=== PATIENT | male | born 1960 | race Caucasian/White ===

== ENCOUNTER 2017-09-03 10:16 | Inpatient (IN) | payer OTHER ==
[2017-09-03 10:34] LABS: POC GLUCOSE 259 mg/dL (70-99)
[2017-09-03 10:51] LABS: BASO % 0 % (0-3); EOS # 0.1 x10^3/uL (0.0-0.7); EOS % 1 % (0-3); HEMOGLOBIN 14.9 g/dL (13.0-17.5); LYMPH # 0.7 x10^3/uL (1.0-4.8); LYMPH % 6 % (24-48); MEAN CORPUSCULAR HEMOGLOBIN 37 pg (25-35); MEAN CORPUSCULAR HGB CONC 35 g/dL (31-37); MEAN CORPUSCULAR VOLUME 106 fL (79-100); MONO # 0.3 x10^3/uL (0.0-1.1); MONO % 3 % (0-9); NEUT # 12.2 x10^3uL (1.8-7.7); NEUT % 91 % (31-73); PLATELET COUNT 246 x10^3/uL (140-400); RED BLOOD COUNT 4.07 x10^6/uL (4.30-5.70); RED CELL DISTRIBUTION WIDTH 13.4 % (11.5-14.5); WHITE BLOOD COUNT 13.4 x10^3/uL (4.0-11.0)
[2017-09-03 10:54] LABS: ADD MAN DIFF? yes
[2017-09-03] MEDS: ONDANSETRON ODT 4 MG TAB.RAPDIS. PO (11:00)
[2017-09-03] MEDS ORDERED: ONDANSETRON PF 4 MG/2 ML VIAL. (11:02)
[2017-09-03] MEDS: IV NORMAL SALINE 500ML BAG 500 ML IV (11:09)
[2017-09-03] MEDS: NITROGLYCERIN SUBLINGUAL 0.4 MG BOTTLE OF 25. SL ×2 (11:10→11:17)
[2017-09-03 11:12] LABS: ANION GAP 17 (6-14); BLOOD UREA NITROGEN 16 mg/dL (8-26); CARBON DIOXIDE 20 mmol/L (21-32); CHLORIDE 104 mmol/L (98-107); CREATININE 1.1 mg/dL (0.7-1.3); GFR 68.8; GLUCOSE 261 mg/dL (70-99); POTASSIUM 3.8 mmol/L (3.5-5.1); SODIUM 141 mmol/L (136-145)
[2017-09-03 11:13] LABS: INR 1.1 (0.8-1.1); PARTIAL THROMBOPLASTIN TIME 23 SEC (24-38); PROTHROMBIN TIME PATIENT 13.8 SEC (11.7-14.0)
[2017-09-03] MEDS: ONDANSETRON PF 4 MG/2 ML VIAL. IV ×2 (11:14→17:56)
[2017-09-03 11:19] LABS: ALBUMIN 3.4 g/dL (3.4-5.0); ALK PHOS 160 U/L (46-116); ALT (SGPT) 115 U/L (16-63); AST (SGOT) 52 U/L (15-37); DIRECT BILIRUBIN 0.3 mg/dL (0.0-0.2); TOTAL BILIRUBIN 0.8 mg/dL (0.2-1.0); TOTAL PROTEIN 6.6 g/dL (6.4-8.2)
[2017-09-03 11:21] LABS: TROPONINI 0.019 ng/mL (0.000-0.055)
[2017-09-03 11:25] LABS: NT-PRO BNP 389 pg/mL (0-124)
[2017-09-03 11:36] LABS: LIPASE 3539 U/L (73-393)
[2017-09-03] MEDS ORDERED: ONDANSETRON PF 4 MG/2 ML VIAL. IV (12:15)
[2017-09-03] MEDS: IV NORMAL SALINE 1000ML BAG 1,000 ML IV ×4 (12:20→20:36)
[2017-09-03] MEDS: fentaNYL PF VIAL 100 MCG/2 ML VIAL IV ×6 (12:23→20:00)
[2017-09-03 12:24] LABS: LACTATE DEHYDROGENASE 282 U/L (85-227)
[2017-09-03] MEDS: LABETALOL 20 MG/4 ML DISP.SYRIN. IVP ×3 (12:48→20:01)
[2017-09-03] MEDS ORDERED: CONTRAST GIVEN MC (13:00)
[2017-09-03] MEDS: IOHEXOL 300 MG/ML 100ML VIAL. IV (13:21)
[2017-09-03] MEDS: MORPHINE SULFATE 2 MG/ML DISP.SYRIN. IV (13:34)
[2017-09-03 14:08] LABS: % BANDS 18 % (0-9); % LYMPHS 6 % (24-48); % MONOS 1 % (0-10); % SEGS 75 % (35-66); PLT ESTIMATE ADEQUATE (ADEQUATE)
[2017-09-03] MEDS ORDERED: DEXTROSE 50% 25 GM / 50ML DISP.SYRIN. IV (14:15)
[2017-09-03] MEDS: MORPHINE SULFATE 4 MG/ML DISP.SYRIN. IV ×3 (15:12→22:43)
[2017-09-03] MEDS: MULTIVIT INFUSN,ADULT 4,VIT K 10 ML, THIAMINE 100 MG, FOLIC ACID 1 MG in IV DEXTROSE 5 ... IV (15:44)
[2017-09-03] MEDS: SPIRONOLACTONE 25 MG TABLET PO (16:00)
[2017-09-03] MEDS: METOPROLOL SUCC 24HR ER 25 MG TAB.ER.24H. PO (16:00)
[2017-09-03] MEDS: LISINOPRIL 2.5 MG TABLET PO (16:00)
[2017-09-03] MEDS: AMIODARONE HCL 200 MG TABLET. PO (16:00)
[2017-09-03] MEDS: INSULIN ASPART 300 UNITS/3 ML INSULN.PEN SQ (17:18)
[2017-09-03 17:27] LABS: POC GLUCOSE 305 mg/dL (70-99)
[2017-09-03 20:10] LABS: HEMOGLOBIN A1C 6.7 % (4.8-5.6)
[2017-09-03] MEDS: FAMOTIDINE 20 MG/2 ML VIAL IVP (20:30)
[2017-09-03] MEDS: INSULIN DETEMIR 300 UNITS/3 ML INSULN.PEN. SQ (20:31)
[2017-09-03 20:42] LABS: POC GLUCOSE 261 mg/dL (70-99)
[2017-09-04 00:10] LABS: MRSA BY PCR Negative (Negative)
[2017-09-04] MEDS: ONDANSETRON PF 4 MG/2 ML VIAL. IV ×3 (00:30→21:42)
[2017-09-04] MEDS: LABETALOL 20 MG/4 ML DISP.SYRIN. IVP ×3 (00:30→06:06)
[2017-09-04] MEDS: MORPHINE SULFATE 4 MG/ML DISP.SYRIN. IV ×11 (01:16→23:21)
[2017-09-04 03:47] LABS: ADD MAN DIFF? NO
[2017-09-04 03:51] LABS: BASO # 0.1 x10^3/uL (0.0-0.2); BASO % 1 % (0-3); EOS # 0.1 x10^3/uL (0.0-0.7); EOS % 0 % (0-3); HEMOGLOBIN 14.1 g/dL (13.0-17.5); LYMPH # 0.4 x10^3/uL (1.0-4.8); LYMPH % 3 % (24-48); MEAN CORPUSCULAR HEMOGLOBIN 37 pg (25-35); MEAN CORPUSCULAR HGB CONC 35 g/dL (31-37); MEAN CORPUSCULAR VOLUME 106 fL (79-100); MONO # 0.3 x10^3/uL (0.0-1.1); MONO % 3 % (0-9); NEUT # 11.9 x10^3uL (1.8-7.7); NEUT % 93 % (31-73); PLATELET COUNT 193 x10^3/uL (140-400); RED BLOOD COUNT 3.78 x10^6/uL (4.30-5.70); RED CELL DISTRIBUTION WIDTH 13.7 % (11.5-14.5); WHITE BLOOD COUNT 12.7 x10^3/uL (4.0-11.0)
[2017-09-04 04:11] LABS: ANION GAP 9 (6-14); BLOOD UREA NITROGEN 13 mg/dL (8-26); CALCIUM 7.6 mg/dL (8.5-10.1); CARBON DIOXIDE 25 mmol/L (21-32); CHLORIDE 106 mmol/L (98-107); GFR 76.7; GLUCOSE 213 mg/dL (70-99); POTASSIUM 3.9 mmol/L (3.5-5.1); SODIUM 140 mmol/L (136-145)
[2017-09-04 04:36] LABS: LIPASE 3009 U/L (73-393)
[2017-09-04] MEDS: IV NORMAL SALINE 1000ML BAG 1,000 ML IV (04:36)
[2017-09-04] MEDS: INSULIN ASPART 300 UNITS/3 ML INSULN.PEN SQ ×3 (08:00→17:54)
[2017-09-04 08:23] LABS: POC GLUCOSE 162 mg/dL (70-99)
[2017-09-04] MEDS: fentaNYL PF VIAL 100 MCG/2 ML VIAL IV (09:03)
[2017-09-04] MEDS: FAMOTIDINE 20 MG/2 ML VIAL IVP ×2 (09:04→21:18)
[2017-09-04] MEDS: LISINOPRIL 2.5 MG TABLET PO (09:04)
[2017-09-04] MEDS: AMIODARONE HCL 200 MG TABLET. PO (09:04)
[2017-09-04] MEDS: SPIRONOLACTONE 25 MG TABLET PO (09:05)
[2017-09-04] MEDS: METOPROLOL SUCC 24HR ER 25 MG TAB.ER.24H. PO (09:05)
[2017-09-04] MEDS: MULTIVIT INFUSN,ADULT 4,VIT K 10 ML, THIAMINE 100 MG, FOLIC ACID 1 MG in IV DEXTROSE 5 ... IV (09:05)
[2017-09-04 13:00] LABS: POC GLUCOSE 197 mg/dL (70-99)
[2017-09-04] MEDS: LISINOPRIL 5 MG TABLET. PO (17:15)
[2017-09-04 17:23] LABS: POC GLUCOSE 208 mg/dL (70-99)
[2017-09-04] MEDS ORDERED: MULTIVIT INFUSN,ADULT 4,VIT K 10 ML, THIAMINE 100 MG, FOLIC ACID 1 MG in IV DEXTROSE 5 ... IV (20:15)
[2017-09-04 21:59] LABS: POC GLUCOSE 170 mg/dL (70-99)
[2017-09-04] MEDS: INSULIN DETEMIR 300 UNITS/3 ML INSULN.PEN. SQ (22:22)
[2017-09-05] MEDS: MORPHINE SULFATE 4 MG/ML DISP.SYRIN. IV ×7 (01:19→17:26)
[2017-09-05] MEDS: fentaNYL PF VIAL 100 MCG/2 ML VIAL IV ×2 (02:53→19:56)
[2017-09-05] MEDS: LISINOPRIL 5 MG TABLET. PO (05:43)
[2017-09-05 06:52] LABS: ADD MAN DIFF? NO
[2017-09-05 06:58] LABS: BASO # 0.1 x10^3/uL (0.0-0.2); BASO % 1 % (0-3); EOS # 0.1 x10^3/uL (0.0-0.7); EOS % 1 % (0-3); HEMOGLOBIN 13.8 g/dL (13.0-17.5); LYMPH # 0.5 x10^3/uL (1.0-4.8); LYMPH % 4 % (24-48); MEAN CORPUSCULAR HEMOGLOBIN 37 pg (25-35); MEAN CORPUSCULAR HGB CONC 34 g/dL (31-37); MEAN CORPUSCULAR VOLUME 107 fL (79-100); MONO # 0.3 x10^3/uL (0.0-1.1); MONO % 2 % (0-9); NEUT # 10.8 x10^3uL (1.8-7.7); NEUT % 93 % (31-73); PLATELET COUNT 149 x10^3/uL (140-400); RED BLOOD COUNT 3.75 x10^6/uL (4.30-5.70); RED CELL DISTRIBUTION WIDTH 13.6 % (11.5-14.5); WHITE BLOOD COUNT 11.7 x10^3/uL (4.0-11.0)
[2017-09-05 07:18] LABS: ALBUMIN 2.6 g/dL (3.4-5.0); ALBUMIN/GLOBULIN RATIO 0.8 (1.0-1.7); ALK PHOS 202 U/L (46-116); ALT (SGPT) 150 U/L (16-63); ANION GAP 4 (6-14); AST (SGOT) 113 U/L (15-37); BLOOD UREA NITROGEN 9 mg/dL (8-26); BUN/CREATININE RATIO 10 (6-20); CALCIUM 7.2 mg/dL (8.5-10.1); CARBON DIOXIDE 29 mmol/L (21-32); CHLORIDE 109 mmol/L (98-107); CHOLESTEROL 111 mg/dL (0-200); CREATININE 0.9 mg/dL (0.7-1.3); GFR 86.7; GLUCOSE 109 mg/dL (70-99); HDLC 43 mg/dL (40-60); LDLC 57 mg/dL (0-100); LIPASE 357 U/L (73-393); NON-HDL CHOLESTEROL 68 mg/dL (0-129); SODIUM 142 mmol/L (136-145); TOTAL BILIRUBIN 0.9 mg/dL (0.2-1.0); TRIGLYCERIDES 56 mg/dL (0-150); VLDLC 11 mg/dL (0-40)
[2017-09-05 07:19] LABS: CHOLESTEROL/HDL RATIO 2.6
[2017-09-05] MEDS: INSULIN ASPART 300 UNITS/3 ML INSULN.PEN SQ ×3 (08:00→17:00)
[2017-09-05] MEDS: LORazepam 0.5 MG TABLET PO ×2 (08:26→17:25)
[2017-09-05] MEDS: SPIRONOLACTONE 25 MG TABLET PO (08:27)
[2017-09-05] MEDS: METOPROLOL SUCC 24HR ER 25 MG TAB.ER.24H. PO (08:27)
[2017-09-05] MEDS: AMIODARONE HCL 200 MG TABLET. PO (08:29)
[2017-09-05 08:31] LABS: POC GLUCOSE 91 mg/dL (70-99)
[2017-09-05] MEDS: FAMOTIDINE 20 MG/2 ML VIAL IVP ×2 (08:38→20:39)
[2017-09-05] MEDS: MULTIVIT INFUSN,ADULT 4,VIT K 10 ML, THIAMINE 100 MG, FOLIC ACID 1 MG in IV DEXTROSE 5 ... IV (11:35)
[2017-09-05 11:38] LABS: POC GLUCOSE 84 mg/dL (70-99)
[2017-09-05] MEDS: ONDANSETRON PF 4 MG/2 ML VIAL. IV (15:01)
[2017-09-05 17:19] LABS: POC GLUCOSE 116 mg/dL (70-99)
[2017-09-05] MEDS: ASPIRIN ENTERIC COATED 81 MG TABLET.DR. PO (17:25)
[2017-09-05] MEDS: LISINOPRIL 20 MG TABLET PO (17:25)
[2017-09-05 17:36] LABS: BILIRUBIN,URINE MODERATE (NEG); CLARITY,URINE CLEAR; COLOR,URINE ORANGE; GLUCOSE,URINE NEGATIVE (NEG); NITRITE,URINE NEGATIVE (NEG); PROTEIN,URINE 100 mg/dL (NEG-TRACE)
[2017-09-05 17:46] LABS: BACTERIA,URINE 0 /HPF (0-FEW); RBC,URINE 0 /HPF (0-2); SQUAMOUS EPITHELIAL CELL,UR OCC /LPF
[2017-09-05 20:47] LABS: POC GLUCOSE 116 mg/dL (70-99)
[2017-09-05] MEDS: INSULIN DETEMIR 300 UNITS/3 ML INSULN.PEN. SQ (21:00)
[2017-09-05] MEDS: HYDROmorphone 2 MG/ML VIAL IV (22:11)
[2017-09-06] MEDS: HYDROmorphone 2 MG/ML VIAL IV ×6 (02:03→20:11)
[2017-09-06] MEDS: hydrALAZINE 20 MG/ML VIAL. IVP ×2 (03:47→11:15)
[2017-09-06 05:14] LABS: ADD MAN DIFF? NO
[2017-09-06] MEDS: LISINOPRIL 20 MG TABLET PO ×2 (05:22→16:39)
[2017-09-06 05:32] LABS: BASO # 0.1 x10^3/uL (0.0-0.2); BASO % 1 % (0-3); EOS % 0 % (0-3); HEMATOCRIT 38.1 % (39.0-53.0); HEMOGLOBIN 13.3 g/dL (13.0-17.5); LYMPH # 0.9 x10^3/uL (1.0-4.8); LYMPH % 8 % (24-48); MEAN CORPUSCULAR HEMOGLOBIN 37 pg (25-35); MEAN CORPUSCULAR HGB CONC 35 g/dL (31-37); MEAN CORPUSCULAR VOLUME 106 fL (79-100); MONO # 0.4 x10^3/uL (0.0-1.1); MONO % 4 % (0-9); NEUT # 9.5 x10^3uL (1.8-7.7); NEUT % 87 % (31-73); PLATELET COUNT 140 x10^3/uL (140-400); RED BLOOD COUNT 3.59 x10^6/uL (4.30-5.70); RED CELL DISTRIBUTION WIDTH 13.3 % (11.5-14.5); WHITE BLOOD COUNT 10.9 x10^3/uL (4.0-11.0)
[2017-09-06 05:51] LABS: ALBUMIN 2.5 g/dL (3.4-5.0); ALBUMIN/GLOBULIN RATIO 0.8 (1.0-1.7); ALK PHOS 176 U/L (46-116); ALT (SGPT) 103 U/L (16-63); ANION GAP 9 (6-14); AST (SGOT) 44 U/L (15-37); BLOOD UREA NITROGEN 10 mg/dL (8-26); BUN/CREATININE RATIO 13 (6-20); CALCIUM 7.6 mg/dL (8.5-10.1); CARBON DIOXIDE 25 mmol/L (21-32); CHLORIDE 105 mmol/L (98-107); CREATININE 0.8 mg/dL (0.7-1.3); GFR 99.3; GLUCOSE 125 mg/dL (70-99); LIPASE 229 U/L (73-393); POTASSIUM 3.8 mmol/L (3.5-5.1); SODIUM 139 mmol/L (136-145); TOTAL BILIRUBIN 0.9 mg/dL (0.2-1.0); TOTAL PROTEIN 5.8 g/dL (6.4-8.2)
[2017-09-06] MEDS: LABETALOL 20 MG/4 ML DISP.SYRIN. IVP (06:38)
[2017-09-06] MEDS: ONDANSETRON PF 4 MG/2 ML VIAL. IV ×3 (06:39→20:10)
[2017-09-06] MEDS: ASPIRIN ENTERIC COATED 81 MG TABLET.DR. PO (07:58)
[2017-09-06] MEDS: SPIRONOLACTONE 25 MG TABLET PO (07:59)
[2017-09-06] MEDS: METOPROLOL SUCC 24HR ER 25 MG TAB.ER.24H. PO (07:59)
[2017-09-06] MEDS: AMIODARONE HCL 200 MG TABLET. PO (08:00)
[2017-09-06] MEDS: FAMOTIDINE 20 MG/2 ML VIAL IVP ×2 (08:01→20:11)
[2017-09-06] MEDS: INSULIN ASPART 300 UNITS/3 ML INSULN.PEN SQ ×3 (08:01→18:12)
[2017-09-06] MEDS: MORPHINE SULFATE 4 MG/ML DISP.SYRIN. IV ×3 (08:08→22:20)
[2017-09-06] MEDS: MULTIVIT INFUSN,ADULT 4,VIT K 10 ML, THIAMINE 100 MG, FOLIC ACID 1 MG in IV DEXTROSE 5 ... IV (08:10)
[2017-09-06 09:16] LABS: POC GLUCOSE 133 mg/dL (70-99)
[2017-09-06] MEDS: HYDROcodone/APAP 5/325MG 1 TAB TABLET PO (11:12)
[2017-09-06 12:45] LABS: POC GLUCOSE 198 mg/dL (70-99)
[2017-09-06] MEDS: FUROSEMIDE 40 MG/4 ML VIAL. IVP (14:31)
[2017-09-06 14:33] LABS: THYROID STIM HORMONE (TSH) 1.095 uIU/mL (0.358-3.74)
[2017-09-06] MEDS: METOPROLOL SUCC 24HR ER 100 MG TAB.ER.24H. PO (16:40)
[2017-09-06 16:55] LABS: POC GLUCOSE 162 mg/dL (70-99)
[2017-09-06] MEDS: diphenhydrAMINE HCL 25 MG CAPSULE PO (20:11)
[2017-09-06 21:01] LABS: POC GLUCOSE 234 mg/dL (70-99)
[2017-09-06 23:15] LABS: BARBITURATES NEG (NEG); BENZODIAZEPINES NEG (NEG); CANNABINOIDS NEG (NEG); COCAINE NEG (NEG); METHADONE NEG (NEG); OPIATES POS (NEG); PHENCYCLIDINE NEG (NEG)
[2017-09-06 23:16] LABS: AMPHETAMINE/METHAMPHETAMINE NEG (NEG); ETHANOL, URINE NEG (NEG)
[2017-09-07] MEDS: HYDROmorphone 2 MG/ML VIAL IV ×6 (00:31→23:21)
[2017-09-07] MEDS: LABETALOL 20 MG/4 ML DISP.SYRIN. IVP ×3 (00:33→23:15)
[2017-09-07] MEDS: ONDANSETRON PF 4 MG/2 ML VIAL. IV ×2 (02:15→12:36)
[2017-09-07] MEDS: MORPHINE SULFATE 4 MG/ML DISP.SYRIN. IV (02:24)
[2017-09-07 07:35] LABS: POC GLUCOSE 157 mg/dL (70-99)
[2017-09-07] MEDS: METOPROLOL SUCC 24HR ER 25 MG TAB.ER.24H. PO (08:21)
[2017-09-07] MEDS: ASPIRIN ENTERIC COATED 81 MG TABLET.DR. PO (08:22)
[2017-09-07] MEDS: AMIODARONE HCL 200 MG TABLET. PO (08:22)
[2017-09-07] MEDS: SPIRONOLACTONE 25 MG TABLET PO (08:22)
[2017-09-07] MEDS: LISINOPRIL 40 MG TABLET. PO (08:22)
[2017-09-07] MEDS: FAMOTIDINE 20 MG/2 ML VIAL IVP (08:23)
[2017-09-07] MEDS: MULTIVIT INFUSN,ADULT 4,VIT K 10 ML, THIAMINE 100 MG, FOLIC ACID 1 MG in IV DEXTROSE 5 ... IV (08:28)
[2017-09-07] MEDS: INSULIN ASPART 300 UNITS/3 ML INSULN.PEN SQ ×3 (08:30→17:00)
[2017-09-07 08:37] LABS: ADD MAN DIFF? NO
[2017-09-07 08:41] LABS: BASO % 0 % (0-3); EOS # 0.1 x10^3/uL (0.0-0.7); EOS % 1 % (0-3); HEMATOCRIT 37.4 % (39.0-53.0); LYMPH # 0.7 x10^3/uL (1.0-4.8); LYMPH % 8 % (24-48); MEAN CORPUSCULAR HEMOGLOBIN 37 pg (25-35); MEAN CORPUSCULAR HGB CONC 35 g/dL (31-37); MEAN CORPUSCULAR VOLUME 105 fL (79-100); MONO # 0.5 x10^3/uL (0.0-1.1); MONO % 7 % (0-9); NEUT # 6.6 x10^3uL (1.8-7.7); NEUT % 84 % (31-73); PLATELET COUNT 180 x10^3/uL (140-400); RED BLOOD COUNT 3.54 x10^6/uL (4.30-5.70); RED CELL DISTRIBUTION WIDTH 13.3 % (11.5-14.5); WHITE BLOOD COUNT 7.8 x10^3/uL (4.0-11.0)
[2017-09-07 09:02] LABS: LIPASE 623 U/L (73-393)
[2017-09-07 09:08] LABS: ALBUMIN 2.6 g/dL (3.4-5.0); ALBUMIN/GLOBULIN RATIO 0.9 (1.0-1.7); ALK PHOS 165 U/L (46-116); ALT (SGPT) 66 U/L (16-63); ANION GAP 11 (6-14); AST (SGOT) 21 U/L (15-37); BLOOD UREA NITROGEN 8 mg/dL (8-26); BUN/CREATININE RATIO 10 (6-20); CARBON DIOXIDE 24 mmol/L (21-32); CHLORIDE 103 mmol/L (98-107); CREATININE 0.8 mg/dL (0.7-1.3); GFR 99.3; GLUCOSE 171 mg/dL (70-99); POTASSIUM 3.3 mmol/L (3.5-5.1); SODIUM 138 mmol/L (136-145); TOTAL BILIRUBIN 0.9 mg/dL (0.2-1.0); TOTAL PROTEIN 5.5 g/dL (6.4-8.2)
[2017-09-07 11:47] LABS: POC GLUCOSE 219 mg/dL (70-99)
[2017-09-07] MEDS: HYDROcodone/APAP 5/325MG 1 TAB TABLET PO ×2 (12:36→20:59)
[2017-09-07] MEDS: PROCHLORPERAZINE 10 MG/2 ML VIAL. IV (17:39)
[2017-09-07] MEDS: IBUPROFEN 400 MG TABLET. PO (17:44)
[2017-09-07 20:46] LABS: POC GLUCOSE 201 mg/dL (70-99)
[2017-09-07] MEDS: FAMOTIDINE 20 MG TABLET. PO (20:59)
[2017-09-07 21:21] LABS: POC GLUCOSE 119 mg/dL (70-99)
[2017-09-08] MEDS: ONDANSETRON PF 4 MG/2 ML VIAL. IV (03:18)
[2017-09-08] MEDS: HYDROcodone/APAP 5/325MG 1 TAB TABLET PO ×3 (03:41→20:55)
[2017-09-08 05:20] LABS: ADD MAN DIFF? NO
[2017-09-08 05:37] LABS: BASO % 0 % (0-3); EOS # 0.1 x10^3/uL (0.0-0.7); EOS % 1 % (0-3); HEMATOCRIT 36.1 % (39.0-53.0); HEMOGLOBIN 12.6 g/dL (13.0-17.5); LYMPH % 14 % (24-48); MEAN CORPUSCULAR HEMOGLOBIN 37 pg (25-35); MEAN CORPUSCULAR HGB CONC 35 g/dL (31-37); MEAN CORPUSCULAR VOLUME 106 fL (79-100); MONO # 0.7 x10^3/uL (0.0-1.1); MONO % 10 % (0-9); NEUT # 5.4 x10^3uL (1.8-7.7); NEUT % 75 % (31-73); PLATELET COUNT 168 x10^3/uL (140-400); RED CELL DISTRIBUTION WIDTH 13.3 % (11.5-14.5); WHITE BLOOD COUNT 7.3 x10^3/uL (4.0-11.0)
[2017-09-08] MEDS: HYDROmorphone 2 MG/ML VIAL IV ×4 (06:30→17:51)
[2017-09-08 06:51] LABS: LIPASE 1068 U/L (73-393)
[2017-09-08 07:30] LABS: ALBUMIN 2.5 g/dL (3.4-5.0); ALBUMIN/GLOBULIN RATIO 0.7 (1.0-1.7); ALK PHOS 138 U/L (46-116); ALT (SGPT) 57 U/L (16-63); ANION GAP 7 (6-14); AST (SGOT) 20 U/L (15-37); BLOOD UREA NITROGEN 10 mg/dL (8-26); BUN/CREATININE RATIO 10 (6-20); CALCIUM 8.5 mg/dL (8.5-10.1); CARBON DIOXIDE 27 mmol/L (21-32); CHLORIDE 105 mmol/L (98-107); GFR 76.7; GLUCOSE 228 mg/dL (70-99); POTASSIUM 4.3 mmol/L (3.5-5.1); SODIUM 139 mmol/L (136-145); TOTAL BILIRUBIN 0.6 mg/dL (0.2-1.0); TOTAL PROTEIN 5.9 g/dL (6.4-8.2)
[2017-09-08 07:53] LABS: POC GLUCOSE 195 mg/dL (70-99)
[2017-09-08] MEDS: INSULIN ASPART 300 UNITS/3 ML INSULN.PEN SQ ×3 (08:00→18:01)
[2017-09-08] MEDS: LISINOPRIL 40 MG TABLET. PO (08:35)
[2017-09-08] MEDS: FAMOTIDINE 20 MG TABLET. PO ×2 (08:36→20:51)
[2017-09-08] MEDS: ASPIRIN ENTERIC COATED 81 MG TABLET.DR. PO (08:36)
[2017-09-08] MEDS: METOPROLOL SUCC 24HR ER 25 MG TAB.ER.24H. PO (08:36)
[2017-09-08] MEDS: AMIODARONE HCL 200 MG TABLET. PO (08:37)
[2017-09-08] MEDS: SPIRONOLACTONE 25 MG TABLET PO (08:41)
[2017-09-08] MEDS: PROCHLORPERAZINE 10 MG/2 ML VIAL. IV ×2 (08:41→17:54)
[2017-09-08] MEDS: MULTIVIT INFUSN,ADULT 4,VIT K 10 ML, THIAMINE 100 MG, FOLIC ACID 1 MG in IV DEXTROSE 5 ... IV (08:46)
[2017-09-08] MEDS: LABETALOL 20 MG/4 ML DISP.SYRIN. IVP (10:59)
[2017-09-08] MEDS: FUROSEMIDE 40 MG/4 ML VIAL. IVP ×2 (12:22→14:00)
[2017-09-08] MEDS ORDERED: amLODIPine BESYLATE 10 MG TABLET PO (14:30)
[2017-09-08 17:00] LABS: POC GLUCOSE 217 mg/dL (70-99)
[2017-09-08 17:00] LABS: POC GLUCOSE 236 mg/dL (70-99)
[2017-09-08] MEDS: hydrALAZINE 20 MG/ML VIAL. IVP ×2 (17:52→23:19)
[2017-09-08 20:41] LABS: POC GLUCOSE 252 mg/dL (70-99)
[2017-09-08] MEDS: diphenhydrAMINE HCL 25 MG CAPSULE PO (20:54)
[2017-09-09] MEDS: HYDROcodone/APAP 5/325MG 1 TAB TABLET PO ×2 (01:59→21:28)
[2017-09-09] MEDS: HYDROmorphone 2 MG/ML VIAL IV ×6 (02:13→22:09)
[2017-09-09] MEDS: PROCHLORPERAZINE 10 MG/2 ML VIAL. IV ×4 (02:23→22:09)
[2017-09-09] MEDS: ONDANSETRON PF 4 MG/2 ML VIAL. IV (08:24)
[2017-09-09] MEDS: hydrALAZINE 20 MG/ML VIAL. IVP (08:25)
[2017-09-09] MEDS: INSULIN ASPART 300 UNITS/3 ML INSULN.PEN SQ ×3 (08:36→17:54)
[2017-09-09] MEDS: FUROSEMIDE 40 MG/4 ML VIAL. IVP (08:40)
[2017-09-09] MEDS: METOPROLOL SUCC 24HR ER 25 MG TAB.ER.24H. PO (08:55)
[2017-09-09] MEDS: AMIODARONE HCL 200 MG TABLET. PO (08:55)
[2017-09-09] MEDS: FAMOTIDINE 20 MG TABLET. PO ×2 (08:55→21:27)
[2017-09-09] MEDS: ASPIRIN ENTERIC COATED 81 MG TABLET.DR. PO (08:56)
[2017-09-09] MEDS: LISINOPRIL 40 MG TABLET. PO (08:56)
[2017-09-09] MEDS: SPIRONOLACTONE 25 MG TABLET PO (08:56)
[2017-09-09 09:17] LABS: POC GLUCOSE 210 mg/dL (70-99)
[2017-09-09 09:56] LABS: LIPASE 1137 U/L (73-393)
[2017-09-09 13:11] LABS: POC GLUCOSE 320 mg/dL (70-99)
[2017-09-09 17:33] LABS: POC GLUCOSE 244 mg/dL (70-99)
[2017-09-09 20:46] LABS: POC GLUCOSE 242 mg/dL (70-99)
[2017-09-09] MEDS: diphenhydrAMINE HCL 25 MG CAPSULE PO (21:27)
[2017-09-10] MEDS: HYDROmorphone 2 MG/ML VIAL IV ×7 (02:05→23:02)
[2017-09-10] MEDS: chlordiazePOXIDE HCL 25 MG CAPSULE PO (04:41)
[2017-09-10] MEDS: PROCHLORPERAZINE 10 MG/2 ML VIAL. IV ×3 (08:16→20:37)
[2017-09-10] MEDS: FUROSEMIDE 40 MG/4 ML VIAL. IVP (08:24)
[2017-09-10] MEDS: INSULIN ASPART 300 UNITS/3 ML INSULN.PEN SQ ×3 (08:25→17:49)
[2017-09-10] MEDS: AMIODARONE HCL 200 MG TABLET. PO (08:32)
[2017-09-10] MEDS: ASPIRIN ENTERIC COATED 81 MG TABLET.DR. PO (08:32)
[2017-09-10] MEDS: CARVEDILOL 12.5 MG TABLET. PO ×2 (08:33→17:48)
[2017-09-10] MEDS: FAMOTIDINE 20 MG TABLET. PO ×2 (08:33→20:37)
[2017-09-10] MEDS: LISINOPRIL 40 MG TABLET. PO (08:33)
[2017-09-10 08:52] LABS: POC GLUCOSE 247 mg/dL (70-99)
[2017-09-10] MEDS: SPIRONOLACTONE 25 MG TABLET PO (09:28)
[2017-09-10 12:36] LABS: POC GLUCOSE 255 mg/dL (70-99)
[2017-09-10 17:31] LABS: POC GLUCOSE 243 mg/dL (70-99)
[2017-09-10 20:44] LABS: POC GLUCOSE 221 mg/dL (70-99)
[2017-09-11] MEDS: HYDROmorphone 2 MG/ML VIAL IV ×5 (02:30→19:23)
[2017-09-11] MEDS: PROCHLORPERAZINE 10 MG/2 ML VIAL. IV ×3 (03:13→15:46)
[2017-09-11 03:51] LABS: ADD MAN DIFF? NO
[2017-09-11 03:54] LABS: BASO % 0 % (0-3); EOS # 0.2 x10^3/uL (0.0-0.7); EOS % 3 % (0-3); HEMATOCRIT 36.3 % (39.0-53.0); HEMOGLOBIN 12.9 g/dL (13.0-17.5); LYMPH # 0.9 x10^3/uL (1.0-4.8); LYMPH % 12 % (24-48); MEAN CORPUSCULAR HEMOGLOBIN 37 pg (25-35); MEAN CORPUSCULAR HGB CONC 36 g/dL (31-37); MEAN CORPUSCULAR VOLUME 105 fL (79-100); MONO # 0.7 x10^3/uL (0.0-1.1); MONO % 10 % (0-9); NEUT # 5.4 x10^3uL (1.8-7.7); NEUT % 74 % (31-73); PLATELET COUNT 272 x10^3/uL (140-400); RED BLOOD COUNT 3.47 x10^6/uL (4.30-5.70); WHITE BLOOD COUNT 7.3 x10^3/uL (4.0-11.0)
[2017-09-11 04:11] LABS: ANION GAP 7 (6-14); BLOOD UREA NITROGEN 8 mg/dL (8-26); CARBON DIOXIDE 31 mmol/L (21-32); CHLORIDE 97 mmol/L (98-107); CREATININE 0.9 mg/dL (0.7-1.3); GFR 86.7; GLUCOSE 233 mg/dL (70-99); LIPASE 826 U/L (73-393); POTASSIUM 3.4 mmol/L (3.5-5.1); SODIUM 135 mmol/L (136-145)
[2017-09-11] MEDS: ONDANSETRON PF 4 MG/2 ML VIAL. IV ×2 (08:43→19:23)
[2017-09-11 09:00] LABS: POC GLUCOSE 224 mg/dL (70-99)
[2017-09-11] MEDS: FAMOTIDINE 20 MG TABLET. PO ×2 (09:14→20:58)
[2017-09-11] MEDS: SPIRONOLACTONE 25 MG TABLET PO (09:14)
[2017-09-11] MEDS: LISINOPRIL 40 MG TABLET. PO (09:14)
[2017-09-11] MEDS: AMIODARONE HCL 200 MG TABLET. PO (09:14)
[2017-09-11] MEDS: HYDROcodone/APAP 5/325MG 1 TAB TABLET PO ×2 (09:15→15:46)
[2017-09-11] MEDS: ASPIRIN ENTERIC COATED 81 MG TABLET.DR. PO (09:15)
[2017-09-11] MEDS: CARVEDILOL 12.5 MG TABLET. PO ×2 (09:16→17:56)
[2017-09-11] MEDS: FUROSEMIDE 40 MG/4 ML VIAL. IVP (09:17)
[2017-09-11] MEDS: INSULIN ASPART 300 UNITS/3 ML INSULN.PEN SQ ×3 (09:31→17:59)
[2017-09-11 12:19] LABS: POC GLUCOSE 275 mg/dL (70-99)
[2017-09-11 18:00] LABS: POC GLUCOSE 281 mg/dL (70-99)
[2017-09-11 20:55] LABS: POC GLUCOSE 230 mg/dL (70-99)
[2017-09-12] MEDS: HYDROcodone/APAP 5/325MG 1 TAB TABLET PO ×3 (02:49→17:24)
[2017-09-12] MEDS: ONDANSETRON ODT 4 MG TAB.RAPDIS. PO ×2 (02:59→08:54)
[2017-09-12] MEDS: PROCHLORPERAZINE 10 MG/2 ML VIAL. IV (05:55)
[2017-09-12] MEDS: HYDROmorphone 2 MG/ML VIAL IV ×3 (05:55→20:48)
[2017-09-12 06:38] LABS: ADD MAN DIFF? NO
[2017-09-12 06:52] LABS: BASO % 0 % (0-3); EOS # 0.1 x10^3/uL (0.0-0.7); EOS % 1 % (0-3); HEMATOCRIT 39.1 % (39.0-53.0); HEMOGLOBIN 13.9 g/dL (13.0-17.5); LYMPH # 0.9 x10^3/uL (1.0-4.8); LYMPH % 9 % (24-48); MEAN CORPUSCULAR HEMOGLOBIN 37 pg (25-35); MEAN CORPUSCULAR HGB CONC 36 g/dL (31-37); MEAN CORPUSCULAR VOLUME 104 fL (79-100); MONO # 0.7 x10^3/uL (0.0-1.1); MONO % 7 % (0-9); NEUT # 9.1 x10^3uL (1.8-7.7); NEUT % 83 % (31-73); PLATELET COUNT 319 x10^3/uL (140-400); RED BLOOD COUNT 3.77 x10^6/uL (4.30-5.70); RED CELL DISTRIBUTION WIDTH 13.2 % (11.5-14.5); WHITE BLOOD COUNT 10.9 x10^3/uL (4.0-11.0)
[2017-09-12 07:01] LABS: ANION GAP 10 (6-14); BLOOD UREA NITROGEN 10 mg/dL (8-26); CALCIUM 8.8 mg/dL (8.5-10.1); CARBON DIOXIDE 29 mmol/L (21-32); CHLORIDE 97 mmol/L (98-107); CREATININE 0.9 mg/dL (0.7-1.3); GFR 86.7; GLUCOSE 262 mg/dL (70-99); POTASSIUM 3.3 mmol/L (3.5-5.1); SODIUM 136 mmol/L (136-145)
[2017-09-12 08:13] LABS: POC GLUCOSE 241 mg/dL (70-99)
[2017-09-12] MEDS: LISINOPRIL 40 MG TABLET. PO (08:52)
[2017-09-12] MEDS: ASPIRIN ENTERIC COATED 81 MG TABLET.DR. PO (08:53)
[2017-09-12] MEDS: FAMOTIDINE 20 MG TABLET. PO ×2 (08:53→20:34)
[2017-09-12] MEDS: SPIRONOLACTONE 25 MG TABLET PO (08:54)
[2017-09-12] MEDS: AMIODARONE HCL 200 MG TABLET. PO (08:54)
[2017-09-12] MEDS: CARVEDILOL 12.5 MG TABLET. PO ×3 (08:54→20:35)
[2017-09-12] MEDS: FUROSEMIDE 40 MG/4 ML VIAL. IVP (09:00)
[2017-09-12] MEDS: INSULIN ASPART 300 UNITS/3 ML INSULN.PEN SQ ×3 (09:11→17:46)
[2017-09-12] MEDS ORDERED: POTASSIUM CHLORIDE 20 MEQ TABLET.ER. PO (12:00)
[2017-09-12 13:06] LABS: POC GLUCOSE 269 mg/dL (70-99)
[2017-09-12 16:54] LABS: POC GLUCOSE 239 mg/dL (70-99)
[2017-09-12] MEDS: ISOSORBIDE MONONITRATE ER 30 MG TAB.ER.24H PO ×2 (17:23→17:33)
[2017-09-12] MEDS: POTASSIUM CHLORIDE 20 MEQ TABLET.ER. PO (17:33)
[2017-09-12 20:31] LABS: POC GLUCOSE 361 mg/dL (70-99)
[2017-09-12] MEDS: ONDANSETRON PF 4 MG/2 ML VIAL. IV (20:48)
[2017-09-13] MEDS: ONDANSETRON ODT 4 MG TAB.RAPDIS. PO ×2 (02:09→08:44)
[2017-09-13] MEDS: HYDROcodone/APAP 5/325MG 1 TAB TABLET PO ×4 (02:10→11:03)
[2017-09-13] MEDS: HYDROmorphone 2 MG/ML VIAL IV ×2 (03:49→08:02)
[2017-09-13 06:43] LABS: ADD MAN DIFF? NO
[2017-09-13 07:08] LABS: ANION GAP 8 (6-14); BLOOD UREA NITROGEN 13 mg/dL (8-26); CALCIUM 8.8 mg/dL (8.5-10.1); CARBON DIOXIDE 30 mmol/L (21-32); CHLORIDE 98 mmol/L (98-107); CREATININE 1.1 mg/dL (0.7-1.3); GFR 68.8; GLUCOSE 304 mg/dL (70-99); POTASSIUM 3.7 mmol/L (3.5-5.1); SODIUM 136 mmol/L (136-145)
[2017-09-13 07:11] LABS: BASO # 0.1 x10^3/uL (0.0-0.2); BASO % 1 % (0-3); EOS # 0.1 x10^3/uL (0.0-0.7); EOS % 2 % (0-3); HEMATOCRIT 35.7 % (39.0-53.0); HEMOGLOBIN 12.7 g/dL (13.0-17.5); LYMPH # 1.1 x10^3/uL (1.0-4.8); LYMPH % 14 % (24-48); MEAN CORPUSCULAR HEMOGLOBIN 37 pg (25-35); MEAN CORPUSCULAR HGB CONC 36 g/dL (31-37); MEAN CORPUSCULAR VOLUME 104 fL (79-100); MONO # 0.7 x10^3/uL (0.0-1.1); MONO % 8 % (0-9); NEUT # 5.8 x10^3uL (1.8-7.7); NEUT % 75 % (31-73); PLATELET COUNT 354 x10^3/uL (140-400); RED BLOOD COUNT 3.44 x10^6/uL (4.30-5.70); WHITE BLOOD COUNT 7.8 x10^3/uL (4.0-11.0)
[2017-09-13 07:47] LABS: POC GLUCOSE 279 mg/dL (70-99)
[2017-09-13] MEDS: ASPIRIN ENTERIC COATED 81 MG TABLET.DR. PO (07:57)
[2017-09-13] MEDS: CARVEDILOL 12.5 MG TABLET. PO (07:58)
[2017-09-13] MEDS: FAMOTIDINE 20 MG TABLET. PO (07:59)
[2017-09-13] MEDS: LISINOPRIL 40 MG TABLET. PO (07:59)
[2017-09-13] MEDS: SPIRONOLACTONE 25 MG TABLET PO (08:01)
[2017-09-13] MEDS: AMIODARONE HCL 200 MG TABLET. PO (08:01)
[2017-09-13] MEDS: ISOSORBIDE MONONITRATE ER 30 MG TAB.ER.24H PO (08:01)
[2017-09-13] MEDS: FUROSEMIDE 40 MG/4 ML VIAL. IVP (08:02)
[2017-09-13] MEDS: ONDANSETRON PF 4 MG/2 ML VIAL. IV (08:02)
[2017-09-13] MEDS: INSULIN ASPART 300 UNITS/3 ML INSULN.PEN SQ (08:12)
[2017-09-13 08:24] LABS: LIPASE 824 U/L (73-393)
== END 2017-09-13 11:45 | disposition home or self-care (01) | DRG 438 ==
LOC: 2 SOUTH 09-05 05:49 → ER 10:16 → 1 WEST ICU 14:00
PROVIDERS: Internal Medicine
DX: K85.20 Alcohol induced acute pancreatitis without necrosis or infection (principal); N17.0 Acute kidney failure with tubular necrosis; E87.2 Acidosis; E27.8 Other specified disorders of adrenal gland; I11.0 Hypertensive heart disease with heart failure; I42.9 Cardiomyopathy, unspecified; I50.22 Chronic systolic (congestive) heart failure; R65.10 Systemic inflammatory response syndrome (SIRS) of non-infectious origin without acute organ dysfunction; I16.1 Hypertensive emergency; E11.9 Type 2 diabetes mellitus without complications; E66.9 Obesity, unspecified; F10.10 Alcohol abuse, uncomplicated; F17.210 Nicotine dependence, cigarettes, uncomplicated; I25.10 Atherosclerotic heart disease of native coronary artery without angina pectoris; K52.9 Noninfective gastroenteritis and colitis, unspecified; K76.0 Fatty (change of) liver, not elsewhere classified; K80.20 Calculus of gallbladder without cholecystitis without obstruction; K86.89 Other specified diseases of pancreas; N42.89 Other specified disorders of prostate; Z68.33 Body mass index [BMI] 33.0-33.9, adult; Z79.4 Long term (current) use of insulin; Z80.0 Family history of malignant neoplasm of digestive organs; Z82.49 Family history of ischemic heart disease and other diseases of the circulatory system; Z87.442 Personal history of urinary calculi; Z90.49 Acquired absence of other specified parts of digestive tract; Z96.653 Presence of artificial knee joint, bilateral; M10.9 Gout, unspecified
CPT/HCPCS: 36415; 71045; 74150; 74177; 76705; 80048; 80053; 80061; 80076; 80307; 81001; 82962; 83036; 83615; 83690; 83880; 84443; 84484; 85007; 85025; 85610; 85730; 87086; 87641; 93005; 93306; 96374; 99285; 99285-25; J0360; J0780; J1170; J1815; J1940; J2060; J2270; J2405; J3010; J3490; J7030; J7040; Q0162; Q0163; Q9967; S0028

== ENCOUNTER 2017-11-02 13:14 | Emergency (ER) | payer OTHER | END 2017-11-02 15:02 | disposition home or self-care (01) | LOC: ER 13:14 | DX: S50.11XA Contusion of right forearm, initial encounter (principal); S30.810A Abrasion of lower back and pelvis, initial encounter; S50.312A Abrasion of left elbow, initial encounter; E11.9 Type 2 diabetes mellitus without complications; I10 Essential (primary) hypertension; Z90.49 Acquired absence of other specified parts of digestive tract; Z96.651 Presence of right artificial knee joint; Z88.6 Allergy status to analgesic agent; W01.0XXA Fall on same level from slipping, tripping and stumbling without subsequent striking against object, initial encounter; Y93.89 Activity, other specified; Y99.8 Other external cause status; Y92.89 Other specified places as the place of occurrence of the external cause | CPT/HCPCS: 73564; 99284 ==

== ENCOUNTER 2018-02-20 22:14 | Inpatient (IN) | payer OTHER ==
[~2018-02-20] VITALS: Ht 172.7 cm; Wt 99.1 kg
[~2018-02-20 22:14] MED LIST: AMIO100T4 PO; ASPI325T8 PO; CARV25TA2 PO; CARV3.12 PO; CHLO25TA PO; CLOP75TA PO; CYCL5TAB PO; FAMO-63 PO; HYDR2TAB31 PO; INSU100I13 SQ; ISOS20TA2 PO; ISOS30TA4 PO; LISI-130 PO; LISI2.5T PO; METO-239 PO; METO200T46 PO; ONDA4TAB10 SL; PANT20TA2 PO; SPIR25TA5 PO
--- NOTE | 2018-02-20 22:35 | PHYS DOC ---
Past Medical History Past Medical History: Arrhythmia, Diabetes-Type II, Hypertension, Pancreatitis , Other Additional Past Medical Histor: swelling in legs Past Surgical History: Appendectomy, Cholecystectomy, Tonsillectomy, Other Additional Past Surgical Histo: knees; L shoulder; hands; L ankle; cardiac cath Alcohol Use: Sober Drug Use: None Adult General Chief Complaint Chief Complaint: ABDOMINAL PAIN HPI HPI Patient is a 57 year old male with complaint of abdominal pain vomiting and diarrhea. Initially started with vomiting at 4 AM abdominal pain is left upper quadrant now radiates to the left lower quadrant and radiates to the suprapubic area. Associated with greater than 10 episodes of diarrhea. Diarrhea is nonbloody screening color. No shortness of breath does complain of some chest pressure. Of note he did have a STEMI back in December and he also was hospitalized for a what he tells me is a partial small bowel obstruction at [facility] 3 weeks ago for 3 days. Review of Systems Review of Systems Constitutional: Denies fever or chills [] Eyes: Denies change in visual acuity, redness, or eye pain [] HENT: Denies nasal congestion or sore throat [] : Denies dysuria or hematuria [] Musculoskeletal: Denies back pain or joint pain [] Integument: Denies rash or skin lesions [] Neurologic: Denies headache, focal weakness or sensory changes [] Endocrine: Denies polyuria or polydipsia [] All other systems were reviewed and found to be within normal limits, except as documented in this note. Current Medications Current Medications Current Medications Medications (Trade) Dose Ordered Sig/Marcia Start Time Stop Time Status Last Admin Dose Admin Amlodipine Besylate (Norvasc) 10 mg 1X ONCE 02/21/18 01:30 02/21/18 01:31 DC 02/21/18 01:37 10 MG Aspirin (Children'S Aspirin) 324 mg 1X ONCE 02/21/18 01:00 02/21/18 01:01 DC 02/21/18 01:00 324 MG Fentanyl Citrate (Fentanyl 2ml Vial) 50 mcg 1X ONCE 02/20/18 22:45 02/20/18 22:46 DC 02/21/18 00:04 50 MCG Isosorbide Dinitrate (Isordil) 20 mg 1X ONCE 02/21/18 01:30 02/21/18 01:31 DC 02/21/18 01:36 20 MG Ketamine HCl 20 mg 1X ONCE 02/21/18 01:30 02/21/18 01:31 DC 02/21/18 01:37 20 MG Metoclopramide HCl (Reglan Vial) 10 mg 1X ONCE 02/20/18 22:45 02/20/18 22:46 DC 02/20/18 22:45 10 MG Morphine Sulfate (Morphine Sulfate) 4 mg PRN Q2HR PRN 02/21/18 01:15 02/22/18 01:14 Ondansetron HCl (Zofran) 4 mg 1X ONCE 02/20/18 22:45 02/20/18 22:45 DC Sodium Chloride 1,000 ml @ 150 mls/hr Q6H40M 02/21/18 01:15 02/22/18 01:14 Allergies Allergies Allergies Coded Allergies Type Severity Reaction Last Updated Verified glyburide Allergy Intermediate 12/24/17 Yes ketorolac Adverse Reaction Intermediate vomiting 09/03/17 Yes tramadol Adverse Reaction Intermediate vomiting 09/03/17 Yes Physical Exam Physical Exam Constitutional: Well developed, well nourished, moderate distress HENT: Normocephalic, atraumatic, bilateral external ears normal, oropharynx moist, no oral exudates, nose normal. [] Eyes: PERRLA, EOMI, conjunctiva normal, no discharge. [] Neck: Normal range of motion, no tenderness, supple, no stridor. [] Cardiovascular:Heart rate regular rhythm, no murmur [] Lungs & Thorax: Bilateral breath sounds clear to auscultation [] Abdomen: Bowel sounds normal, soft, left upper quadrant and left lower quadrant tenderness no peritoneal signs Skin: Warm, dry, no erythema, no rash. [] Back: No tenderness, no CVA tenderness. [] Extremities: No tenderness, no cyanosis, no clubbing, ROM intact, no edema. [] Neurologic: Alert and oriented X 3, normal motor function, normal sensory function, no focal deficits noted. [] Psychologic: Affect normal, judgement normal, mood normal. [] Current Patient Data Vital Signs Vital Signs Date Time Temp Pulse Resp B/P (MAP) Pulse Ox O2 Delivery O2 Flow Rate FiO2 02/21/18 01:37 67 182/93 02/21/18 01:30 18 97 02/20/18 22:35 98.8 Room Air 98.8 Lab Values Laboratory Tests Test 02/20/18 23:45 02/20/18 23:55 Urine Collection Type Unknown Urine Color Yellow Urine Clarity Clear Urine pH 7.0 Urine Specific [place] 1.025 Urine Protein 30 mg/dL (NEG-TRACE) Urine Glucose (UA) 500 mg/dL (NEG) Urine Ketones (Stick) 15 mg/dL (NEG) Urine Blood Trace (NEG) Urine Nitrite Negative (NEG) Urine Bilirubin Negative (NEG) Urine Urobilinogen Dipstick 0.2 mg/dL (0.2 mg/dL) Urine Leukocyte Esterase Negative (NEG) Urine RBC Occ /HPF (0-2) Urine WBC 1-4 /HPF (0-4) Urine Squamous Epithelial Cells Few /LPF Urine Bacteria 0 /HPF (0-FEW) Urine Hyaline Casts Moderate /HPF Urine Mucus Mod /LPF White Blood Count 7.6 x10^3/uL (4.0-11.0) Red Blood Count 3.92 x10^6/uL (4.30-5.70) L Hemoglobin 12.9 g/dL (13.0-17.5) L Hematocrit 36.4 % (39.0-53.0) L Mean Corpuscular Volume 93 fL (79-100) Mean Corpuscular Hemoglobin 33 pg (25-35) Mean Corpuscular Hemoglobin Concent 35 g/dL (31-37) Red Cell Distribution Width 15.2 % (11.5-14.5) H Platelet Count 315 x10^3/uL (140-400) Neutrophils (%) (Auto) 67 % (31-73) Lymphocytes (%) (Auto) 22 % (24-48) L Monocytes (%) (Auto) 9 % (0-9) Eosinophils (%) (Auto) 0 % (0-3) Basophils (%) (Auto) 1 % (0-3) Neutrophils # (Auto) 5.1 x10^3uL (1.8-7.7) Lymphocytes # (Auto) 1.7 x10^3/uL (1.0-4.8) Monocytes # (Auto) 0.7 x10^3/uL (0.0-1.1) Eosinophils # (Auto) 0.0 x10^3/uL (0.0-0.7) Basophils # (Auto) 0.1 x10^3/uL (0.0-0.2) Prothrombin Time 13.7 SEC (11.7-14.0) Prothrombin Time INR 1.1 (0.8-1.1) Sodium Level 134 mmol/L (136-145) L Potassium Level 3.4 mmol/L (3.5-5.1) L Chloride Level 95 mmol/L (98-107) L Carbon Dioxide Level 27 mmol/L (21-32) Anion Gap 12 (6-14) Blood Urea Nitrogen 42 mg/dL (8-26) H Creatinine 1.5 mg/dL (0.7-1.3) H Estimated GFR (Cockcroft-Gault) 48.1 BUN/Creatinine Ratio 28 (6-20) H Glucose Level 321 mg/dL (70-99) H Lactic Acid Level 1.9 mmol/L (0.4-2.0) Calcium Level 9.5 mg/dL (8.5-10.1) Magnesium Level 2.0 mg/dL (1.8-2.4) Total Bilirubin 2.7 mg/dL (0.2-1.0) H Aspartate Amino Transferase (AST) 33 U/L (15-37) Alanine Aminotransferase (ALT) 31 U/L (16-63) Alkaline Phosphatase 120 U/L (46-116) H Troponin I Quantitative 0.091 ng/mL (0.000-0.055) NA-Kts-V-Type Natriuretic Peptide 3692 pg/mL (0-124) H Total Protein 7.6 g/dL (6.4-8.2) Albumin 4.2 g/dL (3.4-5.0) Albumin/Globulin Ratio 1.2 (1.0-1.7) Lipase 2200 U/L (73-393) H Laboratory Tests 02/20/18 23:55 Laboratory Tests 02/20/18 23:55 EKG EKG []Normal sinus rhythm 66 no STEMI QTC 520 Radiology/Procedures Radiology/Procedures [] Impressions: ct shows peripancreatic inflammation Course & Med Decision Making Course & Med Decision Making Pertinent Labs and Imaging studies reviewed. (See chart for details) [] 57-year-old male with the below medical comes was presenting with abdominal pain and vomiting found to have pancreatitis he denies recent alcohol intake although this has been an issue for him in the past. Noted the troponin leak and elevated BNP this is likely related to hypertensive strain due to being unable to keep down his medications at home. Patient was given oral amlodipine and oral isosorbide in the emergency room and will be admitted to the service of Dr. Drake for further evaluation aspirin was also given patient's pain was difficult to control in the ER we gave fentanyl and then morphine followed by a dose of ketamine IV as well. PMH: CAD s/p stent, HTN, NSVT (on amiodarone), HLD, DM, pancreatitis, hepatic steatosis, cholecystectomy, appendectomy, tonsillectomy, bilateral knee surgeries, left shoulder surgery, left ankle surgery, cardiac cath Dragon Disclaimer Dragon Disclaimer This electronic medical record was generated, in whole or in part, using a voice recognition dictation system. Departure Departure Impression: Primary Impression: Pancreatitis Disposition: ADMITTED INPATIENT Condition: STABLE Referrals: NO PCP (PCP) KAROLINE POLLOCK MD Feb 20, 2018 22:35
[2018-02-20] MEDS ORDERED: ONDANSETRON PF 4 MG/2 ML VIAL. IV ONE (22:45)
[2018-02-20] MEDS ORDERED: fentaNYL PF VIAL 100 MCG/2 ML VIAL IV ONE (22:45)
[2018-02-20] MEDS ORDERED: METOCLOPRAMIDE HCL 10 MG/2 ML VIAL. IV ONE (22:45)
[2018-02-20] MEDS ORDERED: IV NORMAL SALINE 1000ML BAG 1,000 ML IV ONE (22:45)
--- NOTE | 2018-02-20 22:54 | RAD ---
AP portable chest radiograph 02/20/2018 Clinical History: Generalized pain. History of myocardial infarction. Chest pain and shortness of breath. An AP erect portable digital radiograph of the chest was obtained. Comparison study is dated 12/24/2017. The cardiac silhouette is normal in size. The thoracic aorta is minimally tortuous. No acute pulmonary infiltrate is seen. No pleural effusion or pneumothorax is noted. Degenerative changes are seen involving the thoracic spine and both shoulders. Impression: No acute abnormality is seen. Electronically signed by: Maninder Hanson MD (02/20/2018 10:50 PM) [facility]
[2018-02-21 00:01] LABS: BILIRUBIN,URINE NEGATIVE (NEG); CLARITY,URINE CLEAR; COLOR,URINE YELLOW; NITRITE,URINE NEGATIVE (NEG); PROTEIN,URINE 30 mg/dL (NEG-TRACE); UROBILINOGEN,URINE 0.2 mg/dL (0.2 mg/dL)
[2018-02-21 00:04] LABS: BASO # 0.1 x10^3/uL (0.0-0.2); BASO % 1 % (0-3); EOS % 0 % (0-3); HEMATOCRIT 36.4 % (39.0-53.0); HEMOGLOBIN 12.9 g/dL (13.0-17.5); LYMPH # 1.7 x10^3/uL (1.0-4.8); LYMPH % 22 % (24-48); MEAN CORPUSCULAR HEMOGLOBIN 33 pg (25-35); MEAN CORPUSCULAR HGB CONC 35 g/dL (31-37); MEAN CORPUSCULAR VOLUME 93 fL (79-100); MONO # 0.7 x10^3/uL (0.0-1.1); MONO % 9 % (0-9); NEUT # 5.1 x10^3uL (1.8-7.7); NEUT % 67 % (31-73); PLATELET COUNT 315 x10^3/uL (140-400); RED BLOOD COUNT 3.92 x10^6/uL (4.30-5.70); RED CELL DISTRIBUTION WIDTH 15.2 % (11.5-14.5); WHITE BLOOD COUNT 7.6 x10^3/uL (4.0-11.0)
[2018-02-21 00:14] LABS: BACTERIA,URINE 0 /HPF (0-FEW); HYALINE CASTS, URINE MODERATE /HPF; RBC,URINE OCC /HPF (0-2); SQUAMOUS EPITHELIAL CELL,UR FEW /LPF
[2018-02-21 00:15] LABS: CALCIUM 9.5 mg/dL (8.5-10.1); CREATININE 1.5 mg/dL (0.7-1.3); GFR 48.1; POTASSIUM 3.4 mmol/L (3.5-5.1)
[2018-02-21 00:16] LABS: PROTHROMBIN TIME PATIENT 13.7 SEC (11.7-14.0)
[2018-02-21 00:27] LABS: ALBUMIN 4.2 g/dL (3.4-5.0); ALBUMIN/GLOBULIN RATIO 1.2 (1.0-1.7); TOTAL BILIRUBIN 2.7 mg/dL (0.2-1.0); TOTAL PROTEIN 7.6 g/dL (6.4-8.2)
[2018-02-21] MEDS ORDERED: MORPHINE SULFATE 4 MG/ML DISP.SYRIN. IV ONE (00:30)
[2018-02-21] MEDS ORDERED: ASPIRIN CHEWABLE 81 MG TABLET. PO ONE (01:00)
[2018-02-21] MEDS ORDERED: ISOSORBIDE DINITRATE 10 MG TABLET. PO ONE (01:30)
[2018-02-21] MEDS ORDERED: amLODIPine BESYLATE 5 MG TABLET PO ONE (01:30)
[2018-02-21] MEDS ORDERED: KETAMINE HCL 500 MG/10 ML VIAL. IV ONE (01:30)
--- NOTE | 2018-02-21 02:18 | RAD ---
EXAM: CT ABDOMEN/PELVIS WITHOUT CONTRAST. HISTORY: Abdominal pain, pancreatitis, pseudocyst. TECHNIQUE: Computed tomography of the abdomen and pelvis was performed without intravenous contrast. COMPARISON: September 08, 2017. FINDINGS: Lung windows through the visualized portions of the bases reveal no abnormality. Bone windows reveal no suspicious lesions. The gallbladder is surgically absent. There is mild stranding about the pancreatic head and uncinate process consistent with acute pancreatitis. There is no associated fluid collection. The pancreatic duct is not dilated. There is no clear biliary dilatation. Bilateral adrenal masses measure 2.8 x 2.3 cm on the right and 4.4 x 3.1 cm on the left. These are stable, low-density and consistent with benign adenomas. There are no pathologically enlarged lymph nodes. The prostate is mildly enlarged. The appendix is not inflamed. There is no obstruction. IMPRESSION: 1. Mild inflammation about the pancreatic head and uncinate process. No fluid collection or other clear complication by noncontrast CT. 2. Bilateral adrenal masses are consistent with benign adenomas and measure up to 4.4 cm on the left. At this size, ongoing follow-up is recommended. *One or more of the following individualized dose reduction techniques were utilized for this examination: 1. Automated exposure control. 2. Adjustment of the mA and/or kV according to patient size. 3. Use of iterative reconstruction technique. Electronically signed by: Juana Do MD (02/21/2018 2:15 AM) [id number]
[2018-02-21] MEDS: IV NORMAL SALINE 1000ML BAG 1,000 ML IV SCH ×4 (02:25→14:30)
[2018-02-21] MEDS: MORPHINE SULFATE 4 MG/ML DISP.SYRIN. IV PRN ×9 (02:25→22:51)
[2018-02-21 02:30] VITALS: BP 148/85
[2018-02-21] MEDS ORDERED: INSU100I17 SQ (02:30)
[2018-02-21] MEDS ORDERED: ATOR40TA59 PO (02:30)
[2018-02-21] MEDS ORDERED: LACT1CAP21 PO (02:30)
[2018-02-21] MEDS ORDERED: INSU100I13 SQ ×2 (02:30)
[2018-02-21] MEDS ORDERED: hydrALAZINE 20 MG/ML VIAL. IVP PRN ×2 (02:30→10:15)
[2018-02-21] MEDS ORDERED: FLUO20CA16 PO (02:30)
[2018-02-21] MEDS ORDERED: METOCLOPRAMIDE HCL 10 MG/2 ML VIAL. IV ONE (04:00)
--- NOTE | 2018-02-21 06:25 | EKG ---
[facility] [address] [place] [address] Test Date: 2018-02-20 Test Time: 22:34:35 Pat Name: MONSERRAT RETANA Department: Room: Gender: M Fur Cutter: : 1960 Requested By: KAROLINE POLLOCK Order Number: [id number] Reading MD: Measurements Intervals [place] Rate: 66 P: 28 AK: 158 QRS: 73 QRSD: 100 T: 86 QT: 494 QTc: 520 Interpretive Statements SINUS RHYTHM QRS(T) CONTOUR ABNORMALITY CONSIDER INFERIOR MYOCARDIAL DAMAGE PROLONGED QT POSSIBLY ABNORMAL ECG RI6.01 No previous ECG available for comparison
[2018-02-21 07:00] VITALS: BP 166/76
[2018-02-21] MEDS ORDERED: ACETAMINOPHEN 325 MG TABLET. PO PRN (10:15)
[2018-02-21] MEDS ORDERED: DEXTROSE 50% 25 GM / 50ML DISP.SYRIN. IV PRN (10:15)
[2018-02-21] MEDS ORDERED: DOCUSATE SODIUM 100 MG CAPSULE. PO PRN (10:15)
[2018-02-21 11:10] VITALS: BP 158/78
[2018-02-21] MEDS: ASPIRIN 325 MG TABLET PO SCH (11:14)
[2018-02-21] MEDS: fentaNYL PF VIAL 100 MCG/2 ML VIAL IV PRN ×4 (11:15→23:53)
[2018-02-21] MEDS: ONDANSETRON PF 4 MG/2 ML VIAL. IV PRN ×3 (11:15→22:48)
[2018-02-21] MEDS: CARVEDILOL 3.125 MG TABLET. PO SCH ×2 (11:17→16:34)
[2018-02-21] MEDS: LISINOPRIL 20 MG TABLET PO SCH (11:17)
[2018-02-21] MEDS: CLOPIDOGREL BISULFATE 75 MG TABLET PO SCH (11:18)
[2018-02-21] MEDS: AMIODARONE HCL 200 MG TABLET. PO SCH (11:18)
[2018-02-21] MEDS: FLUoxetine HCL 20 MG CAPSULE PO SCH (11:18)
[2018-02-21] MEDS: SPIRONOLACTONE 25 MG TABLET PO SCH (11:18)
[2018-02-21] MEDS: PANTOPRAZOLE 40 MG TABLET.DR. PO SCH (11:18)
[2018-02-21] MEDS: ISOSORBIDE MONONITRATE ER 30 MG TAB.ER.24H PO SCH (11:19)
[2018-02-21] MEDS: INSULIN LISPRO 300 UNITS/3 ML INSULN.PEN. SQ SCH ×4 (12:00→16:37)
--- NOTE | 2018-02-21 12:03 | PDOC2 ---
GI CONSULT Reason For Consult: Pancreatitis HPI: HPI: 57 y/o male who we have seen before. H/o recurrent pancreatitis s/p cholecystectomy thought to be related to alcohol. On this occasion, noted loss of appetite on Saturday. Had a cough and took some cough syrup. [employer] a little better on Saturday and ate a bowl of cereal. Then awoke at 3:00 a.m. morning w/ upper abdominal pain (radiates throughout abdomen and sometimes to back). Associated w/ n/v (couldn't keep pills down yesterday) and diarrhea ( more than 20 episodes of watery brown stool - maybe noted a little red blood once). Labs: normal WBC, Hgb 12.9, BUN 42, Cr 1.5, Na 134, K 3.4, glucose 321, bili 2.7 , Alk Phos 120, lipase 2200. Troponin mildly elevated. CT A/P shows mild inflammation about the pancreatic head and uncinate process. Was [place] [facility] [place] ago with "partial bowel obstruction." Had a CT scan and an EGD which was reportedly normal. Current symptoms are different. Denies reflux, heartburn, dysphagia, constipation, hematemesis, melena, or weight loss. No previous colonoscopy. Hepatic steatosis noted on past imaging. H/o CAD w/ NSTEMI and stent placement in 12/2017 on Plavix and ASA. Has been taking pantoprazole 40mg QD. Has not had alcohol since 11/2017. PMH: PMH: SC, CAD s/p stent, HTN, NSVT, HLD, DM, pancreatitis, hepatic steatosis, ? partial SBO, probable adrenal adenomas, cholecystectomy, appendectomy, tonsillectomy, bilateral knee surgeries, left shoulder surgery, left ankle surgery, cardiac cath FH: Family History: Cancer (mother - colon, father - stomach), Other (mother - "pancreatitis every 6 weeks, no one knows why") Social History: Smoke: <1 pack per day ALCOHOL: other (h/o heavy alcohol use - none since 11/2017) Drugs: None ROS: GEN: Denies fevers, chills, sweats HEENT: Denies blurred vision, sore throat CV: Denies chest pain RESP: +cough GI: Per HPI : Denies hematuria, dysuria ENDO: Denies weight changes NEURO: Denies confusion, dizziness MSK: Denies weakness, joint pain/swelling SKIN: Denies jaundice, pruritus Vitals: Vitals: Vital Signs Date Time Temp Pulse Resp B/P (MAP) Pulse Ox O2 Delivery O2 Flow Rate FiO2 02/21/18 11:19 63 158/78 02/21/18 11:15 Room Air 02/21/18 11:10 98.7 20 97 98.7 Labs: Labs: Laboratory Tests Test 02/20/18 23:45 02/20/18 23:55 02/21/18 05:15 02/21/18 08:00 Urine Collection Type Unknown Urine Color Yellow Urine Clarity Clear Urine pH 7.0 Urine Specific [place] 1.025 Urine Protein 30 mg/dL (NEG-TRACE) Urine Glucose (UA) 500 mg/dL (NEG) Urine Ketones (Stick) 15 mg/dL (NEG) Urine Blood Trace (NEG) Urine Nitrite Negative (NEG) Urine Bilirubin Negative (NEG) Urine Urobilinogen Dipstick 0.2 mg/dL (0.2 mg/dL) Urine Leukocyte Esterase Negative (NEG) Urine RBC Occ /HPF (0-2) Urine WBC 1-4 /HPF (0-4) Urine Squamous Epithelial Cells Few /LPF Urine Bacteria 0 /HPF (0-FEW) Urine Hyaline Casts Moderate /HPF Urine Mucus Mod /LPF White Blood Count 7.6 x10^3/uL (4.0-11.0) Red Blood Count 3.92 x10^6/uL (4.30-5.70) Hemoglobin 12.9 g/dL (13.0-17.5) Hematocrit 36.4 % (39.0-53.0) Mean Corpuscular Volume 93 fL (79-100) Mean Corpuscular Hemoglobin 33 pg (25-35) Mean Corpuscular Hemoglobin Concent 35 g/dL (31-37) Red Cell Distribution Width 15.2 % (11.5-14.5) Platelet Count 315 x10^3/uL (140-400) Neutrophils (%) (Auto) 67 % (31-73) Lymphocytes (%) (Auto) 22 % (24-48) Monocytes (%) (Auto) 9 % (0-9) Eosinophils (%) (Auto) 0 % (0-3) Basophils (%) (Auto) 1 % (0-3) Neutrophils # (Auto) 5.1 x10^3uL (1.8-7.7) Lymphocytes # (Auto) 1.7 x10^3/uL (1.0-4.8) Monocytes # (Auto) 0.7 x10^3/uL (0.0-1.1) Eosinophils # (Auto) 0.0 x10^3/uL (0.0-0.7) Basophils # (Auto) 0.1 x10^3/uL (0.0-0.2) Prothrombin Time 13.7 SEC (11.7-14.0) Prothromb Time International Ratio 1.1 (0.8-1.1) Sodium Level 134 mmol/L (136-145) Potassium Level 3.4 mmol/L (3.5-5.1) Chloride Level 95 mmol/L (98-107) Carbon Dioxide Level 27 mmol/L (21-32) Anion Gap 12 (6-14) Blood Urea Nitrogen 42 mg/dL (8-26) Creatinine 1.5 mg/dL (0.7-1.3) Estimated GFR (Cockcroft-Gault) 48.1 BUN/Creatinine Ratio 28 (6-20) Glucose Level 321 mg/dL (70-99) Lactic Acid Level 1.9 mmol/L (0.4-2.0) Calcium Level 9.5 mg/dL (8.5-10.1) Magnesium Level 2.0 mg/dL (1.8-2.4) Total Bilirubin 2.7 mg/dL (0.2-1.0) Aspartate Amino Transf (AST/SGOT) 33 U/L (15-37) Alanine Aminotransferase (ALT/SGPT) 31 U/L (16-63) Alkaline Phosphatase 120 U/L (46-116) Troponin I Quantitative 0.091 ng/mL (0.000-0.055) 0.087 ng/mL (0.000-0.055) 0.060 ng/mL (0.000-0.055) EQ-Zzf-A-Type Natriuretic Peptide 3692 pg/mL (0-124) Total Protein 7.6 g/dL (6.4-8.2) Albumin 4.2 g/dL (3.4-5.0) Albumin/Globulin Ratio 1.2 (1.0-1.7) Lipase 2200 U/L (73-393) Allergies: Coded Allergies: glyburide (Verified Allergy, Intermediate, 12/24/17) ketorolac (Verified Adverse Reaction, Intermediate, vomiting, 09/03/17) tramadol (Verified Adverse Reaction, Intermediate, vomiting, 09/03/17) Medications: Current Medications Medications (Trade) Dose Ordered Sig/Marcia Route PRN Reason Start Time Stop Time Status Last Admin Dose Admin Fentanyl Citrate (Fentanyl 2ml Vial) 50 mcg 1X ONCE IV 02/20/18 22:45 02/20/18 22:46 DC 02/21/18 00:04 Sodium Chloride 1,000 ml @ 1,000 mls/hr 1X ONCE IV 02/20/18 22:45 02/20/18 23:44 DC 02/21/18 00:05 Metoclopramide HCl (Reglan Vial) 10 mg 1X ONCE IV 02/20/18 22:45 02/20/18 22:46 DC 02/20/18 22:45 Morphine Sulfate (Morphine Sulfate) 4 mg 1X ONCE IV 02/21/18 00:30 02/21/18 00:31 DC 02/21/18 00:30 Aspirin (Children'S Aspirin) 324 mg 1X ONCE PO 02/21/18 01:00 02/21/18 01:01 DC 02/21/18 01:00 Morphine Sulfate (Morphine Sulfate) 4 mg PRN Q2HR PRN IV PAIN 02/21/18 01:15 02/22/18 01:14 02/21/18 10:22 Sodium Chloride 1,000 ml @ 150 mls/hr Q6H40M IV 02/21/18 01:15 02/21/18 10:18 DC 02/21/18 08:20 Ketamine HCl 20 mg 1X ONCE IV 02/21/18 01:30 02/21/18 01:31 DC 02/21/18 01:37 Isosorbide Dinitrate (Isordil) 20 mg 1X ONCE PO 02/21/18 01:30 02/21/18 01:31 DC 02/21/18 01:36 Amlodipine Besylate (Norvasc) 10 mg 1X ONCE PO 02/21/18 01:30 02/21/18 01:31 DC 02/21/18 01:37 Metoclopramide HCl (Reglan Vial) 5 mg 1X ONCE IV 02/21/18 04:00 02/21/18 04:01 DC 02/21/18 03:54 Aspirin (Yolanda Aspirin) 325 mg DAILY08 PO 02/21/18 11:00 02/21/18 11:14 Carvedilol (Coreg) 3.125 mg BIDWMEALS PO 02/21/18 11:00 02/21/18 11:17 Clopidogrel Bisulfate (Plavix) 75 mg DAILY07 PO 02/21/18 11:00 02/21/18 11:18 Fluoxetine HCl (PROzac) 20 mg DAILY PO 02/21/18 11:00 02/21/18 11:18 Lisinopril (Prinivil) 40 mg DAILY PO 02/21/18 11:00 02/21/18 11:17 Amiodarone HCl (Cordarone) 200 mg DAILY PO 02/21/18 11:00 02/21/18 11:18 Isosorbide Mononitrate (Imdur) 60 mg DAILY PO 02/21/18 11:00 02/21/18 11:19 Pantoprazole Sodium (Protonix) 40 mg DAILYAC PO 02/21/18 11:00 02/21/18 11:18 Spironolactone (Aldactone) 25 mg DAILY PO 02/21/18 11:00 02/21/18 11:18 Ondansetron HCl (Zofran) 4 mg PRN Q6HRS PRN IV NAUSEA/VOMITING 1ST CHOICE 02/21/18 10:15 02/21/18 11:15 Fentanyl Citrate (Fentanyl 2ml Vial) 50 mcg PRN Q2HR PRN IV PAIN 02/21/18 10:30 02/21/18 11:15 Imaging: Imaging: CXR 02/20/18 Impression: No acute abnormality is seen. CT A/P FINDINGS: Lung windows through the visualized portions of the bases reveal no abnormality. Bone windows reveal no suspicious lesions. The gallbladder is surgically absent. There is mild stranding about the pancreatic head and uncinate process consistent with acute pancreatitis. There is no associated fluid collection. The pancreatic duct is not dilated. There is no clear biliary dilatation. Bilateral adrenal masses measure 2.8 x 2.3 cm on the right and 4.4 x 3.1 cm on the left. These are stable, low-density and consistent with benign adenomas. There are no pathologically enlarged lymph nodes. The prostate is mildly enlarged. The appendix is not inflamed. There is no obstruction. IMPRESSION: 1. Mild inflammation about the pancreatic head and uncinate process. No fluid collection or other clear complication by noncontrast CT. 2. Bilateral adrenal masses are consistent with benign adenomas and measure up to 4.4 cm on the left. At this size, ongoing follow-up is recommended. PE: GEN: uncomfortable HEENT: Atraumatic, PERRL LUNGS: CTAB HEART: RRR ABD: quiet, epigastric discomfort is worst but is tender diffusely EXTREMITY: No edema SKIN: No rashes, no jaundice NEURO/PSYCH: A & O 3 A/P: A/P: Abd pain, n/v, diarrhea - began w/ loss of appetite and cough ~3 days ago Recurrent pancreatitis thought alcohol-related, says no longer drinking S/p cholecystectomy Hepatic steatosis - has elevated bili (2.7) today H/o CAD w/ stent on Plavix and ASA, mildly elevated troponin CRC screen, FH colon cancer - none FH pancreatitis HTN, [place], IDDM (A1c 11.4 in December) -- Recent admission for "partial bowel obstruction" - will request records (CT and EGD) [place] [facility] Has been on PPI QD, would continue. NPO for now. Await C Diff. Will review additional recs w/ Dr. Cortez. OMAIRA GEORGE Feb 21, 2018 12:03
--- NOTE | 2018-02-21 12:49 | PDOC1 ---
History and Physical Date of Admission Date of Admission 02/21/18 Identification/Chief Complaint Chief Complaint abd pain Source Source: Chart review, Patient History of Present Illness History of Present Illness HPI HPI Patient is a 57 year old male with complaint of abdominal pain vomiting and diarrhea yesterday. pt had alcoholic pancreatitis 08/2017, sbo last month, STEMI with stents 2 months ago. He said he woke up with abd pain yesterday 3 am, diffuse, sharp , severe, 9/10, no radiation, with N/V non bloody, watery diarrhea 10 times yellow. Denies fever, chills, cough, sob. HAS some intermittent chest pain. Lipase 2200 in ER. no recent abx. had cdiff before. Past Medical History Cardiovascular: HTN, Other Pulmonary: No pertinent hx GI: No pertinent hx Heme/Onc: No pertinent hx Hepatobiliary: No pertinent hx Psych: No pertinent hx Rheumatologic: Gout Infectious disease: No pertinent hx Renal/: No pertinent hx Endocrine: Diabetes Past Surgical History Past Surgical History: Appendectomy, Cholecystectomy, Total knee replacement, Other Family History Family History: Hypertension Social History Smoke: <1 pack per day ALCOHOL: other (h/o heavy alcohol use - none since 11/2017) Drugs: None Current Medications Current Medications Current Medications Medications (Trade) Dose Ordered Sig/Marcia Start Time Stop Time Status Last Admin Dose Admin Acetaminophen (Tylenol) 650 mg PRN Q6HRS PRN 02/21/18 10:15 Amiodarone HCl (Cordarone) 200 mg DAILY 02/21/18 11:00 02/21/18 11:18 200 MG Amlodipine Besylate (Norvasc) 10 mg 1X ONCE 02/21/18 01:30 02/21/18 01:31 DC 02/21/18 01:37 10 MG Aspirin (Yolanda Aspirin) 325 mg DAILY08 02/21/18 11:00 02/21/18 11:14 325 MG Aspirin (Children'S Aspirin) 324 mg 1X ONCE 02/21/18 01:00 02/21/18 01:01 DC 02/21/18 01:00 324 MG Atorvastatin Calcium (Lipitor) 40 mg QHS 02/21/18 21:00 Carvedilol (Coreg) 3.125 mg BIDWMEALS 02/21/18 11:00 02/21/18 11:17 3.125 MG Clopidogrel Bisulfate (Plavix) 75 mg DAILY07 02/21/18 11:00 02/21/18 11:18 75 MG Dextrose (Dextrose 50%-Water Syringe) 12.5 gm PRN Q15MIN PRN 02/21/18 10:15 Docusate Sodium (Colace) 100 mg PRN DAILY PRN 02/21/18 10:15 Fentanyl Citrate (Fentanyl 2ml Vial) 50 mcg PRN Q2HR PRN 02/21/18 10:30 02/21/18 11:15 50 MCG Fluoxetine HCl (PROzac) 20 mg DAILY 02/21/18 11:00 02/21/18 11:18 20 MG Hydralazine HCl (Apresoline Inj) 10 mg PRN Q4HRS PRN 02/21/18 10:15 Insulin Glargine (Lantus) 15 units QHS 02/21/18 21:00 Insulin Human Lispro (HumaLOG) 5 units TIDWMEALS 02/21/18 12:00 Isosorbide Dinitrate (Isordil) 20 mg 1X ONCE 02/21/18 01:30 02/21/18 01:31 DC 02/21/18 01:36 20 MG Isosorbide Mononitrate (Imdur) 60 mg DAILY 02/21/18 11:00 02/21/18 11:19 60 MG Ketamine HCl 20 mg 1X ONCE 02/21/18 01:30 02/21/18 01:31 DC 02/21/18 01:37 20 MG Lisinopril (Prinivil) 40 mg DAILY 02/21/18 11:00 02/21/18 11:17 40 MG Metoclopramide HCl (Reglan Vial) 5 mg 1X ONCE 02/21/18 04:00 02/21/18 04:01 DC 02/21/18 03:54 5 MG Morphine Sulfate (Morphine Sulfate) 2 mg PRN Q2HR PRN 02/21/18 10:15 Ondansetron HCl (Zofran) 4 mg PRN Q6HRS PRN 02/21/18 10:15 02/21/18 11:15 4 MG Pantoprazole Sodium (Protonix) 40 mg DAILYAC 02/21/18 11:00 02/21/18 11:18 40 MG Sodium Chloride 1,000 ml @ 150 mls/hr Q6H40M 02/21/18 10:15 Spironolactone (Aldactone) 25 mg DAILY 02/21/18 11:00 02/21/18 11:18 25 MG Allergies Allergies Allergies Coded Allergies Type Severity Reaction Last Updated Verified glyburide Allergy Intermediate 12/24/17 Yes ketorolac Adverse Reaction Intermediate vomiting 09/03/17 Yes tramadol Adverse Reaction Intermediate vomiting 09/03/17 Yes ROS Review of System CONSTITUTIONAL: No fever or chills EYES: No recent changes SKIN: No rash or itching CARDIOVASCULAR: No chest pain, syncope, palpitations, or edema RESPIRATORY: No SOB or cough GASTROINTESTINAL: No nausea, vomiting or abdominal pain NEUROLOGICAL: No headaches or weakness ENDOCRINE: No cold or heat intolerance GENITOURINARY: No urgency or frequency of urination MUSCULOSKELETAL: No back pain or joint pain LYMPHATICS: No enlarged lymph nodes PSYCHIATRIC: No anxiety or depression Physical Exam Physical Exam GEN.: Alert and oriented. in pain. 12/22. HEENT: Head is normocephalic, atraumatic NECK: Supple. LUNGS: Clear to auscultation. HEART: RRR, S1, S2 present. Peripheral pulses intact ABDOMEN: Soft, Positive bowel sounds. diffuse abd tenderness, no guarding or rebound. EXTREMITIES: Without any cyanosis. NEUROLOGIC: Normal speech, normal tone PSYCHIATRIC: Normal affect, normal mood. SKIN: No ulcerations Vitals Vitals Vital Signs Date Time Temp Pulse Resp B/P (MAP) Pulse Ox O2 Delivery O2 Flow Rate FiO2 02/21/18 12:25 Room Air 02/21/18 11:19 63 158/78 02/21/18 11:10 98.7 20 97 98.7 Labs Labs Laboratory Tests Test 02/20/18 23:45 02/20/18 23:55 02/21/18 05:15 02/21/18 08:00 Urine Collection Type Unknown Urine Color Yellow Urine Clarity Clear Urine pH 7.0 Urine Specific [place] 1.025 Urine Protein 30 mg/dL (NEG-TRACE) Urine Glucose (UA) 500 mg/dL (NEG) Urine Ketones (Stick) 15 mg/dL (NEG) Urine Blood Trace (NEG) Urine Nitrite Negative (NEG) Urine Bilirubin Negative (NEG) Urine Urobilinogen Dipstick 0.2 mg/dL (0.2 mg/dL) Urine Leukocyte Esterase Negative (NEG) Urine RBC Occ /HPF (0-2) Urine WBC 1-4 /HPF (0-4) Urine Squamous Epithelial Cells Few /LPF Urine Bacteria 0 /HPF (0-FEW) Urine Hyaline Casts Moderate /HPF Urine Mucus Mod /LPF White Blood Count 7.6 x10^3/uL (4.0-11.0) Red Blood Count 3.92 x10^6/uL (4.30-5.70) Hemoglobin 12.9 g/dL (13.0-17.5) Hematocrit 36.4 % (39.0-53.0) Mean Corpuscular Volume 93 fL (79-100) Mean Corpuscular Hemoglobin 33 pg (25-35) Mean Corpuscular Hemoglobin Concent 35 g/dL (31-37) Red Cell Distribution Width 15.2 % (11.5-14.5) Platelet Count 315 x10^3/uL (140-400) Neutrophils (%) (Auto) 67 % (31-73) Lymphocytes (%) (Auto) 22 % (24-48) Monocytes (%) (Auto) 9 % (0-9) Eosinophils (%) (Auto) 0 % (0-3) Basophils (%) (Auto) 1 % (0-3) Neutrophils # (Auto) 5.1 x10^3uL (1.8-7.7) Lymphocytes # (Auto) 1.7 x10^3/uL (1.0-4.8) Monocytes # (Auto) 0.7 x10^3/uL (0.0-1.1) Eosinophils # (Auto) 0.0 x10^3/uL (0.0-0.7) Basophils # (Auto) 0.1 x10^3/uL (0.0-0.2) Prothrombin Time 13.7 SEC (11.7-14.0) Prothromb Time International Ratio 1.1 (0.8-1.1) Sodium Level 134 mmol/L (136-145) Potassium Level 3.4 mmol/L (3.5-5.1) Chloride Level 95 mmol/L (98-107) Carbon Dioxide Level 27 mmol/L (21-32) Anion Gap 12 (6-14) Blood Urea Nitrogen 42 mg/dL (8-26) Creatinine 1.5 mg/dL (0.7-1.3) Estimated GFR (Cockcroft-Gault) 48.1 BUN/Creatinine Ratio 28 (6-20) Glucose Level 321 mg/dL (70-99) Lactic Acid Level 1.9 mmol/L (0.4-2.0) Calcium Level 9.5 mg/dL (8.5-10.1) Magnesium Level 2.0 mg/dL (1.8-2.4) Total Bilirubin 2.7 mg/dL (0.2-1.0) Aspartate Amino Transf (AST/SGOT) 33 U/L (15-37) Alanine Aminotransferase (ALT/SGPT) 31 U/L (16-63) Alkaline Phosphatase 120 U/L (46-116) Troponin I Quantitative 0.091 ng/mL (0.000-0.055) 0.087 ng/mL (0.000-0.055) 0.060 ng/mL (0.000-0.055) LN-Wws-R-Type Natriuretic Peptide 3692 pg/mL (0-124) Total Protein 7.6 g/dL (6.4-8.2) Albumin 4.2 g/dL (3.4-5.0) Albumin/Globulin Ratio 1.2 (1.0-1.7) Lipase 2200 U/L (73-393) Test 02/21/18 11:46 Glucose (Fingerstick) 289 mg/dL (70-99) Laboratory Tests Test 02/20/18 23:45 02/20/18 23:55 02/21/18 05:15 02/21/18 08:00 Urine Collection Type Unknown Urine Color Yellow Urine Clarity Clear Urine pH 7.0 Urine Specific [place] 1.025 Urine Protein 30 mg/dL (NEG-TRACE) Urine Glucose (UA) 500 mg/dL (NEG) Urine Ketones (Stick) 15 mg/dL (NEG) Urine Blood Trace (NEG) Urine Nitrite Negative (NEG) Urine Bilirubin Negative (NEG) Urine Urobilinogen Dipstick 0.2 mg/dL (0.2 mg/dL) Urine Leukocyte Esterase Negative (NEG) Urine RBC Occ /HPF (0-2) Urine WBC 1-4 /HPF (0-4) Urine Squamous Epithelial Cells Few /LPF Urine Bacteria 0 /HPF (0-FEW) Urine Hyaline Casts Moderate /HPF Urine Mucus Mod /LPF White Blood Count 7.6 x10^3/uL (4.0-11.0) Red Blood Count 3.92 x10^6/uL (4.30-5.70) Hemoglobin 12.9 g/dL (13.0-17.5) Hematocrit 36.4 % (39.0-53.0) Mean Corpuscular Volume 93 fL (79-100) Mean Corpuscular Hemoglobin 33 pg (25-35) Mean Corpuscular Hemoglobin Concent 35 g/dL (31-37) Red Cell Distribution Width 15.2 % (11.5-14.5) Platelet Count 315 x10^3/uL (140-400) Neutrophils (%) (Auto) 67 % (31-73) Lymphocytes (%) (Auto) 22 % (24-48) Monocytes (%) (Auto) 9 % (0-9) Eosinophils (%) (Auto) 0 % (0-3) Basophils (%) (Auto) 1 % (0-3) Neutrophils # (Auto) 5.1 x10^3uL (1.8-7.7) Lymphocytes # (Auto) 1.7 x10^3/uL (1.0-4.8) Monocytes # (Auto) 0.7 x10^3/uL (0.0-1.1) Eosinophils # (Auto) 0.0 x10^3/uL (0.0-0.7) Basophils # (Auto) 0.1 x10^3/uL (0.0-0.2) Prothrombin Time 13.7 SEC (11.7-14.0) Prothromb Time International Ratio 1.1 (0.8-1.1) Sodium Level 134 mmol/L (136-145) Potassium Level 3.4 mmol/L (3.5-5.1) Chloride Level 95 mmol/L (98-107) Carbon Dioxide Level 27 mmol/L (21-32) Anion Gap 12 (6-14) Blood Urea Nitrogen 42 mg/dL (8-26) Creatinine 1.5 mg/dL (0.7-1.3) Estimated GFR (Cockcroft-Gault) 48.1 BUN/Creatinine Ratio 28 (6-20) Glucose Level 321 mg/dL (70-99) Lactic Acid Level 1.9 mmol/L (0.4-2.0) Calcium Level 9.5 mg/dL (8.5-10.1) Magnesium Level 2.0 mg/dL (1.8-2.4) Total Bilirubin 2.7 mg/dL (0.2-1.0) Aspartate Amino Transf (AST/SGOT) 33 U/L (15-37) Alanine Aminotransferase (ALT/SGPT) 31 U/L (16-63) Alkaline Phosphatase 120 U/L (46-116) Troponin I Quantitative 0.091 ng/mL (0.000-0.055) 0.087 ng/mL (0.000-0.055) 0.060 ng/mL (0.000-0.055) LF-Kqx-O-Type Natriuretic Peptide 3692 pg/mL (0-124) Total Protein 7.6 g/dL (6.4-8.2) Albumin 4.2 g/dL (3.4-5.0) Albumin/Globulin Ratio 1.2 (1.0-1.7) Lipase 2200 U/L (73-393) Test 02/21/18 11:46 Glucose (Fingerstick) 289 mg/dL (70-99) VTE Prophylaxis Ordered VTE Prophylaxis Devices: Yes VTE Pharmacological Prophylaxi: Yes Assessment/Plan Assessment/Plan abd pain, acute pancreatitis h/o alcoholic pancreatitis recent SBO h/o CAD s/p PCI. 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
--- NOTE | 2018-02-21 14:49 | PDOC2 ---
LYNETTE BHANDARI WAREHOUSE REPRESENTATIVE 02/21/18 1449: CARDIAC CONSULT DATE OF CONSULT Date of Consult DATE: 02/21/18 TIME: 14:11 REASON FOR CONSULT Reason for Consult: Chest pain REFERRING PHYSICIAN Referring Physician: Héctor SOURCE Source: Chart review, Patient HISTORY OF PRESENT ILLNESS HISTORY OF PRESENT ILLNESS This is a pleasant 57 yo male admitted for complains of abdominal pain, nausea, vomiting and diarrhea. Reports that he woke up yesterday 3AM nauseated and vomiting. He was having abdominal pain. Eventually he started having watery diarrhea. Denies any SOA or [place]. Denies any CP till yesterday afternoon when he already had 15 episodes of vomiting yellow to bile looking vomit and 20 episodes of diarrhea but no bloody looking stool. CP is pressure like but related to his abd cramps. He took all of his medications yesterday but he basically vomited it out. He was just released from [facility] about 2 weeks ago and was told that he had partial bowel obstruction. Reported that during that time he did not end up with NGT and his medications PO were given including his ASA and plavix. He has been doing better since he was released over there till yesterday. Reports of no recent antibiotic therapy. 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 He had a cholecystectomy in the past and the last time he used ETOH was november. PAST MEDICAL HISTORY Cardiovascular: CAD, CHF (cardiomyopathy), HTN, GA (STEMI), Hyperlipidemia GI: GERD Heme/Onc: No pertinent hx Hepatobiliary: Cholelithiasis, Other (pancreatitis; CORDOVA) Psych: Anxiety Musculoskeletal: Osteoarthritis Rheumatologic: No pertinent hx Infectious disease: No pertinent hx ENT: No pertinent hx Renal/: No pertinent hx Endocrine: Diabetes (2) PAST SURGICAL HISTORY Past Surgical History: Appendectomy, Cholecystectomy, Total knee replacement (L ), Other (PCI/RIMA to PLB) FAMILY HISTORY Family History: Diabetes (mother, brother), Hypertension, Stroke (father) SOCIAL HISTORY Smoke: <1 pack per day ALCOHOL: none Drugs: None Lives: Alone CURRENT MEDICATIONS CURRENT MEDICATIONS Current Medications Medications (Trade) Dose Ordered Sig/Marcia Route PRN Reason Start Time Stop Time Status Last Admin Dose Admin Fentanyl Citrate (Fentanyl 2ml Vial) 50 mcg 1X ONCE IV 8/9/18 22:45 02/20/18 22:46 DC 02/21/18 00:04 Sodium Chloride 1,000 ml @ 1,000 mls/hr 1X ONCE IV 02/20/18 22:45 02/20/18 23:44 DC 02/21/18 00:05 Metoclopramide HCl (Reglan Vial) 10 mg 1X ONCE IV 02/20/18 22:45 02/20/18 22:46 DC 02/20/18 22:45 Morphine Sulfate (Morphine Sulfate) 4 mg 1X ONCE IV 02/21/18 00:30 02/21/18 00:31 DC 02/21/18 00:30 Aspirin (Children'S Aspirin) 324 mg 1X ONCE PO 02/21/18 01:00 02/21/18 01:01 DC 02/21/18 01:00 Morphine Sulfate (Morphine Sulfate) 4 mg PRN Q2HR PRN IV PAIN 02/21/18 01:15 02/22/18 01:14 02/21/18 12:25 Sodium Chloride 1,000 ml @ 150 mls/hr Q6H40M IV 02/21/18 01:15 02/21/18 10:18 DC 02/21/18 08:20 Ketamine HCl 20 mg 1X ONCE IV 02/21/18 01:30 02/21/18 01:31 DC 02/21/18 01:37 Isosorbide Dinitrate (Isordil) 20 mg 1X ONCE PO 02/21/18 01:30 02/21/18 01:31 DC 02/21/18 01:36 Amlodipine Besylate (Norvasc) 10 mg 1X ONCE PO 02/21/18 01:30 02/21/18 01:31 DC 02/21/18 01:37 Metoclopramide HCl (Reglan Vial) 5 mg 1X ONCE IV 02/21/18 04:00 02/21/18 04:01 DC 02/21/18 03:54 Aspirin (Yolanda Aspirin) 325 mg DAILY08 PO 02/21/18 11:00 02/21/18 11:14 Carvedilol (Coreg) 3.125 mg BIDWMEALS PO 02/21/18 11:00 02/21/18 11:17 Clopidogrel Bisulfate (Plavix) 75 mg DAILY07 PO 02/21/18 11:00 02/21/18 11:18 Fluoxetine HCl (PROzac) 20 mg DAILY PO 02/21/18 11:00 02/21/18 11:18 Lisinopril (Prinivil) 40 mg DAILY PO 02/21/18 11:00 02/21/18 11:17 Amiodarone HCl (Cordarone) 200 mg DAILY PO 02/21/18 11:00 02/21/18 11:18 Isosorbide Mononitrate (Imdur) 60 mg DAILY PO 02/21/18 11:00 02/21/18 11:19 Pantoprazole Sodium (Protonix) 40 mg DAILYAC PO 02/21/18 11:00 02/21/18 11:18 Spironolactone (Aldactone) 25 mg DAILY PO 02/21/18 11:00 02/21/18 11:18 Ondansetron HCl (Zofran) 4 mg PRN Q6HRS PRN IV NAUSEA/VOMITING 1ST CHOICE 02/21/18 10:15 02/21/18 11:15 Insulin Human Lispro (HumaLOG) 0-7 UNITS TIDWMEALS SQ 02/21/18 12:00 02/21/18 12:30 Fentanyl Citrate (Fentanyl 2ml Vial) 50 mcg PRN Q2HR PRN IV PAIN 02/21/18 10:30 02/21/18 11:15 ALLERGIES ALLERGIES: Coded Allergies: glyburide (Verified Allergy, Intermediate, 12/24/17) ketorolac (Verified Adverse Reaction, Intermediate, vomiting, 09/03/17) tramadol (Verified Adverse Reaction, Intermediate, vomiting, 09/03/17) ROS Review of System 14 point ROS evaluated with pertinent positives noted per HPI PHYSICAL EXAM General: Alert, Oriented X3, Cooperative, No acute distress HEENT: Atraumatic, Mucous membr. moist/pink Lungs: Clear to auscultation, Normal air movement Heart: Regular rate, Normal S1, Normal S2, No murmurs Abdomen: Other (diffuse abd tenderness) Extremities: Other (trace LE edema) Skin: No breakdown, Other (generalized UE ecchymoses) Neuro: Normal speech, Sensation intact Psych/Mental Status: Mental status NL, Mood NL MUSCULOSKELETAL: Osteoarthritic changes both hands VITALS VITALS Vital Signs Date Time Temp Pulse Resp B/P (MAP) Pulse Ox O2 Delivery O2 Flow Rate FiO2 02/21/18 12:25 Room Air 02/21/18 11:19 63 158/78 02/21/18 11:10 98.7 20 97 98.7 LABS Lab: Laboratory Tests Test 02/20/18 23:45 02/20/18 23:55 02/21/18 05:15 02/21/18 08:00 Urine Collection Type Unknown Urine Color Yellow Urine Clarity Clear Urine pH 7.0 Urine Specific [place] 1.025 Urine Protein 30 mg/dL (NEG-TRACE) Urine Glucose (UA) 500 mg/dL (NEG) Urine Ketones (Stick) 15 mg/dL (NEG) Urine Blood Trace (NEG) Urine Nitrite Negative (NEG) Urine Bilirubin Negative (NEG) Urine Urobilinogen Dipstick 0.2 mg/dL (0.2 mg/dL) Urine Leukocyte Esterase Negative (NEG) Urine RBC Occ /HPF (0-2) Urine WBC 1-4 /HPF (0-4) Urine Squamous Epithelial Cells Few /LPF Urine Bacteria 0 /HPF (0-FEW) Urine Hyaline Casts Moderate /HPF Urine Mucus Mod /LPF White Blood Count 7.6 x10^3/uL (4.0-11.0) Red Blood Count 3.92 x10^6/uL (4.30-5.70) Hemoglobin 12.9 g/dL (13.0-17.5) Hematocrit 36.4 % (39.0-53.0) Mean Corpuscular Volume 93 fL (79-100) Mean Corpuscular Hemoglobin 33 pg (25-35) Mean Corpuscular Hemoglobin Concent 35 g/dL (31-37) Red Cell Distribution Width 15.2 % (11.5-14.5) Platelet Count 315 x10^3/uL (140-400) Neutrophils (%) (Auto) 67 % (31-73) Lymphocytes (%) (Auto) 22 % (24-48) Monocytes (%) (Auto) 9 % (0-9) Eosinophils (%) (Auto) 0 % (0-3) Basophils (%) (Auto) 1 % (0-3) Neutrophils # (Auto) 5.1 x10^3uL (1.8-7.7) Lymphocytes # (Auto) 1.7 x10^3/uL (1.0-4.8) Monocytes # (Auto) 0.7 x10^3/uL (0.0-1.1) Eosinophils # (Auto) 0.0 x10^3/uL (0.0-0.7) Basophils # (Auto) 0.1 x10^3/uL (0.0-0.2) Prothrombin Time 13.7 SEC (11.7-14.0) Prothromb Time International Ratio 1.1 (0.8-1.1) Sodium Level 134 mmol/L (136-145) Potassium Level 3.4 mmol/L (3.5-5.1) Chloride Level 95 mmol/L (98-107) Carbon Dioxide Level 27 mmol/L (21-32) Anion Gap 12 (6-14) Blood Urea Nitrogen 42 mg/dL (8-26) Creatinine 1.5 mg/dL (0.7-1.3) Estimated GFR (Cockcroft-Gault) 48.1 BUN/Creatinine Ratio 28 (6-20) Glucose Level 321 mg/dL (70-99) Lactic Acid Level 1.9 mmol/L (0.4-2.0) Calcium Level 9.5 mg/dL (8.5-10.1) Magnesium Level 2.0 mg/dL (1.8-2.4) Total Bilirubin 2.7 mg/dL (0.2-1.0) Aspartate Amino Transf (AST/SGOT) 33 U/L (15-37) Alanine Aminotransferase (ALT/SGPT) 31 U/L (16-63) Alkaline Phosphatase 120 U/L (46-116) Troponin I Quantitative 0.091 ng/mL (0.000-0.055) 0.087 ng/mL (0.000-0.055) 0.060 ng/mL (0.000-0.055) PL-Mxi-W-Type Natriuretic Peptide 3692 pg/mL (0-124) Total Protein 7.6 g/dL (6.4-8.2) Albumin 4.2 g/dL (3.4-5.0) Albumin/Globulin Ratio 1.2 (1.0-1.7) Lipase 2200 U/L (73-393) Test 02/21/18 11:46 Glucose (Fingerstick) 289 mg/dL (70-99) ECHOCARDIOGRAM ECHOCARDIOGRAM <Conclusion> The Left Ventricle is moderately dilated. The systolic function is moderately impaired. The Ejection Fraction is 40%. Septal motion consistent with conduction abnormality. Global hypokinesis otherwise. DATE: 09/04/17 1745 HEART CATH HEART CATH Conclusion 1. Severe single-vessel coronary disease 2. Successful PCI/drug eluting stents placement to the posterolateral branch of right coronary artery 3. Posterobasal wall hypokinesis with ejection fraction estimated at 45% Recommendations 1. Aspirin 325 mg daily 2. Plavix 75 mg daily for preferably one year 3. Cardiovascular risk factor modification DATE: 12/24/17 1345 ASSESSMENT/PLAN ASSESSMENT/PLAN 1. Acute pancreatitis with n/v (15 bouts yesterday): unknown etiology. GI following 2. Acute diarrhea: 20 watery stools yesterday. Prior partial SBO per pt 2 weeks ago. No recent antibiotics. 3. SALVATORE: due to volume depletion 4. Atypical CP: due to GI, noncardiac 5. Elevated troponin: EKG SR with no acute changes. peaked at 0.09 demand mediated in the setting of pancreatitis and SALVATORE 6. CAD; recent Inferoposterior STEMI 12/2017 with S/P PCI/RIMA to PLB, stable. Sees [place] [facility] 7. Mild ICM: recent EF at 45%, compensated 8. DM2: on home insulin therapy, BG uncontrolled. Per PCP 9. HTN 10. HLP 11. Hx of NSVT: on amiodarone. QTc 520 12. Tobaccoism Recommendations 1. Continue with ASA and plavix at least with sips of H20 2. Continue with secondary prevention measures as tolerated. 3. Volume replacement via IVF. 4. Check CKs and recheck EKG. BMP, Mg today 5. May hold any diuretics if vomiting and diarrhea persist 6. Smoking cessation VANDA ROSEN MD 02/22/18 0741: CARDIAC CONSULT ASSESSMENT/PLAN ASSESSMENT/PLAN Patient seen and examined 02/21/18. Agree with HAIR DESIGNER's assessment and plan. CP atypical and most probably GI etiology CAD status stable overall Chronic systolic HF compensated Continue management of diarrhea and pancreatitis per GI team Thank you for your consultation LYNETTE BHANDARI APRN Feb 21, 2018 14:49 VANDA ROSEN MD Feb 22, 2018 07:41
[2018-02-21 15:00] VITALS: BP 147/76
--- NOTE | 2018-02-21 15:06 | EKG ---
[facility] [address] [place] [address] Test Date: 2018-02-21 Test Time: 14:41:31 Pat Name: MONSERRAT RETANA Department: Room: 200 1 Gender: M Digital Media Representative: BERNARDA : 1960 Requested By: LYNETTE BHANDARI Order Number: [id number] Reading MD: Measurements Intervals [place] Rate: 56 P: 0 DE: 144 QRS: 80 QRSD: 100 T: 106 QT: 536 QTc: 520 Interpretive Statements SINUS RHYTHM T ABNORMALITY IN HIGH LATERAL LEADS PROLONGED QT ABNORMAL ECG RI6.01 Compared to ECG 12/24/2017 10:00:23 T-wave abnormality now present Atrial abnormality no longer present Right-axis deviation no longer present Right ventricular hypertrophy no longer present Early repolarization no longer present
[2018-02-21 15:17] LABS: CALCIUM 8.2 mg/dL (8.5-10.1); CREATININE 1.2 mg/dL (0.7-1.3); GFR 62.2; POTASSIUM 3.1 mmol/L (3.5-5.1)
[2018-02-21] MEDS: ENOXAPARIN 40 MG/0.4 ML SYRINGE. SQ SCH (16:35)
[2018-02-21] MEDS ORDERED: POTASSIUM CHLORIDE 20 MEQ TABLET.ER. PO ONE (16:45)
[2018-02-21] MEDS: MORPHINE SULFATE 2 MG/ML DISP.SYRIN. IV PRN ×2 (18:18→20:48)
[2018-02-21] MEDS ORDERED: METOCLOPRAMIDE HCL 10 MG/2 ML VIAL. IV PRN (18:30)
[2018-02-21 18:49] VITALS: BP 138/62
[2018-02-21] MEDS: ATORVASTATIN CALCIUM 40 MG TABLET. PO SCH (20:52)
[2018-02-21] MEDS: INSULIN GLARGINE 300 UNITS/3 ML INSULN.PEN. SQ SCH (20:57)
[2018-02-21 23:22] VITALS: BP 171/87
[2018-02-22] MEDS: MORPHINE SULFATE 2 MG/ML DISP.SYRIN. IV PRN ×4 (01:23→09:04)
[2018-02-22] MEDS: fentaNYL PF VIAL 100 MCG/2 ML VIAL IV PRN ×9 (02:43→22:47)
[2018-02-22 02:45] VITALS: BP 175/83
[2018-02-22] MEDS: CLOPIDOGREL BISULFATE 75 MG TABLET PO SCH (05:39)
[2018-02-22 06:10] LABS: CALCIUM 8.6 mg/dL (8.5-10.1); CREATININE 0.8 mg/dL (0.7-1.3); GFR 99.3; POTASSIUM 3.3 mmol/L (3.5-5.1)
[2018-02-22] MEDS: ONDANSETRON PF 4 MG/2 ML VIAL. IV PRN ×3 (06:47→21:11)
[2018-02-22 07:00] VITALS: BP 161/80
[2018-02-22] MEDS: INSULIN LISPRO 300 UNITS/3 ML INSULN.PEN. SQ SCH ×4 (08:00→17:00)
[2018-02-22] MEDS: ASPIRIN 325 MG TABLET PO SCH (08:04)
[2018-02-22] MEDS: FLUoxetine HCL 20 MG CAPSULE PO SCH (08:04)
[2018-02-22] MEDS: LISINOPRIL 20 MG TABLET PO SCH (08:04)
[2018-02-22] MEDS: ISOSORBIDE MONONITRATE ER 30 MG TAB.ER.24H PO SCH (08:05)
[2018-02-22] MEDS: CARVEDILOL 3.125 MG TABLET. PO SCH ×2 (08:06→16:09)
[2018-02-22] MEDS: AMIODARONE HCL 200 MG TABLET. PO SCH (08:07)
[2018-02-22] MEDS: PANTOPRAZOLE 40 MG TABLET.DR. PO SCH (08:07)
[2018-02-22] MEDS: SPIRONOLACTONE 25 MG TABLET PO SCH (08:07)
[2018-02-22] MEDS: PANTOPRAZOLE IV PUSH 40 MG VIAL. IVP SCH (10:16)
[2018-02-22 11:00] VITALS: BP 123/77
[2018-02-22] MEDS: MORPHINE SULFATE 4 MG/ML DISP.SYRIN. IV PRN ×5 (11:14→21:13)
[2018-02-22 12:15] LABS: BASO % 0 % (0-3); EOS # 0.1 x10^3/uL (0.0-0.7); EOS % 1 % (0-3); HEMATOCRIT 32.6 % (39.0-53.0); HEMOGLOBIN 11.5 g/dL (13.0-17.5); LYMPH % 9 % (24-48); MEAN CORPUSCULAR HEMOGLOBIN 33 pg (25-35); MEAN CORPUSCULAR HGB CONC 35 g/dL (31-37); MEAN CORPUSCULAR VOLUME 94 fL (79-100); MONO # 0.4 x10^3/uL (0.0-1.1); MONO % 3 % (0-9); NEUT # 10.4 x10^3uL (1.8-7.7); NEUT % 88 % (31-73); PLATELET COUNT 192 x10^3/uL (140-400); RED BLOOD COUNT 3.47 x10^6/uL (4.30-5.70); RED CELL DISTRIBUTION WIDTH 14.9 % (11.5-14.5); WHITE BLOOD COUNT 11.8 x10^3/uL (4.0-11.0)
--- NOTE | 2018-02-22 13:54 | PDOC ---
PROGRESS NOTES Chief Complaint Chief Complaint abd pain, acute pancreatitis h/o alcoholic pancreatitis recent SBO h/o CAD s/p PCI. 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 told pt about his adrenal mass, he knew and was fu with PCP pain control, increase iv pain meds. History of Present Illness History of Present Illness ROS: no fever, chills, sob or chest pain cont having severe abd pain higher lipase Vitals Vitals Vital Signs Date Time Temp Pulse Resp B/P (MAP) Pulse Ox O2 Delivery O2 Flow Rate FiO2 02/22/18 13:37 99 Room Air 02/22/18 12:58 18 02/22/18 11:00 99.0 56 123/77 (92) 99.0 Physical Exam General: Alert, Oriented X3, Cooperative, No acute distress Heart: Regular rate, Normal S1, Normal S2, No murmurs Lungs: Clear Abdomen: Soft, Other (diffuse abd tenderness, severe. decreased bs) Extremities: No clubbing, No cyanosis, Other (trace LE edema) Skin: No rashes, No breakdown, Other (generalized UE ecchymoses) Labs LABS Laboratory Tests Test 02/21/18 15:02 02/21/18 20:50 02/22/18 05:00 02/22/18 07:42 Glucose (Fingerstick) 223 mg/dL (70-99) 233 mg/dL (70-99) 104 mg/dL (70-99) Sodium Level 138 mmol/L (136-145) Potassium Level 3.3 mmol/L (3.5-5.1) Chloride Level 104 mmol/L (98-107) Carbon Dioxide Level 23 mmol/L (21-32) Anion Gap 11 (6-14) Blood Urea Nitrogen 19 mg/dL (8-26) Creatinine 0.8 mg/dL (0.7-1.3) Estimated GFR (Cockcroft-Gault) 99.3 Glucose Level 111 mg/dL (70-99) Calcium Level 8.6 mg/dL (8.5-10.1) Lipase 3999 U/L (73-393) Test 02/22/18 10:53 02/22/18 11:40 Glucose (Fingerstick) 116 mg/dL (70-99) White Blood Count 11.8 x10^3/uL (4.0-11.0) Red Blood Count 3.47 x10^6/uL (4.30-5.70) Hemoglobin 11.5 g/dL (13.0-17.5) Hematocrit 32.6 % (39.0-53.0) Mean Corpuscular Volume 94 fL (79-100) Mean Corpuscular Hemoglobin 33 pg (25-35) Mean Corpuscular Hemoglobin Concent 35 g/dL (31-37) Red Cell Distribution Width 14.9 % (11.5-14.5) Platelet Count 192 x10^3/uL (140-400) Neutrophils (%) (Auto) 88 % (31-73) Lymphocytes (%) (Auto) 9 % (24-48) Monocytes (%) (Auto) 3 % (0-9) Eosinophils (%) (Auto) 1 % (0-3) Basophils (%) (Auto) 0 % (0-3) Neutrophils # (Auto) 10.4 x10^3uL (1.8-7.7) Lymphocytes # (Auto) 1.0 x10^3/uL (1.0-4.8) Monocytes # (Auto) 0.4 x10^3/uL (0.0-1.1) Eosinophils # (Auto) 0.1 x10^3/uL (0.0-0.7) Basophils # (Auto) 0.0 x10^3/uL (0.0-0.2) Comment Review of Relevant I have reviewed the following items javad (where applicable) has been applied. Labs Laboratory Tests Test 02/20/18 23:45 02/20/18 23:55 02/21/18 05:15 02/21/18 08:00 Urine Collection Type Unknown Urine Color Yellow Urine Clarity Clear Urine pH 7.0 Urine Specific [place] 1.025 Urine Protein 30 mg/dL (NEG-TRACE) Urine Glucose (UA) 500 mg/dL (NEG) Urine Ketones (Stick) 15 mg/dL (NEG) Urine Blood Trace (NEG) Urine Nitrite Negative (NEG) Urine Bilirubin Negative (NEG) Urine Urobilinogen Dipstick 0.2 mg/dL (0.2 mg/dL) Urine Leukocyte Esterase Negative (NEG) Urine RBC Occ /HPF (0-2) Urine WBC 1-4 /HPF (0-4) Urine Squamous Epithelial Cells Few /LPF Urine Bacteria 0 /HPF (0-FEW) Urine Hyaline Casts Moderate /HPF Urine Mucus Mod /LPF White Blood Count 7.6 x10^3/uL (4.0-11.0) Red Blood Count 3.92 x10^6/uL (4.30-5.70) Hemoglobin 12.9 g/dL (13.0-17.5) Hematocrit 36.4 % (39.0-53.0) Mean Corpuscular Volume 93 fL (79-100) Mean Corpuscular Hemoglobin 33 pg (25-35) Mean Corpuscular Hemoglobin Concent 35 g/dL (31-37) Red Cell Distribution Width 15.2 % (11.5-14.5) Platelet Count 315 x10^3/uL (140-400) Neutrophils (%) (Auto) 67 % (31-73) Lymphocytes (%) (Auto) 22 % (24-48) Monocytes (%) (Auto) 9 % (0-9) Eosinophils (%) (Auto) 0 % (0-3) Basophils (%) (Auto) 1 % (0-3) Neutrophils # (Auto) 5.1 x10^3uL (1.8-7.7) Lymphocytes # (Auto) 1.7 x10^3/uL (1.0-4.8) Monocytes # (Auto) 0.7 x10^3/uL (0.0-1.1) Eosinophils # (Auto) 0.0 x10^3/uL (0.0-0.7) Basophils # (Auto) 0.1 x10^3/uL (0.0-0.2) Prothrombin Time 13.7 SEC (11.7-14.0) Prothromb Time International Ratio 1.1 (0.8-1.1) Sodium Level 134 mmol/L (136-145) 134 mmol/L (136-145) Potassium Level 3.4 mmol/L (3.5-5.1) 3.1 mmol/L (3.5-5.1) Chloride Level 95 mmol/L (98-107) 98 mmol/L (98-107) Carbon Dioxide Level 27 mmol/L (21-32) 18 mmol/L (21-32) Anion Gap 12 (6-14) 18 (6-14) Blood Urea Nitrogen 42 mg/dL (8-26) 34 mg/dL (8-26) Creatinine 1.5 mg/dL (0.7-1.3) 1.2 mg/dL (0.7-1.3) Estimated GFR (Cockcroft-Gault) 48.1 62.2 BUN/Creatinine Ratio 28 (6-20) Glucose Level 321 mg/dL (70-99) 277 mg/dL (70-99) Lactic Acid Level 1.9 mmol/L (0.4-2.0) Calcium Level 9.5 mg/dL (8.5-10.1) 8.2 mg/dL (8.5-10.1) Magnesium Level 2.0 mg/dL (1.8-2.4) 2.1 mg/dL (1.8-2.4) Total Bilirubin 2.7 mg/dL (0.2-1.0) Aspartate Amino Transf (AST/SGOT) 33 U/L (15-37) Alanine Aminotransferase (ALT/SGPT) 31 U/L (16-63) Alkaline Phosphatase 120 U/L (46-116) Troponin I Quantitative 0.091 ng/mL (0.000-0.055) 0.087 ng/mL (0.000-0.055) 0.060 ng/mL (0.000-0.055) NM-Ztg-A-Type Natriuretic Peptide 3692 pg/mL (0-124) Total Protein 7.6 g/dL (6.4-8.2) Albumin 4.2 g/dL (3.4-5.0) Albumin/Globulin Ratio 1.2 (1.0-1.7) Lipase 2200 U/L (73-393) Creatine Kinase 179 U/L (39-308) Creatine Kinase MB (Mass) 3.4 ng/mL (0.0-3.6) Creatine Kinase MB Relative Index 1.9 % (0-4) Test 02/21/18 11:46 02/21/18 15:02 02/21/18 20:50 02/22/18 05:00 Glucose (Fingerstick) 289 mg/dL (70-99) 223 mg/dL (70-99) 233 mg/dL (70-99) Sodium Level 138 mmol/L (136-145) Potassium Level 3.3 mmol/L (3.5-5.1) Chloride Level 104 mmol/L (98-107) Carbon Dioxide Level 23 mmol/L (21-32) Anion Gap 11 (6-14) Blood Urea Nitrogen 19 mg/dL (8-26) Creatinine 0.8 mg/dL (0.7-1.3) Estimated GFR (Cockcroft-Gault) 99.3 Glucose Level 111 mg/dL (70-99) Calcium Level 8.6 mg/dL (8.5-10.1) Lipase 3999 U/L (73-393) Test 02/22/18 07:42 02/22/18 10:53 02/22/18 11:40 Glucose (Fingerstick) 104 mg/dL (70-99) 116 mg/dL (70-99) White Blood Count 11.8 x10^3/uL (4.0-11.0) Red Blood Count 3.47 x10^6/uL (4.30-5.70) Hemoglobin 11.5 g/dL (13.0-17.5) Hematocrit 32.6 % (39.0-53.0) Mean Corpuscular Volume 94 fL (79-100) Mean Corpuscular Hemoglobin 33 pg (25-35) Mean Corpuscular Hemoglobin Concent 35 g/dL (31-37) Red Cell Distribution Width 14.9 % (11.5-14.5) Platelet Count 192 x10^3/uL (140-400) Neutrophils (%) (Auto) 88 % (31-73) Lymphocytes (%) (Auto) 9 % (24-48) Monocytes (%) (Auto) 3 % (0-9) Eosinophils (%) (Auto) 1 % (0-3) Basophils (%) (Auto) 0 % (0-3) Neutrophils # (Auto) 10.4 x10^3uL (1.8-7.7) Lymphocytes # (Auto) 1.0 x10^3/uL (1.0-4.8) Monocytes # (Auto) 0.4 x10^3/uL (0.0-1.1) Eosinophils # (Auto) 0.1 x10^3/uL (0.0-0.7) Basophils # (Auto) 0.0 x10^3/uL (0.0-0.2) Laboratory Tests Test 02/21/18 15:02 02/21/18 20:50 02/22/18 05:00 02/22/18 07:42 Glucose (Fingerstick) 223 mg/dL (70-99) 233 mg/dL (70-99) 104 mg/dL (70-99) Sodium Level 138 mmol/L (136-145) Potassium Level 3.3 mmol/L (3.5-5.1) Chloride Level 104 mmol/L (98-107) Carbon Dioxide Level 23 mmol/L (21-32) Anion Gap 11 (6-14) Blood Urea Nitrogen 19 mg/dL (8-26) Creatinine 0.8 mg/dL (0.7-1.3) Estimated GFR (Cockcroft-Gault) 99.3 Glucose Level 111 mg/dL (70-99) Calcium Level 8.6 mg/dL (8.5-10.1) Lipase 3999 U/L (73-393) Test 02/22/18 10:53 02/22/18 11:40 Glucose (Fingerstick) 116 mg/dL (70-99) White Blood Count 11.8 x10^3/uL (4.0-11.0) Red Blood Count 3.47 x10^6/uL (4.30-5.70) Hemoglobin 11.5 g/dL (13.0-17.5) Hematocrit 32.6 % (39.0-53.0) Mean Corpuscular Volume 94 fL (79-100) Mean Corpuscular Hemoglobin 33 pg (25-35) Mean Corpuscular Hemoglobin Concent 35 g/dL (31-37) Red Cell Distribution Width 14.9 % (11.5-14.5) Platelet Count 192 x10^3/uL (140-400) Neutrophils (%) (Auto) 88 % (31-73) Lymphocytes (%) (Auto) 9 % (24-48) Monocytes (%) (Auto) 3 % (0-9) Eosinophils (%) (Auto) 1 % (0-3) Basophils (%) (Auto) 0 % (0-3) Neutrophils # (Auto) 10.4 x10^3uL (1.8-7.7) Lymphocytes # (Auto) 1.0 x10^3/uL (1.0-4.8) Monocytes # (Auto) 0.4 x10^3/uL (0.0-1.1) Eosinophils # (Auto) 0.1 x10^3/uL (0.0-0.7) Basophils # (Auto) 0.0 x10^3/uL (0.0-0.2) Medications Current Medications Fentanyl Citrate (Fentanyl 2ml Vial) 50 mcg 1X ONCE IV Last administered on 05/01at 00:04; Start 02/20/18 at 22:45; Stop 02/20/18 at 22:46; Status DC Ondansetron HCl (Zofran) 4 mg 1X ONCE IV ; Start 02/20/18 at 22:45; Stop at 22:45; Status DC Sodium Chloride 1,000 ml @ 1,000 mls/hr 1X ONCE IV Last administered on at 00:05; Start 02/20/18 at 22:45; Stop 02/20/18 at 23:44; Status DC Metoclopramide HCl (Reglan Vial) 10 mg 1X ONCE IV Last administered on at 22:45; Start 02/20/18 at 22:45; Stop 02/20/18 at 22:46; Status DC Morphine Sulfate (Morphine Sulfate) 4 mg 1X ONCE IV Last administered on at 00:30; Start 02/21/18 at 00:30; Stop 02/21/18 at 00:31; Status DC Aspirin (Children'S Aspirin) 324 mg 1X ONCE PO Last administered on 02/21/18at 01:00; Start 02/21/18 at 01:00; Stop 02/21/18 at 01:01; Status DC Morphine Sulfate (Morphine Sulfate) 4 mg PRN Q2HR PRN IV PAIN Last administered on 02/21/18at 22:51; Start 02/21/18 at 01:15; Stop 8/11/18 at 01:14 ; Status DC Sodium Chloride 1,000 ml @ 150 mls/hr Q6H40M IV Last administered on at 08:20; Start 02/21/18 at 01:15; Stop 02/21/18 at 10:18; Status DC Ketamine HCl 20 mg 1X ONCE IV Last administered on 02/21/18at 01:37; Start 05/01 at 01:30; Stop 02/21/18 at 01:31; Status DC Isosorbide Dinitrate (Isordil) 20 mg 1X ONCE PO Last administered on at 01:36; Start 02/21/18 at 01:30; Stop 02/21/18 at 01:31; Status DC Amlodipine Besylate (Norvasc) 10 mg 1X ONCE PO Last administered on 02/21/18at 01:37; Start 02/21/18 at 01:30; Stop 02/21/18 at 01:31; Status DC Hydralazine HCl (Apresoline Inj) 10 mg PRN Q4HRS PRN IVP ELEVATED BP, SEE COMMENTS; Start 02/21/18 at 02:30; Stop 02/21/18 at 10:24; Status DC Metoclopramide HCl (Reglan Vial) 5 mg 1X ONCE IV Last administered on at 03:54; Start 02/21/18 at 04:00; Stop 02/21/18 at 04:01; Status DC Aspirin (Yolanda Aspirin) 325 mg DAILY08 PO Last administered on 02/22/18at 08:04 ; Start 02/21/18 at 11:00 Atorvastatin Calcium (Lipitor) 40 mg QHS PO Last administered on 02/21/18at 20: 52; Start 02/21/18 at 21:00 Carvedilol (Coreg) 3.125 mg BIDWMEALS PO Last administered on 02/22/18at 08:06; Start 02/21/18 at 11:00 Clopidogrel Bisulfate (Plavix) 75 mg DAILY07 PO Last administered on 02/22/18at 05:39; Start 02/21/18 at 11:00 Fluoxetine HCl (PROzac) 20 mg DAILY PO Last administered on 02/22/18at 08:04; Start 02/21/18 at 11:00 Lisinopril (Prinivil) 40 mg DAILY PO Last administered on 02/22/18 08:04; Start 02/21/18 at 11:00 Amiodarone HCl (Cordarone) 200 mg DAILY PO Last administered on 02/22/18at 08:07 ; Start 02/21/18 at 11:00 Isosorbide Mononitrate (Imdur) 60 mg DAILY PO Last administered on 02/22/18at 08 :05; Start 02/21/18 at 11:00 Pantoprazole Sodium (Protonix) 40 mg DAILYAC PO Last administered on 02/22/18at 08:07; Start 02/21/18 at 11:00; Stop 02/22/18 at 09:33; Status DC Spironolactone (Aldactone) 25 mg DAILY PO Last administered on 02/22/18at 08:07 ; Start 02/21/18 at 11:00 Acetaminophen (Tylenol) 650 mg PRN Q6HRS PRN PO FEVER; Start 02/21/18 at 10:15 Ondansetron HCl (Zofran) 4 mg PRN Q6HRS PRN IV NAUSEA/VOMITING 1ST CHOICE Last administered on 02/22/18at 12:28; Start 02/21/18 at 10:15 Morphine Sulfate (Morphine Sulfate) 2 mg PRN Q2HR PRN IV MODERATE TO SEVERE PAIN Last administered on 02/22/18at 09:04; Start 02/21/18 at 10:15; Stop at 09:35; Status DC Hydralazine HCl (Apresoline Inj) 10 mg PRN Q4HRS PRN IVP ELEVATED BP, SEE COMMENTS; Start 02/21/18 at 10:15 Docusate Sodium (Colace) 100 mg PRN DAILY PRN PO HARD STOOLS; Start 02/21/18 at 10:15 Sodium Chloride 1,000 ml @ 150 mls/hr Q6H40M IV Last administered on at 14:30; Start 02/21/18 at 10:15; Stop 02/21/18 at 18:30; Status DC Insulin Human Lispro (HumaLOG) 0-7 UNITS TIDWMEALS SQ Last administered on 02/21at 12:30; Start 02/21/18 at 12:00 Dextrose (Dextrose 50%-Water Syringe) 12.5 gm PRN Q15MIN PRN IV SEE COMMENTS; Start 02/21/18 at 10:15 Insulin Glargine (Lantus) 15 units QHS SQ Last administered on 02/21/18at 20:57 ; Start 02/21/18 at 21:00 Insulin Human Lispro (HumaLOG) 5 units TIDWMEALS SQ ; Start 02/21/18 at 12:00; Stop 02/22/18 at 09:33; Status DC Fentanyl Citrate (Fentanyl 2ml Vial) 50 mcg PRN Q2HR PRN IV PAIN Last administered on 02/22/18at 08:01; Start 02/21/18 at 10:30; Stop 02/22/18 at 09:33 ; Status DC Enoxaparin Sodium (Lovenox 40mg Syringe) 40 mg DAILY16 SQ Last administered on 02/21/18at 16:35; Start 02/21/18 at 16:00 Potassium Chloride (Klor-Con) 40 meq 1X ONCE PO ; Start 02/21/18 at 16:45; Stop 02/21/18 at 16:46; Status DC Metoclopramide HCl (Reglan Vial) 10 mg PRN Q6HRS PRN IV NAUSEA/VOMITING Last administered on 02/21/18at 19:10; Start 02/21/18 at 18:30 Potassium Chloride/Sodium Chloride 1,000 ml @ 150 mls/hr Q6H40M IV Last administered on 02/22/18at 13:37; Start 02/21/18 at 18:30 Fentanyl Citrate (Fentanyl 2ml Vial) 100 mcg PRN Q2HR PRN IV PAIN Last administered on 02/22/18at 12:28; Start 02/22/18 at 09:45 Pantoprazole Sodium (PROTONIX VIAL for IV PUSH) 40 mg DAILYAC IVP Last administered on 02/22/18at 10:16; Start 02/22/18 at 10:00 Morphine Sulfate (Morphine Sulfate) 4 mg PRN Q2HR PRN IV PAIN Last administered on 02/22/18at 13:37; Start 02/22/18 at 09:30 Active Scripts Active Reported Novolog Flexpen (Insulin Aspart) 100 Unit/1 Ml Insuln.pen 20 Unit SQ TIDAC Lantus Solostar (Insulin Glargine,Hum.rec.anlog) 100 Unit/1 Ml Insuln.pen 35 Unit SQ HS Lantus Solostar (Insulin Glargine,Hum.rec.anlog) 100 Unit/1 Ml Insuln.pen 25 Unit SQ DAILY07 Culturelle (Lactobacillus Rhamnosus Gg) 1 Each Capsule 1 Each PO BID Prozac (Fluoxetine Hcl) 20 Mg Capsule 20 Mg PO DAILY Atorvastatin Calcium 40 Mg Tablet 1 Tab PO DAILY Isosorbide Mononitrate 20 Mg Tablet 60 Mg PO DAILY Clopidogrel (Clopidogrel Bisulfate) 75 Mg Tablet 75 Mg PO DAILY Coreg (Carvedilol) 3.125 Mg Tablet 3.125 Mg PO BIDWMEALS Aspirin 325 Mg Tablet 325 Mg PO DAILY Protonix (Pantoprazole Sodium) 20 Mg Tablet.dr 1 Tab PO DAILY Chlorthalidone 25 Mg Tablet 1 Tab PO DAILY Lisinopril 40 Mg Tablet 1 Tab PO DAILY Amiodarone Hcl 100 Mg Tablet 200 Mg PO DAILY Spironolactone 25 Mg Tablet 1 Tab PO DAILY Vitals/I & O Vital Sign - Last 24 Hours 02/21/18 02/21/18 02/21/18 02/21/18 14:29 15:00 15:21 16:33 Temp 99.0 99.0 Pulse 72 Resp 20 B/P (MAP) 147/76 (99) Pulse Ox 97 O2 Delivery Room Air Room Air Room Air Room Air 02/21/18 02/21/18 02/21/18 02/21/18 16:34 18:18 18:49 19:36 Temp 97.8 97.8 Pulse 61 57 Resp 18 20 B/P (MAP) 138/68 138/62 (87) Pulse Ox 98 O2 Delivery Room Air Room Air Room Air 02/21/18 02/21/18 02/21/18 02/21/18 19:40 20:48 22:51 23:21 Resp 20 20 18 Pulse Ox 98 98 O2 Delivery Room Air Room Air Room Air Room Air 02/21/18 02/21/18 02/22/18 02/22/18 23:22 23:53 01:23 02:43 Temp 97.8 97.8 Pulse 59 Resp 20 20 20 20 B/P (MAP) 171/87 (115) Pulse Ox 98 O2 Delivery Room Air Room Air Room Air Room Air 02/22/18 02/22/18 02/22/18 02/22/18 02:45 04:11 05:39 06:47 Temp 98.0 98.0 Pulse 59 Resp 20 20 20 20 B/P (MAP) 175/83 (113) Pulse Ox 99 O2 Delivery Room Air Room Air Room Air Room Air 02/22/18 02/22/18 02/22/18 02/22/18 07:00 07:15 07:52 08:01 Temp 98.5 98.5 Pulse 56 Resp 18 18 20 B/P (MAP) 161/80 (107) Pulse Ox 99 99 99 O2 Delivery Room Air Room Air Room Air Room Air 02/22/18 02/22/18 02/22/18 02/22/18 08:04 08:05 08:06 08:07 Pulse 60 60 60 60 B/P (MAP) 161/80 161/80 161/80 161/80 02/22/18 02/22/18 02/22/18 02/22/18 08:30 09:04 10:14 11:00 Temp 99.0 99.0 Pulse 56 Resp 20 20 20 B/P (MAP) 123/77 (92) Pulse Ox 99 99 99 97 O2 Delivery Room Air Room Air Room Air Room Air 02/22/18 02/22/18 02/22/18 02/22/18 11:14 11:44 12:28 12:58 Resp 18 18 20 18 Pulse Ox 99 99 99 99 O2 Delivery Room Air Room Air Room Air Room Air 02/22/18 13:37 Pulse Ox 99 O2 Delivery Room Air Intake and Output 02/21/18 02/21/18 02/22/18 15:00 23:00 07:00 Intake Total 930 ml 2016 ml Output Total 350 ml Balance 930 ml 1666 ml GIFTY BROWN MD Feb 22, 2018 13:54
[2018-02-22 14:32] LABS: % BANDS 2 % (0-9); % LYMPHS 10 % (24-48); % MONOS 5 % (0-10); % SEGS 83 % (35-66)
[2018-02-22 14:34] LABS: PLT ESTIMATE ADEQUATE (ADEQUATE)
[2018-02-22] MEDS: ENOXAPARIN 40 MG/0.4 ML SYRINGE. SQ SCH (14:54)
[2018-02-22 15:00] VITALS: BP 140/72
[2018-02-22 18:36] VITALS: BP 127/72
[2018-02-22] MEDS: ATORVASTATIN CALCIUM 40 MG TABLET. PO SCH (19:49)
[2018-02-22] MEDS: INSULIN GLARGINE 300 UNITS/3 ML INSULN.PEN. SQ SCH (19:53)
[2018-02-22 23:29] VITALS: BP 147/79
[2018-02-23] MEDS: MORPHINE SULFATE 4 MG/ML DISP.SYRIN. IV PRN ×9 (00:11→22:05)
[2018-02-23] MEDS: fentaNYL PF VIAL 100 MCG/2 ML VIAL IV PRN ×5 (01:15→17:54)
[2018-02-23 03:35] VITALS: BP 166/84
[2018-02-23 04:51] LABS: BASO % 0 % (0-3); EOS # 0.1 x10^3/uL (0.0-0.7); EOS % 1 % (0-3); HEMATOCRIT 30.5 % (39.0-53.0); HEMOGLOBIN 10.7 g/dL (13.0-17.5); LYMPH # 0.7 x10^3/uL (1.0-4.8); LYMPH % 4 % (24-48); MEAN CORPUSCULAR HEMOGLOBIN 33 pg (25-35); MEAN CORPUSCULAR HGB CONC 35 g/dL (31-37); MEAN CORPUSCULAR VOLUME 94 fL (79-100); MONO # 0.4 x10^3/uL (0.0-1.1); MONO % 2 % (0-9); NEUT # 14.6 x10^3uL (1.8-7.7); NEUT % 93 % (31-73); PLATELET COUNT 165 x10^3/uL (140-400); RED BLOOD COUNT 3.24 x10^6/uL (4.30-5.70); RED CELL DISTRIBUTION WIDTH 14.4 % (11.5-14.5); WHITE BLOOD COUNT 15.7 x10^3/uL (4.0-11.0)
[2018-02-23 05:05] LABS: CALCIUM 8.1 mg/dL (8.5-10.1); CREATININE 0.9 mg/dL (0.7-1.3); GFR 86.7; POTASSIUM 3.4 mmol/L (3.5-5.1)
[2018-02-23] MEDS: ONDANSETRON PF 4 MG/2 ML VIAL. IV PRN ×3 (05:26→19:46)
[2018-02-23 07:30] VITALS: BP 157/81
[2018-02-23] MEDS: PANTOPRAZOLE IV PUSH 40 MG VIAL. IVP SCH (07:48)
[2018-02-23] MEDS: ASPIRIN 325 MG TABLET PO SCH (07:49)
[2018-02-23] MEDS: AMIODARONE HCL 200 MG TABLET. PO SCH (07:49)
[2018-02-23] MEDS: ISOSORBIDE MONONITRATE ER 30 MG TAB.ER.24H PO SCH (07:49)
[2018-02-23] MEDS: FLUoxetine HCL 20 MG CAPSULE PO SCH (07:50)
[2018-02-23] MEDS: CLOPIDOGREL BISULFATE 75 MG TABLET PO SCH (07:50)
[2018-02-23] MEDS: CARVEDILOL 3.125 MG TABLET. PO SCH ×2 (07:50→16:11)
[2018-02-23] MEDS: SPIRONOLACTONE 25 MG TABLET PO SCH (07:50)
[2018-02-23] MEDS: LISINOPRIL 20 MG TABLET PO SCH (07:51)
[2018-02-23] MEDS: INSULIN LISPRO 300 UNITS/3 ML INSULN.PEN. SQ SCH ×3 (08:00→17:00)
[2018-02-23] MEDS ORDERED: POTASSIUM CHLORIDE 20 MEQ/15 ML ORAL LIQUID. PO ONE (10:30)
[2018-02-23 10:48] VITALS: BP 141/71
[2018-02-23] MEDS ORDERED: MAGNESIUM SULFATE 2GM 50 ML IV ONE (13:30)
--- NOTE | 2018-02-23 13:31 | PDOC ---
PROGRESS NOTES Chief Complaint Chief Complaint abd pain, acute pancreatitis h/o alcoholic pancreatitis recent SBO h/o CAD s/p PCI. 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 told pt about his adrenal mass, he knew and was fu with PCP pain control, increase iv pain meds. check abd CT given still severe pain and higher wbc History of Present Illness History of Present Illness ROS: no fever, chills, sob or chest pain cont having severe abd pain higher lipase better to 400, but still abd pain and higher wbc nausea 1 time small BM Vitals Vitals Vital Signs Date Time Temp Pulse Resp B/P (MAP) Pulse Ox O2 Delivery O2 Flow Rate FiO2 02/23/18 13:03 98 Room Air 02/23/18 11:32 18 02/23/18 10:48 99.1 74 141/71 (94) 99.1 Physical Exam General: Alert, Oriented X3, Cooperative, No acute distress Heart: Regular rate, Normal S1, Normal S2, No murmurs Lungs: Clear Abdomen: Soft, Other (diffuse abd tenderness, severe. decreased bs) Extremities: No clubbing, No cyanosis, Other (trace LE edema) Skin: No rashes, No breakdown, Other (generalized UE ecchymoses) Labs LABS Laboratory Tests Test 02/22/18 17:27 02/22/18 19:51 02/23/18 04:00 02/23/18 07:56 Glucose (Fingerstick) 94 mg/dL (70-99) 103 mg/dL (70-99) 112 mg/dL (70-99) White Blood Count 15.7 x10^3/uL (4.0-11.0) Red Blood Count 3.24 x10^6/uL (4.30-5.70) Hemoglobin 10.7 g/dL (13.0-17.5) Hematocrit 30.5 % (39.0-53.0) Mean Corpuscular Volume 94 fL (79-100) Mean Corpuscular Hemoglobin 33 pg (25-35) Mean Corpuscular Hemoglobin Concent 35 g/dL (31-37) Red Cell Distribution Width 14.4 % (11.5-14.5) Platelet Count 165 x10^3/uL (140-400) Neutrophils (%) (Auto) 93 % (31-73) Lymphocytes (%) (Auto) 4 % (24-48) Monocytes (%) (Auto) 2 % (0-9) Eosinophils (%) (Auto) 1 % (0-3) Basophils (%) (Auto) 0 % (0-3) Neutrophils # (Auto) 14.6 x10^3uL (1.8-7.7) Lymphocytes # (Auto) 0.7 x10^3/uL (1.0-4.8) Monocytes # (Auto) 0.4 x10^3/uL (0.0-1.1) Eosinophils # (Auto) 0.1 x10^3/uL (0.0-0.7) Basophils # (Auto) 0.0 x10^3/uL (0.0-0.2) Sodium Level 138 mmol/L (136-145) Potassium Level 3.4 mmol/L (3.5-5.1) Chloride Level 103 mmol/L (98-107) Carbon Dioxide Level 23 mmol/L (21-32) Anion Gap 12 (6-14) Blood Urea Nitrogen 14 mg/dL (8-26) Creatinine 0.9 mg/dL (0.7-1.3) Estimated GFR (Cockcroft-Gault) 86.7 Glucose Level 102 mg/dL (70-99) Calcium Level 8.1 mg/dL (8.5-10.1) Magnesium Level 1.6 mg/dL (1.8-2.4) Lipase 471 U/L (73-393) Test 02/23/18 11:55 Glucose (Fingerstick) 117 mg/dL (70-99) Comment Review of Relevant I have reviewed the following items javad (where applicable) has been applied. Labs Laboratory Tests Test 02/21/18 15:02 02/21/18 20:50 02/22/18 05:00 02/22/18 07:42 Glucose (Fingerstick) 223 mg/dL (70-99) 233 mg/dL (70-99) 104 mg/dL (70-99) Sodium Level 138 mmol/L (136-145) Potassium Level 3.3 mmol/L (3.5-5.1) Chloride Level 104 mmol/L (98-107) Carbon Dioxide Level 23 mmol/L (21-32) Anion Gap 11 (6-14) Blood Urea Nitrogen 19 mg/dL (8-26) Creatinine 0.8 mg/dL (0.7-1.3) Estimated GFR (Cockcroft-Gault) 99.3 Glucose Level 111 mg/dL (70-99) Calcium Level 8.6 mg/dL (8.5-10.1) Lipase 3999 U/L (73-393) Test 02/22/18 10:53 02/22/18 11:40 02/22/18 17:27 02/22/18 19:51 Glucose (Fingerstick) 116 mg/dL (70-99) 94 mg/dL (70-99) 103 mg/dL (70-99) White Blood Count 11.8 x10^3/uL (4.0-11.0) Red Blood Count 3.47 x10^6/uL (4.30-5.70) Hemoglobin 11.5 g/dL (13.0-17.5) Hematocrit 32.6 % (39.0-53.0) Mean Corpuscular Volume 94 fL (79-100) Mean Corpuscular Hemoglobin 33 pg (25-35) Mean Corpuscular Hemoglobin Concent 35 g/dL (31-37) Red Cell Distribution Width 14.9 % (11.5-14.5) Platelet Count 192 x10^3/uL (140-400) Neutrophils (%) (Auto) 88 % (31-73) Lymphocytes (%) (Auto) 9 % (24-48) Monocytes (%) (Auto) 3 % (0-9) Eosinophils (%) (Auto) 1 % (0-3) Basophils (%) (Auto) 0 % (0-3) Neutrophils # (Auto) 10.4 x10^3uL (1.8-7.7) Lymphocytes # (Auto) 1.0 x10^3/uL (1.0-4.8) Monocytes # (Auto) 0.4 x10^3/uL (0.0-1.1) Eosinophils # (Auto) 0.1 x10^3/uL (0.0-0.7) Basophils # (Auto) 0.0 x10^3/uL (0.0-0.2) Segmented Neutrophils % 83 % (35-66) Band Neutrophils % 2 % (0-9) Lymphocytes % 10 % (24-48) Monocytes % 5 % (0-10) Platelet Estimate Adequate (ADEQUATE) Test 02/23/18 04:00 02/23/18 07:56 02/23/18 11:55 White Blood Count 15.7 x10^3/uL (4.0-11.0) Red Blood Count 3.24 x10^6/uL (4.30-5.70) Hemoglobin 10.7 g/dL (13.0-17.5) Hematocrit 30.5 % (39.0-53.0) Mean Corpuscular Volume 94 fL (79-100) Mean Corpuscular Hemoglobin 33 pg (25-35) Mean Corpuscular Hemoglobin Concent 35 g/dL (31-37) Red Cell Distribution Width 14.4 % (11.5-14.5) Platelet Count 165 x10^3/uL (140-400) Neutrophils (%) (Auto) 93 % (31-73) Lymphocytes (%) (Auto) 4 % (24-48) Monocytes (%) (Auto) 2 % (0-9) Eosinophils (%) (Auto) 1 % (0-3) Basophils (%) (Auto) 0 % (0-3) Neutrophils # (Auto) 14.6 x10^3uL (1.8-7.7) Lymphocytes # (Auto) 0.7 x10^3/uL (1.0-4.8) Monocytes # (Auto) 0.4 x10^3/uL (0.0-1.1) Eosinophils # (Auto) 0.1 x10^3/uL (0.0-0.7) Basophils # (Auto) 0.0 x10^3/uL (0.0-0.2) Sodium Level 138 mmol/L (136-145) Potassium Level 3.4 mmol/L (3.5-5.1) Chloride Level 103 mmol/L (98-107) Carbon Dioxide Level 23 mmol/L (21-32) Anion Gap 12 (6-14) Blood Urea Nitrogen 14 mg/dL (8-26) Creatinine 0.9 mg/dL (0.7-1.3) Estimated GFR (Cockcroft-Gault) 86.7 Glucose Level 102 mg/dL (70-99) Calcium Level 8.1 mg/dL (8.5-10.1) Magnesium Level 1.6 mg/dL (1.8-2.4) Lipase 471 U/L (73-393) Glucose (Fingerstick) 112 mg/dL (70-99) 117 mg/dL (70-99) Laboratory Tests Test 02/22/18 17:27 02/22/18 19:51 02/23/18 04:00 02/23/18 07:56 Glucose (Fingerstick) 94 mg/dL (70-99) 103 mg/dL (70-99) 112 mg/dL (70-99) White Blood Count 15.7 x10^3/uL (4.0-11.0) Red Blood Count 3.24 x10^6/uL (4.30-5.70) Hemoglobin 10.7 g/dL (13.0-17.5) Hematocrit 30.5 % (39.0-53.0) Mean Corpuscular Volume 94 fL (79-100) Mean Corpuscular Hemoglobin 33 pg (25-35) Mean Corpuscular Hemoglobin Concent 35 g/dL (31-37) Red Cell Distribution Width 14.4 % (11.5-14.5) Platelet Count 165 x10^3/uL (140-400) Neutrophils (%) (Auto) 93 % (31-73) Lymphocytes (%) (Auto) 4 % (24-48) Monocytes (%) (Auto) 2 % (0-9) Eosinophils (%) (Auto) 1 % (0-3) Basophils (%) (Auto) 0 % (0-3) Neutrophils # (Auto) 14.6 x10^3uL (1.8-7.7) Lymphocytes # (Auto) 0.7 x10^3/uL (1.0-4.8) Monocytes # (Auto) 0.4 x10^3/uL (0.0-1.1) Eosinophils # (Auto) 0.1 x10^3/uL (0.0-0.7) Basophils # (Auto) 0.0 x10^3/uL (0.0-0.2) Sodium Level 138 mmol/L (136-145) Potassium Level 3.4 mmol/L (3.5-5.1) Chloride Level 103 mmol/L (98-107) Carbon Dioxide Level 23 mmol/L (21-32) Anion Gap 12 (6-14) Blood Urea Nitrogen 14 mg/dL (8-26) Creatinine 0.9 mg/dL (0.7-1.3) Estimated GFR (Cockcroft-Gault) 86.7 Glucose Level 102 mg/dL (70-99) Calcium Level 8.1 mg/dL (8.5-10.1) Magnesium Level 1.6 mg/dL (1.8-2.4) Lipase 471 U/L (73-393) Test 02/23/18 11:55 Glucose (Fingerstick) 117 mg/dL (70-99) Medications Current Medications Fentanyl Citrate (Fentanyl 2ml Vial) 50 mcg 1X ONCE IV Last administered on 05/01at 00:04; Start 02/20/18 at 22:45; Stop 02/20/18 at 22:46; Status DC Ondansetron HCl (Zofran) 4 mg 1X ONCE IV ; Start 02/20/18 at 22:45; Stop at 22:45; Status DC Sodium Chloride 1,000 ml @ 1,000 mls/hr 1X ONCE IV Last administered on at 00:05; Start 02/20/18 at 22:45; Stop 02/20/18 at 23:44; Status DC Metoclopramide HCl (Reglan Vial) 10 mg 1X ONCE IV Last administered on at 22:45; Start 02/20/18 at 22:45; Stop 02/20/18 at 22:46; Status DC Morphine Sulfate (Morphine Sulfate) 4 mg 1X ONCE IV Last administered on at 00:30; Start 02/21/18 at 00:30; Stop 02/21/18 at 00:31; Status DC Aspirin (Children'S Aspirin) 324 mg 1X ONCE PO Last administered on 02/21/18at 01:00; Start 02/21/18 at 01:00; Stop 02/21/18 at 01:01; Status DC Morphine Sulfate (Morphine Sulfate) 4 mg PRN Q2HR PRN IV PAIN Last administered on 02/21/18at 22:51; Start 02/21/18 at 01:15; Stop 02/22/18 at 01:14 ; Status DC Sodium Chloride 1,000 ml @ 150 mls/hr Q6H40M IV Last administered on at 08:20; Start 02/21/18 at 01:15; Stop 02/21/18 at 10:18; Status DC Ketamine HCl 20 mg 1X ONCE IV Last administered on 02/21/18at 01:37; Start 05/01 at 01:30; Stop 02/21/18 at 01:31; Status DC Isosorbide Dinitrate (Isordil) 20 mg 1X ONCE PO Last administered on at 01:36; Start 02/21/18 at 01:30; Stop 02/21/18 at 01:31; Status DC Amlodipine Besylate (Norvasc) 10 mg 1X ONCE PO Last administered on 02/21/18at 01:37; Start 02/21/18 at 01:30; Stop 02/21/18 at 01:31; Status DC Hydralazine HCl (Apresoline Inj) 10 mg PRN Q4HRS PRN IVP ELEVATED BP, SEE COMMENTS; Start 02/21/18 at 02:30; Stop 02/21/18 at 10:24; Status DC Metoclopramide HCl (Reglan Vial) 5 mg 1X ONCE IV Last administered on at 03:54; Start 02/21/18 at 04:00; Stop 02/21/18 at 04:01; Status DC Aspirin (Yolanda Aspirin) 325 mg DAILY08 PO Last administered on 02/23/18at 07:49 ; Start 02/21/18 at 11:00 Atorvastatin Calcium (Lipitor) 40 mg QHS PO Last administered on 02/22/18at 19: 49; Start 02/21/18 at 21:00 Carvedilol (Coreg) 3.125 mg BIDWMEALS PO Last administered on 02/23/18at 07:50; Start 02/21/18 at 11:00 Clopidogrel Bisulfate (Plavix) 75 mg DAILY07 PO Last administered on 02/23/18at 07:50; Start 02/21/18 at 11:00 Fluoxetine HCl (PROzac) 20 mg DAILY PO Last administered on 02/23/18at 07:50; Start 02/21/18 at 11:00 Lisinopril (Prinivil) 40 mg DAILY PO Last administered on 02/23/18at 07:51; Start 02/21/18 at 11:00 Amiodarone HCl (Cordarone) 200 mg DAILY PO Last administered on 02/23/18at 07:49 ; Start 02/21/18 at 11:00 Isosorbide Mononitrate (Imdur) 60 mg DAILY PO Last administered on 02/23/18at 07 :49; Start 02/21/18 at 11:00 Pantoprazole Sodium (Protonix) 40 mg DAILYAC PO Last administered on 02/22/18at 08:07; Start 02/21/18 at 11:00; Stop 02/22/18 at 09:33; Status DC Spironolactone (Aldactone) 25 mg DAILY PO Last administered on 02/23/18at 07:50 ; Start 02/21/18 at 11:00 Acetaminophen (Tylenol) 650 mg PRN Q6HRS PRN PO FEVER; Start 02/21/18 at 10:15 Ondansetron HCl (Zofran) 4 mg PRN Q6HRS PRN IV NAUSEA/VOMITING 1ST CHOICE Last administered on 02/23/18at 13:03; Start 02/21/18 at 10:15 Morphine Sulfate (Morphine Sulfate) 2 mg PRN Q2HR PRN IV MODERATE TO SEVERE PAIN Last administered on 02/22/18at 09:04; Start 02/21/18 at 10:15; Stop at 09:35; Status DC Hydralazine HCl (Apresoline Inj) 10 mg PRN Q4HRS PRN IVP ELEVATED BP, SEE COMMENTS; Start 02/21/18 at 10:15 Docusate Sodium (Colace) 100 mg PRN DAILY PRN PO HARD STOOLS; Start 02/21/18 at 10:15 Sodium Chloride 1,000 ml @ 150 mls/hr Q6H40M IV Last administered on at 14:30; Start 02/21/18 at 10:15; Stop 02/21/18 at 18:30; Status DC Insulin Human Lispro (HumaLOG) 0-7 UNITS TIDWMEALS SQ Last administered on 02/21at 12:30; Start 02/21/18 at 12:00 Dextrose (Dextrose 50%-Water Syringe) 12.5 gm PRN Q15MIN PRN IV SEE COMMENTS; Start 02/21/18 at 10:15 Insulin Glargine (Lantus) 15 units QHS SQ Last administered on 02/21/18at 20:57 ; Start 02/21/18 at 21:00; Stop 02/23/18 at 10:12; Status DC Insulin Human Lispro (HumaLOG) 5 units TIDWMEALS SQ ; Start 02/21/18 at 12:00; Stop 02/22/18 at 09:33; Status DC Fentanyl Citrate (Fentanyl 2ml Vial) 50 mcg PRN Q2HR PRN IV PAIN Last administered on 02/22/18at 08:01; Start 02/21/18 at 10:30; Stop 02/22/18 at 09:33 ; Status DC Enoxaparin Sodium (Lovenox 40mg Syringe) 40 mg DAILY16 SQ Last administered on 02/22/18at 14:54; Start 02/21/18 at 16:00 Potassium Chloride (Klor-Con) 40 meq 1X ONCE PO ; Start 02/21/18 at 16:45; Stop 02/21/18 at 16:46; Status DC Metoclopramide HCl (Reglan Vial) 10 mg PRN Q6HRS PRN IV NAUSEA/VOMITING 2ND CHOICE Last administered on 02/21/18at 19:10; Start 02/21/18 at 18:30 Potassium Chloride/Sodium Chloride 1,000 ml @ 150 mls/hr Q6H40M IV Last administered on 02/23/18at 07:51; Start 02/21/18 at 18:30 Fentanyl Citrate (Fentanyl 2ml Vial) 100 mcg PRN Q2HR PRN IV PAIN Last administered on 02/23/18at 13:03; Start 02/22/18 at 09:45 Pantoprazole Sodium (PROTONIX VIAL for IV PUSH) 40 mg DAILYAC IVP Last administered on 02/23/18at 07:48; Start 02/22/18 at 10:00 Morphine Sulfate (Morphine Sulfate) 4 mg PRN Q2HR PRN IV PAIN Last administered on 02/23/18at 11:32; Start 02/22/18 at 09:30 Potassium Chloride (KCl Oral Soln) 40 meq 1X ONCE PO Last administered on 02/23at 11:32; Start 02/23/18 at 10:30; Stop 02/23/18 at 10:31; Status DC Active Scripts Active Reported Novolog Flexpen (Insulin Aspart) 100 Unit/1 Ml Insuln.pen 20 Unit SQ TIDAC Lantus Solostar (Insulin Glargine,Hum.rec.anlog) 100 Unit/1 Ml Insuln.pen 35 Unit SQ HS Lantus Solostar (Insulin Glargine,Hum.rec.anlog) 100 Unit/1 Ml Insuln.pen 25 Unit SQ DAILY07 Culturelle (Lactobacillus Rhamnosus Gg) 1 Each Capsule 1 Each PO BID Prozac (Fluoxetine Hcl) 20 Mg Capsule 20 Mg PO DAILY Atorvastatin Calcium 40 Mg Tablet 1 Tab PO DAILY Isosorbide Mononitrate 20 Mg Tablet 60 Mg PO DAILY Clopidogrel (Clopidogrel Bisulfate) 75 Mg Tablet 75 Mg PO DAILY Coreg (Carvedilol) 3.125 Mg Tablet 3.125 Mg PO BIDWMEALS Aspirin 325 Mg Tablet 325 Mg PO DAILY Protonix (Pantoprazole Sodium) 20 Mg Tablet.dr 1 Tab PO DAILY Chlorthalidone 25 Mg Tablet 1 Tab PO DAILY Lisinopril 40 Mg Tablet 1 Tab PO DAILY Amiodarone Hcl 100 Mg Tablet 200 Mg PO DAILY Spironolactone 25 Mg Tablet 1 Tab PO DAILY Vitals/I & O Vital Sign - Last 24 Hours 02/22/18 02/22/18 02/22/18 02/22/18 13:37 14:53 15:00 16:08 Temp 98.4 98.4 Pulse 56 Resp 18 18 20 B/P (MAP) 140/72 (94) Pulse Ox 99 99 99 99 O2 Delivery Room Air Room Air Room Air Room Air 02/22/18 02/22/18 02/22/18 02/22/18 16:09 17:34 18:36 18:54 Temp 98.3 98.3 Pulse 60 60 Resp 18 18 B/P (MAP) 150/78 127/72 (90) Pulse Ox 99 98 98 O2 Delivery Room Air Room Air Room Air 02/22/18 02/22/18 02/22/18 02/22/18 19:49 19:56 21:13 22:47 O2 Delivery Room Air Room Air Room Air Room Air 02/22/18 02/23/18 02/23/18 02/23/18 23:29 01:15 03:35 03:38 Temp 99.6 99.4 99.6 99.4 Pulse 63 77 Resp 14 20 18 B/P (MAP) 147/79 (101) 166/84 (111) Pulse Ox 99 99 97 O2 Delivery Room Air Room Air Room Air Room Air 02/23/18 02/23/18 02/23/18 02/23/18 05:36 05:59 07:30 07:48 Temp 99.8 99.8 Pulse 71 Resp 20 20 B/P (MAP) 157/81 (106) Pulse Ox 97 97 O2 Delivery Room Air Room Air Room Air Room Air 02/23/18 02/23/18 02/23/18 02/23/18 07:49 07:49 07:50 07:51 Pulse 73 73 73 73 B/P (MAP) 157/81 157/81 157/81 157/81 02/23/18 02/23/18 02/23/18 02/23/18 07:52 08:18 09:23 09:53 Resp 18 18 Pulse Ox 97 97 O2 Delivery Room Air Room Air Room Air 02/23/18 02/23/18 02/23/18 02/23/18 10:48 11:32 12:02 13:03 Temp 99.1 99.1 Pulse 74 Resp 18 18 B/P (MAP) 141/71 (94) Pulse Ox 98 98 98 98 O2 Delivery Room Air Room Air Room Air Room Air Intake and Output 02/22/18 02/22/18 02/23/18 15:00 23:00 07:00 Intake Total 1792 ml 120 ml Output Total 426 ml Balance 1792 ml -306 ml GIFTY BROWN MD Feb 23, 2018 13:31
[2018-02-23] MEDS ORDERED: IOHEXOL 300 MG/ML 100ML VIAL. IV ONE (13:45)
[2018-02-23] MEDS ORDERED: CONTRAST GIVEN. MC PRN (13:45)
[2018-02-23 14:21] VITALS: BP 139/72
--- NOTE | 2018-02-23 14:28 | RAD ---
CT of the abdomen and pelvis with contrast, 02/23/2018: HISTORY: Acute pancreatitis follow-up, elevated white blood cell count Multidetector CT imaging was performed following an IV bolus injection of iodinated contrast material. No oral contrast material was administered for this study. Comparison is made to an exam from 02/21/2018. Mild streaky atelectasis has developed posteriorly in both lung bases. There is now a trace amount of left-sided pleural fluid. The gallbladder is surgically absent. No hepatic abnormality is seen. The pancreas is within normal limits in size. It enhances normally. There is only minimal streaky increased density in the peripancreatic fat similar to that seen on the previous study. The spleen is of normal size. The kidneys are unremarkable. Bilateral low density adrenal masses are unchanged and are probably adenomas. Moderate aortoiliac calcific plaquing is present no abdominal or pelvic adenopathy is seen. The prostate gland is at the upper limits of normal in size. The bowel loops are not dilated. There is minimal amount of free fluid in the abdomen and pelvis. No free intra-abdominal air is seen. IMPRESSION: 1. Minimal ongoing peripancreatic inflammation without evidence of pancreatic necrosis. 2. Minimal free fluid has developed in the abdomen and pelvis. 3. Mild bibasilar atelectasis has developed with a trace amount of left-sided pleural fluid. PQRS Compliance Statement: One or more of the following individualized dose reduction techniques were utilized for this examination: 1. Automated exposure control 2. Adjustment of the mA and/or kV according to patient size 3. Use of iterative reconstruction technique Electronically signed by: Candido Howard MD (02/23/2018 2:24 PM) [facility]
[2018-02-23] MEDS: ENOXAPARIN 40 MG/0.4 ML SYRINGE. SQ SCH (16:10)
[2018-02-23] MEDS: ATORVASTATIN CALCIUM 40 MG TABLET. PO SCH (19:46)
[2018-02-23 19:57] VITALS: BP 110/60
[2018-02-23 22:51] VITALS: BP 111/63
[2018-02-24] MEDS: MORPHINE SULFATE 4 MG/ML DISP.SYRIN. IV PRN ×10 (00:45→21:21)
[2018-02-24] MEDS: VANCOMYCIN 125 MG/2.5 ML ORAL SOLUTION. PO SCH ×5 (01:09→23:21)
[2018-02-24] MEDS: ONDANSETRON PF 4 MG/2 ML VIAL. IV PRN ×2 (03:50→21:32)
[2018-02-24 03:59] VITALS: BP 128/66
[2018-02-24 05:11] LABS: BASO % 0 % (0-3); EOS % 0 % (0-3); HEMATOCRIT 27.8 % (39.0-53.0); HEMOGLOBIN 9.7 g/dL (13.0-17.5); LYMPH # 0.8 x10^3/uL (1.0-4.8); LYMPH % 9 % (24-48); MEAN CORPUSCULAR HEMOGLOBIN 34 pg (25-35); MEAN CORPUSCULAR HGB CONC 35 g/dL (31-37); MEAN CORPUSCULAR VOLUME 96 fL (79-100); MONO # 0.4 x10^3/uL (0.0-1.1); MONO % 6 % (0-9); NEUT # 6.8 x10^3uL (1.8-7.7); NEUT % 85 % (31-73); PLATELET COUNT 145 x10^3/uL (140-400); RED BLOOD COUNT 2.88 x10^6/uL (4.30-5.70); WHITE BLOOD COUNT 8.1 x10^3/uL (4.0-11.0)
[2018-02-24 05:27] LABS: CALCIUM 8.4 mg/dL (8.5-10.1); GFR 76.7; POTASSIUM 4.1 mmol/L (3.5-5.1)
[2018-02-24 07:00] VITALS: BP 124/69
[2018-02-24] MEDS: CLOPIDOGREL BISULFATE 75 MG TABLET PO SCH (07:44)
[2018-02-24] MEDS: PANTOPRAZOLE IV PUSH 40 MG VIAL. IVP SCH (07:44)
[2018-02-24] MEDS: INSULIN LISPRO 300 UNITS/3 ML INSULN.PEN. SQ SCH ×3 (07:51→16:57)
[2018-02-24] MEDS: FLUoxetine HCL 20 MG CAPSULE PO SCH (08:31)
[2018-02-24] MEDS: ASPIRIN 325 MG TABLET PO SCH (08:31)
[2018-02-24] MEDS: CARVEDILOL 3.125 MG TABLET. PO SCH ×2 (08:32→16:55)
[2018-02-24] MEDS: ISOSORBIDE MONONITRATE ER 30 MG TAB.ER.24H PO SCH (08:32)
[2018-02-24] MEDS: SPIRONOLACTONE 25 MG TABLET PO SCH (08:33)
[2018-02-24] MEDS: LISINOPRIL 20 MG TABLET PO SCH (08:33)
[2018-02-24] MEDS: AMIODARONE HCL 200 MG TABLET. PO SCH (08:33)
--- NOTE | 2018-02-24 09:51 | PDOC ---
Subjective: Subjective: Feels the same. Hasn't eaten anything but ice chips. Says 15 stools yesterday, can't sleep w/ diarrhea, 5 stools so far this morning. Abd pain is the same. Objective: Objective: Per RN - 2 liquid stools yesterday (per report), none today, asks for pain medicine around the clock - usually half an hour before it's due. On PO vanco. Vital Signs: Vital Signs Date Time Temp Pulse Resp B/P (MAP) Pulse Ox O2 Delivery O2 Flow Rate FiO2 02/24/18 09:04 20 98 Room Air 02/24/18 08:33 63 141/81 02/24/18 07:00 98.2 98.2 Labs: Laboratory Tests Test 02/23/18 11:00 02/23/18 11:55 02/23/18 17:29 02/23/18 20:19 Clostridium difficile Toxin (PCR) Positive Glucose (Fingerstick) 117 mg/dL 151 mg/dL 156 mg/dL Test 02/24/18 04:10 02/24/18 07:11 White Blood Count 8.1 x10^3/uL Red Blood Count 2.88 x10^6/uL Hemoglobin 9.7 g/dL Hematocrit 27.8 % Mean Corpuscular Volume 96 fL Mean Corpuscular Hemoglobin 34 pg Mean Corpuscular Hemoglobin Concent 35 g/dL Red Cell Distribution Width 15.0 % Platelet Count 145 x10^3/uL Neutrophils (%) (Auto) 85 % Lymphocytes (%) (Auto) 9 % Monocytes (%) (Auto) 6 % Eosinophils (%) (Auto) 0 % Basophils (%) (Auto) 0 % Neutrophils # (Auto) 6.8 x10^3uL Lymphocytes # (Auto) 0.8 x10^3/uL Monocytes # (Auto) 0.4 x10^3/uL Eosinophils # (Auto) 0.0 x10^3/uL Basophils # (Auto) 0.0 x10^3/uL Sodium Level 135 mmol/L Potassium Level 4.1 mmol/L Chloride Level 105 mmol/L Carbon Dioxide Level 19 mmol/L Anion Gap 11 Blood Urea Nitrogen 14 mg/dL Creatinine 1.0 mg/dL Estimated GFR (Cockcroft-Gault) 76.7 Glucose Level 149 mg/dL Calcium Level 8.4 mg/dL Lipase 194 U/L Glucose (Fingerstick) 145 mg/dL PE: GEN: NAD LUNGS: CTAB HEART: RRR ABD: epigastric/periumbilical discomfort, NABS NEURO/PSYCH: A & O 3 A/P: C Diff - second occurrence Recurrent alcoholic pancreatitis - quit drinking 11/2017, lipase now WNL -- Continue vanco for C Diff - differing reports of diarrhea per pt/staff. Try clear liquids - he thinks chicken broth sounds good. Ongoing pain much like the last two times we've seen him. Will check re: [facility] [place] [facility] OMAIRA GEORGE Feb 24, 2018 09:51
[2018-02-24 10:42] VITALS: BP 133/72
--- NOTE | 2018-02-24 11:44 | PDOC ---
PROGRESS NOTES Chief Complaint Chief Complaint CC: -Abd Pain, acute pancreatitis -Alcoholic pancreatitis -SBO -CAD -Atypical CP -Dm type 2 -HTN -SALVATORE -C diff, diarrhea -Adrenal masses (b/l, 4cm) History of Present Illness History of Present Illness Pt. seen & examine Mild distress Appeared uncomfortable Pt. complained of ongoing abd pain DW RN Vitals Vitals Vital Signs Date Time Temp Pulse Resp B/P (MAP) Pulse Ox O2 Delivery O2 Flow Rate FiO2 02/24/18 10:44 20 99 Room Air 02/24/18 10:42 98.3 61 133/72 (92) 98.3 Physical Exam General: Alert, Oriented X3, Cooperative, mild distress Heart: Regular rate, Normal S1, Normal S2, No murmurs Lungs: Clear, Other Abdomen: Soft, No hepatosplenomegaly, No masses, Other (diffuse abd tenderness , severe. decreased bs) Extremities: No clubbing, No cyanosis, Normal pulses, No tenderness/swelling, Other (trace LE edema) Skin: No rashes, No breakdown, No significant lesion, Other (generalized UE ecchymoses) Labs LABS Laboratory Tests Test 02/23/18 11:55 02/23/18 17:29 02/23/18 20:19 02/24/18 04:10 Glucose (Fingerstick) 117 mg/dL (70-99) 151 mg/dL (70-99) 156 mg/dL (70-99) White Blood Count 8.1 x10^3/uL (4.0-11.0) Red Blood Count 2.88 x10^6/uL (4.30-5.70) Hemoglobin 9.7 g/dL (13.0-17.5) Hematocrit 27.8 % (39.0-53.0) Mean Corpuscular Volume 96 fL (79-100) Mean Corpuscular Hemoglobin 34 pg (25-35) Mean Corpuscular Hemoglobin Concent 35 g/dL (31-37) Red Cell Distribution Width 15.0 % (11.5-14.5) Platelet Count 145 x10^3/uL (140-400) Neutrophils (%) (Auto) 85 % (31-73) Lymphocytes (%) (Auto) 9 % (24-48) Monocytes (%) (Auto) 6 % (0-9) Eosinophils (%) (Auto) 0 % (0-3) Basophils (%) (Auto) 0 % (0-3) Neutrophils # (Auto) 6.8 x10^3uL (1.8-7.7) Lymphocytes # (Auto) 0.8 x10^3/uL (1.0-4.8) Monocytes # (Auto) 0.4 x10^3/uL (0.0-1.1) Eosinophils # (Auto) 0.0 x10^3/uL (0.0-0.7) Basophils # (Auto) 0.0 x10^3/uL (0.0-0.2) Sodium Level 135 mmol/L (136-145) Potassium Level 4.1 mmol/L (3.5-5.1) Chloride Level 105 mmol/L (98-107) Carbon Dioxide Level 19 mmol/L (21-32) Anion Gap 11 (6-14) Blood Urea Nitrogen 14 mg/dL (8-26) Creatinine 1.0 mg/dL (0.7-1.3) Estimated GFR (Cockcroft-Gault) 76.7 Glucose Level 149 mg/dL (70-99) Calcium Level 8.4 mg/dL (8.5-10.1) Lipase 194 U/L (73-393) Test 02/24/18 07:11 Glucose (Fingerstick) 145 mg/dL (70-99) Review of Systems Review of Systems Diarrhea Abd Pain Assessment and Plan Assessmemt and Plan Medical Problems: - Plan: -ABX -PPI -Progress Diet to solids once okay w/ GI -Sliding Insulin Scale for hyperglycemia -Labs -PT/OT Comment Review of Relevant I have reviewed the following items javad (where applicable) has been applied. Labs Laboratory Tests Test 02/22/18 11:40 02/22/18 17:27 02/22/18 19:51 02/23/18 04:00 White Blood Count 11.8 x10^3/uL (4.0-11.0) 15.7 x10^3/uL (4.0-11.0) Red Blood Count 3.47 x10^6/uL (4.30-5.70) 3.24 x10^6/uL (4.30-5.70) Hemoglobin 11.5 g/dL (13.0-17.5) 10.7 g/dL (13.0-17.5) Hematocrit 32.6 % (39.0-53.0) 30.5 % (39.0-53.0) Mean Corpuscular Volume 94 fL (79-100) 94 fL (79-100) Mean Corpuscular Hemoglobin 33 pg (25-35) 33 pg (25-35) Mean Corpuscular Hemoglobin Concent 35 g/dL (31-37) 35 g/dL (31-37) Red Cell Distribution Width 14.9 % (11.5-14.5) 14.4 % (11.5-14.5) Platelet Count 192 x10^3/uL (140-400) 165 x10^3/uL (140-400) Neutrophils (%) (Auto) 88 % (31-73) 93 % (31-73) Lymphocytes (%) (Auto) 9 % (24-48) 4 % (24-48) Monocytes (%) (Auto) 3 % (0-9) 2 % (0-9) Eosinophils (%) (Auto) 1 % (0-3) 1 % (0-3) Basophils (%) (Auto) 0 % (0-3) 0 % (0-3) Neutrophils # (Auto) 10.4 x10^3uL (1.8-7.7) 14.6 x10^3uL (1.8-7.7) Lymphocytes # (Auto) 1.0 x10^3/uL (1.0-4.8) 0.7 x10^3/uL (1.0-4.8) Monocytes # (Auto) 0.4 x10^3/uL (0.0-1.1) 0.4 x10^3/uL (0.0-1.1) Eosinophils # (Auto) 0.1 x10^3/uL (0.0-0.7) 0.1 x10^3/uL (0.0-0.7) Basophils # (Auto) 0.0 x10^3/uL (0.0-0.2) 0.0 x10^3/uL (0.0-0.2) Segmented Neutrophils % 83 % (35-66) Band Neutrophils % 2 % (0-9) Lymphocytes % 10 % (24-48) Monocytes % 5 % (0-10) Platelet Estimate Adequate (ADEQUATE) Glucose (Fingerstick) 94 mg/dL (70-99) 103 mg/dL (70-99) Sodium Level 138 mmol/L (136-145) Potassium Level 3.4 mmol/L (3.5-5.1) Chloride Level 103 mmol/L (98-107) Carbon Dioxide Level 23 mmol/L (21-32) Anion Gap 12 (6-14) Blood Urea Nitrogen 14 mg/dL (8-26) Creatinine 0.9 mg/dL (0.7-1.3) Estimated GFR (Cockcroft-Gault) 86.7 Glucose Level 102 mg/dL (70-99) Calcium Level 8.1 mg/dL (8.5-10.1) Magnesium Level 1.6 mg/dL (1.8-2.4) Lipase 471 U/L (73-393) Test 02/23/18 07:56 02/23/18 11:00 02/23/18 11:55 02/23/18 17:29 Glucose (Fingerstick) 112 mg/dL (70-99) 117 mg/dL (70-99) 151 mg/dL (70-99) Clostridium difficile Toxin (PCR) Positive (Negative) Test 02/23/18 20:19 02/24/18 04:10 02/24/18 07:11 Glucose (Fingerstick) 156 mg/dL (70-99) 145 mg/dL (70-99) White Blood Count 8.1 x10^3/uL (4.0-11.0) Red Blood Count 2.88 x10^6/uL (4.30-5.70) Hemoglobin 9.7 g/dL (13.0-17.5) Hematocrit 27.8 % (39.0-53.0) Mean Corpuscular Volume 96 fL (79-100) Mean Corpuscular Hemoglobin 34 pg (25-35) Mean Corpuscular Hemoglobin Concent 35 g/dL (31-37) Red Cell Distribution Width 15.0 % (11.5-14.5) Platelet Count 145 x10^3/uL (140-400) Neutrophils (%) (Auto) 85 % (31-73) Lymphocytes (%) (Auto) 9 % (24-48) Monocytes (%) (Auto) 6 % (0-9) Eosinophils (%) (Auto) 0 % (0-3) Basophils (%) (Auto) 0 % (0-3) Neutrophils # (Auto) 6.8 x10^3uL (1.8-7.7) Lymphocytes # (Auto) 0.8 x10^3/uL (1.0-4.8) Monocytes # (Auto) 0.4 x10^3/uL (0.0-1.1) Eosinophils # (Auto) 0.0 x10^3/uL (0.0-0.7) Basophils # (Auto) 0.0 x10^3/uL (0.0-0.2) Sodium Level 135 mmol/L (136-145) Potassium Level 4.1 mmol/L (3.5-5.1) Chloride Level 105 mmol/L (98-107) Carbon Dioxide Level 19 mmol/L (21-32) Anion Gap 11 (6-14) Blood Urea Nitrogen 14 mg/dL (8-26) Creatinine 1.0 mg/dL (0.7-1.3) Estimated GFR (Cockcroft-Gault) 76.7 Glucose Level 149 mg/dL (70-99) Calcium Level 8.4 mg/dL (8.5-10.1) Lipase 194 U/L (73-393) Laboratory Tests Test 02/23/18 11:55 02/23/18 17:29 02/23/18 20:19 02/24/18 04:10 Glucose (Fingerstick) 117 mg/dL (70-99) 151 mg/dL (70-99) 156 mg/dL (70-99) White Blood Count 8.1 x10^3/uL (4.0-11.0) Red Blood Count 2.88 x10^6/uL (4.30-5.70) Hemoglobin 9.7 g/dL (13.0-17.5) Hematocrit 27.8 % (39.0-53.0) Mean Corpuscular Volume 96 fL (79-100) Mean Corpuscular Hemoglobin 34 pg (25-35) Mean Corpuscular Hemoglobin Concent 35 g/dL (31-37) Red Cell Distribution Width 15.0 % (11.5-14.5) Platelet Count 145 x10^3/uL (140-400) Neutrophils (%) (Auto) 85 % (31-73) Lymphocytes (%) (Auto) 9 % (24-48) Monocytes (%) (Auto) 6 % (0-9) Eosinophils (%) (Auto) 0 % (0-3) Basophils (%) (Auto) 0 % (0-3) Neutrophils # (Auto) 6.8 x10^3uL (1.8-7.7) Lymphocytes # (Auto) 0.8 x10^3/uL (1.0-4.8) Monocytes # (Auto) 0.4 x10^3/uL (0.0-1.1) Eosinophils # (Auto) 0.0 x10^3/uL (0.0-0.7) Basophils # (Auto) 0.0 x10^3/uL (0.0-0.2) Sodium Level 135 mmol/L (136-145) Potassium Level 4.1 mmol/L (3.5-5.1) Chloride Level 105 mmol/L (98-107) Carbon Dioxide Level 19 mmol/L (21-32) Anion Gap 11 (6-14) Blood Urea Nitrogen 14 mg/dL (8-26) Creatinine 1.0 mg/dL (0.7-1.3) Estimated GFR (Cockcroft-Gault) 76.7 Glucose Level 149 mg/dL (70-99) Calcium Level 8.4 mg/dL (8.5-10.1) Lipase 194 U/L (73-393) Test 02/24/18 07:11 Glucose (Fingerstick) 145 mg/dL (70-99) Medications Current Medications Fentanyl Citrate (Fentanyl 2ml Vial) 50 mcg 1X ONCE IV Last administered on 05/01at 00:04; Start 02/20/18 at 22:45; Stop 02/20/18 at 22:46; Status DC Ondansetron HCl (Zofran) 4 mg 1X ONCE IV ; Start 02/20/18 at 22:45; Stop at 22:45; Status DC Sodium Chloride 1,000 ml @ 1,000 mls/hr 1X ONCE IV Last administered on at 00:05; Start 02/20/18 at 22:45; Stop 02/20/18 at 23:44; Status DC Metoclopramide HCl (Reglan Vial) 10 mg 1X ONCE IV Last administered on at 22:45; Start 02/20/18 at 22:45; Stop 02/20/18 at 22:46; Status DC Morphine Sulfate (Morphine Sulfate) 4 mg 1X ONCE IV Last administered on at 00:30; Start 02/21/18 at 00:30; Stop 02/21/18 at 00:31; Status DC Aspirin (Children'S Aspirin) 324 mg 1X ONCE PO Last administered on 02/21/18at 01:00; Start 02/21/18 at 01:00; Stop 02/21/18 at 01:01; Status DC Morphine Sulfate (Morphine Sulfate) 4 mg PRN Q2HR PRN IV PAIN Last administered on 02/21/18at 22:51; Start 02/21/18 at 01:15; Stop 02/22/18 at 01:14 ; Status DC Sodium Chloride 1,000 ml @ 150 mls/hr Q6H40M IV Last administered on at 08:20; Start 02/21/18 at 01:15; Stop 02/21/18 at 10:18; Status DC Ketamine HCl 20 mg 1X ONCE IV Last administered on 02/21/18at 01:37; Start 05/01 at 01:30; Stop 02/21/18 at 01:31; Status DC Isosorbide Dinitrate (Isordil) 20 mg 1X ONCE PO Last administered on at 01:36; Start 02/21/18 at 01:30; Stop 02/21/18 at 01:31; Status DC Amlodipine Besylate (Norvasc) 10 mg 1X ONCE PO Last administered on 02/21/18at 01:37; Start 02/21/18 at 01:30; Stop 02/21/18 at 01:31; Status DC Hydralazine HCl (Apresoline Inj) 10 mg PRN Q4HRS PRN IVP ELEVATED BP, SEE COMMENTS; Start 02/21/18 at 02:30; Stop 02/21/18 at 10:24; Status DC Metoclopramide HCl (Reglan Vial) 5 mg 1X ONCE IV Last administered on at 03:54; Start 02/21/18 at 04:00; Stop 02/21/18 at 04:01; Status DC Aspirin (Yolanda Aspirin) 325 mg DAILY08 PO Last administered on 02/24/18 08:31 ; Start 02/21/18 at 11:00 Atorvastatin Calcium (Lipitor) 40 mg QHS PO Last administered on 02/23/18 19: 46; Start 02/21/18 at 21:00 Carvedilol (Coreg) 3.125 mg BIDWMEALS PO Last administered on 02/24/18 08:32; Start 02/21/18 at 11:00 Clopidogrel Bisulfate (Plavix) 75 mg DAILY07 PO Last administered on 02/24/18 07:44; Start 02/21/18 at 11:00 Fluoxetine HCl (PROzac) 20 mg DAILY PO Last administered on 02/24/18 08:31; Start 02/21/18 at 11:00 Lisinopril (Prinivil) 40 mg DAILY PO Last administered on 02/24/18 08:33; Start 02/21/18 at 11:00 Amiodarone HCl (Cordarone) 200 mg DAILY PO Last administered on 02/24/18 08:33 ; Start 02/21/18 at 11:00 Isosorbide Mononitrate (Imdur) 60 mg DAILY PO Last administered on 02/24/18 08 :32; Start 02/21/18 at 11:00 Pantoprazole Sodium (Protonix) 40 mg DAILYAC PO Last administered on 02/22/18 08:07; Start 02/21/18 at 11:00; Stop 02/22/18 at 09:33; Status DC Spironolactone (Aldactone) 25 mg DAILY PO Last administered on 02/24/18 08:33 ; Start 02/21/18 at 11:00 Acetaminophen (Tylenol) 650 mg PRN Q6HRS PRN PO FEVER; Start 02/21/18 at 10:15 Ondansetron HCl (Zofran) 4 mg PRN Q6HRS PRN IV NAUSEA/VOMITING 1ST CHOICE Last administered on 02/24/18 03:50; Start 02/21/18 at 10:15 Morphine Sulfate (Morphine Sulfate) 2 mg PRN Q2HR PRN IV MODERATE TO SEVERE PAIN Last administered on 02/22/18 09:04; Start 02/21/18 at 10:15; Stop at 09:35; Status DC Hydralazine HCl (Apresoline Inj) 10 mg PRN Q4HRS PRN IVP ELEVATED BP, SEE COMMENTS; Start 02/21/18 at 10:15 Docusate Sodium (Colace) 100 mg PRN DAILY PRN PO HARD STOOLS; Start 02/21/18 at 10:15 Sodium Chloride 1,000 ml @ 150 mls/hr Q6H40M IV Last administered on at 14:30; Start 02/21/18 at 10:15; Stop 02/21/18 at 18:30; Status DC Insulin Human Lispro (HumaLOG) 0-7 UNITS TIDWMEALS SQ Last administered on 02/21at 12:30; Start 02/21/18 at 12:00 Dextrose (Dextrose 50%-Water Syringe) 12.5 gm PRN Q15MIN PRN IV SEE COMMENTS; Start 02/21/18 at 10:15 Insulin Glargine (Lantus) 15 units QHS SQ Last administered on 02/21/18at 20:57 ; Start 02/21/18 at 21:00; Stop 02/23/18 at 10:12; Status DC Insulin Human Lispro (HumaLOG) 5 units TIDWMEALS SQ ; Start 02/21/18 at 12:00; Stop 02/22/18 at 09:33; Status DC Fentanyl Citrate (Fentanyl 2ml Vial) 50 mcg PRN Q2HR PRN IV PAIN Last administered on 02/22/18at 08:01; Start 02/21/18 at 10:30; Stop 02/22/18 at 09:33 ; Status DC Enoxaparin Sodium (Lovenox 40mg Syringe) 40 mg DAILY16 SQ Last administered on 02/23/18at 16:10; Start 02/21/18 at 16:00 Potassium Chloride (Klor-Con) 40 meq 1X ONCE PO ; Start 02/21/18 at 16:45; Stop 02/21/18 at 16:46; Status DC Metoclopramide HCl (Reglan Vial) 10 mg PRN Q6HRS PRN IV NAUSEA/VOMITING 2ND CHOICE Last administered on 02/21/18at 19:10; Start 02/21/18 at 18:30 Potassium Chloride/Sodium Chloride 1,000 ml @ 150 mls/hr Q6H40M IV Last administered on 02/24/18at 06:36; Start 02/21/18 at 18:30 Fentanyl Citrate (Fentanyl 2ml Vial) 100 mcg PRN Q2HR PRN IV PAIN Last administered on 02/23/18at 17:54; Start 02/22/18 at 09:45 Pantoprazole Sodium (PROTONIX VIAL for IV PUSH) 40 mg DAILYAC IVP Last administered on 02/24/18at 07:44; Start 02/22/18 at 10:00; Stop 02/24/18 at 09:52 ; Status DC Morphine Sulfate (Morphine Sulfate) 4 mg PRN Q2HR PRN IV PAIN Last administered on 02/24/18 10:44; Start 02/22/18 at 09:30 Potassium Chloride (KCl Oral Soln) 40 meq 1X ONCE PO Last administered on 02/23at 11:32; Start 02/23/18 at 10:30; Stop 02/23/18 at 10:31; Status DC Magnesium Sulfate 50 ml @ 25 mls/hr 1X ONCE IV Last administered on 02/23/18at 13:48; Start 02/23/18 at 13:30; Stop 02/23/18 at 15:29; Status DC Iohexol (Omnipaque 300 Mg/ml) 75 ml 1X ONCE IV Last administered on 02/23/18at 13:45; Start 02/23/18 at 13:45; Stop 02/23/18 at 13:46; Status DC Info (CONTRAST GIVEN -- Rx MONITORING) 1 each PRN DAILY PRN MC SEE COMMENTS; Start 02/23/18 at 13:45; Stop 02/25/18 at 13:44 Vancomycin HCl (Vancomycin Oral Solution) 125 mg Q6HRS PO Last administered on 02/24/18at 06:24; Start 02/24/18 at 01:00 Pantoprazole Sodium (Protonix) 40 mg DAILYAC PO ; Start 02/25/18 at 07:30 Active Scripts Active Reported Novolog Flexpen (Insulin Aspart) 100 Unit/1 Ml Insuln.pen 20 Unit SQ TIDAC Lantus Solostar (Insulin Glargine,Hum.rec.anlog) 100 Unit/1 Ml Insuln.pen 35 Unit SQ HS Lantus Solostar (Insulin Glargine,Hum.rec.anlog) 100 Unit/1 Ml Insuln.pen 25 Unit SQ DAILY07 Culturelle (Lactobacillus Rhamnosus Gg) 1 Each Capsule 1 Each PO BID Prozac (Fluoxetine Hcl) 20 Mg Capsule 20 Mg PO DAILY Atorvastatin Calcium 40 Mg Tablet 1 Tab PO DAILY Isosorbide Mononitrate 20 Mg Tablet 60 Mg PO DAILY Clopidogrel (Clopidogrel Bisulfate) 75 Mg Tablet 75 Mg PO DAILY Coreg (Carvedilol) 3.125 Mg Tablet 3.125 Mg PO BIDWMEALS Aspirin 325 Mg Tablet 325 Mg PO DAILY Protonix (Pantoprazole Sodium) 20 Mg Tablet.dr 1 Tab PO DAILY Chlorthalidone 25 Mg Tablet 1 Tab PO DAILY Lisinopril 40 Mg Tablet 1 Tab PO DAILY Amiodarone Hcl 100 Mg Tablet 200 Mg PO DAILY Spironolactone 25 Mg Tablet 1 Tab PO DAILY Vitals/I & O Vital Sign - Last 24 Hours 02/23/18 02/23/18 02/23/18 02/23/18 11:32 13:03 13:40 13:51 Resp 18 20 Pulse Ox 98 98 98 O2 Delivery Room Air Room Air Room Air 02/23/18 02/23/18 02/23/18 02/23/18 14:21 16:10 16:11 17:54 Temp 99.0 99.0 Pulse 73 69 Resp 18 18 20 B/P (MAP) 139/72 (94) 123/65 Pulse Ox 97 97 97 O2 Delivery Room Air Room Air Room Air 02/23/18 02/23/18 02/23/18 02/23/18 18:26 19:45 19:57 20:00 Temp 98.6 98.6 Pulse 68 Resp 20 16 B/P (MAP) 110/60 (77) Pulse Ox 97 97 O2 Delivery Room Air Room Air Room Air 02/23/18 02/23/18 02/24/18 02/24/18 22:05 22:51 00:45 03:33 Temp 99.1 99.1 Pulse 65 Resp 20 16 20 20 B/P (MAP) 111/63 (79) Pulse Ox 96 O2 Delivery Room Air 02/24/18 02/24/18 02/24/18 02/24/18 03:59 06:24 07:00 07:30 Temp 98.6 98.2 98.6 98.2 Pulse 64 63 Resp 16 20 16 B/P (MAP) 128/66 (86) 124/69 (87) Pulse Ox 97 95 O2 Delivery Room Air Room Air Room Air 02/24/18 02/24/18 02/24/18 02/24/18 08:32 08:32 08:33 08:33 Pulse 63 63 63 63 B/P (MAP) 141/81 141/81 141/81 141/81 02/24/18 02/24/18 02/24/18 02/24/18 08:34 09:04 10:42 10:44 Temp 98.3 98.3 Pulse 61 Resp 20 20 16 20 B/P (MAP) 133/72 (92) Pulse Ox 98 98 97 99 O2 Delivery Room Air Room Air Room Air Room Air Intake and Output 02/23/18 02/23/18 02/24/18 15:00 23:00 07:00 Intake Total 3589 ml 0 ml Output Total 250 ml Balance -250 ml 3589 ml 0 ml DELFINA KIMBALL III DO Feb 24, 2018 11:44
[2018-02-24 14:49] VITALS: BP 128/76
[2018-02-24] MEDS: ENOXAPARIN 40 MG/0.4 ML SYRINGE. SQ SCH (15:44)
[2018-02-24 19:57] VITALS: BP 136/72
[2018-02-24] MEDS: FAMOTIDINE 20 MG TABLET. PO SCH (21:22)
[2018-02-24] MEDS: ATORVASTATIN CALCIUM 40 MG TABLET. PO SCH (21:22)
[2018-02-24 22:33] VITALS: BP 138/77
[2018-02-24] MEDS: fentaNYL PF VIAL 100 MCG/2 ML VIAL IV PRN (23:21)
[2018-02-25] MEDS: MORPHINE SULFATE 4 MG/ML DISP.SYRIN. IV PRN ×6 (01:35→21:02)
[2018-02-25 03:34] VITALS: BP 155/81
[2018-02-25] MEDS: fentaNYL PF VIAL 100 MCG/2 ML VIAL IV PRN ×6 (03:40→23:11)
[2018-02-25] MEDS: VANCOMYCIN 125 MG/2.5 ML ORAL SOLUTION. PO SCH ×4 (05:41→23:10)
[2018-02-25] MEDS: ONDANSETRON PF 4 MG/2 ML VIAL. IV PRN ×2 (07:22→14:24)
[2018-02-25] MEDS: SPIRONOLACTONE 25 MG TABLET PO SCH (07:23)
[2018-02-25] MEDS: LISINOPRIL 20 MG TABLET PO SCH (07:23)
[2018-02-25] MEDS: CLOPIDOGREL BISULFATE 75 MG TABLET PO SCH (07:23)
[2018-02-25] MEDS: ASPIRIN 325 MG TABLET PO SCH (07:23)
[2018-02-25] MEDS: ISOSORBIDE MONONITRATE ER 30 MG TAB.ER.24H PO SCH (07:24)
[2018-02-25] MEDS: AMIODARONE HCL 200 MG TABLET. PO SCH (07:24)
[2018-02-25] MEDS: FLUoxetine HCL 20 MG CAPSULE PO SCH (07:24)
[2018-02-25] MEDS: CARVEDILOL 3.125 MG TABLET. PO SCH ×2 (07:25→16:34)
[2018-02-25] MEDS ORDERED: PANTOPRAZOLE 40 MG TABLET.DR. PO SCH (07:30)
[2018-02-25 07:45] VITALS: BP 149/82
[2018-02-25] MEDS: INSULIN LISPRO 300 UNITS/3 ML INSULN.PEN. SQ SCH ×3 (08:23→16:47)
--- NOTE | 2018-02-25 10:05 | PDOC ---
PROGRESS NOTES Chief Complaint Chief Complaint CC: -Abd Pain, acute pancreatitis -Alcoholic pancreatitis -SBO -CAD -Atypical CP -Dm type 2 -HTN -SALVATORE -C diff, diarrhea -Adrenal masses (b/l, 4cm) History of Present Illness History of Present Illness Pt. seen & examined Mild Distress Still experiencing diarrhea Pt. requested medicine for management of abdominal pain associated w/ diarrhea TINO RN current medical management plan Vitals Vitals Vital Signs Date Time Temp Pulse Resp B/P (MAP) Pulse Ox O2 Delivery O2 Flow Rate FiO2 02/25/18 09:41 20 95 Room Air 02/25/18 07:45 98.4 55 149/82 (104) 98.4 Physical Exam General: Alert, Oriented X3, Cooperative, mild distress Heart: Regular rate, Normal S1, Normal S2, No murmurs Lungs: Clear, Other Abdomen: Soft, No hepatosplenomegaly, No masses, Other (diffuse abd tenderness , severe. decreased bs) Extremities: No clubbing, No cyanosis, Normal pulses, No tenderness/swelling, Other (trace LE edema) Skin: No rashes, No breakdown, No significant lesion, Other (generalized UE ecchymoses) Labs LABS Laboratory Tests Test 02/24/18 11:17 02/24/18 16:23 02/24/18 20:50 02/25/18 08:04 Glucose (Fingerstick) 191 mg/dL (70-99) 178 mg/dL (70-99) 267 mg/dL (70-99) 217 mg/dL (70-99) Review of Systems Review of Systems Abdominal Pain Diarrhea Assessment and Plan Assessmemt and Plan CC: -Abd Pain, acute pancreatitis -Alcoholic pancreatitis -SBO -CAD -Atypical CP -Dm type 2 -HTN -SALVATORE -C diff, diarrhea -Adrenal masses (b/l, 4cm) Plan: -ABX vanco PO -Attempt to advance diet if okay w/ GI -Labs -PT/OT -Lortab 10mg Q4 PO for pain Comment Review of Relevant I have reviewed the following items javad (where applicable) has been applied. Labs Laboratory Tests Test 02/23/18 11:00 02/23/18 11:55 02/23/18 17:29 02/23/18 20:19 Clostridium difficile Toxin (PCR) Positive (Negative) Glucose (Fingerstick) 117 mg/dL (70-99) 151 mg/dL (70-99) 156 mg/dL (70-99) Test 02/24/18 04:10 02/24/18 07:11 02/24/18 11:17 02/24/18 16:23 White Blood Count 8.1 x10^3/uL (4.0-11.0) Red Blood Count 2.88 x10^6/uL (4.30-5.70) Hemoglobin 9.7 g/dL (13.0-17.5) Hematocrit 27.8 % (39.0-53.0) Mean Corpuscular Volume 96 fL (79-100) Mean Corpuscular Hemoglobin 34 pg (25-35) Mean Corpuscular Hemoglobin Concent 35 g/dL (31-37) Red Cell Distribution Width 15.0 % (11.5-14.5) Platelet Count 145 x10^3/uL (140-400) Neutrophils (%) (Auto) 85 % (31-73) Lymphocytes (%) (Auto) 9 % (24-48) Monocytes (%) (Auto) 6 % (0-9) Eosinophils (%) (Auto) 0 % (0-3) Basophils (%) (Auto) 0 % (0-3) Neutrophils # (Auto) 6.8 x10^3uL (1.8-7.7) Lymphocytes # (Auto) 0.8 x10^3/uL (1.0-4.8) Monocytes # (Auto) 0.4 x10^3/uL (0.0-1.1) Eosinophils # (Auto) 0.0 x10^3/uL (0.0-0.7) Basophils # (Auto) 0.0 x10^3/uL (0.0-0.2) Sodium Level 135 mmol/L (136-145) Potassium Level 4.1 mmol/L (3.5-5.1) Chloride Level 105 mmol/L (98-107) Carbon Dioxide Level 19 mmol/L (21-32) Anion Gap 11 (6-14) Blood Urea Nitrogen 14 mg/dL (8-26) Creatinine 1.0 mg/dL (0.7-1.3) Estimated GFR (Cockcroft-Gault) 76.7 Glucose Level 149 mg/dL (70-99) Calcium Level 8.4 mg/dL (8.5-10.1) Lipase 194 U/L (73-393) Glucose (Fingerstick) 145 mg/dL (70-99) 191 mg/dL (70-99) 178 mg/dL (70-99) Test 02/24/18 20:50 02/25/18 08:04 Glucose (Fingerstick) 267 mg/dL (70-99) 217 mg/dL (70-99) Laboratory Tests Test 02/24/18 11:17 02/24/18 16:23 02/24/18 20:50 02/25/18 08:04 Glucose (Fingerstick) 191 mg/dL (70-99) 178 mg/dL (70-99) 267 mg/dL (70-99) 217 mg/dL (70-99) Medications Current Medications Fentanyl Citrate (Fentanyl 2ml Vial) 50 mcg 1X ONCE IV Last administered on 05/01at 00:04; Start 02/20/18 at 22:45; Stop 02/20/18 at 22:46; Status DC Ondansetron HCl (Zofran) 4 mg 1X ONCE IV ; Start 02/20/18 at 22:45; Stop at 22:45; Status DC Sodium Chloride 1,000 ml @ 1,000 mls/hr 1X ONCE IV Last administered on at 00:05; Start 02/20/18 at 22:45; Stop 02/20/18 at 23:44; Status DC Metoclopramide HCl (Reglan Vial) 10 mg 1X ONCE IV Last administered on at 22:45; Start 02/20/18 at 22:45; Stop 02/20/18 at 22:46; Status DC Morphine Sulfate (Morphine Sulfate) 4 mg 1X ONCE IV Last administered on at 00:30; Start 02/21/18 at 00:30; Stop 02/21/18 at 00:31; Status DC Aspirin (Children'S Aspirin) 324 mg 1X ONCE PO Last administered on 02/21/18at 01:00; Start 02/21/18 at 01:00; Stop 02/21/18 at 01:01; Status DC Morphine Sulfate (Morphine Sulfate) 4 mg PRN Q2HR PRN IV PAIN Last administered on 02/21/18at 22:51; Start 02/21/18 at 01:15; Stop 02/22/18 at 01:14 ; Status DC Sodium Chloride 1,000 ml @ 150 mls/hr Q6H40M IV Last administered on at 08:20; Start 02/21/18 at 01:15; Stop 02/21/18 at 10:18; Status DC Ketamine HCl 20 mg 1X ONCE IV Last administered on 02/21/18at 01:37; Start 05/01 at 01:30; Stop 02/21/18 at 01:31; Status DC Isosorbide Dinitrate (Isordil) 20 mg 1X ONCE PO Last administered on at 01:36; Start 02/21/18 at 01:30; Stop 02/21/18 at 01:31; Status DC Amlodipine Besylate (Norvasc) 10 mg 1X ONCE PO Last administered on 02/21/18at 01:37; Start 02/21/18 at 01:30; Stop 02/21/18 at 01:31; Status DC Hydralazine HCl (Apresoline Inj) 10 mg PRN Q4HRS PRN IVP ELEVATED BP, SEE COMMENTS; Start 02/21/18 at 02:30; Stop 02/21/18 at 10:24; Status DC Metoclopramide HCl (Reglan Vial) 5 mg 1X ONCE IV Last administered on at 03:54; Start 02/21/18 at 04:00; Stop 02/21/18 at 04:01; Status DC Aspirin (Yolanda Aspirin) 325 mg DAILY08 PO Last administered on 02/25/18at 07:23 ; Start 02/21/18 at 11:00 Atorvastatin Calcium (Lipitor) 40 mg QHS PO Last administered on 02/24/18at 21: 22; Start 02/21/18 at 21:00 Carvedilol (Coreg) 3.125 mg BIDWMEALS PO Last administered on 02/25/18at 07:25; Start 02/21/18 at 11:00 Clopidogrel Bisulfate (Plavix) 75 mg DAILY07 PO Last administered on 02/25/18at 07:23; Start 02/21/18 at 11:00 Fluoxetine HCl (PROzac) 20 mg DAILY PO Last administered on 02/25/18at 07:24; Start 02/21/18 at 11:00 Lisinopril (Prinivil) 40 mg DAILY PO Last administered on 02/25/18 07:23; Start 02/21/18 at 11:00 Amiodarone HCl (Cordarone) 200 mg DAILY PO Last administered on 02/25/18 07:24 ; Start 02/21/18 at 11:00 Isosorbide Mononitrate (Imdur) 60 mg DAILY PO Last administered on 02/25/18 07 :24; Start 02/21/18 at 11:00 Pantoprazole Sodium (Protonix) 40 mg DAILYAC PO Last administered on 02/22/18 08:07; Start 02/21/18 at 11:00; Stop 02/22/18 at 09:33; Status DC Spironolactone (Aldactone) 25 mg DAILY PO Last administered on 02/25/18 07:23 ; Start 02/21/18 at 11:00 Acetaminophen (Tylenol) 650 mg PRN Q6HRS PRN PO FEVER; Start 02/21/18 at 10:15 Ondansetron HCl (Zofran) 4 mg PRN Q6HRS PRN IV NAUSEA/VOMITING 1ST CHOICE Last administered on 02/25/18at 07:22; Start 02/21/18 at 10:15 Morphine Sulfate (Morphine Sulfate) 2 mg PRN Q2HR PRN IV MODERATE TO SEVERE PAIN Last administered on 02/22/18at 09:04; Start 02/21/18 at 10:15; Stop at 09:35; Status DC Hydralazine HCl (Apresoline Inj) 10 mg PRN Q4HRS PRN IVP ELEVATED BP, SEE COMMENTS; Start 02/21/18 at 10:15 Docusate Sodium (Colace) 100 mg PRN DAILY PRN PO HARD STOOLS; Start 02/21/18 at 10:15 Sodium Chloride 1,000 ml @ 150 mls/hr Q6H40M IV Last administered on at 14:30; Start 02/21/18 at 10:15; Stop 02/21/18 at 18:30; Status DC Insulin Human Lispro (HumaLOG) 0-7 UNITS TIDWMEALS SQ Last administered on 02/25at 08:23; Start 02/21/18 at 12:00 Dextrose (Dextrose 50%-Water Syringe) 12.5 gm PRN Q15MIN PRN IV SEE COMMENTS; Start 02/21/18 at 10:15 Insulin Glargine (Lantus) 15 units QHS SQ Last administered on 02/21/18at 20:57 ; Start 02/21/18 at 21:00; Stop 02/23/18 at 10:12; Status DC Insulin Human Lispro (HumaLOG) 5 units TIDWMEALS SQ ; Start 02/21/18 at 12:00; Stop 02/22/18 at 09:33; Status DC Fentanyl Citrate (Fentanyl 2ml Vial) 50 mcg PRN Q2HR PRN IV PAIN Last administered on 02/22/18at 08:01; Start 02/21/18 at 10:30; Stop 02/22/18 at 09:33 ; Status DC Enoxaparin Sodium (Lovenox 40mg Syringe) 40 mg DAILY16 SQ Last administered on 02/24/18at 15:44; Start 02/21/18 at 16:00 Potassium Chloride (Klor-Con) 40 meq 1X ONCE PO ; Start 02/21/18 at 16:45; Stop 02/21/18 at 16:46; Status DC Metoclopramide HCl (Reglan Vial) 10 mg PRN Q6HRS PRN IV NAUSEA/VOMITING 2ND CHOICE Last administered on 02/21/18at 19:10; Start 02/21/18 at 18:30 Potassium Chloride/Sodium Chloride 1,000 ml @ 150 mls/hr Q6H40M IV Last administered on 02/25/18at 07:59; Start 02/21/18 at 18:30 Fentanyl Citrate (Fentanyl 2ml Vial) 100 mcg PRN Q2HR PRN IV PAIN SEVERE Last administered on 02/25/18 07:22; Start 02/22/18 at 09:45 Pantoprazole Sodium (PROTONIX VIAL for IV PUSH) 40 mg DAILYAC IVP Last administered on 02/24/18at 07:44; Start 02/22/18 at 10:00; Stop 02/24/18 at 09:52 ; Status DC Morphine Sulfate (Morphine Sulfate) 4 mg PRN Q2HR PRN IV PAIN MODERATE Last administered on 02/25/18at 09:24; Start 02/22/18 at 09:30 Potassium Chloride (KCl Oral Soln) 40 meq 1X ONCE PO Last administered on 02/23at 11:32; Start 02/23/18 at 10:30; Stop 02/23/18 at 10:31; Status DC Magnesium Sulfate 50 ml @ 25 mls/hr 1X ONCE IV Last administered on 02/23/18at 13:48; Start 02/23/18 at 13:30; Stop 02/23/18 at 15:29; Status DC Iohexol (Omnipaque 300 Mg/ml) 75 ml 1X ONCE IV Last administered on 02/23/18at 13:45; Start 02/23/18 at 13:45; Stop 02/23/18 at 13:46; Status DC Info (CONTRAST GIVEN -- Rx MONITORING) 1 each PRN DAILY PRN MC SEE COMMENTS; Start 02/23/18 at 13:45; Stop 02/25/18 at 13:44 Vancomycin HCl (Vancomycin Oral Solution) 125 mg Q6HRS PO Last administered on 02/25/18at 05:41; Start 02/24/18 at 01:00 Pantoprazole Sodium (Protonix) 40 mg DAILYAC PO ; Start 02/25/18 at 07:30; Stop 02/25/18 at 07:30; Status DC Famotidine (Pepcid) 20 mg QHS PO Last administered on 02/24/18at 21:22; Start at 21:00 Lactobacillus Rhamnosus (Culturelle) 1 cap BID PO ; Start 02/25/18 at 21:00 Active Scripts Active Reported Novolog Flexpen (Insulin Aspart) 100 Unit/1 Ml Insuln.pen 20 Unit SQ TIDAC Lantus Solostar (Insulin Glargine,Hum.rec.anlog) 100 Unit/1 Ml Insuln.pen 35 Unit SQ HS Lantus Solostar (Insulin Glargine,Hum.rec.anlog) 100 Unit/1 Ml Insuln.pen 25 Unit SQ DAILY07 Culturelle (Lactobacillus Rhamnosus Gg) 1 Each Capsule 1 Each PO BID Prozac (Fluoxetine Hcl) 20 Mg Capsule 20 Mg PO DAILY Atorvastatin Calcium 40 Mg Tablet 1 Tab PO DAILY Isosorbide Mononitrate 20 Mg Tablet 60 Mg PO DAILY Clopidogrel (Clopidogrel Bisulfate) 75 Mg Tablet 75 Mg PO DAILY Coreg (Carvedilol) 3.125 Mg Tablet 3.125 Mg PO BIDWMEALS Aspirin 325 Mg Tablet 325 Mg PO DAILY Protonix (Pantoprazole Sodium) 20 Mg Tablet.dr 1 Tab PO DAILY Chlorthalidone 25 Mg Tablet 1 Tab PO DAILY Lisinopril 40 Mg Tablet 1 Tab PO DAILY Amiodarone Hcl 100 Mg Tablet 200 Mg PO DAILY Spironolactone 25 Mg Tablet 1 Tab PO DAILY Vitals/I & O Vital Sign - Last 24 Hours 02/24/18 02/24/18 02/24/18 02/24/18 10:42 10:44 12:50 14:49 Temp 98.3 98.3 98.3 98.3 Pulse 61 57 Resp 16 20 20 16 B/P (MAP) 133/72 (92) 128/76 (93) Pulse Ox 97 99 97 97 O2 Delivery Room Air Room Air Room Air Room Air 02/24/18 02/24/18 02/24/18 02/24/18 15:07 16:55 17:21 19:23 Pulse 59 Resp 20 20 B/P (MAP) 143/80 Pulse Ox 96 98 O2 Delivery Room Air Room Air Room Air 02/24/18 02/24/18 02/24/18 02/24/18 19:36 19:57 21:21 22:33 Temp 98.8 98.9 98.8 98.9 Pulse 58 58 Resp 16 16 B/P (MAP) 136/72 (93) 138/77 (97) Pulse Ox 98 95 O2 Delivery Room Air Room Air Room Air Room Air 02/24/18 02/25/18 02/25/18 02/25/18 23:21 01:35 03:34 03:40 Temp 98.6 98.6 Pulse 56 Resp 20 16 B/P (MAP) 155/81 (105) Pulse Ox 95 95 95 O2 Delivery Room Air Room Air Room Air Room Air 02/25/18 02/25/18 02/25/18 02/25/18 05:40 07:22 07:23 07:24 Pulse 56 56 Resp 20 B/P (MAP) 155/81 155/81 Pulse Ox 95 O2 Delivery Room Air Room Air 02/25/18 02/25/18 02/25/18 02/25/18 07:24 07:25 07:33 07:45 Temp 98.4 98.4 Pulse 56 56 55 Resp 18 B/P (MAP) 155/81 155/81 149/82 (104) Pulse Ox 92 O2 Delivery Room Air Room Air 02/25/18 02/25/18 02/25/18 07:59 09:24 09:41 Resp 18 18 20 Pulse Ox 95 95 95 O2 Delivery Room Air Room Air Room Air Intake and Output 02/24/18 02/24/18 02/25/18 15:00 23:00 07:00 Intake Total 2910 ml 770 ml Balance 2910 ml 770 ml DELFINA KIMBALL III DO Feb 25, 2018 10:05
--- NOTE | 2018-02-25 10:49 | PDOC ---
Subjective: Subjective: Less diarrhea, tolerating clears but still thinks he needs IV pain meds for upper abd pain. Some nausea w/o vomiting overnight. Objective: Objective: Reviewed w/ RN - asks for pain meds on schedule, 3 stools today. Vital Signs: Vital Signs Date Time Temp Pulse Resp B/P (MAP) Pulse Ox O2 Delivery O2 Flow Rate FiO2 02/25/18 09:41 20 95 Room Air 02/25/18 07:45 98.4 55 149/82 (104) 98.4 Labs: Laboratory Tests Test 02/24/18 11:17 02/24/18 16:23 02/24/18 20:50 02/25/18 08:04 Glucose (Fingerstick) 191 mg/dL (70-99) 178 mg/dL (70-99) 267 mg/dL (70-99) 217 mg/dL (70-99) PE: GEN: NAD LUNGS: CTAB HEART: RRR ABD: epigastric tenderness, NABS NEURO/PSYCH: A & O 3 A/P: C Diff - second occurrence Chronic abd pain, recurrent pancreatitis (alcohol-related) -- ADAT. Continue vanco. Pain management per primary. OMAIRA GEORGE Feb 25, 2018 10:49
[2018-02-25 11:00] VITALS: BP 127/75
[2018-02-25] MEDS ORDERED: HYDROcodone/APAP 5/325MG 1 TAB TABLET PO PRN (11:15)
[2018-02-25] MEDS ORDERED: HYDROcodone/APAP 10/325 1 TAB TABLET PO PRN (12:30)
[2018-02-25 15:00] VITALS: BP 145/85
[2018-02-25] MEDS: ENOXAPARIN 40 MG/0.4 ML SYRINGE. SQ SCH (16:34)
[2018-02-25 19:00] VITALS: BP 184/104
[2018-02-25] MEDS: FAMOTIDINE 20 MG TABLET. PO SCH (20:07)
[2018-02-25] MEDS: LACTOBACILLUS RHAMNOSUS GG 1 CAPSULE. PO SCH (20:08)
[2018-02-25] MEDS: ATORVASTATIN CALCIUM 40 MG TABLET. PO SCH (20:08)
[2018-02-25 23:00] VITALS: BP 185/100
[2018-02-26] MEDS: MORPHINE SULFATE 4 MG/ML DISP.SYRIN. IV PRN ×2 (01:34→03:58)
[2018-02-26] MEDS: ONDANSETRON PF 4 MG/2 ML VIAL. IV PRN ×2 (01:46→10:40)
[2018-02-26 03:00] VITALS: BP 169/90
[2018-02-26] MEDS: HYDROcodone/APAP 10/325 1 TAB TABLET PO PRN ×2 (04:49→05:24)
[2018-02-26] MEDS: VANCOMYCIN 125 MG/2.5 ML ORAL SOLUTION. PO SCH ×2 (05:08→12:19)
[2018-02-26] MEDS: CLOPIDOGREL BISULFATE 75 MG TABLET PO SCH (06:37)
[2018-02-26 07:00] VITALS: BP 150/85
[2018-02-26] MEDS: LISINOPRIL 20 MG TABLET PO SCH (08:22)
[2018-02-26] MEDS: LACTOBACILLUS RHAMNOSUS GG 1 CAPSULE. PO SCH (08:23)
[2018-02-26] MEDS: SPIRONOLACTONE 25 MG TABLET PO SCH (08:23)
[2018-02-26] MEDS: ASPIRIN 325 MG TABLET PO SCH (08:23)
[2018-02-26] MEDS: ISOSORBIDE MONONITRATE ER 30 MG TAB.ER.24H PO SCH (08:23)
[2018-02-26] MEDS: AMIODARONE HCL 200 MG TABLET. PO SCH (08:23)
[2018-02-26] MEDS: CARVEDILOL 3.125 MG TABLET. PO SCH (08:24)
[2018-02-26] MEDS: FLUoxetine HCL 20 MG CAPSULE PO SCH (08:24)
[2018-02-26] MEDS: INSULIN LISPRO 300 UNITS/3 ML INSULN.PEN. SQ SCH ×2 (08:33→12:23)
--- NOTE | 2018-02-26 10:56 | PDOC ---
Subjective: Subjective: Worse today - diarrhea, pain, vomiting - back to clears. Objective: Objective: D/w case management - consider transfer to [place] if discharge not considered soon. D/w RN - 6 stools before 6:00 a.m., none since. Vomited last night after tomato soup, tolerated clear for breakfast, going to try fulls for lunch, on oral pain meds now. Vital Signs: Vital Signs Date Time Temp Pulse Resp B/P (MAP) Pulse Ox O2 Delivery O2 Flow Rate FiO2 02/26/18 10:25 Room Air 02/26/18 08:24 59 150/85 02/26/18 07:00 98.5 20 99 98.5 Labs: Laboratory Tests Test 02/25/18 16:31 02/25/18 20:27 02/26/18 07:12 Glucose (Fingerstick) 230 mg/dL 177 mg/dL 243 mg/dL PE: GEN: NAD LUNGS: CTAB HEART: RRR ABD: winces with palpation of epigastrium NEURO/PSYCH: A & O 3 A/P: Chronic abd pain - recurrent pancreatitis (alcohol), s/p cordell, recent EGD w/ H. pylori negative gastritis N/v - recurred yesterday C Diff - diarrhea on vanco -- Okay to DC when able to tolerate diet. Agree w/ weaning off IV meds. OMAIRA GEORGE Feb 26, 2018 10:56
[2018-02-26 11:00] VITALS: BP 137/84
--- NOTE | 2018-02-26 12:48 | PDOC ---
PROGRESS NOTES Chief Complaint Chief Complaint CC: -Abd Pain, acute pancreatitis -Alcoholic pancreatitis -SBO -CAD -Atypical CP -Dm type 2 -HTN -SALVATORE -C diff, diarrhea -Adrenal masses (b/l, 4cm) History of Present Illness History of Present Illness -Pt. seen & examined -TINO RN pt. status -Pt. tolerating soup today -Pt. okayed to DC Vitals Vitals Vital Signs Date Time Temp Pulse Resp B/P (MAP) Pulse Ox O2 Delivery O2 Flow Rate FiO2 02/26/18 11:25 Room Air 02/26/18 11:00 98.8 56 20 137/84 (101) 96 98.8 Physical Exam General: Alert, Oriented X3, Cooperative, mild distress Heart: Regular rate, Normal S1, Normal S2, No murmurs Lungs: Clear, Other Abdomen: Soft, No hepatosplenomegaly, No masses, Other (diffuse abd tenderness , severe. decreased bs) Extremities: No clubbing, No cyanosis, Normal pulses, No tenderness/swelling, Other (trace LE edema) Skin: No rashes, No breakdown, No significant lesion, Other (generalized UE ecchymoses) Labs LABS Laboratory Tests Test 02/25/18 16:31 02/25/18 20:27 02/26/18 07:12 Glucose (Fingerstick) 230 mg/dL (70-99) 177 mg/dL (70-99) 243 mg/dL (70-99) Review of Systems Review of Systems Pt. tolerating solids Pt. lacked N/V Assessment and Plan Assessmemt and Plan CC: -Abd Pain, acute pancreatitis -Alcoholic pancreatitis -SBO -CAD -Atypical CP -Dm type 2 -HTN -SALVATORE -C diff, diarrhea -Adrenal masses (b/l, 4cm) Plan: -D/C IV access & fluids -Hydrocodone Q6 PO PRN for pain -ABX - flagil PO -Labs -Hope to DC today Comment Review of Relevant I have reviewed the following items javad (where applicable) has been applied. Labs Laboratory Tests Test 02/24/18 16:23 02/24/18 20:50 02/25/18 08:04 02/25/18 10:41 Glucose (Fingerstick) 178 mg/dL (70-99) 267 mg/dL (70-99) 217 mg/dL (70-99) 232 mg/dL (70-99) Test 02/25/18 16:31 02/25/18 20:27 02/26/18 07:12 Glucose (Fingerstick) 230 mg/dL (70-99) 177 mg/dL (70-99) 243 mg/dL (70-99) Laboratory Tests Test 02/25/18 16:31 18 20:27 02/26/18 07:12 Glucose (Fingerstick) 230 mg/dL (70-99) 177 mg/dL (70-99) 243 mg/dL (70-99) Medications Current Medications Fentanyl Citrate (Fentanyl 2ml Vial) 50 mcg 1X ONCE IV Last administered on 05/01at 00:04; Start 02/20/18 at 22:45; Stop 02/20/18 at 22:46; Status DC Ondansetron HCl (Zofran) 4 mg 1X ONCE IV ; Start 02/20/18 at 22:45; Stop at 22:45; Status DC Sodium Chloride 1,000 ml @ 1,000 mls/hr 1X ONCE IV Last administered on at 00:05; Start 02/20/18 at 22:45; Stop 02/20/18 at 23:44; Status DC Metoclopramide HCl (Reglan Vial) 10 mg 1X ONCE IV Last administered on at 22:45; Start 02/20/18 at 22:45; Stop 02/20/18 at 22:46; Status DC Morphine Sulfate (Morphine Sulfate) 4 mg 1X ONCE IV Last administered on at 00:30; Start 02/21/18 at 00:30; Stop 02/21/18 at 00:31; Status DC Aspirin (Children'S Aspirin) 324 mg 1X ONCE PO Last administered on 02/21/18at 01:00; Start 02/21/18 at 01:00; Stop 02/21/18 at 01:01; Status DC Morphine Sulfate (Morphine Sulfate) 4 mg PRN Q2HR PRN IV PAIN Last administered on 02/21/18at 22:51; Start 02/21/18 at 01:15; Stop 02/22/18 at 01:14 ; Status DC Sodium Chloride 1,000 ml @ 150 mls/hr Q6H40M IV Last administered on at 08:20; Start 02/21/18 at 01:15; Stop 02/21/18 at 10:18; Status DC Ketamine HCl 20 mg 1X ONCE IV Last administered on 02/21/18at 01:37; Start 05/01 at 01:30; Stop 02/21/18 at 01:31; Status DC Isosorbide Dinitrate (Isordil) 20 mg 1X ONCE PO Last administered on at 01:36; Start 02/21/18 at 01:30; Stop 02/21/18 at 01:31; Status DC Amlodipine Besylate (Norvasc) 10 mg 1X ONCE PO Last administered on 02/21/18at 01:37; Start 02/21/18 at 01:30; Stop 02/21/18 at 01:31; Status DC Hydralazine HCl (Apresoline Inj) 10 mg PRN Q4HRS PRN IVP ELEVATED BP, SEE COMMENTS; Start 02/21/18 at 02:30; Stop 02/21/18 at 10:24; Status DC Metoclopramide HCl (Reglan Vial) 5 mg 1X ONCE IV Last administered on at 03:54; Start 02/21/18 at 04:00; Stop 02/21/18 at 04:01; Status DC Aspirin (Yolanda Aspirin) 325 mg DAILY08 PO Last administered on 02/26/18at 08:23 ; Start 02/21/18 at 11:00 Atorvastatin Calcium (Lipitor) 40 mg QHS PO Last administered on 02/25/18at 20: 08; Start 02/21/18 at 21:00 Carvedilol (Coreg) 3.125 mg BIDWMEALS PO Last administered on 02/26/18at 08:24; Start 02/21/18 at 11:00 Clopidogrel Bisulfate (Plavix) 75 mg DAILY07 PO Last administered on 02/26/18at 06:37; Start 02/21/18 at 11:00 Fluoxetine HCl (PROzac) 20 mg DAILY PO Last administered on 02/26/18at 08:24; Start 02/21/18 at 11:00 Lisinopril (Prinivil) 40 mg DAILY PO Last administered on 02/26/18at 08:22; Start 02/21/18 at 11:00 Amiodarone HCl (Cordarone) 200 mg DAILY PO Last administered on 02/26/18at 08:23 ; Start 02/21/18 at 11:00 Isosorbide Mononitrate (Imdur) 60 mg DAILY PO Last administered on 02/26/18at 08 :23; Start 02/21/18 at 11:00 Pantoprazole Sodium (Protonix) 40 mg DAILYAC PO Last administered on 02/22/18at 08:07; Start 02/21/18 at 11:00; Stop 02/22/18 at 09:33; Status DC Spironolactone (Aldactone) 25 mg DAILY PO Last administered on 02/26/18at 08:23 ; Start 02/21/18 at 11:00 Acetaminophen (Tylenol) 650 mg PRN Q6HRS PRN PO FEVER; Start 02/21/18 at 10:15 Ondansetron HCl (Zofran) 4 mg PRN Q6HRS PRN IV NAUSEA/VOMITING 1ST CHOICE Last administered on 02/26/18at 10:40; Start 02/21/18 at 10:15 Morphine Sulfate (Morphine Sulfate) 2 mg PRN Q2HR PRN IV MODERATE TO SEVERE PAIN Last administered on 02/22/18at 09:04; Start 02/21/18 at 10:15; Stop at 09:35; Status DC Hydralazine HCl (Apresoline Inj) 10 mg PRN Q4HRS PRN IVP ELEVATED BP, SEE COMMENTS Last administered on 02/26/18at 01:35; Start 02/21/18 at 10:15 Docusate Sodium (Colace) 100 mg PRN DAILY PRN PO HARD STOOLS; Start 02/21/18 at 10:15 Sodium Chloride 1,000 ml @ 150 mls/hr Q6H40M IV Last administered on at 14:30; Start 02/21/18 at 10:15; Stop 02/21/18 at 18:30; Status DC Insulin Human Lispro (HumaLOG) 0-7 UNITS TIDWMEALS SQ Last administered on 02/26at 12:23; Start 02/21/18 at 12:00 Dextrose (Dextrose 50%-Water Syringe) 12.5 gm PRN Q15MIN PRN IV SEE COMMENTS; Start 02/21/18 at 10:15 Insulin Glargine (Lantus) 15 units QHS SQ Last administered on 02/21/18at 20:57 ; Start 02/21/18 at 21:00; Stop 02/23/18 at 10:12; Status DC Insulin Human Lispro (HumaLOG) 5 units TIDWMEALS SQ ; Start 02/21/18 at 12:00; Stop 02/22/18 at 09:33; Status DC Fentanyl Citrate (Fentanyl 2ml Vial) 50 mcg PRN Q2HR PRN IV PAIN Last administered on 02/22/18at 08:01; Start 02/21/18 at 10:30; Stop 02/22/18 at 09:33 ; Status DC Enoxaparin Sodium (Lovenox 40mg Syringe) 40 mg DAILY16 SQ Last administered on 02/25/18at 16:34; Start 02/21/18 at 16:00 Potassium Chloride (Klor-Con) 40 meq 1X ONCE PO ; Start 02/21/18 at 16:45; Stop 02/21/18 at 16:46; Status DC Metoclopramide HCl (Reglan Vial) 10 mg PRN Q6HRS PRN IV NAUSEA/VOMITING 2ND CHOICE Last administered on 02/21/18at 19:10; Start 02/21/18 at 18:30 Potassium Chloride/Sodium Chloride 1,000 ml @ 150 mls/hr Q6H40M IV Last administered on 02/26/18at 10:26; Start 02/21/18 at 18:30 Fentanyl Citrate (Fentanyl 2ml Vial) 100 mcg PRN Q2HR PRN IV PAIN SEVERE Last administered on 02/25/18at 23:11; Start 02/22/18 at 09:45 Pantoprazole Sodium (PROTONIX VIAL for IV PUSH) 40 mg DAILYAC IVP Last administered on 02/24/18at 07:44; Start 02/22/18 at 10:00; Stop 02/24/18 at 09:52 ; Status DC Morphine Sulfate (Morphine Sulfate) 4 mg PRN Q2HR PRN IV PAIN MODERATE Last administered on 02/26/18at 03:58; Start 02/22/18 at 09:30 Potassium Chloride (KCl Oral Soln) 40 meq 1X ONCE PO Last administered on 02/23at 11:32; Start 02/23/18 at 10:30; Stop 02/23/18 at 10:31; Status DC Magnesium Sulfate 50 ml @ 25 mls/hr 1X ONCE IV Last administered on 02/23/18at 13:48; Start 02/23/18 at 13:30; Stop 02/23/18 at 15:29; Status DC Iohexol (Omnipaque 300 Mg/ml) 75 ml 1X ONCE IV Last administered on 02/23/18at 13:45; Start 02/23/18 at 13:45; Stop 02/23/18 at 13:46; Status DC Info (CONTRAST GIVEN -- Rx MONITORING) 1 each PRN DAILY PRN MC SEE COMMENTS; Start 02/23/18 at 13:45; Stop 02/25/18 at 13:44; Status DC Vancomycin HCl (Vancomycin Oral Solution) 125 mg Q6HRS PO Last administered on 02/26/18at 12:19; Start 02/24/18 at 01:00 Pantoprazole Sodium (Protonix) 40 mg DAILYAC PO ; Start 02/25/18 at 07:30; Stop 02/25/18 at 07:30; Status DC Famotidine (Pepcid) 20 mg QHS PO Last administered on 02/25/18at 20:07; Start at 21:00 Lactobacillus Rhamnosus (Culturelle) 1 cap BID PO Last administered on at 08:23; Start 02/25/18 at 21:00 Acetaminophen/ Hydrocodone Bitart (Lortab 5/325) 1 tab PRN Q4HRS PRN PO MILD PAIN Last administered on 02/25/18at 11:31; Start 02/25/18 at 11:15 Acetaminophen/ Hydrocodone Bitart (Lortab 10/325) 1 tab PRN Q6HRS PRN PO MODERATE PAIN Last administered on 02/26/18at 05:24; Start 02/25/18 at 12:30 Acetaminophen/ Hydrocodone Bitart (Lortab 10/325) 2 tab PRN Q6HRS PRN PO SEVERE PAIN Last administered on 02/26/18at 10:25; Start 02/25/18 at 12:30 Active Scripts Active Reported Novolog Flexpen (Insulin Aspart) 100 Unit/1 Ml Insuln.pen 20 Unit SQ TIDAC Lantus Solostar (Insulin Glargine,Hum.rec.anlog) 100 Unit/1 Ml Insuln.pen 35 Unit SQ HS Lantus Solostar (Insulin Glargine,Hum.rec.anlog) 100 Unit/1 Ml Insuln.pen 25 Unit SQ DAILY07 Culturelle (Lactobacillus Rhamnosus Gg) 1 Each Capsule 1 Each PO BID Prozac (Fluoxetine Hcl) 20 Mg Capsule 20 Mg PO DAILY Atorvastatin Calcium 40 Mg Tablet 1 Tab PO DAILY Isosorbide Mononitrate 20 Mg Tablet 60 Mg PO DAILY Clopidogrel (Clopidogrel Bisulfate) 75 Mg Tablet 75 Mg PO DAILY Coreg (Carvedilol) 3.125 Mg Tablet 3.125 Mg PO BIDWMEALS Aspirin 325 Mg Tablet 325 Mg PO DAILY Protonix (Pantoprazole Sodium) 20 Mg Tablet.dr 1 Tab PO DAILY Chlorthalidone 25 Mg Tablet 1 Tab PO DAILY Lisinopril 40 Mg Tablet 1 Tab PO DAILY Amiodarone Hcl 100 Mg Tablet 200 Mg PO DAILY Spironolactone 25 Mg Tablet 1 Tab PO DAILY Vitals/I & O Vital Sign - Last 24 Hours 02/25/18 02/25/18 02/25/18 02/25/18 14:24 15:00 16:34 16:35 Temp 98.2 98.2 Pulse 59 59 Resp 16 20 B/P (MAP) 145/85 (105) 145/85 Pulse Ox 98 98 98 O2 Delivery Room Air Room Air Room Air 02/25/18 02/25/18 02/25/18 02/25/18 17:05 17:52 18:14 19:00 Temp 98.6 98.6 Pulse 58 Resp 20 20 20 17 B/P (MAP) 184/104 (130) Pulse Ox 98 98 O2 Delivery Room Air Room Air 02/25/18 02/25/18 02/25/18 02/25/18 20:00 20:06 21:02 23:00 Temp 98.2 98.2 Pulse 56 Resp 18 B/P (MAP) 185/100 (128) Pulse Ox 98 98 98 O2 Delivery Room Air Room Air Room Air Room Air 02/25/18 02/25/18 02/26/18 02/26/18 23:11 23:35 01:34 01:35 Pulse 53 B/P (MAP) 180/99 Pulse Ox 98 98 98 O2 Delivery Room Air Room Air Room Air 02/26/18 02/26/18 02/26/18 02/26/18 03:00 03:58 04:48 04:49 Temp 99.0 99.0 Pulse 59 Resp 18 B/P (MAP) 169/90 (116) Pulse Ox 99 99 99 99 O2 Delivery Room Air Room Air Room Air Room Air 02/26/18 02/26/18 02/26/18 02/26/18 05:24 06:00 07:00 08:00 Temp 98.5 98.5 Pulse 59 Resp 20 B/P (MAP) 150/85 (106) Pulse Ox 99 99 99 O2 Delivery Room Air Room Air Room Air Room Air 02/26/18 02/26/18 02/26/18 02/26/18 08:22 08:23 08:23 08:24 Pulse 59 59 59 59 B/P (MAP) 150/85 150/85 150/85 150/85 02/26/18 02/26/18 02/26/18 10:25 11:00 11:25 Temp 98.8 98.8 Pulse 56 Resp 20 B/P (MAP) 137/84 (101) Pulse Ox 96 O2 Delivery Room Air Room Air Room Air Intake and Output 02/25/18 02/25/18 02/26/18 15:00 23:00 07:00 Intake Total 960 ml 2420 ml 1760 ml Balance 960 ml 2420 ml 1760 ml DELFINA KIMBALL III DO Feb 26, 2018 12:48
[2018-02-26] MEDS ORDERED: ONDANSETRON ODT 4 MG TAB.RAPDIS. PO PRN (14:15)
[2018-02-27] MEDS ORDERED: FURO40TA4 PO (04:17)
[2018-02-27] MEDS ORDERED: POTA20TA82 PO (04:17)
== END 2018-02-26 14:50 | disposition home or self-care (01) | DRG 438 ==
LOC: ER 22:14 → 2 NORTH 02-21 01:41
PROVIDERS: ADMIT Family Medicine; ATTEND Family Medicine
DX: K85.90 Acute pancreatitis without necrosis or infection, unspecified (principal); N17.0 Acute kidney failure with tubular necrosis; I42.9 Cardiomyopathy, unspecified; I50.22 Chronic systolic (congestive) heart failure; A09 Infectious gastroenteritis and colitis, unspecified; E11.9 Type 2 diabetes mellitus without complications; E27.9 Disorder of adrenal gland, unspecified; E78.5 Hyperlipidemia, unspecified; E86.9 Volume depletion, unspecified; F17.210 Nicotine dependence, cigarettes, uncomplicated; G89.29 Other chronic pain; I11.0 Hypertensive heart disease with heart failure; I25.10 Atherosclerotic heart disease of native coronary artery without angina pectoris; I25.2 Old myocardial infarction; K21.9 Gastro-esophageal reflux disease without esophagitis; K76.0 Fatty (change of) liver, not elsewhere classified; K86.1 Other chronic pancreatitis; F41.9 Anxiety disorder, unspecified; M19.90 Unspecified osteoarthritis, unspecified site; Z98.61 Coronary angioplasty status; M10.9 Gout, unspecified; Z96.652 Presence of left artificial knee joint; Z79.4 Long term (current) use of insulin; Z80.9 Family history of malignant neoplasm, unspecified; Z82.3 Family history of stroke; Z82.49 Family history of ischemic heart disease and other diseases of the circulatory system; Z83.3 Family history of diabetes mellitus; Z90.49 Acquired absence of other specified parts of digestive tract
CPT/HCPCS: 36415; 71045; 74176; 74177; 80048; 80053; 81001; 82553; 82962; 83605; 83690; 83735; 83880; 84484; 85007; 85025; 85610; 87324; 93005; 96361; 96374; 96375; C9113; J0360; J1650; J1815; J2270; J2405; J2765; J3010; J3475; J3490; J7030; Q0162; Q9967; 99285-25

== ENCOUNTER 2018-02-27 00:50 | Emergency (ER) | payer OTHER ==
[~2018-02-27] VITALS: Ht 177.8 cm; Wt 98.9 kg
[~2018-02-27 00:50] MED LIST changes: +ATOR40TA59 PO; +FLUO20CA16 PO; +INSU100I17 SQ; +LACT1CAP21 PO
[2018-02-27 01:15] VITALS: BP 200/91
--- NOTE | 2018-02-27 01:18 | PHYS DOC ---
Past Medical History Past Medical History: Arrhythmia, Diabetes-Type II, Hypertension, Pancreatitis , Other Additional Past Medical Histor: swelling in legs Past Surgical History: Appendectomy, Cholecystectomy, Tonsillectomy, Other Additional Past Surgical Histo: knees; L shoulder; hands; L ankle; cardiac cath Alcohol Use: Sober Drug Use: None Adult General Chief Complaint Chief Complaint: LOWER EXTREMITY SWELLING HPI HPI Patient is a 57-year-old male who presents to the emergency department for evaluation. He was discharged from the hospital yesterday after being hospitalized for a few days with acute pancreatitis,, care of by C. difficile infection. He states that over the past 24 hours he has developed edema in his legs, extending up towards his thighs. He denies any definite leg pain, denies any chest pain or shortness of breath. He does have a history of use, but states he stopped drinking in November. He also states that he had a myocardial infarction in December of this year. He denies any pleuritic chest pain, dizziness, or lightheadedness. There are no alleviating, or exacerbating factors to his symptoms. Review of Systems Review of Systems Constitutional: Denies fever or chills [] Eyes: Denies change in visual acuity, redness, or eye pain [] HENT: Denies nasal congestion or sore throat [] Respiratory: Denies cough or shortness of breath [] Cardiovascular:The patient denies any shortness of breath, chest pain, palpitations, or orthopnea [] GI: Denies nausea, vomiting, bloody stools. He does admit to some residual abdominal discomfort from his pancreatitis. [] : Denies dysuria or hematuria [] Musculoskeletal: Denies back pain or joint pain [] Integument: Denies rash or skin lesions [] Neurologic: Denies headache, focal weakness or sensory changes [] Endocrine: Denies polyuria or polydipsia [] All other systems were reviewed and found to be within normal limits, except as documented in this note. Current Medications Current Medications Current Medications Medications (Trade) Dose Ordered Sig/Marcia Start Time Stop Time Status Last Admin Dose Admin Ondansetron HCl (Zofran) 4 mg STK-MED ONCE 02/27/18 03:45 02/27/18 03:47 DC Allergies Allergies Allergies Coded Allergies Type Severity Reaction Last Updated Verified glyburide Allergy Intermediate 12/24/17 Yes ketorolac Adverse Reaction Intermediate vomiting 2/20/18 Yes tramadol Adverse Reaction Intermediate vomiting 09/03/17 Yes Physical Exam Physical Exam PHYSICAL EXAM: CONSTITUTIONAL: Well developed, well nourished HEAD: normocephalic, atraumatic EENT: PERRL, EOMI. Conjunctivae normal color, sclerae non-icteric; moist mucous membranes. NECK: Supple, non-tender; no meningismus. There is no JVD. LUNGS: Lungs CTA, breathing even and unlabored. Normal air movement. HEART: Regular rate and rhythm, no murmur CHEST: No deformity; non-tender ABDOMEN: The abdomen is soft, there is mild diffuse tenderness to palpation of the abdomen without focal tenderness, rebound, or guarding, there are bruises in the skin of the abdomen consistent with recent anticoagulant injections, no masses or bruits. EXTREM: Normal ROM; no deformity, no calf tenderness. Normal pulses palpable in all extremities. There is bilateral 2+ pitting pedal edema. SKIN: No rash; no diaphoresis NEURO: Alert; normal speech and cognition; CN's grossly intact; strength grossly intact without focal deficit. BACK: No CVA TTP. Current Patient Data Vital Signs Vital Signs Date Time Temp Pulse Resp B/P (MAP) Pulse Ox O2 Delivery O2 Flow Rate FiO2 02/27/18 01:15 98.0 86 20 200/91 (127) 99 Room Air 98.0 Lab Values Laboratory Tests Test 02/27/18 03:00 White Blood Count 7.8 x10^3/uL (4.0-11.0) Red Blood Count 3.27 x10^6/uL (4.30-5.70) L Hemoglobin 11.1 g/dL (13.0-17.5) L Hematocrit 30.5 % (39.0-53.0) L Mean Corpuscular Volume 93 fL (79-100) Mean Corpuscular Hemoglobin 34 pg (25-35) Mean Corpuscular Hemoglobin Concent 36 g/dL (31-37) Red Cell Distribution Width 14.8 % (11.5-14.5) H Platelet Count 226 x10^3/uL (140-400) Neutrophils (%) (Auto) 72 % (31-73) Lymphocytes (%) (Auto) 16 % (24-48) L Monocytes (%) (Auto) 10 % (0-9) H Eosinophils (%) (Auto) 1 % (0-3) Basophils (%) (Auto) 1 % (0-3) Neutrophils # (Auto) 5.7 x10^3uL (1.8-7.7) Lymphocytes # (Auto) 1.3 x10^3/uL (1.0-4.8) Monocytes # (Auto) 0.8 x10^3/uL (0.0-1.1) Eosinophils # (Auto) 0.0 x10^3/uL (0.0-0.7) Basophils # (Auto) 0.1 x10^3/uL (0.0-0.2) Prothrombin Time 15.9 SEC (11.7-14.0) H Prothrombin Time INR 1.3 (0.8-1.1) H Sodium Level 133 mmol/L (136-145) L Potassium Level 3.7 mmol/L (3.5-5.1) Chloride Level 100 mmol/L (98-107) Carbon Dioxide Level 23 mmol/L (21-32) Anion Gap 10 (6-14) Blood Urea Nitrogen 3 mg/dL (8-26) L Creatinine 0.9 mg/dL (0.7-1.3) Estimated GFR (Cockcroft-Gault) 86.7 BUN/Creatinine Ratio 3 (6-20) L Glucose Level 242 mg/dL (70-99) H Calcium Level 8.8 mg/dL (8.5-10.1) Total Bilirubin 0.3 mg/dL (0.2-1.0) Aspartate Amino Transferase (AST) 15 U/L (15-37) Alanine Aminotransferase (ALT) 19 U/L (16-63) Alkaline Phosphatase 104 U/L (46-116) Creatine Kinase 88 U/L (39-308) Creatine Kinase MB (Mass) 2.7 ng/mL (0.0-3.6) Creatine Kinase MB Relative Index 3.1 % (0-4) Troponin I Quantitative 0.022 ng/mL (0.000-0.055) RD-Ydw-G-Type Natriuretic Peptide 25711 pg/mL (0-124) H Total Protein 6.9 g/dL (6.4-8.2) Albumin 3.0 g/dL (3.4-5.0) L Albumin/Globulin Ratio 0.8 (1.0-1.7) L Laboratory Tests 02/27/18 03:00 Laboratory Tests 02/27/18 03:00 EKG EKG [Normal sinus rhythm a rate of 60 beats for minute, normal axis, QTC of 514 ms with otherwise normal intervals. There are no acute ischemic ST/T changes.] Radiology/Procedures Radiology/Procedures [ER physician preliminary chest x-ray interpretation: Borderline CM with mild congestive changes, new compared to prior CXR. Course & Med Decision Making Course & Med Decision Making Pertinent Labs and Imaging studies reviewed. (See chart for details) [The patient's condition remained stable. I do suspect his edema is a combination of underlying CHF, as evidenced by a limited EF of 40% on his echo from August, as well as fluid that he received while hospitalized here. I will add Lasix as well as potassium supplementation to the patient's medications and he has an appointment with his escrow secretary at the [place] next week. I encouraged him to mention his hospitalization here, to his escrow secretary , and to evaluate the need for ongoing further diuresis. The patient does appear to have diuretics part of his medication list but is compliant with them is uncertain. Return precautions were discussed in detail. He remains hemodynamically stable without any shortness of breath hypoxia.] Dragon Disclaimer Dragon Disclaimer This electronic medical record was generated, in whole or in part, using a voice recognition dictation system. Departure Departure Impression: Primary Impression: Pedal edema Additional Impression: CHF (congestive heart failure) Disposition: HOME, SELF-CARE Condition: STABLE Referrals: UNKNOWN PCP NAME (PCP) Patient Instructions: Heart Disease Prevention-Brief, Peripheral Edema Scripts Potassium Chloride (POTASSIUM CHLORIDE) 20 Meq Tablet.er 20 MEQ PO DAILY for 30 Days, #30 TAB.SR Prov: TYSHAWN SHARMA MD 02/27/18 Furosemide (FUROSEMIDE) 40 Mg Tablet 1 TAB PO DAILY, #30 TAB 0 Refills Prov: TYSHAWN SHARMA MD 02/27/18 Problem Qualifiers TYSHAWN SHARMA MD Feb 27, 2018 01:18
[2018-02-27 03:11] LABS: BASO # 0.1 x10^3/uL (0.0-0.2); BASO % 1 % (0-3); EOS % 1 % (0-3); HEMATOCRIT 30.5 % (39.0-53.0); HEMOGLOBIN 11.1 g/dL (13.0-17.5); LYMPH # 1.3 x10^3/uL (1.0-4.8); LYMPH % 16 % (24-48); MEAN CORPUSCULAR HEMOGLOBIN 34 pg (25-35); MEAN CORPUSCULAR HGB CONC 36 g/dL (31-37); MEAN CORPUSCULAR VOLUME 93 fL (79-100); MONO # 0.8 x10^3/uL (0.0-1.1); MONO % 10 % (0-9); NEUT # 5.7 x10^3uL (1.8-7.7); NEUT % 72 % (31-73); PLATELET COUNT 226 x10^3/uL (140-400); RED BLOOD COUNT 3.27 x10^6/uL (4.30-5.70); RED CELL DISTRIBUTION WIDTH 14.8 % (11.5-14.5); WHITE BLOOD COUNT 7.8 x10^3/uL (4.0-11.0)
[2018-02-27 03:24] LABS: CALCIUM 8.8 mg/dL (8.5-10.1); CREATININE 0.9 mg/dL (0.7-1.3); GFR 86.7; POTASSIUM 3.7 mmol/L (3.5-5.1)
[2018-02-27 03:27] LABS: PROTHROMBIN TIME PATIENT 15.9 SEC (11.7-14.0)
--- NOTE | 2018-02-27 03:28 | RAD ---
Bilateral Lower extremity venous Doppler. 02/27/2018 HISTORY: Bilateral lower extremity pain/swelling. COMPARISON: None. FINDINGS: Grayscale, Color and Doppler analysis of the Bilateral Lower extremity deep venous system was performed with serial graded compression and augmentation. The bilateral common femoral, femoral, and popliteal veins are widely patent with normal color Doppler imaging. There is questionable nonocclusive filling defect in a right lower extremity posterior tibial vein, however limited in evaluation. Bilateral lower extremity subcutaneous edema. IMPRESSION: 1. Questionable nonocclusive thrombus in the right lower extremity posterior tibial vein, indeterminate for thrombus. 2. No evidence of DVT in the left lower extremity. 3. Bilateral lower extremity subcutaneous edema. Electronically signed by: Elias Plata MD (02/27/2018 3:24 AM) [id number]
[2018-02-27 03:30] LABS: ALBUMIN/GLOBULIN RATIO 0.8 (1.0-1.7); TOTAL BILIRUBIN 0.3 mg/dL (0.2-1.0); TOTAL PROTEIN 6.9 g/dL (6.4-8.2)
[2018-02-27] MEDS ORDERED: ONDANSETRON PF 4 MG/2 ML VIAL. ONE (03:45)
[2018-02-27] MEDS ORDERED: ONDANSETRON PF 4 MG/2 ML VIAL. IV ONE (04:00)
--- NOTE | 2018-02-27 04:08 | EKG ---
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
[2018-02-27] MEDS ORDERED: FURO40TA4 PO (04:17)
[2018-02-27] MEDS ORDERED: POTA20TA82 PO (04:17)
--- NOTE | 2018-02-27 09:03 | RAD ---
EXAM: Portable AP view of the chest DATE: 02/27/2018 1:25 AM INDICATION: FLUID RETENTION, LEGS; SOA COMPARISON: No Prior FINDINGS: Heart is mildly enlarged. Atherosclerotic calcifications of the tortuous aorta are seen. No focal parenchymal airspace opacity. No pleural effusion or pneumothorax. IMPRESSION: 1. No radiographic evidence for acute cardiopulmonary process. Electronically signed by: Huy Georges MD (02/27/2018 9:00 AM) [facility]
== END 2018-02-27 04:36 | disposition home or self-care (01) ==
LOC: ER 00:50
DX: R60.0 Localized edema (principal); I11.0 Hypertensive heart disease with heart failure; I50.9 Heart failure, unspecified; E11.9 Type 2 diabetes mellitus without complications; Z88.6 Allergy status to analgesic agent; Z88.8 Allergy status to other drugs, medicaments and biological substances
CPT/HCPCS: 36415; 71045; 80053; 82553; 83880; 84484; 85025; 85610; 93005; 93970; 96374; 99285; J2405

== ENCOUNTER 2018-03-30 17:56 | Inpatient (IN) | payer OTHER ==
[~2018-03-30] VITALS: Ht 172.7 cm; Wt 89.6 kg
[~2018-03-30 17:56] MED LIST changes: +FURO40TA4 PO; +POTA20TA82 PO
[2018-03-30] MEDS ORDERED: fentaNYL PF VIAL 100 MCG/2 ML VIAL IV ONE (20:30)
[2018-03-30] MEDS ORDERED: FAMOTIDINE 20 MG/2 ML VIAL IVP ONE (20:30)
[2018-03-30] MEDS ORDERED: IV NORMAL SALINE 1000ML BAG 1,000 ML IV ONE (20:30)
[2018-03-30] MEDS ORDERED: ONDANSETRON PF 4 MG/2 ML VIAL. IV ONE (20:30)
--- NOTE | 2018-03-30 20:38 | PHYS DOC ---
Past Medical History Past Medical History: Alcoholism, Arrhythmia, CAD, Diabetes-Type II, Hypertension, Pancreatitis, Other Additional Past Medical Histor: swelling in legs, cardiac stents Past Surgical History: Appendectomy, Cholecystectomy, Tonsillectomy, Other Additional Past Surgical Histo: knees; L shoulder; hands; L ankle; cardiac cath Alcohol Use: Sober Drug Use: None Adult General Chief Complaint Chief Complaint: ABDOMINAL PAIN HPI HPI Patient is a 57 year old male with past medical history of pancreatitis, CAD, DM 2, OH with stenting, HTN who presents with 1 day of epigastric abdominal pain. Patient notes the pain started this morning and has been constant since then with a sharp and stabbing quality to it a severity of 8 out of 10. Patient notes he has had multiple episodes of nonbloody emesis and has felt nauseated all day. Patient notes this afternoon he developed nonbloody diarrhea. Patient denies chest pain, shortness of breath, extremity pain, headache, or symptoms. Patient notes he checked his blood sugar this morning at about 8 AM and it was 204 and notes that he did not take his insulin today and vomited his morning medications 10 minutes after he took them and has not taken any since. Patient notes his last episode of pancreatitis was approximately 6 weeks ago and this episode he says feels very similar. Patient reports alcoholism but reportedly has not drank since November 2017. Patient notes his first episode of this was in August of this year. Review of Systems Review of Systems Constitutional: Denies fever or chills [] Eyes: Denies change in visual acuity, redness, or eye pain [] HENT: Denies nasal congestion or sore throat [] Respiratory: Notes cough, Denies shortness of breath [] Cardiovascular: Denies chest pain or palpitations[] GI: Reports abdominal pain, nausea, vomiting, and diarrhea [] : Denies dysuria or hematuria [] Musculoskeletal: Denies back pain or joint pain [] Integument: Denies rash or skin lesions [] Neurologic: Denies headache, focal weakness or sensory changes [] Complete systems were reviewed and found to be within normal limits, except as documented in this note. Current Medications Current Medications Current Medications Medications (Trade) Dose Ordered Sig/Marcia Start Time Stop Time Status Last Admin Dose Admin Famotidine (Pepcid Vial) 20 mg 1X ONCE 03/30/18 20:30 03/30/18 20:31 DC 03/30/18 21:15 20 MG Fentanyl Citrate (Fentanyl 2ml Vial) 50 mcg 1X ONCE 03/30/18 20:30 03/30/18 20:31 DC 03/30/18 21:15 50 MCG Ondansetron HCl (Zofran) 4 mg 1X ONCE 03/30/18 20:30 03/30/18 20:31 DC 03/30/18 21:15 4 MG Sodium Chloride 1,000 ml @ 1,000 mls/hr 1X ONCE 03/30/18 20:30 03/30/18 21:29 DC 03/30/18 21:15 1,000 MLS/HR Allergies Allergies Allergies Coded Allergies Type Severity Reaction Last Updated Verified glyburide Allergy Intermediate 12/24/17 Yes ketorolac Adverse Reaction Intermediate vomiting 09/03/17 Yes tramadol Adverse Reaction Intermediate vomiting 09/03/17 Yes Physical Exam Physical Exam Constitutional: Appears uncomfortable, Well developed, well nourished, no acute distress, non-toxic appearance. [] HENT: Normocephalic, atraumatic, oropharynx tacky, no oral exudates, nose normal. [] Eyes: PERRL, EOMI, conjunctiva normal, no discharge. [] Neck: Normal range of motion, no tenderness, supple, no meningismus. [] Cardiovascular:Heart rate regular rhythm, no murmur [] Lungs & Thorax: Bilateral breath sounds clear to auscultation [] Abdomen: Soft, epigastric and right upper quadrant tenderness to palpation, nondistended[] Skin: Warm, dry, erythema of the anterior neck and face, no rash. [] Back: No tenderness, no CVA tenderness. [] Extremities: No tenderness, ROM intact, no edema. [] Neurologic: Alert and oriented X 3, normal motor function, normal sensory function, no focal deficits noted. [] Psychologic: Affect normal, judgement normal, mood normal. [] Current Patient Data Vital Signs Vital Signs Date Time Temp Pulse Resp B/P (MAP) Pulse Ox O2 Delivery O2 Flow Rate FiO2 03/30/18 19:24 98.7 84 20 139/91 (107) 100 Room Air 98.7 Lab Values Laboratory Tests Test 03/30/18 20:46 03/30/18 21:00 White Blood Count 7.3 x10^3/uL (4.0-11.0) Red Blood Count 4.77 x10^6/uL (4.30-5.70) Hemoglobin 15.6 g/dL (13.0-17.5) Hematocrit 44.3 % (39.0-53.0) Mean Corpuscular Volume 93 fL (79-100) Mean Corpuscular Hemoglobin 33 pg (25-35) Mean Corpuscular Hemoglobin Concent 35 g/dL (31-37) Red Cell Distribution Width 15.0 % (11.5-14.5) H Platelet Count 272 x10^3/uL (140-400) Neutrophils (%) (Auto) 75 % (31-73) H Lymphocytes (%) (Auto) 20 % (24-48) L Monocytes (%) (Auto) 5 % (0-9) Eosinophils (%) (Auto) 0 % (0-3) Basophils (%) (Auto) 1 % (0-3) Neutrophils # (Auto) 5.4 x10^3uL (1.8-7.7) Lymphocytes # (Auto) 1.4 x10^3/uL (1.0-4.8) Monocytes # (Auto) 0.3 x10^3/uL (0.0-1.1) Eosinophils # (Auto) 0.0 x10^3/uL (0.0-0.7) Basophils # (Auto) 0.1 x10^3/uL (0.0-0.2) Sodium Level 136 mmol/L (136-145) Potassium Level 4.3 mmol/L (3.5-5.1) Chloride Level 97 mmol/L (98-107) L Carbon Dioxide Level 29 mmol/L (21-32) Anion Gap 10 (6-14) Blood Urea Nitrogen 33 mg/dL (8-26) H Creatinine 1.6 mg/dL (0.7-1.3) H Estimated GFR (Cockcroft-Gault) 44.6 BUN/Creatinine Ratio 21 (6-20) H Glucose Level 410 mg/dL (70-99) H Calcium Level 8.5 mg/dL (8.5-10.1) Magnesium Level 1.7 mg/dL (1.8-2.4) L Total Bilirubin 0.4 mg/dL (0.2-1.0) Aspartate Amino Transferase (AST) 22 U/L (15-37) Alanine Aminotransferase (ALT) 37 U/L (16-63) Alkaline Phosphatase 93 U/L (46-116) Creatine Kinase 46 U/L (39-308) Troponin I Quantitative < 0.017 ng/mL (0.000-0.055) Total Protein 6.9 g/dL (6.4-8.2) Albumin 3.7 g/dL (3.4-5.0) Albumin/Globulin Ratio 1.2 (1.0-1.7) Lipase 194 U/L (73-393) Ethyl Alcohol Level 64 mg/dL (0-10) H Prothrombin Time 14.0 SEC (11.7-14.0) Prothrombin Time INR 1.1 (0.8-1.1) PTT 24 SEC (24-38) Laboratory Tests 03/30/18 20:46 Laboratory Tests 03/30/18 20:46 EKG EKG Normal sinus rhythm, heart rate 82, QRS 96, QTC 487. Q waves seen in leads 23 and aVF. No acute ischemic changes seen on EKG.[] Radiology/Procedures Radiology/Procedures [] Course & Med Decision Making Course & Med Decision Making A 57-year-old male presenting with 1 day of epigastric abdominal pain nausea vomiting and diarrhea. Patient notes that he has a history of pancreatitis in the last occurrence was 02/27/18. Patient denies EtOH use and reports last time he drank any alcohol was in November, but today his alcohol level is 64 in the emergency department. Labs were collected and reviewed. Evidence of mild acute renal insufficiency with BUN 33 and creatinine 1.6 which is elevated from 0.9 from his last admission on 02/27/18. Patient also has a blood sugar of 410 and magnesium of 1.7. Lipase is normal today. Patient given Zofran, Levsin, fluid bolus, fentanyl with only mild improvement of symptoms.Patient requiring admission for further evaluation and treatment. Discussed with Dr. Michel who is in agreement with admission. Discussed findings and plan with patient and family, who acknowledge understanding and agreement. Dragon Disclaimer Dragon Disclaimer This electronic medical record was generated, in whole or in part, using a voice recognition dictation system. Departure Departure Impression: Primary Impression: Intractable abdominal pain Additional Impressions: Acute renal insufficiency Hyperglycemia Disposition: 09 ADMITTED INPATIENT Admitting Physician: Margy Michel Condition: STABLE Referrals: UNKNOWN PCP NAME (PCP) Problem Qualifiers MONSERRAT BARRAZA DO Mar 30, 2018 20:38
[2018-03-30 20:59] LABS: BASO # 0.1 x10^3/uL (0.0-0.2); BASO % 1 % (0-3); EOS % 0 % (0-3); HEMATOCRIT 44.3 % (39.0-53.0); HEMOGLOBIN 15.6 g/dL (13.0-17.5); LYMPH # 1.4 x10^3/uL (1.0-4.8); LYMPH % 20 % (24-48); MEAN CORPUSCULAR HEMOGLOBIN 33 pg (25-35); MEAN CORPUSCULAR HGB CONC 35 g/dL (31-37); MEAN CORPUSCULAR VOLUME 93 fL (79-100); MONO # 0.3 x10^3/uL (0.0-1.1); MONO % 5 % (0-9); NEUT # 5.4 x10^3uL (1.8-7.7); NEUT % 75 % (31-73); PLATELET COUNT 272 x10^3/uL (140-400); RED BLOOD COUNT 4.77 x10^6/uL (4.30-5.70); WHITE BLOOD COUNT 7.3 x10^3/uL (4.0-11.0)
[2018-03-30 21:19] LABS: CALCIUM 8.5 mg/dL (8.5-10.1); CREATININE 1.6 mg/dL (0.7-1.3); GFR 44.6; POTASSIUM 4.3 mmol/L (3.5-5.1)
[2018-03-30 21:26] LABS: ALBUMIN 3.7 g/dL (3.4-5.0); ALBUMIN/GLOBULIN RATIO 1.2 (1.0-1.7); MAGNESIUM 1.7 mg/dL (1.8-2.4); TOTAL BILIRUBIN 0.4 mg/dL (0.2-1.0); TOTAL PROTEIN 6.9 g/dL (6.4-8.2)
[2018-03-30] MEDS ORDERED: HYOSCYAMINE 0.125 MG TAB.RAPDIS PO ONE (22:00)
[2018-03-30] MEDS ORDERED: INSULIN REGULAR 100 UNIT/ML 3ML VIAL. SQ ONE (22:00)
--- NOTE | 2018-03-30 22:56 | EKG ---
[facility] [address] [place] [address] Test Date: 2018-03-30 Test Time: 19:54:38 Pat Name: MONSERRAT RETANA Department: Room: [facility] Gender: Male Copyright Expert: : [id number] Requested By: MONSERRAT BARRAZA Order Number: [id number] Reading MD: Bong Alas Measurements Intervals [place] Rate: 82 P: 69 VA: 162 QRS: 99 QRSD: 96 T: 72 QT: 414 QTc: 487 Interpretive Statements SINUS RHYTHM RIGHTWARD AXIS PROLONGED QT Electronically Signed On 03-31-2018 11:29:03 CDT by Bong Alas
[2018-03-30] MEDS ORDERED: fentaNYL PF VIAL 100 MCG/2 ML VIAL IV PRN (23:15)
[2018-03-30 23:45] VITALS: BP 137/89
[2018-03-31] MEDS: MORPHINE SULFATE 2 MG/ML VIAL. IV PRN ×2 (01:12→09:02)
[2018-03-31] MEDS: MORPHINE SULFATE 4 MG/ML VIAL. IV PRN ×8 (02:41→23:42)
[2018-03-31 03:03] VITALS: BP 163/93
[2018-03-31] MEDS: ONDANSETRON PF 4 MG/2 ML VIAL. IV PRN ×3 (03:10→17:53)
[2018-03-31 07:36] VITALS: BP 163/88
[2018-03-31] MEDS ORDERED: LABETALOL 20 MG/4 ML DISP.SYRIN. IVP PRN (08:30)
[2018-03-31] MEDS: INSULIN GLARGINE 300 UNITS/3 ML INSULN.PEN. SQ SCH (09:00)
[2018-03-31] MEDS ORDERED: IV NORMAL SALINE 1000ML BAG 1,000 ML IV ONE (09:00)
[2018-03-31] MEDS: FLUoxetine HCL 20 MG CAPSULE PO SCH (09:02)
[2018-03-31] MEDS: PANTOPRAZOLE 40 MG TABLET.DR. PO SCH (09:03)
[2018-03-31] MEDS: ISOSORBIDE MONONITRATE ER 30 MG TAB.ER.24H PO SCH (09:03)
[2018-03-31] MEDS: LACTOBACILLUS RHAMNOSUS GG 1 CAPSULE. PO SCH ×2 (09:03→20:39)
[2018-03-31] MEDS: ASPIRIN 325 MG TABLET PO SCH (09:04)
[2018-03-31] MEDS: hydrALAZINE 10 MG TABLET PO SCH ×3 (09:04→20:39)
[2018-03-31] MEDS: CARVEDILOL 3.125 MG TABLET. PO SCH ×2 (09:04→17:47)
[2018-03-31] MEDS: amLODIPine BESYLATE 5 MG TABLET PO SCH (09:04)
[2018-03-31] MEDS: IV NORMAL SALINE 1000ML BAG 1,000 ML IV SCH ×2 (10:00→16:15)
--- NOTE | 2018-03-31 10:41 | PDOC1 ---
History and Physical Date of Admission Date of Admission DATE: 03/31/18 TIME: 10:35 Identification/Chief Complaint Chief Complaint Abdominal pain Source Source: Caregiver, Chart review, Patient History of Present Illness History of Present Illness 57-year-old male, history of diabetes hypertension and takes a long list of medications at home, comes in because of rather acute onset 2 days onset of epigastric pain, emesis 1, no fever, no diarrhea. Requiring multiple doses of high doses fentanyl and morphine last night, multiple calls overnight for pain. CAT scan I did order because of significant clinical findings and that read is still pending. Claims to me history of EGD some 7-8 months ago, unknown results are unknown or what sounds like benign findings.Done at [place]. Known to GI here. I did talk to GI, they will see the patient later. The patient was also admitted because of creatinine of 1.6 which is news, got couple of boluses given at the ER, I will order continues normal saline and recheck labs tomorrow. Home meds reconciled We'll back down to full liquid diet for now, less interested in food, still laying still and seems uncomfortable holding/rubbing his belly, History of smoking, less than a pack-a-day History of drinking in the past, claims not any more Waiting for CAT scan, need to rule out any signs of perforation or complications of PUD etc. he looks rather uncomfortable endocrine multiple doses of opiates last night Past Medical History Cardiovascular: CAD, CHF, HTN, NE, Hyperlipidemia Pulmonary: No pertinent hx GI: GERD Heme/Onc: No pertinent hx Hepatobiliary: Cholelithiasis, Other Psych: Anxiety Musculoskeletal: Osteoarthritis Rheumatologic: No pertinent hx Infectious disease: No pertinent hx Renal/: No pertinent hx Endocrine: Diabetes Past Surgical History Past Surgical History: Appendectomy, Cholecystectomy, Total knee replacement, Other Family History Family History: Diabetes, Hypertension, Stroke Social History Smoke: Quit ALCOHOL: none Drugs: None Current Problem List Problem List Problems Medical Problems: (1) Acute renal insufficiency Status: Acute (2) Hyperglycemia Status: Acute (3) Intractable abdominal pain Status: Acute Current Medications Current Medications Current Medications Fentanyl Citrate (Fentanyl 2ml Vial) 50 mcg 1X ONCE IV Last administered on at 21:15; Start 03/30/18 at 20:30; Stop 03/30/18 at 20:31; Status DC Famotidine (Pepcid Vial) 20 mg 1X ONCE IVP Last administered on 03/30/18at 21: 15; Start 03/30/18 at 20:30; Stop 03/30/18 at 20:31; Status DC Ondansetron HCl (Zofran) 4 mg 1X ONCE IV Last administered on 03/30/18at 21:15 ; Start 03/30/18 at 20:30; Stop 03/30/18 at 20:31; Status DC Sodium Chloride 1,000 ml @ 1,000 mls/hr 1X ONCE IV Last administered on at 21:15; Start 03/30/18 at 20:30; Stop 03/30/18 at 21:29; Status DC Hyoscyamine (Anaspaz) 0.25 mg 1X ONCE PO Last administered on 03/30/18at 22:00 ; Start 03/30/18 at 22:00; Stop 03/30/18 at 22:01; Status DC Lorazepam (Ativan) 1 mg 1X ONCE IV Last administered on 03/30/18at 22:00; Start 03/30/18 at 22:00; Stop 03/30/18 at 22:01; Status DC Insulin Human Regular (HumuLIN R VIAL) 10 unit 1X ONCE SQ Last administered on 03/30/18at 22:00; Start 03/30/18 at 22:00; Stop 03/30/18 at 22:01; Status DC Fentanyl Citrate (Fentanyl 2ml Vial) 75 mcg PRN Q2HRS PRN IV SEVERE PAIN Last administered on 03/30/18at 23:40; Start 03/30/18 at 23:15 Morphine Sulfate (Morphine Sulfate) 2 mg PRN Q2HR PRN IV MODERATE PAIN Last administered on 03/31/18at 09:02; Start 03/31/18 at 00:45 Zolpidem Tartrate (Ambien) 5 mg PRN QHS PRN PO INSOMNIA; Start 03/31/18 at 01: 15 Morphine Sulfate (Morphine Sulfate) 4 mg PRN Q2HR PRN IV SEVERE PAIN Last administered on 03/31/18at 06:43; Start 03/31/18 at 01:15 Ondansetron HCl (Zofran) 4 mg PRN Q6HRS PRN IV NAUSEA/VOMITING 1ST CHOICE Last administered on 03/31/18at 03:10; Start 03/31/18 at 03:00 Oxycodone/ Acetaminophen (Percocet 10/325) 1 tab PRN Q4HRS PRN PO PAIN; Start 03/31/18 at 08:30 Sodium Chloride 1,000 ml @ 125 mls/hr Q8H IV ; Start 03/31/18 at 10:00 Sodium Chloride 1,000 ml @ 1,000 mls/hr 1X ONCE IV ; Start 03/31/18 at 09:00; Stop 03/31/18 at 09:59; Status DC Labetalol HCl (Normodyne Iv Push) 20 mg PRN Q2HR PRN IVP HYPERTENSION, SEE COMMENTS; Start 03/31/18 at 08:30 Insulin Human Lispro (HumaLOG) 0-9 UNITS TIDWMEALS SQ ; Start 03/31/18 at 12:00 Dextrose (Dextrose 50%-Water Syringe) 12.5 gm PRN Q15MIN PRN IV SEE COMMENTS; Start 03/31/18 at 08:30 Aspirin (Yolanda Aspirin) 325 mg DAILY PO Last administered on 03/31/18at 09:04; Start 03/31/18 at 09:00 Atorvastatin Calcium (Lipitor) 40 mg DAILY PO ; Start 03/31/18 at 09:00 Carvedilol (Coreg) 3.125 mg BIDWMEALS PO Last administered on 03/31/18at 09:04; Start 03/31/18 at 09:00 Fluoxetine HCl (PROzac) 20 mg DAILY PO Last administered on 03/31/18at 09:02; Start 03/31/18 at 09:00 Insulin Glargine (Lantus) 25 units DAILY07 SQ ; Start 03/31/18 at 09:00 Insulin Glargine (Lantus) 35 units HS SQ ; Start 03/31/18 at 21:00 Insulin Human Lispro (HumaLOG) 20 units TIDAC SQ ; Start 03/31/18 at 11:30 Isosorbide Mononitrate (Imdur) 60 mg DAILY PO Last administered on 03/31/18at 09 :03; Start 03/31/18 at 09:00 Lactobacillus Rhamnosus (Culturelle) 1 cap BID PO Last administered on at 09:03; Start 03/31/18 at 09:00 Pantoprazole Sodium (Protonix) 40 mg DAILYAC PO Last administered on 03/31/18at 09:03; Start 03/31/18 at 09:00 Amlodipine Besylate (Norvasc) 5 mg DAILY PO Last administered on 03/31/18at 09: 04; Start 03/31/18 at 09:00 Hydralazine HCl (Apresoline) 10 mg TID PO Last administered on 03/31/18at 09:04 ; Start 03/31/18 at 09:00 Active Scripts Active Potassium Chloride 20 Meq Tablet.er 20 Meq PO DAILY 30 Days Furosemide 40 Mg Tablet 1 Tab PO DAILY Reported Novolog Flexpen (Insulin Aspart) 100 Unit/1 Ml Insuln.pen 20 Unit SQ TIDAC Lantus Solostar (Insulin Glargine,Hum.rec.anlog) 100 Unit/1 Ml Insuln.pen 35 Unit SQ HS Lantus Solostar (Insulin Glargine,Hum.rec.anlog) 100 Unit/1 Ml Insuln.pen 25 Unit SQ DAILY07 Culturelle (Lactobacillus Rhamnosus Gg) 1 Each Capsule 1 Each PO BID Prozac (Fluoxetine Hcl) 20 Mg Capsule 20 Mg PO DAILY Atorvastatin Calcium 40 Mg Tablet 1 Tab PO DAILY Isosorbide Mononitrate 20 Mg Tablet 60 Mg PO DAILY Clopidogrel (Clopidogrel Bisulfate) 75 Mg Tablet 75 Mg PO DAILY Coreg (Carvedilol) 3.125 Mg Tablet 3.125 Mg PO BIDWMEALS Aspirin 325 Mg Tablet 325 Mg PO DAILY Protonix (Pantoprazole Sodium) 20 Mg Tablet.dr 1 Tab PO DAILY Chlorthalidone 25 Mg Tablet 1 Tab PO DAILY Lisinopril 40 Mg Tablet 1 Tab PO DAILY Spironolactone 25 Mg Tablet 1 Tab PO DAILY Allergies Allergies: Coded Allergies: glyburide (Verified Allergy, Intermediate, 12/24/17) ketorolac (Verified Adverse Reaction, Intermediate, vomiting, 09/03/17) tramadol (Verified Adverse Reaction, Intermediate, vomiting, 09/03/17) ROS Review of System As per history of present illness, the rest of ROS 14 point negative Physical Exam General: Alert, Oriented X3, Cooperative, No acute distress HEENT: Atraumatic, PERRLA, EOMI Lungs: Clear to auscultation, Normal air movement Heart: S1S2, RRR, no thrills, no rubs, no gallops, no murmurs Cardiovascular: S1, S2 Abdomen: Normal bowel sounds, Soft, No hepatosplenomegaly, No masses, Other ( tenderness epigastric area, no guarding,) Male Genitals Exam: normal genitalia, normal prostate Extremities: No clubbing, No cyanosis, No edema, Normal pulses, No tenderness/ swelling Skin: No rashes, No breakdown, No significant lesion Neuro: Normal gait, Normal speech, Strength at 5/5 X4 ext, Normal tone, Sensation intact, Cranial nerves 3-12 NL, Reflexes 2+ Psych/Mental Status: Mental status NL, Mood NL Vitals Vitals Vital Signs Date Time Temp Pulse Resp B/P (MAP) Pulse Ox O2 Delivery O2 Flow Rate FiO2 03/31/18 09:04 65 163/88 03/31/18 09:02 16 Room Air 03/31/18 08:00 98 03/31/18 07:36 98.0 98.0 Labs Labs Laboratory Tests Test 03/30/18 20:46 03/30/18 21:00 03/31/18 07:09 White Blood Count 7.3 x10^3/uL (4.0-11.0) Red Blood Count 4.77 x10^6/uL (4.30-5.70) Hemoglobin 15.6 g/dL (13.0-17.5) Hematocrit 44.3 % (39.0-53.0) Mean Corpuscular Volume 93 fL (79-100) Mean Corpuscular Hemoglobin 33 pg (25-35) Mean Corpuscular Hemoglobin Concent 35 g/dL (31-37) Red Cell Distribution Width 15.0 % (11.5-14.5) Platelet Count 272 x10^3/uL (140-400) Neutrophils (%) (Auto) 75 % (31-73) Lymphocytes (%) (Auto) 20 % (24-48) Monocytes (%) (Auto) 5 % (0-9) Eosinophils (%) (Auto) 0 % (0-3) Basophils (%) (Auto) 1 % (0-3) Neutrophils # (Auto) 5.4 x10^3uL (1.8-7.7) Lymphocytes # (Auto) 1.4 x10^3/uL (1.0-4.8) Monocytes # (Auto) 0.3 x10^3/uL (0.0-1.1) Eosinophils # (Auto) 0.0 x10^3/uL (0.0-0.7) Basophils # (Auto) 0.1 x10^3/uL (0.0-0.2) Sodium Level 136 mmol/L (136-145) Potassium Level 4.3 mmol/L (3.5-5.1) Chloride Level 97 mmol/L (98-107) Carbon Dioxide Level 29 mmol/L (21-32) Anion Gap 10 (6-14) Blood Urea Nitrogen 33 mg/dL (8-26) Creatinine 1.6 mg/dL (0.7-1.3) Estimated GFR (Cockcroft-Gault) 44.6 BUN/Creatinine Ratio 21 (6-20) Glucose Level 410 mg/dL (70-99) Calcium Level 8.5 mg/dL (8.5-10.1) Magnesium Level 1.7 mg/dL (1.8-2.4) Total Bilirubin 0.4 mg/dL (0.2-1.0) Aspartate Amino Transf (AST/SGOT) 22 U/L (15-37) Alanine Aminotransferase (ALT/SGPT) 37 U/L (16-63) Alkaline Phosphatase 93 U/L (46-116) Creatine Kinase 46 U/L (39-308) Troponin I Quantitative < 0.017 ng/mL (0.000-0.055) Total Protein 6.9 g/dL (6.4-8.2) Albumin 3.7 g/dL (3.4-5.0) Albumin/Globulin Ratio 1.2 (1.0-1.7) Lipase 194 U/L (73-393) Ethyl Alcohol Level 64 mg/dL (0-10) Prothrombin Time 14.0 SEC (11.7-14.0) Prothromb Time International Ratio 1.1 (0.8-1.1) Activated Partial Thromboplast Time 24 SEC (24-38) Glucose (Fingerstick) 92 mg/dL (70-99) Laboratory Tests Test 03/30/18 20:46 03/30/18 21:00 03/31/18 07:09 White Blood Count 7.3 x10^3/uL (4.0-11.0) Red Blood Count 4.77 x10^6/uL (4.30-5.70) Hemoglobin 15.6 g/dL (13.0-17.5) Hematocrit 44.3 % (39.0-53.0) Mean Corpuscular Volume 93 fL (79-100) Mean Corpuscular Hemoglobin 33 pg (25-35) Mean Corpuscular Hemoglobin Concent 35 g/dL (31-37) Red Cell Distribution Width 15.0 % (11.5-14.5) Platelet Count 272 x10^3/uL (140-400) Neutrophils (%) (Auto) 75 % (31-73) Lymphocytes (%) (Auto) 20 % (24-48) Monocytes (%) (Auto) 5 % (0-9) Eosinophils (%) (Auto) 0 % (0-3) Basophils (%) (Auto) 1 % (0-3) Neutrophils # (Auto) 5.4 x10^3uL (1.8-7.7) Lymphocytes # (Auto) 1.4 x10^3/uL (1.0-4.8) Monocytes # (Auto) 0.3 x10^3/uL (0.0-1.1) Eosinophils # (Auto) 0.0 x10^3/uL (0.0-0.7) Basophils # (Auto) 0.1 x10^3/uL (0.0-0.2) Sodium Level 136 mmol/L (136-145) Potassium Level 4.3 mmol/L (3.5-5.1) Chloride Level 97 mmol/L (98-107) Carbon Dioxide Level 29 mmol/L (21-32) Anion Gap 10 (6-14) Blood Urea Nitrogen 33 mg/dL (8-26) Creatinine 1.6 mg/dL (0.7-1.3) Estimated GFR (Cockcroft-Gault) 44.6 BUN/Creatinine Ratio 21 (6-20) Glucose Level 410 mg/dL (70-99) Calcium Level 8.5 mg/dL (8.5-10.1) Magnesium Level 1.7 mg/dL (1.8-2.4) Total Bilirubin 0.4 mg/dL (0.2-1.0) Aspartate Amino Transf (AST/SGOT) 22 U/L (15-37) Alanine Aminotransferase (ALT/SGPT) 37 U/L (16-63) Alkaline Phosphatase 93 U/L (46-116) Creatine Kinase 46 U/L (39-308) Troponin I Quantitative < 0.017 ng/mL (0.000-0.055) Total Protein 6.9 g/dL (6.4-8.2) Albumin 3.7 g/dL (3.4-5.0) Albumin/Globulin Ratio 1.2 (1.0-1.7) Lipase 194 U/L (73-393) Ethyl Alcohol Level 64 mg/dL (0-10) Prothrombin Time 14.0 SEC (11.7-14.0) Prothromb Time International Ratio 1.1 (0.8-1.1) Activated Partial Thromboplast Time 24 SEC (24-38) Glucose (Fingerstick) 92 mg/dL (70-99) VTE Prophylaxis Ordered VTE Prophylaxis Devices: Yes VTE Pharmacological Prophylaxi: Yes Assessment/Plan Assessment/Plan Acute onset epigastric pain, differentials include PUD, nonulcer dyspepsia, gastritis etc. 1 episode emesis Ex-smoker, ex-drinker Obesity/overweight BMI 29.4 History V. tach Hypertension controlled History diabetes History dyslipidemia Plan: Admit, IV fluids, PPI, back down to liquid diet Did consult GI about the above, I will am waiting for CAT scan abdomen and pelvis IV fluids to continue, avoid nephrotoxic agents CAn consult renal regarding AK I, but I can manage with fluids and recheck BMP tomorrow Home meds reconciled Discussed with him, agrees with plan of care SSI JOANIE BAL MD Mar 31, 2018 10:41
[2018-03-31] MEDS ORDERED: PANTOPRAZOLE 40 MG TABLET.DR. PO ONE (10:45)
[2018-03-31 11:02] VITALS: BP 143/83
[2018-03-31] MEDS: ATORVASTATIN CALCIUM 40 MG TABLET. PO SCH (11:02)
[2018-03-31] MEDS: oxyCODONE/APAP 10/325 1 TAB TABLET PO PRN (11:03)
--- NOTE | 2018-03-31 11:12 | RAD ---
CT Abdomen and Pelvis without contrast History: Abdominal pain, pancreatitis Technique: Noncontrast CT imaging was performed of the abdomen and pelvis. Multiplanar images are reviewed. Exposure: One or more of the following individualized dose reduction techniques were utilized for this examination: 1. Automated exposure control 2. Adjustment of the mA and/or kV according to patient size 3. Use of iterative reconstruction technique. Comparison: February 21, 2018 Findings: Accurate evaluation of abdominal visceral organs is limited without intravenous contrast. There is again mild hazy density about the pancreatic head and uncinate process, overall stable in appearance. There is no new fluid collection in this region. There is again small approximate 0.2 cm inferior left renal calculus, probable punctate calculus near the midpole of the left kidney. There are also a couple of probable very small, punctate calculi of the mid and inferior right kidney. There is no hydronephrosis of either kidney. There are again bilateral adrenal masses which have density characteristics suggestive of adenomas, size up to about 4.2 cm on the left and 3 cm on the right. There has been cholecystectomy. No new significant abnormality is identified of the liver or spleen. Accurate evaluation of bowel is limited without oral contrast. There is no significant bowel dilatation, free air, free fluid. There is no abnormality limited visualized lung bases. Impression: 1. There is similar appearance of mild hazy density about the pancreatic head and uncinate process which may be due to sequela of pancreatitis, no new fluid collection. 2. There are again bilateral adrenal masses, density characteristics suggestive of adenomas although again attention on future follow-up advised given size. 3. There are punctate nonobstructive bilateral renal calculi. Electronically signed by: Jonnathan Rodríguez MD (03/31/2018 11:08 AM) [id number]
[2018-03-31] MEDS: INSULIN LISPRO 300 UNITS/3 ML INSULN.PEN. SQ SCH ×4 (11:30→17:46)
[2018-03-31 12:01] LABS: CALCIUM 8.2 mg/dL (8.5-10.1); CREATININE 1.3 mg/dL (0.7-1.3); GFR 56.7; POTASSIUM 3.5 mmol/L (3.5-5.1)
--- NOTE | 2018-03-31 13:04 | PDOC2 ---
GI CONSULT Reason For Consult: Epigastric pain HPI: HPI: 57 y/o male who we have seen a few times. Tells me had a productive cough, congestion, and watery eyes that began on Saturday. Took 3 bottles of cough syrup in 2 days - says finished on Saturday night. Says those symptoms are now resolved. Then yesterday morning began with upper abdominal pain and n/v. Also had some mushy stools throughout the day yesterday (told nurse 5 stools). Couldn't keep pills down yesterday, came to ER. H/o recurrent pancreatitis s/p cholecystectomy thought to be related to alcohol. Says sober from alcohol since 11/2017 - interestingly, he had similar symptoms after drinking cough syrup when we saw him in 12/2017. Had EGD @ [facility] earlier this summer w/ gastritis (no H. pylori). Did not have SBO on imaging there. No previous colonoscopy. Hepatic steatosis on past imaging. H/o C Diff x 2 - treated w/ vanco as inpt in the past, then he says was switched to Flagyl as outpt. On Plavix and ASA - says cardiology @ [place] recently stopped amiodarone. No NSAIDs. Denies reflux/heartburn, dysphagia, weight loss, hematemesis, hematochezia, melena, and constipation. Has continue Protonix 40mg QD. Labs significant for ethyl alcohol 64, Cr 1.6, glucose 410 (A1c was 11.4 in 2017), normal lipase, normal LFTs. On CT: similar appearance of mild hazy density about the pancreatic head and uncinate process, bilateral adrenal masses, nonobstructive bilateral renal calculi. PMH: PMH: NC, CAD w/ stent, HTN, NSVT, HLD, DM, pancreatitis, hepatic steatosis, C Diff, probable adrenal adenomas, cholecystectomy, appendectomy, tonsillectomy, bilateral knee surgeries, left shoulder surgery, left ankle surgery, cardiac cath FH: Family History: Cancer (mother - colon, father - stomach), Other (mother - pancreatitis) Social History: Smoke: <1 pack per day ALCOHOL: other (heavy use in the past - says sober since 11/2017 but elevated ethyl alcohol level this admission) Drugs: None ROS: GEN: Denies fevers, chills, sweats HEENT: Denies blurred vision, sore throat CV: Denies chest pain RESP: +cough GI: Per HPI : Denies hematuria, dysuria ENDO: Denies weight changes NEURO: Denies confusion, dizziness MSK: Denies weakness, joint pain/swelling SKIN: Denies jaundice, pruritus Vitals: Vitals: Vital Signs Date Time Temp Pulse Resp B/P (MAP) Pulse Ox O2 Delivery O2 Flow Rate FiO2 03/31/18 11:23 20 Room Air 03/31/18 11:02 98.4 63 143/83 (103) 98 98.4 Labs: Labs: Laboratory Tests Test 03/30/18 20:46 03/30/18 21:00 03/31/18 07:09 03/31/18 10:50 White Blood Count 7.3 x10^3/uL (4.0-11.0) Red Blood Count 4.77 x10^6/uL (4.30-5.70) Hemoglobin 15.6 g/dL (13.0-17.5) Hematocrit 44.3 % (39.0-53.0) Mean Corpuscular Volume 93 fL (79-100) Mean Corpuscular Hemoglobin 33 pg (25-35) Mean Corpuscular Hemoglobin Concent 35 g/dL (31-37) Red Cell Distribution Width 15.0 % (11.5-14.5) Platelet Count 272 x10^3/uL (140-400) Neutrophils (%) (Auto) 75 % (31-73) Lymphocytes (%) (Auto) 20 % (24-48) Monocytes (%) (Auto) 5 % (0-9) Eosinophils (%) (Auto) 0 % (0-3) Basophils (%) (Auto) 1 % (0-3) Neutrophils # (Auto) 5.4 x10^3uL (1.8-7.7) Lymphocytes # (Auto) 1.4 x10^3/uL (1.0-4.8) Monocytes # (Auto) 0.3 x10^3/uL (0.0-1.1) Eosinophils # (Auto) 0.0 x10^3/uL (0.0-0.7) Basophils # (Auto) 0.1 x10^3/uL (0.0-0.2) Sodium Level 136 mmol/L (136-145) 139 mmol/L (136-145) Potassium Level 4.3 mmol/L (3.5-5.1) 3.5 mmol/L (3.5-5.1) Chloride Level 97 mmol/L (98-107) 101 mmol/L (98-107) Carbon Dioxide Level 29 mmol/L (21-32) 28 mmol/L (21-32) Anion Gap 10 (6-14) 10 (6-14) Blood Urea Nitrogen 33 mg/dL (8-26) 30 mg/dL (8-26) Creatinine 1.6 mg/dL (0.7-1.3) 1.3 mg/dL (0.7-1.3) Estimated GFR (Cockcroft-Gault) 44.6 56.7 BUN/Creatinine Ratio 21 (6-20) Glucose Level 410 mg/dL (70-99) 120 mg/dL (70-99) Calcium Level 8.5 mg/dL (8.5-10.1) 8.2 mg/dL (8.5-10.1) Magnesium Level 1.7 mg/dL (1.8-2.4) Total Bilirubin 0.4 mg/dL (0.2-1.0) Aspartate Amino Transf (AST/SGOT) 22 U/L (15-37) Alanine Aminotransferase (ALT/SGPT) 37 U/L (16-63) Alkaline Phosphatase 93 U/L (46-116) Creatine Kinase 46 U/L (39-308) Troponin I Quantitative < 0.017 ng/mL (0.000-0.055) Total Protein 6.9 g/dL (6.4-8.2) Albumin 3.7 g/dL (3.4-5.0) Albumin/Globulin Ratio 1.2 (1.0-1.7) Lipase 194 U/L (73-393) Ethyl Alcohol Level 64 mg/dL (0-10) Prothrombin Time 14.0 SEC (11.7-14.0) Prothromb Time International Ratio 1.1 (0.8-1.1) Activated Partial Thromboplast Time 24 SEC (24-38) Glucose (Fingerstick) 92 mg/dL (70-99) Test 03/31/18 12:08 Glucose (Fingerstick) 140 mg/dL (70-99) Allergies: Coded Allergies: glyburide (Verified Allergy, Intermediate, 12/24/17) ketorolac (Verified Adverse Reaction, Intermediate, vomiting, 09/03/17) tramadol (Verified Adverse Reaction, Intermediate, vomiting, 09/03/17) Medications: Current Medications Medications (Trade) Dose Ordered Sig/Marcia Route PRN Reason Start Time Stop Time Status Last Admin Dose Admin Fentanyl Citrate (Fentanyl 2ml Vial) 50 mcg 1X ONCE IV 03/30/18 20:30 03/30/18 20:31 DC 03/30/18 21:15 Famotidine (Pepcid Vial) 20 mg 1X ONCE IVP 03/30/18 20:30 03/30/18 20:31 DC 03/30/18 21:15 Ondansetron HCl (Zofran) 4 mg 1X ONCE IV 03/30/18 20:30 03/30/18 20:31 DC 03/30/18 21:15 Sodium Chloride 1,000 ml @ 1,000 mls/hr 1X ONCE IV 03/30/18 20:30 03/30/18 21:29 DC 03/30/18 21:15 Hyoscyamine (Anaspaz) 0.25 mg 1X ONCE PO 03/30/18 22:00 03/30/18 22:01 DC 03/30/18 22:00 Lorazepam (Ativan) 1 mg 1X ONCE IV 03/30/18 22:00 03/30/18 22:01 DC 03/30/18 22:00 Insulin Human Regular (HumuLIN R VIAL) 10 unit 1X ONCE SQ 03/30/18 22:00 03/30/18 22:01 DC 03/30/18 22:00 Fentanyl Citrate (Fentanyl 2ml Vial) 75 mcg PRN Q2HRS PRN IV SEVERE PAIN 03/30/18 23:15 03/30/18 23:40 Morphine Sulfate (Morphine Sulfate) 2 mg PRN Q2HR PRN IV MODERATE PAIN 03/31/18 00:45 03/31/18 09:02 Morphine Sulfate (Morphine Sulfate) 4 mg PRN Q2HR PRN IV SEVERE PAIN 03/31/18 01:15 03/31/18 11:23 Ondansetron HCl (Zofran) 4 mg PRN Q6HRS PRN IV NAUSEA/VOMITING 1ST CHOICE 03/31/18 03:00 03/31/18 03:10 Oxycodone/ Acetaminophen (Percocet 10/325) 1 tab PRN Q4HRS PRN PO PAIN 03/31/18 08:30 03/31/18 11:03 Sodium Chloride 1,000 ml @ 125 mls/hr Q8H IV 03/31/18 10:00 03/31/18 10:00 Sodium Chloride 1,000 ml @ 1,000 mls/hr 1X ONCE IV 03/31/18 09:00 03/31/18 09:59 DC 03/31/18 11:24 Aspirin (Yolanda Aspirin) 325 mg DAILY PO 03/31/18 09:00 03/31/18 09:04 Atorvastatin Calcium (Lipitor) 40 mg DAILY PO 03/31/18 09:00 03/31/18 11:02 Carvedilol (Coreg) 3.125 mg BIDWMEALS PO 03/31/18 09:00 03/31/18 09:04 Fluoxetine HCl (PROzac) 20 mg DAILY PO 03/31/18 09:00 03/31/18 09:02 Isosorbide Mononitrate (Imdur) 60 mg DAILY PO 03/31/18 09:00 03/31/18 09:03 Lactobacillus Rhamnosus (Culturelle) 1 cap BID PO 03/31/18 09:00 03/31/18 09:03 Pantoprazole Sodium (Protonix) 40 mg DAILYAC PO 03/31/18 09:00 03/31/18 09:03 Amlodipine Besylate (Norvasc) 5 mg DAILY PO 03/31/18 09:00 03/31/18 09:04 Hydralazine HCl (Apresoline) 10 mg TID PO 03/31/18 09:00 03/31/18 09:04 Imaging: Imaging: CT A/P Impression: 1. There is similar appearance of mild hazy density about the pancreatic head and uncinate process which may be due to sequela of pancreatitis, no new fluid collection. 2. There are again bilateral adrenal masses, density characteristics suggestive of adenomas although again attention on future follow-up advised given size. 3. There are punctate nonobstructive bilateral renal calculi. PE: GEN: NAD HEENT: Atraumatic, PERRL LUNGS: CTAB HEART: RRR ABD: NABS, S/ND, epigastric discomfort EXTREMITY: No edema SKIN: No rashes, no jaundice NEURO/PSYCH: A & O 3 A/P: A/P: Cough, congestion - resolved w/ 3 bottles of cough syrup H/o heavy alcohol use - says sober, ethyl alcohol 64 in ER Recurrent upper abd pain, n/v, ?diarrhea - h/o pancreatitis and C Diff -stable appearance of pancreas on CT -EGD @ [facility] this summer w/ H. pylori negative gastritis Hepatic steatosis S/p cholecystectomy CRC screen - none SALVATORE, CAD on Plavix and ASA, hyperglycemia/uncontrolled DM -- Really sober? Says drank lots of cough syrup like last time - perhaps should avoid this. Apparently cough and congestion is better - defer chest imaging to primary. Supportive care, continue PPI, consider checking C Diff. Needs outpt screening colonoscopy. OMAIRA GEORGE Mar 31, 2018 13:03
--- NOTE | 2018-03-31 13:32 | PDOC2 ---
CONSULT Date of Consult Date of Consult DATE: 03/31/18 TIME: 13:25 Reason for Consult Reason for Consult: SALVATORE Referring Physician Referring Physician: MALLY Identification/Chief Complaint Chief Complaint N/V/D Source Source: Chart review, Patient History of Present Illness Reason for Visit: THIS IS A 57 YR OLD WITH A COUPLE DAY HX OF N//V/D. NO CKD NOTED. BUT CR IS 1.6. LYTES STABLE. NO NEPHROTOXINS NOTED ALTHOUGH HE HAS BEEN TAKING COUPLE DIFFERENT DIURETICS AND AN SOTERO-I. HX NOTABLE FOR KIDNEY STONES IN THE PAST. LAST ON WAS 2 YEARS AGO PRIOR TO THAT HE HAD A DECADE OF PASSING MULTIPLE STONES. HE ALWAYS PASSED THEM AND DID NOT EVER NEED TO HAVE ANY SURGICALLY TREATED Past Medical History Cardiovascular: CAD, CHF, HTN, LA, Hyperlipidemia Pulmonary: No pertinent hx GI: GERD Heme/Onc: No pertinent hx Hepatobiliary: Cholelithiasis, Other Psych: Anxiety Musculoskeletal: Osteoarthritis Rheumatologic: No pertinent hx Infectious disease: No pertinent hx Renal/: No pertinent hx Endocrine: Diabetes Past Surgical History Past Surgical History: Appendectomy, Cholecystectomy, Total knee replacement, Other Family History Family History: Diabetes, Hypertension, Stroke Social History <1 pack per day ALCOHOL: other (heavy use in the past - says sober since 11/2017 but elevated ethyl alcohol level this admission) Drugs: None Lives: Alone Current Problem List Problem List Problems Medical Problems: (1) Acute renal insufficiency Status: Acute (2) Hyperglycemia Status: Acute (3) Intractable abdominal pain Status: Acute Current Medications Current Medications Current Medications Fentanyl Citrate (Fentanyl 2ml Vial) 50 mcg 1X ONCE IV Last administered on at 21:15; Start 03/30/18 at 20:30; Stop 03/30/18 at 20:31; Status DC Famotidine (Pepcid Vial) 20 mg 1X ONCE IVP Last administered on 03/30/18at 21: 15; Start 03/30/18 at 20:30; Stop 03/30/18 at 20:31; Status DC Ondansetron HCl (Zofran) 4 mg 1X ONCE IV Last administered on 03/30/18at 21:15 ; Start 03/30/18 at 20:30; Stop 03/30/18 at 20:31; Status DC Sodium Chloride 1,000 ml @ 1,000 mls/hr 1X ONCE IV Last administered on at 21:15; Start 03/30/18 at 20:30; Stop 03/30/18 at 21:29; Status DC Hyoscyamine (Anaspaz) 0.25 mg 1X ONCE PO Last administered on 03/30/18at 22:00 ; Start 03/30/18 at 22:00; Stop 03/30/18 at 22:01; Status DC Lorazepam (Ativan) 1 mg 1X ONCE IV Last administered on 03/30/18at 22:00; Start 03/30/18 at 22:00; Stop 03/30/18 at 22:01; Status DC Insulin Human Regular (HumuLIN R VIAL) 10 unit 1X ONCE SQ Last administered on 03/30/18 22:00; Start 03/30/18 at 22:00; Stop 03/30/18 at 22:01; Status DC Fentanyl Citrate (Fentanyl 2ml Vial) 75 mcg PRN Q2HRS PRN IV SEVERE PAIN Last administered on 03/30/18at 23:40; Start 03/30/18 at 23:15 Morphine Sulfate (Morphine Sulfate) 2 mg PRN Q2HR PRN IV MODERATE PAIN Last administered on 03/31/18at 09:02; Start 03/31/18 at 00:45 Zolpidem Tartrate (Ambien) 5 mg PRN QHS PRN PO INSOMNIA; Start 03/31/18 at 01: 15 Morphine Sulfate (Morphine Sulfate) 4 mg PRN Q2HR PRN IV SEVERE PAIN Last administered on 03/31/18at 11:23; Start 03/31/18 at 01:15 Ondansetron HCl (Zofran) 4 mg PRN Q6HRS PRN IV NAUSEA/VOMITING 1ST CHOICE Last administered on 03/31/18at 03:10; Start 03/31/18 at 03:00 Oxycodone/ Acetaminophen (Percocet 10/325) 1 tab PRN Q4HRS PRN PO PAIN Last administered on 03/31/18 11:03; Start 03/31/18 at 08:30 Sodium Chloride 1,000 ml @ 125 mls/hr Q8H IV Last administered on 03/31/18at 10 :00; Start 03/31/18 at 10:00 Sodium Chloride 1,000 ml @ 1,000 mls/hr 1X ONCE IV Last administered on at 11:24; Start 03/31/18 at 09:00; Stop 03/31/18 at 09:59; Status DC Labetalol HCl (Normodyne Iv Push) 20 mg PRN Q2HR PRN IVP HYPERTENSION, SEE COMMENTS; Start 03/31/18 at 08:30 Insulin Human Lispro (HumaLOG) 0-9 UNITS TIDWMEALS SQ ; Start 03/31/18 at 12:00 Dextrose (Dextrose 50%-Water Syringe) 12.5 gm PRN Q15MIN PRN IV SEE COMMENTS; Start 03/31/18 at 08:30 Aspirin (Yolanda Aspirin) 325 mg DAILY PO Last administered on 03/31/18at 09:04; Start 03/31/18 at 09:00 Atorvastatin Calcium (Lipitor) 40 mg DAILY PO Last administered on 03/31/18at 11 :02; Start 03/31/18 at 09:00 Carvedilol (Coreg) 3.125 mg BIDWMEALS PO Last administered on 03/31/18at 09:04; Start 03/31/18 at 09:00 Fluoxetine HCl (PROzac) 20 mg DAILY PO Last administered on 03/31/18at 09:02; Start 03/31/18 at 09:00 Insulin Glargine (Lantus) 25 units DAILY07 SQ ; Start 03/31/18 at 09:00 Insulin Glargine (Lantus) 35 units HS SQ ; Start 03/31/18 at 21:00 Insulin Human Lispro (HumaLOG) 20 units TIDAC SQ ; Start 03/31/18 at 11:30 Isosorbide Mononitrate (Imdur) 60 mg DAILY PO Last administered on 03/31/18at 09 :03; Start 03/31/18 at 09:00 Lactobacillus Rhamnosus (Culturelle) 1 cap BID PO Last administered on at 09:03; Start 03/31/18 at 09:00 Pantoprazole Sodium (Protonix) 40 mg DAILYAC PO Last administered on 03/31/18at 09:03; Start 03/31/18 at 09:00 Amlodipine Besylate (Norvasc) 5 mg DAILY PO Last administered on 03/31/18at 09: 04; Start 03/31/18 at 09:00 Hydralazine HCl (Apresoline) 10 mg TID PO Last administered on 03/31/18at 09:04 ; Start 03/31/18 at 09:00 Pantoprazole Sodium (Protonix) 40 mg DAILYAC PO ; Start 04/01/18 at 07:30; Status UNV Pantoprazole Sodium (Protonix) 40 mg 1X ONCE PO ; Start 03/31/18 at 10:45; Stop 03/31/18 at 10:46; Status UNV Active Scripts Active Potassium Chloride 20 Meq Tablet.er 20 Meq PO DAILY 30 Days Furosemide 40 Mg Tablet 1 Tab PO DAILY Reported Novolog Flexpen (Insulin Aspart) 100 Unit/1 Ml Insuln.pen 20 Unit SQ TIDAC Lantus Solostar (Insulin Glargine,Hum.rec.anlog) 100 Unit/1 Ml Insuln.pen 35 Unit SQ HS Lantus Solostar (Insulin Glargine,Hum.rec.anlog) 100 Unit/1 Ml Insuln.pen 25 Unit SQ DAILY07 Culturelle (Lactobacillus Rhamnosus Gg) 1 Each Capsule 1 Each PO BID Prozac (Fluoxetine Hcl) 20 Mg Capsule 20 Mg PO DAILY Atorvastatin Calcium 40 Mg Tablet 1 Tab PO DAILY Isosorbide Mononitrate 20 Mg Tablet 60 Mg PO DAILY Clopidogrel (Clopidogrel Bisulfate) 75 Mg Tablet 75 Mg PO DAILY Coreg (Carvedilol) 3.125 Mg Tablet 3.125 Mg PO BIDWMEALS Aspirin 325 Mg Tablet 325 Mg PO DAILY Protonix (Pantoprazole Sodium) 20 Mg Tablet.dr 1 Tab PO DAILY Chlorthalidone 25 Mg Tablet 1 Tab PO DAILY Lisinopril 40 Mg Tablet 1 Tab PO DAILY Spironolactone 25 Mg Tablet 1 Tab PO DAILY Allergies Allergies: Coded Allergies: glyburide (Verified Allergy, Intermediate, 12/24/17) ketorolac (Verified Adverse Reaction, Intermediate, vomiting, 09/03/17) tramadol (Verified Adverse Reaction, Intermediate, vomiting, 09/03/17) ROS Review of System FULL ROS NEG EXCEPT ABOVE Physical Exam General: Alert, Oriented X3, Cooperative, No acute distress HEENT: Atraumatic, PERRLA, EOMI, Mucous membr. moist/pink Lungs: Clear to auscultation Heart: Regular rate, Normal S1, Normal S2, No murmurs Abdomen: Normal bowel sounds, Soft, No tenderness, No hepatosplenomegaly Extremities: No cyanosis Skin: No breakdown Neuro: Normal speech, Cranial nerves 3-12 NL Psych/Mental Status: Mental status NL, Mood NL MUSCULOSKELETAL: No joint tenderness, No deformity, No swelling Vitals VITALS Vital Signs Date Time Temp Pulse Resp B/P (MAP) Pulse Ox O2 Delivery O2 Flow Rate FiO2 03/31/18 13:07 Room Air 03/31/18 12:00 98 03/31/18 11:23 20 03/31/18 11:02 98.4 63 143/83 (103) 98.4 Labs Labs Laboratory Tests Test 03/30/18 20:46 03/30/18 21:00 03/31/18 07:09 03/31/18 10:50 White Blood Count 7.3 x10^3/uL (4.0-11.0) Red Blood Count 4.77 x10^6/uL (4.30-5.70) Hemoglobin 15.6 g/dL (13.0-17.5) Hematocrit 44.3 % (39.0-53.0) Mean Corpuscular Volume 93 fL (79-100) Mean Corpuscular Hemoglobin 33 pg (25-35) Mean Corpuscular Hemoglobin Concent 35 g/dL (31-37) Red Cell Distribution Width 15.0 % (11.5-14.5) Platelet Count 272 x10^3/uL (140-400) Neutrophils (%) (Auto) 75 % (31-73) Lymphocytes (%) (Auto) 20 % (24-48) Monocytes (%) (Auto) 5 % (0-9) Eosinophils (%) (Auto) 0 % (0-3) Basophils (%) (Auto) 1 % (0-3) Neutrophils # (Auto) 5.4 x10^3uL (1.8-7.7) Lymphocytes # (Auto) 1.4 x10^3/uL (1.0-4.8) Monocytes # (Auto) 0.3 x10^3/uL (0.0-1.1) Eosinophils # (Auto) 0.0 x10^3/uL (0.0-0.7) Basophils # (Auto) 0.1 x10^3/uL (0.0-0.2) Sodium Level 136 mmol/L (136-145) 139 mmol/L (136-145) Potassium Level 4.3 mmol/L (3.5-5.1) 3.5 mmol/L (3.5-5.1) Chloride Level 97 mmol/L (98-107) 101 mmol/L (98-107) Carbon Dioxide Level 29 mmol/L (21-32) 28 mmol/L (21-32) Anion Gap 10 (6-14) 10 (6-14) Blood Urea Nitrogen 33 mg/dL (8-26) 30 mg/dL (8-26) Creatinine 1.6 mg/dL (0.7-1.3) 1.3 mg/dL (0.7-1.3) Estimated GFR (Cockcroft-Gault) 44.6 56.7 BUN/Creatinine Ratio 21 (6-20) Glucose Level 410 mg/dL (70-99) 120 mg/dL (70-99) Calcium Level 8.5 mg/dL (8.5-10.1) 8.2 mg/dL (8.5-10.1) Magnesium Level 1.7 mg/dL (1.8-2.4) Total Bilirubin 0.4 mg/dL (0.2-1.0) Aspartate Amino Transf (AST/SGOT) 22 U/L (15-37) Alanine Aminotransferase (ALT/SGPT) 37 U/L (16-63) Alkaline Phosphatase 93 U/L (46-116) Creatine Kinase 46 U/L (39-308) Troponin I Quantitative < 0.017 ng/mL (0.000-0.055) Total Protein 6.9 g/dL (6.4-8.2) Albumin 3.7 g/dL (3.4-5.0) Albumin/Globulin Ratio 1.2 (1.0-1.7) Lipase 194 U/L (73-393) Ethyl Alcohol Level 64 mg/dL (0-10) Prothrombin Time 14.0 SEC (11.7-14.0) Prothromb Time International Ratio 1.1 (0.8-1.1) Activated Partial Thromboplast Time 24 SEC (24-38) Glucose (Fingerstick) 92 mg/dL (70-99) Test 03/31/18 12:08 Glucose (Fingerstick) 140 mg/dL (70-99) Laboratory Tests Test 03/30/18 20:46 03/30/18 21:00 03/31/18 07:09 03/31/18 10:50 White Blood Count 7.3 x10^3/uL (4.0-11.0) Red Blood Count 4.77 x10^6/uL (4.30-5.70) Hemoglobin 15.6 g/dL (13.0-17.5) Hematocrit 44.3 % (39.0-53.0) Mean Corpuscular Volume 93 fL (79-100) Mean Corpuscular Hemoglobin 33 pg (25-35) Mean Corpuscular Hemoglobin Concent 35 g/dL (31-37) Red Cell Distribution Width 15.0 % (11.5-14.5) Platelet Count 272 x10^3/uL (140-400) Neutrophils (%) (Auto) 75 % (31-73) Lymphocytes (%) (Auto) 20 % (24-48) Monocytes (%) (Auto) 5 % (0-9) Eosinophils (%) (Auto) 0 % (0-3) Basophils (%) (Auto) 1 % (0-3) Neutrophils # (Auto) 5.4 x10^3uL (1.8-7.7) Lymphocytes # (Auto) 1.4 x10^3/uL (1.0-4.8) Monocytes # (Auto) 0.3 x10^3/uL (0.0-1.1) Eosinophils # (Auto) 0.0 x10^3/uL (0.0-0.7) Basophils # (Auto) 0.1 x10^3/uL (0.0-0.2) Sodium Level 136 mmol/L (136-145) 139 mmol/L (136-145) Potassium Level 4.3 mmol/L (3.5-5.1) 3.5 mmol/L (3.5-5.1) Chloride Level 97 mmol/L (98-107) 101 mmol/L (98-107) Carbon Dioxide Level 29 mmol/L (21-32) 28 mmol/L (21-32) Anion Gap 10 (6-14) 10 (6-14) Blood Urea Nitrogen 33 mg/dL (8-26) 30 mg/dL (8-26) Creatinine 1.6 mg/dL (0.7-1.3) 1.3 mg/dL (0.7-1.3) Estimated GFR (Cockcroft-Gault) 44.6 56.7 BUN/Creatinine Ratio 21 (6-20) Glucose Level 410 mg/dL (70-99) 120 mg/dL (70-99) Calcium Level 8.5 mg/dL (8.5-10.1) 8.2 mg/dL (8.5-10.1) Magnesium Level 1.7 mg/dL (1.8-2.4) Total Bilirubin 0.4 mg/dL (0.2-1.0) Aspartate Amino Transf (AST/SGOT) 22 U/L (15-37) Alanine Aminotransferase (ALT/SGPT) 37 U/L (16-63) Alkaline Phosphatase 93 U/L (46-116) Creatine Kinase 46 U/L (39-308) Troponin I Quantitative < 0.017 ng/mL (0.000-0.055) Total Protein 6.9 g/dL (6.4-8.2) Albumin 3.7 g/dL (3.4-5.0) Albumin/Globulin Ratio 1.2 (1.0-1.7) Lipase 194 U/L (73-393) Ethyl Alcohol Level 64 mg/dL (0-10) Prothrombin Time 14.0 SEC (11.7-14.0) Prothromb Time International Ratio 1.1 (0.8-1.1) Activated Partial Thromboplast Time 24 SEC (24-38) Glucose (Fingerstick) 92 mg/dL (70-99) Test 03/31/18 12:08 Glucose (Fingerstick) 140 mg/dL (70-99) Assessment/Plan Assessment/Plan IMP SALVATORE-CR OF 1.7-NO CKD DEHYDRATION ?GASTROENTERITIS HX OR KIDNEY STONES PLAN CONT ALDACTONE, CHLORTHALIDONE AND SOTERO-I HYDRATION IF RENAL FXN NOT BETTER IN 24 TO 48 HRS THEN RENAL SONOGRAM NEGRO BERGER MD Mar 31, 2018 13:32
[2018-03-31 15:02] VITALS: BP 140/88
[2018-03-31 19:25] VITALS: BP 136/79
[2018-03-31] MEDS ORDERED: INSULIN GLARGINE 300 UNITS/3 ML INSULN.PEN. SQ SCH (21:00)
[2018-03-31 23:30] VITALS: BP_SYST 172; BP_SYST 72; BP_DIAS 97
[2018-03-31] MEDS: ZOLPIDEM 5 MG TABLET. PO PRN (23:42)
[2018-04-01] MEDS: IV NORMAL SALINE 1000ML BAG 1,000 ML IV SCH ×2 (01:00→10:00)
[2018-04-01] MEDS: MORPHINE SULFATE 4 MG/ML VIAL. IV PRN ×9 (02:44→21:42)
[2018-04-01 03:35] VITALS: BP 174/85
[2018-04-01] MEDS: ONDANSETRON PF 4 MG/2 ML VIAL. IV PRN ×3 (04:56→20:32)
[2018-04-01] MEDS: INSULIN GLARGINE 300 UNITS/3 ML INSULN.PEN. SQ SCH (06:54)
[2018-04-01] MEDS ORDERED: PANTOPRAZOLE 40 MG TABLET.DR. PO SCH (07:30)
[2018-04-01 07:33] VITALS: BP 173/87
[2018-04-01] MEDS: ASPIRIN 325 MG TABLET PO SCH (08:43)
[2018-04-01] MEDS: FLUoxetine HCL 20 MG CAPSULE PO SCH (08:43)
[2018-04-01] MEDS: PANTOPRAZOLE 40 MG TABLET.DR. PO SCH (08:44)
[2018-04-01] MEDS: CARVEDILOL 3.125 MG TABLET. PO SCH ×2 (08:44→17:33)
[2018-04-01] MEDS: amLODIPine BESYLATE 5 MG TABLET PO SCH (08:44)
[2018-04-01] MEDS: hydrALAZINE 10 MG TABLET PO SCH ×3 (08:44→20:24)
[2018-04-01] MEDS: ATORVASTATIN CALCIUM 40 MG TABLET. PO SCH (08:45)
[2018-04-01] MEDS: LACTOBACILLUS RHAMNOSUS GG 1 CAPSULE. PO SCH ×2 (08:45→20:24)
[2018-04-01] MEDS: ISOSORBIDE MONONITRATE ER 30 MG TAB.ER.24H PO SCH (08:45)
[2018-04-01] MEDS: INSULIN LISPRO 300 UNITS/3 ML INSULN.PEN. SQ SCH ×5 (08:51→17:00)
--- NOTE | 2018-04-01 10:33 | PDOC ---
Renal-Progress Notes Subjective Notes Notes NOTHING NEW History of Present Illness Hx of present illness STABLE Vitals Vitals Vital Signs Date Time Temp Pulse Resp B/P (MAP) Pulse Ox O2 Delivery O2 Flow Rate FiO2 04/01/18 09:42 24 Room Air 04/01/18 08:45 64 173/87 04/01/18 07:49 97 04/01/18 07:33 98.2 98.2 Weight Weight [ ] I.O. Intake and Output Intake and Output 04/01/18 07:00 Intake Total 1620 ml Balance 1620 ml Intake Oral 1050 ml IV Total 570 ml # Voids 3 Labs Labs Laboratory Tests Test 03/31/18 10:50 03/31/18 12:08 03/31/18 17:05 03/31/18 20:33 Sodium Level 139 mmol/L (136-145) Potassium Level 3.5 mmol/L (3.5-5.1) Chloride Level 101 mmol/L (98-107) Carbon Dioxide Level 28 mmol/L (21-32) Anion Gap 10 (6-14) Blood Urea Nitrogen 30 mg/dL (8-26) Creatinine 1.3 mg/dL (0.7-1.3) Estimated GFR (Cockcroft-Gault) 56.7 Glucose Level 120 mg/dL (70-99) Calcium Level 8.2 mg/dL (8.5-10.1) Glucose (Fingerstick) 140 mg/dL (70-99) 195 mg/dL (70-99) 79 mg/dL (70-99) Test 04/01/18 06:50 04/01/18 07:20 Glucose (Fingerstick) 248 mg/dL (70-99) 234 mg/dL (70-99) Review of Systems Constitutional: yes: no symptom reported Ears/Nose/Throat: Yes: no symptom reported Eyes: Yes: no symptom reported Pulmonary: Yes no symptom reported Cardiovascular: Yes no symptom reported Gastrointestional: Yes: nausea Genitourinary: Yes: no symptom reported Musculoskeletal: Yes: no symptom reported Skin: Yes no symptom reported Psychiatric/Neurological: Yes: no symptom reported Endocrine: Yes: no symptom reported Hematologic/Lymphatic: Yes: no symptom reported Physical Exam General Appearance: no apparent distress Respiratory: bilateral CTA Heart: S1S2 Abdomen: soft, bowel sounds present Genitourinary: bladder flat Extremities: pulses present Neurology: alert Musculoskeletal: Osteoarthritis Assessment Assessment IMP DEHYDRATION SALVATORE-RESOLVING HX OF KIDNEY STONES PLAN CONT IVF'S LABS IN AM WILL FOLLOW NEGRO BERGER MD Apr 01, 2018 10:33
[2018-04-01] MEDS: DEXTROSE 50% 25 GM / 50ML DISP.SYRIN. IV PRN ×3 (10:44→13:06)
[2018-04-01 10:46] VITALS: BP 138/78
[2018-04-01 11:52] LABS: CALCIUM 7.9 mg/dL (8.5-10.1); CREATININE 1.1 mg/dL (0.7-1.3); GFR 68.8; POTASSIUM 3.1 mmol/L (3.5-5.1)
[2018-04-01] MEDS ORDERED: fentaNYL PF VIAL 100 MCG/2 ML VIAL IV PRN (12:15)
--- NOTE | 2018-04-01 12:17 | PDOC ---
PROGRESS NOTES Chief Complaint Chief Complaint PAncreatitis on imaging - normal lipase on admit Acute onset epigastric pain, differentials include PUD, nonulcer dyspepsia, gastritis etc. 1 episode emesis - no recurrence Ex-smoker, ex-drinker Obesity/overweight BMI 29.4 History V. tach -s table Hypertension controlled History diabetes with hypoglycemic episodes Accelerated hypertension likely secondary to pain History dyslipidemiaAKI< VMN - better ETOH use - admits now History of Present Illness History of Present Illness Few Issues now: Abdominal pain persists Some relief with morphine but needs fentanyl too Pancreatitis on CAT scan but lipase was normal on admission-I reordered lipase today No recurrence of emesis but poor interest in food because of the pain Blood pressure high - mostly secondary to pain Now, episodes of hypoglycemia today and yesterday Plan: DC long-acting insulin the daytime and at night Keep sliding scale insulin for now Back down to nothing by mouth now Continue IV fluids 1 25 mL an hour-creatinine is improved to 1.3 from 1.6 Nothing by mouth post for now but okay with sips with meds Stat lipase Restart fentanyl alternating with morphine Now he admits that he did drink a couple of drinks per to coming here 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 to de [place] Vitals Vitals Vital Signs Date Time Temp Pulse Resp B/P (MAP) Pulse Ox O2 Delivery O2 Flow Rate FiO2 04/01/18 10:46 98.2 65 20 138/78 (98) 98 Room Air 98.2 Physical Exam General: Alert, Oriented X3, Cooperative, No acute distress Heart: Regular rate, Normal S1, Normal S2, No murmurs Lungs: Clear, Other Abdomen: Normal bowel sounds, Soft, No tenderness, No hepatosplenomegaly Extremities: No cyanosis Skin: No breakdown Labs LABS Laboratory Tests Test 03/31/18 17:05 03/31/18 20:33 04/01/18 06:50 04/01/18 07:20 Glucose (Fingerstick) 195 mg/dL (70-99) 79 mg/dL (70-99) 248 mg/dL (70-99) 234 mg/dL (70-99) Test 04/01/18 10:38 04/01/18 10:54 04/01/18 11:25 04/01/18 12:02 Glucose (Fingerstick) 35 mg/dL (70-99) 128 mg/dL (70-99) 64 mg/dL (70-99) Sodium Level 143 mmol/L (136-145) Potassium Level 3.1 mmol/L (3.5-5.1) Chloride Level 106 mmol/L (98-107) Carbon Dioxide Level 26 mmol/L (21-32) Anion Gap 11 (6-14) Blood Urea Nitrogen 17 mg/dL (8-26) Creatinine 1.1 mg/dL (0.7-1.3) Estimated GFR (Cockcroft-Gault) 68.8 Glucose Level 57 mg/dL (70-99) Calcium Level 7.9 mg/dL (8.5-10.1) Lipase 1169 U/L (73-393) Review of Systems Review of Systems abd pain, the rest of ROS 14 point negative Assessment and Plan Assessmemt and Plan Problems Medical Problems: (1) Acute renal insufficiency Status: Acute (2) Hyperglycemia Status: Acute (3) Intractable abdominal pain Status: Acute Comment Review of Relevant I have reviewed the following items javad (where applicable) has been applied. Labs Laboratory Tests Test 03/30/18 20:46 03/30/18 21:00 03/31/18 07:09 03/31/18 10:50 White Blood Count 7.3 x10^3/uL (4.0-11.0) Red Blood Count 4.77 x10^6/uL (4.30-5.70) Hemoglobin 15.6 g/dL (13.0-17.5) Hematocrit 44.3 % (39.0-53.0) Mean Corpuscular Volume 93 fL (79-100) Mean Corpuscular Hemoglobin 33 pg (25-35) Mean Corpuscular Hemoglobin Concent 35 g/dL (31-37) Red Cell Distribution Width 15.0 % (11.5-14.5) Platelet Count 272 x10^3/uL (140-400) Neutrophils (%) (Auto) 75 % (31-73) Lymphocytes (%) (Auto) 20 % (24-48) Monocytes (%) (Auto) 5 % (0-9) Eosinophils (%) (Auto) 0 % (0-3) Basophils (%) (Auto) 1 % (0-3) Neutrophils # (Auto) 5.4 x10^3uL (1.8-7.7) Lymphocytes # (Auto) 1.4 x10^3/uL (1.0-4.8) Monocytes # (Auto) 0.3 x10^3/uL (0.0-1.1) Eosinophils # (Auto) 0.0 x10^3/uL (0.0-0.7) Basophils # (Auto) 0.1 x10^3/uL (0.0-0.2) Sodium Level 136 mmol/L (136-145) 139 mmol/L (136-145) Potassium Level 4.3 mmol/L (3.5-5.1) 3.5 mmol/L (3.5-5.1) Chloride Level 97 mmol/L (98-107) 101 mmol/L (98-107) Carbon Dioxide Level 29 mmol/L (21-32) 28 mmol/L (21-32) Anion Gap 10 (6-14) 10 (6-14) Blood Urea Nitrogen 33 mg/dL (8-26) 30 mg/dL (8-26) Creatinine 1.6 mg/dL (0.7-1.3) 1.3 mg/dL (0.7-1.3) Estimated GFR (Cockcroft-Gault) 44.6 56.7 BUN/Creatinine Ratio 21 (6-20) Glucose Level 410 mg/dL (70-99) 120 mg/dL (70-99) Calcium Level 8.5 mg/dL (8.5-10.1) 8.2 mg/dL (8.5-10.1) Magnesium Level 1.7 mg/dL (1.8-2.4) Total Bilirubin 0.4 mg/dL (0.2-1.0) Aspartate Amino Transf (AST/SGOT) 22 U/L (15-37) Alanine Aminotransferase (ALT/SGPT) 37 U/L (16-63) Alkaline Phosphatase 93 U/L (46-116) Creatine Kinase 46 U/L (39-308) Troponin I Quantitative < 0.017 ng/mL (0.000-0.055) Total Protein 6.9 g/dL (6.4-8.2) Albumin 3.7 g/dL (3.4-5.0) Albumin/Globulin Ratio 1.2 (1.0-1.7) Lipase 194 U/L (73-393) Ethyl Alcohol Level 64 mg/dL (0-10) Prothrombin Time 14.0 SEC (11.7-14.0) Prothromb Time International Ratio 1.1 (0.8-1.1) Activated Partial Thromboplast Time 24 SEC (24-38) Glucose (Fingerstick) 92 mg/dL (70-99) Test 03/31/18 12:08 03/31/18 17:05 03/31/18 20:33 04/01/18 06:50 Glucose (Fingerstick) 140 mg/dL (70-99) 195 mg/dL (70-99) 79 mg/dL (70-99) 248 mg/dL (70-99) Test 04/01/18 07:20 04/01/18 10:38 04/01/18 10:54 04/01/18 11:25 Glucose (Fingerstick) 234 mg/dL (70-99) 35 mg/dL (70-99) 128 mg/dL (70-99) Sodium Level 143 mmol/L (136-145) Potassium Level 3.1 mmol/L (3.5-5.1) Chloride Level 106 mmol/L (98-107) Carbon Dioxide Level 26 mmol/L (21-32) Anion Gap 11 (6-14) Blood Urea Nitrogen 17 mg/dL (8-26) Creatinine 1.1 mg/dL (0.7-1.3) Estimated GFR (Cockcroft-Gault) 68.8 Glucose Level 57 mg/dL (70-99) Calcium Level 7.9 mg/dL (8.5-10.1) Lipase 1169 U/L (73-393) Test 04/01/18 12:02 Glucose (Fingerstick) 64 mg/dL (70-99) Laboratory Tests Test 03/31/18 17:05 03/31/18 20:33 04/01/18 06:50 04/01/18 07:20 Glucose (Fingerstick) 195 mg/dL (70-99) 79 mg/dL (70-99) 248 mg/dL (70-99) 234 mg/dL (70-99) Test 04/01/18 10:38 04/01/18 10:54 04/01/18 11:25 04/01/18 12:02 Glucose (Fingerstick) 35 mg/dL (70-99) 128 mg/dL (70-99) 64 mg/dL (70-99) Sodium Level 143 mmol/L (136-145) Potassium Level 3.1 mmol/L (3.5-5.1) Chloride Level 106 mmol/L (98-107) Carbon Dioxide Level 26 mmol/L (21-32) Anion Gap 11 (6-14) Blood Urea Nitrogen 17 mg/dL (8-26) Creatinine 1.1 mg/dL (0.7-1.3) Estimated GFR (Cockcroft-Gault) 68.8 Glucose Level 57 mg/dL (70-99) Calcium Level 7.9 mg/dL (8.5-10.1) Lipase 1169 U/L (73-393) Medications Current Medications Fentanyl Citrate (Fentanyl 2ml Vial) 50 mcg 1X ONCE IV Last administered on at 21:15; Start 03/30/18 at 20:30; Stop 03/30/18 at 20:31; Status DC Famotidine (Pepcid Vial) 20 mg 1X ONCE IVP Last administered on 03/30/18at 21: 15; Start 03/30/18 at 20:30; Stop 03/30/18 at 20:31; Status DC Ondansetron HCl (Zofran) 4 mg 1X ONCE IV Last administered on 03/30/18 21:15 ; Start 03/30/18 at 20:30; Stop 03/30/18 at 20:31; Status DC Sodium Chloride 1,000 ml @ 1,000 mls/hr 1X ONCE IV Last administered on at 21:15; Start 03/30/18 at 20:30; Stop 03/30/18 at 21:29; Status DC Hyoscyamine (Anaspaz) 0.25 mg 1X ONCE PO Last administered on 03/30/18at 22:00 ; Start 03/30/18 at 22:00; Stop 03/30/18 at 22:01; Status DC Lorazepam (Ativan) 1 mg 1X ONCE IV Last administered on 03/30/18at 22:00; Start 03/30/18 at 22:00; Stop 03/30/18 at 22:01; Status DC Insulin Human Regular (HumuLIN R VIAL) 10 unit 1X ONCE SQ Last administered on 03/30/18at 22:00; Start 03/30/18 at 22:00; Stop 03/30/18 at 22:01; Status DC Fentanyl Citrate (Fentanyl 2ml Vial) 75 mcg PRN Q2HRS PRN IV SEVERE PAIN Last administered on 03/30/18at 23:40; Start 03/30/18 at 23:15; Stop 03/31/18 at 16:23 ; Status DC Morphine Sulfate (Morphine Sulfate) 2 mg PRN Q2HR PRN IV MILD PAIN Last administered on 03/31/18at 09:02; Start 03/31/18 at 00:45 Zolpidem Tartrate (Ambien) 5 mg PRN QHS PRN PO INSOMNIA Last administered on 23:42; Start 03/31/18 at 01:15 Morphine Sulfate (Morphine Sulfate) 4 mg PRN Q2HR PRN IV MODERATE PAIN Last administered on 04/01/18 09:42; Start 03/31/18 at 01:15 Ondansetron HCl (Zofran) 4 mg PRN Q6HRS PRN IV NAUSEA/VOMITING 1ST CHOICE Last administered on 04/01/18at 12:08; Start 03/31/18 at 03:00 Oxycodone/ Acetaminophen (Percocet 10/325) 1 tab PRN Q4HRS PRN PO PAIN Last administered on 03/31/18 11:03; Start 03/31/18 at 08:30 Sodium Chloride 1,000 ml @ 125 mls/hr Q8H IV Last administered on 04/01/18at 10 :00; Start 03/31/18 at 10:00 Sodium Chloride 1,000 ml @ 1,000 mls/hr 1X ONCE IV Last administered on at 11:24; Start 03/31/18 at 09:00; Stop 03/31/18 at 09:59; Status DC Labetalol HCl (Normodyne Iv Push) 20 mg PRN Q2HR PRN IVP HYPERTENSION, SEE COMMENTS; Start 03/31/18 at 08:30 Insulin Human Lispro (HumaLOG) 0-9 UNITS TIDWMEALS SQ Last administered on 04/01at 08:51; Start 03/31/18 at 12:00 Dextrose (Dextrose 50%-Water Syringe) 12.5 gm PRN Q15MIN PRN IV SEE COMMENTS Last administered on 04/01/18at 12:05; Start 03/31/18 at 08:30 Aspirin (Yolanda Aspirin) 325 mg DAILY PO Last administered on 04/01/18 08:43; Start 03/31/18 at 09:00 Atorvastatin Calcium (Lipitor) 40 mg DAILY PO Last administered on 04/01/18at 08 :45; Start 03/31/18 at 09:00 Carvedilol (Coreg) 3.125 mg BIDWMEALS PO Last administered on 04/01/18at 08:44; Start 03/31/18 at 09:00 Fluoxetine HCl (PROzac) 20 mg DAILY PO Last administered on 04/01/18at 08:43; Start 03/31/18 at 09:00 Insulin Glargine (Lantus) 25 units DAILY07 SQ Last administered on 04/01/18at 06 :54; Start 03/31/18 at 09:00 Insulin Glargine (Lantus) 35 units HS SQ ; Start 03/31/18 at 21:00 Insulin Human Lispro (HumaLOG) 20 units TIDAC SQ Last administered on at 08:52; Start 03/31/18 at 11:30 Isosorbide Mononitrate (Imdur) 60 mg DAILY PO Last administered on 04/01/18at 08 :45; Start 03/31/18 at 09:00 Lactobacillus Rhamnosus (Culturelle) 1 cap BID PO Last administered on at 08:45; Start 03/31/18 at 09:00 Pantoprazole Sodium (Protonix) 40 mg DAILYAC PO Last administered on 04/01/18at 08:44; Start 03/31/18 at 09:00 Amlodipine Besylate (Norvasc) 5 mg DAILY PO Last administered on 04/01/18at 08: 44; Start 03/31/18 at 09:00 Hydralazine HCl (Apresoline) 10 mg TID PO Last administered on 04/01/18at 08:44 ; Start 03/31/18 at 09:00 Pantoprazole Sodium (Protonix) 40 mg DAILYAC PO ; Start 04/01/18 at 07:30; Status UNV Pantoprazole Sodium (Protonix) 40 mg 1X ONCE PO ; Start 03/31/18 at 10:45; Stop 03/31/18 at 10:46; Status UNV Lorazepam (Ativan) 2 mg 1X ONCE IV Last administered on 03/31/18at 14:49; Start 03/31/18 at 15:00; Stop 03/31/18 at 15:01; Status DC Fentanyl Citrate (Fentanyl 2ml Vial) 75 mcg PRN Q2HR PRN IV SEVERE PAIN; Start 04/01/18 at 12:00 Active Scripts Active Potassium Chloride 20 Meq Tablet.er 20 Meq PO DAILY 30 Days Furosemide 40 Mg Tablet 1 Tab PO DAILY Reported Novolog Flexpen (Insulin Aspart) 100 Unit/1 Ml Insuln.pen 20 Unit SQ TIDAC Lantus Solostar (Insulin Glargine,Hum.rec.anlog) 100 Unit/1 Ml Insuln.pen 35 Unit SQ HS Lantus Solostar (Insulin Glargine,Hum.rec.anlog) 100 Unit/1 Ml Insuln.pen 25 Unit SQ DAILY07 Culturelle (Lactobacillus Rhamnosus Gg) 1 Each Capsule 1 Each PO BID Prozac (Fluoxetine Hcl) 20 Mg Capsule 20 Mg PO DAILY Atorvastatin Calcium 40 Mg Tablet 1 Tab PO DAILY Isosorbide Mononitrate 20 Mg Tablet 60 Mg PO DAILY Clopidogrel (Clopidogrel Bisulfate) 75 Mg Tablet 75 Mg PO DAILY Coreg (Carvedilol) 3.125 Mg Tablet 3.125 Mg PO BIDWMEALS Aspirin 325 Mg Tablet 325 Mg PO DAILY Protonix (Pantoprazole Sodium) 20 Mg Tablet.dr 1 Tab PO DAILY Chlorthalidone 25 Mg Tablet 1 Tab PO DAILY Lisinopril 40 Mg Tablet 1 Tab PO DAILY Spironolactone 25 Mg Tablet 1 Tab PO DAILY Vitals/I & O Vital Sign - Last 24 Hours 03/31/18 03/31/18 03/31/18 03/31/18 14:00 15:02 16:20 17:47 Temp 97.9 97.9 Pulse 63 71 71 Resp 20 B/P (MAP) 143/83 140/88 (105) 140/88 Pulse Ox 97 97 O2 Delivery Room Air Room Air 03/31/18 03/31/18 03/31/18 03/31/18 18:18 19:25 19:30 20:39 Temp 97.9 97.9 Pulse 61 61 Resp 15 16 B/P (MAP) 136/79 (98) 136/79 Pulse Ox 98 O2 Delivery Room Air Room Air Room Air 03/31/18 03/31/18 03/31/18 04/01/18 20:40 23:30 23:42 02:44 Temp 98.2 98.2 Pulse 65 Resp 16 B/P (MAP) 172/97 (122) Pulse Ox 99 O2 Delivery Room Air Room Air Room Air Room Air 04/01/18 04/01/18 04/01/18 04/01/18 03:35 04:57 07:33 07:49 Temp 98.0 98.2 98.0 98.2 Pulse 66 64 Resp 20 20 B/P (MAP) 174/85 (114) 173/87 (115) Pulse Ox 97 97 97 O2 Delivery Room Air Room Air Room Air Room Air 04/01/18 04/01/18 04/01/18 04/01/18 08:00 08:44 08:44 08:44 Pulse 64 64 64 B/P (MAP) 173/87 173/87 173/87 O2 Delivery Room Air 04/01/18 04/01/18 04/01/18 04/01/18 08:45 09:42 10:15 10:46 Temp 98.2 98.2 Pulse 64 65 Resp 24 16 20 B/P (MAP) 173/87 138/78 (98) Pulse Ox 98 O2 Delivery Room Air Room Air Room Air Intake and Output 03/31/18 03/31/18 04/01/18 15:00 23:00 07:00 Intake Total 1270 ml 350 ml Balance 1270 ml 350 ml JOANIE BAL MD Apr 01, 2018 12:17
[2018-04-01] MEDS ORDERED: FAMOTIDINE 20 MG/2 ML VIAL IVP SCH (13:00)
[2018-04-01] MEDS: fentaNYL PF VIAL 100 MCG/2 ML VIAL IV PRN ×5 (13:09→23:00)
[2018-04-01] MEDS: IV DEXTROSE 5 %-0.45 % NACL 1,000 ML IV SCH ×2 (13:15→19:56)
--- NOTE | 2018-04-01 13:39 | PDOC ---
Subjective: Subjective: Sitting at nurse's station, issues w/ hypoglycemia. Ongoing abd pain. Objective: Objective: No stools charted. Vital Signs: Vital Signs Date Time Temp Pulse Resp B/P (MAP) Pulse Ox O2 Delivery O2 Flow Rate FiO2 04/01/18 13:09 16 Room Air 04/01/18 10:46 98.2 65 138/78 (98) 98 98.2 Labs: Laboratory Tests Test 03/31/18 17:05 03/31/18 20:33 04/01/18 06:50 04/01/18 07:20 Glucose (Fingerstick) 195 mg/dL 79 mg/dL 248 mg/dL 234 mg/dL Test 04/01/18 10:38 04/01/18 10:54 04/01/18 11:25 04/01/18 12:02 Glucose (Fingerstick) 35 mg/dL 128 mg/dL 64 mg/dL Sodium Level 143 mmol/L Potassium Level 3.1 mmol/L Chloride Level 106 mmol/L Carbon Dioxide Level 26 mmol/L Anion Gap 11 Blood Urea Nitrogen 17 mg/dL Creatinine 1.1 mg/dL Estimated GFR (Cockcroft-Gault) 68.8 Glucose Level 57 mg/dL Calcium Level 7.9 mg/dL Lipase 1169 U/L Test 04/01/18 12:27 Glucose (Fingerstick) 74 mg/dL PE: GEN: NAD LUNGS: CTAB HEART: RRR ABD: tender NEURO/PSYCH: A & O 3 A/P: Recurrent upper abd pain w/ n/v -h/o pancreatitis (alcohol - still drinking), stable appearance of pancreas on CT, lipase now elevated 1169 DM, HTN -- Supportive care. Has PO PPI + IV H2 jose alfredo - can stop one. Note was made NPO. OMAIRA GEORGE Apr 01, 2018 13:39
--- NOTE | 2018-04-01 14:04 | RAD ---
EXAM: CHEST PA AND LATERAL DATE: 04/01/2018 1:43 PM INDICATION: congestion, shortness of breath, cough COMPARISON: 02/27/2018, 02/20/2018 FINDINGS: The heart is not enlarged. Aorta is mildly tortuous. Patchy opacities in the left suprahilar region likely atelectasis, new since 02/27/2018. No lobar consolidation. No pleural effusion or pneumothorax. Degenerative changes of the spine are seen. IMPRESSION: Patchy opacities in the left suprahilar region likely atelectasis. No lobar consolidation. Radiographic follow-up to resolution or CT evaluation is recommended to exclude proximal hilar mass. Electronically signed by: Huy Georges MD (04/01/2018 2:01 PM) [id number]
[2018-04-01 14:49] VITALS: BP 143/75
[2018-04-01 19:12] VITALS: BP 176/90
[2018-04-01] MEDS: POTASSIUM CL 30MEQ D5-0.45NACL 1,000 ML IV SCH (20:23)
[2018-04-01 23:20] VITALS: BP 166/89
[2018-04-02] MEDS: oxyCODONE/APAP 10/325 1 TAB TABLET PO PRN (00:58)
[2018-04-02] MEDS: MORPHINE SULFATE 4 MG/ML VIAL. IV PRN ×8 (02:51→21:59)
[2018-04-02 03:00] VITALS: BP 165/78
[2018-04-02] MEDS: fentaNYL PF VIAL 100 MCG/2 ML VIAL IV PRN ×7 (04:23→23:28)
[2018-04-02 04:41] LABS: CALCIUM 8.5 mg/dL (8.5-10.1); CREATININE 0.9 mg/dL (0.7-1.3); GFR 86.7; POTASSIUM 3.5 mmol/L (3.5-5.1)
[2018-04-02] MEDS: IV DEXTROSE 5 %-0.45 % NACL 1,000 ML IV SCH (05:15)
[2018-04-02 06:55] VITALS: BP 171/98
[2018-04-02] MEDS: CARVEDILOL 3.125 MG TABLET. PO SCH (08:00)
[2018-04-02] MEDS: amLODIPine BESYLATE 5 MG TABLET PO SCH (08:57)
[2018-04-02] MEDS: POTASSIUM CL 30MEQ D5-0.45NACL 1,000 ML IV SCH ×2 (08:58→23:29)
[2018-04-02] MEDS: ASPIRIN 325 MG TABLET PO SCH (08:59)
[2018-04-02] MEDS: FLUoxetine HCL 20 MG CAPSULE PO SCH (08:59)
[2018-04-02] MEDS: LACTOBACILLUS RHAMNOSUS GG 1 CAPSULE. PO SCH ×2 (09:00→20:36)
[2018-04-02] MEDS: ISOSORBIDE MONONITRATE ER 30 MG TAB.ER.24H PO SCH (09:00)
[2018-04-02] MEDS: PANTOPRAZOLE 40 MG TABLET.DR. PO SCH (09:00)
[2018-04-02] MEDS: ONDANSETRON PF 4 MG/2 ML VIAL. IV PRN ×2 (09:00→19:31)
[2018-04-02] MEDS: hydrALAZINE 10 MG TABLET PO SCH ×3 (09:00→20:37)
[2018-04-02] MEDS: ATORVASTATIN CALCIUM 40 MG TABLET. PO SCH (09:00)
[2018-04-02] MEDS: INSULIN LISPRO 300 UNITS/3 ML INSULN.PEN. SQ SCH ×3 (09:06→16:24)
--- NOTE | 2018-04-02 09:13 | EKG ---
[facility] [address] [place] [address] Test Date: 2018-04-02 Test Time: 09:06:13 Pat Name: MONSERRAT RETANA Department: Room: [facility] Gender: M Silver Buffer: ANGLE : 1960 Requested By: LYNETTE BHANDARI Order Number: [id number] Reading MD: Bong Alas Measurements Intervals [place] Rate: 60 P: 0 [place]: 136 QRS: 95 QRSD: 98 T: 84 QT: 484 QTc: 484 Interpretive Statements SINUS RHYTHM RIGHTWARD AXIS PROLONGED QT Electronically Signed On 04-08-2018 10:10:26 CDT by Bong Alas
--- NOTE | 2018-04-02 09:14 | PDOC2 ---
LYNETTE BHANDARI MARRIAGE COUNSELOR 04/02/18 0914: CARDIAC CONSULT DATE OF CONSULT Date of Consult DATE: 04/02/18 TIME: 0845 REASON FOR CONSULT Reason for Consult: 8 beat run [place] REFERRING PHYSICIAN Referring Physician: Fullbright SOURCE Source: Chart review, Patient HISTORY OF PRESENT ILLNESS HISTORY OF PRESENT ILLNESS This is a pleasant 57 yo male admitted for GI symptoms. First he at fatty [place] food Saturday. He is getting over a URI to which he has been taking lots of cough syrup hence blaming being positive for ETOH to the latter. Saturday he started having more abdominal pain, nausea and vomiting and watery diarrhea. Presently he still has some abdominal pain and does not feel well but no further vomiting. Denies any exertional CP, SOA, nor palpitations. He has seen [facility] residential recycle driver 3 weeks ago and actually was on 4 week event monitor which no significant arrhythmia was found since he is on amiodarone. This was then taken off 3-4 weeks ago for potential EP studies in 1-2 months in regards to his hx of NSVT. He was told that he was doing well per his residential recycle driver and he has been compliant with his cardiac meds including ASA and plavix. He has 2 bouts of brief NSVT overnight prompting this consult but no cardiac symptoms in relation to this. To note he said that he had a full echo a month ago and was told that it was ok. PAST MEDICAL HISTORY Past Medical History Cardiovascular: CAD, CHF (cardiomyopathy), HTN, [place] (STEMI), Hyperlipidemia GI: GERD Heme/Onc: No pertinent hx Hepatobiliary: Cholelithiasis, Other (pancreatitis; CORDOVA) Psych: Anxiety Musculoskeletal: Osteoarthritis Rheumatologic: No pertinent hx Infectious disease: No pertinent hx ENT: No pertinent hx Renal/: No pertinent hx Endocrine: Diabetes (2) PAST SURGICAL HISTORY Past Surgical History Appendectomy, Cholecystectomy, Total knee replacement (L), Other (PCI/RIMA to PLB ) FAMILY HISTORY Family History Diabetes (mother, brother), Hypertension, Stroke (father) SOCIAL HISTORY Social History Smoke: <1 pack per day ALCOHOL: none Drugs: None Lives: Alone CURRENT MEDICATIONS CURRENT MEDICATIONS Current Medications Medications (Trade) Dose Ordered Sig/Marcia Route PRN Reason Start Time Stop Time Status Last Admin Dose Admin Fentanyl Citrate (Fentanyl 2ml Vial) 75 mcg PRN Q2HR PRN IV SEVERE PAIN 04/01/18 12:00 04/02/18 07:33 Famotidine (Pepcid Vial) 20 mg BID IVP 04/01/18 13:00 04/01/18 13:40 DC 04/01/18 13:11 Dextrose/Sodium Chloride 1,000 ml @ 125 mls/hr Q8H IV 04/01/18 13:15 04/02/18 08:49 DC 04/01/18 13:15 Potassium Chloride/Dextrose/ Sod Cl 1,000 ml @ 75 mls/hr [id number] IV 04/01/18 20:00 04/02/18 08:58 ALLERGIES ALLERGIES: Coded Allergies: glyburide (Verified Allergy, Intermediate, 12/24/17) ketorolac (Verified Adverse Reaction, Intermediate, vomiting, 09/03/17) tramadol (Verified Adverse Reaction, Intermediate, vomiting, 09/03/17) ROS Review of System 14 point ROS evaluated with pertinent positives noted per HPI PHYSICAL EXAM General: Alert, Oriented X3, Cooperative, No acute distress HEENT: Atraumatic, Mucous membr. moist/pink Lungs: Clear to auscultation, Normal air movement Heart: Regular rate (SR), Normal S1, Normal S2 Abdomen: Soft, Other (mild tenderness with palpation) Extremities: No cyanosis, No edema Skin: No breakdown, No significant lesion Neuro: Normal speech, Sensation intact Psych/Mental Status: Mental status NL, Mood NL MUSCULOSKELETAL: Osteoarthritic changes both hands VITALS VITALS Vital Signs Date Time Temp Pulse Resp B/P (MAP) Pulse Ox O2 Delivery O2 Flow Rate FiO2 04/02/18 09:07 Room Air 04/02/18 09:00 60 171/98 04/02/18 06:55 98.6 18 96 98.6 LABS Lab: Laboratory Tests Test 04/01/18 10:38 04/01/18 10:54 04/01/18 11:25 04/01/18 12:02 Glucose (Fingerstick) 35 mg/dL (70-99) 128 mg/dL (70-99) 64 mg/dL (70-99) Sodium Level 143 mmol/L (136-145) Potassium Level 3.1 mmol/L (3.5-5.1) Chloride Level 106 mmol/L (98-107) Carbon Dioxide Level 26 mmol/L (21-32) Anion Gap 11 (6-14) Blood Urea Nitrogen 17 mg/dL (8-26) Creatinine 1.1 mg/dL (0.7-1.3) Estimated GFR (Cockcroft-Gault) 68.8 Glucose Level 57 mg/dL (70-99) Calcium Level 7.9 mg/dL (8.5-10.1) Lipase 1169 U/L (73-393) Test 04/01/18 12:27 04/01/18 12:51 04/01/18 13:54 04/01/18 16:52 Glucose (Fingerstick) 74 mg/dL (70-99) 53 mg/dL (70-99) 184 mg/dL (70-99) 250 mg/dL (70-99) Test 04/01/18 21:27 04/02/18 04:15 04/02/18 07:06 Glucose (Fingerstick) 193 mg/dL (70-99) 267 mg/dL (70-99) Sodium Level 135 mmol/L (136-145) Potassium Level 3.5 mmol/L (3.5-5.1) Chloride Level 100 mmol/L (98-107) Carbon Dioxide Level 28 mmol/L (21-32) Anion Gap 7 (6-14) Blood Urea Nitrogen 8 mg/dL (8-26) Creatinine 0.9 mg/dL (0.7-1.3) Estimated GFR (Cockcroft-Gault) 86.7 Glucose Level 253 mg/dL (70-99) Calcium Level 8.5 mg/dL (8.5-10.1) Magnesium Level 1.5 mg/dL (1.8-2.4) Thyroid Stimulating Hormone (TSH) 0.791 uIU/mL (0.358-3.74) ECHOCARDIOGRAM ECHOCARDIOGRAM <Conclusion> The Left Ventricle is moderately dilated. The systolic function is moderately impaired. The Ejection Fraction is 40%. Septal motion consistent with conduction abnormality. Global hypokinesis otherwise. DATE: 09/04/17 174 HEART CATH HEART CATH ere were no immediate complications. Conclusion 1. Severe single-vessel coronary disease 2. Successful PCI/drug eluting stents placement to the posterolateral branch of right coronary artery 3. Posterobasal wall hypokinesis with ejection fraction estimated at 45% Recommendations 1. Aspirin 325 mg daily 2. Plavix 75 mg daily for preferably one year 3. Cardiovascular risk factor modification DATE: 12/24/17 1345 ASSESSMENT/PLAN ASSESSMENT/PLAN 1. Recurrent pancreatitis/Abd pain: GI following 2. Asymptomatic NSVT: Known hx of NSVT. 2 brief episodes in the setting of being off amio and low Mg and K. 3. CAD: recent [place]. s/p PCI/RIMA to PLB 12/2017, clinically stable 4. ICM: last EF via [facility] 45% 5. HTN: labile episodes 6. DM2/HLP 7. SALVATORE: prerenal with dehydration, better. Recommendations 1. [facility]. Off amiodarone due to potential EP studies in 1-2 months. Will DC coreg and place on metoprolol at higher dose 2. Replace Mg and K as warranted 3. Continue with ASA and plavix with secondary prevention measures. 4. DC [facility] pt has refused this due to leg swelling and has not taken this for 3-4 months. Uptitrate BP meds per BP trend. 5. Supportive care. VANDA ROSEN MD 04/02/18 1627: CARDIAC CONSULT ASSESSMENT/PLAN ASSESSMENT/PLAN Patient seen and examined. Agree with POOLROOM TABLE ATTENDANT's assessment and plan. Nonsustained VT most probably secondary to electrolyte imbalance Replace magnesium and potassium levels Continue beta blockers and dual antiplatelet therapy CAD status clinically stable 2-D echo showed LVEF 45-50% Thank you for your consultation LYNETTE BHANDARI APRN Apr 02, 2018 09:14 VANDA ROSEN MD Apr 02, 2018 16:27
[2018-04-02] MEDS ORDERED: MAGNESIUM SULFATE 4GM 100 ML IV ONE (09:15)
[2018-04-02 09:23] LABS: BARBITURATES NEG (NEG); BENZODIAZEPINES NEG (NEG); CANNABINOIDS NEG (NEG); COCAINE NEG (NEG); METHADONE NEG (NEG); OPIATES POS (NEG); PHENCYCLIDINE NEG (NEG)
[2018-04-02 09:25] LABS: AMPHETAMINE/METHAMPHETAMINE NEG (NEG)
[2018-04-02] MEDS ORDERED: CLOPIDOGREL BISULFATE 75 MG TABLET PO ONE (10:00)
--- NOTE | 2018-04-02 10:39 | PDOC ---
Subjective: Subjective: Tired and still miserable but maybe a little better today. Objective: Vital Signs: Vital Signs Date Time Temp Pulse Resp B/P (MAP) Pulse Ox O2 Delivery O2 Flow Rate FiO2 04/02/18 09:41 Room Air 04/02/18 09:00 60 171/98 04/02/18 06:55 98.6 18 96 98.6 Labs: Laboratory Tests Test 04/01/18 10:38 04/01/18 10:54 04/01/18 11:25 04/01/18 12:02 Glucose (Fingerstick) 35 mg/dL 128 mg/dL 64 mg/dL Sodium Level 143 mmol/L Potassium Level 3.1 mmol/L Chloride Level 106 mmol/L Carbon Dioxide Level 26 mmol/L Anion Gap 11 Blood Urea Nitrogen 17 mg/dL Creatinine 1.1 mg/dL Estimated GFR (Cockcroft-Gault) 68.8 Glucose Level 57 mg/dL Calcium Level 7.9 mg/dL Lipase 1169 U/L Test 04/01/18 12:27 04/01/18 12:51 04/01/18 13:54 04/01/18 16:52 Glucose (Fingerstick) 74 mg/dL 53 mg/dL 184 mg/dL 250 mg/dL Test 04/01/18 21:27 04/02/18 04:15 04/02/18 07:06 04/02/18 08:15 Glucose (Fingerstick) 193 mg/dL 267 mg/dL Sodium Level 135 mmol/L Potassium Level 3.5 mmol/L Chloride Level 100 mmol/L Carbon Dioxide Level 28 mmol/L Anion Gap 7 Blood Urea Nitrogen 8 mg/dL Creatinine 0.9 mg/dL Estimated GFR (Cockcroft-Gault) 86.7 Glucose Level 253 mg/dL Calcium Level 8.5 mg/dL Magnesium Level 1.5 mg/dL Thyroid Stimulating Hormone (TSH) 0.791 uIU/mL Urine Opiates Screen Pos Urine Methadone Screen Neg Urine Barbiturates Neg Urine Phencyclidine Screen Neg Urine Amphetamine/Methamphetamine Neg Urine Benzodiazepines Screen Neg Urine Cocaine Screen Neg Urine Cannabinoids Screen Neg Urine Ethyl Alcohol Neg Imaging: CXR IMPRESSION: Patchy opacities in the left suprahilar region likely atelectasis. No lobar consolidation. Radiographic follow-up to resolution or CT evaluation is recommended to exclude proximal hilar mass. PE: GEN: uncomfortable LUNGS: CTAB HEART: RRR ABD: epigastric discomfort NEURO/PSYCH: A & O 3 A/P: Recurrent pancreatitis -- Supportive care. Abd pain ongoing - can try clears. OMAIRA GEORGE Apr 02, 2018 10:39
[2018-04-02 10:50] VITALS: BP 139/81
--- NOTE | 2018-04-02 11:43 | PDOC ---
Renal-Progress Notes Subjective Notes Notes NONE History of Present Illness Hx of present illness STABLE Vitals Vitals Vital Signs Date Time Temp Pulse Resp B/P (MAP) Pulse Ox O2 Delivery O2 Flow Rate FiO2 04/02/18 11:15 Room Air 04/02/18 10:50 97.6 63 17 139/81 (100) 99 97.6 Weight Weight [ ] I.O. Intake and Output Intake and Output 04/02/18 07:00 Intake Total 1650 ml Balance 1650 ml Intake Oral 500 ml IV Total 1150 ml # Voids 8 Labs Labs Laboratory Tests Test 04/01/18 12:02 04/01/18 12:27 04/01/18 12:51 04/01/18 13:54 Glucose (Fingerstick) 64 mg/dL (70-99) 74 mg/dL (70-99) 53 mg/dL (70-99) 184 mg/dL (70-99) Test 04/01/18 16:52 04/01/18 21:27 04/02/18 04:15 04/02/18 07:06 Glucose (Fingerstick) 250 mg/dL (70-99) 193 mg/dL (70-99) 267 mg/dL (70-99) Sodium Level 135 mmol/L (136-145) Potassium Level 3.5 mmol/L (3.5-5.1) Chloride Level 100 mmol/L (98-107) Carbon Dioxide Level 28 mmol/L (21-32) Anion Gap 7 (6-14) Blood Urea Nitrogen 8 mg/dL (8-26) Creatinine 0.9 mg/dL (0.7-1.3) Estimated GFR (Cockcroft-Gault) 86.7 Glucose Level 253 mg/dL (70-99) Calcium Level 8.5 mg/dL (8.5-10.1) Magnesium Level 1.5 mg/dL (1.8-2.4) Thyroid Stimulating Hormone (TSH) 0.791 uIU/mL (0.358-3.74) Test 04/02/18 08:15 04/02/18 10:51 Urine Opiates Screen Pos (NEG) Urine Methadone Screen Neg (NEG) Urine Barbiturates Neg (NEG) Urine Phencyclidine Screen Neg (NEG) Urine Amphetamine/Methamphetamine Neg (NEG) Urine Benzodiazepines Screen Neg (NEG) Urine Cocaine Screen Neg (NEG) Urine Cannabinoids Screen Neg (NEG) Urine Ethyl Alcohol Neg (NEG) Glucose (Fingerstick) 196 mg/dL (70-99) Review of Systems Constitutional: yes: no symptom reported Ears/Nose/Throat: Yes: no symptom reported Eyes: Yes: no symptom reported Pulmonary: Yes no symptom reported Cardiovascular: Yes no symptom reported Gastrointestional: Yes: nausea Genitourinary: Yes: no symptom reported Musculoskeletal: Yes: no symptom reported Skin: Yes no symptom reported Psychiatric/Neurological: Yes: no symptom reported Endocrine: Yes: no symptom reported Hematologic/Lymphatic: Yes: no symptom reported Physical Exam General Appearance: no apparent distress Respiratory: bilateral CTA Heart: S1S2 Abdomen: soft, bowel sounds present Genitourinary: bladder flat Extremities: pulses present Neurology: alert Musculoskeletal: Osteoarthritis Assessment Assessment IMP DEHYDRATION SALVATORE-RESOLVED HX OF KIDNEY STONES PLAN WILL SIGN OFF NEGRO BERGER MD Apr 02, 2018 11:43
--- NOTE | 2018-04-02 13:13 | PDOC ---
PROGRESS NOTES Chief Complaint Chief Complaint pancreatitis, acute abd pain Acute onset epigastric pain, Obesity/overweight BMI 30 History V. tach -s table Hypertension controlled DM2 on insulin with hypoglycemic episodes Accelerated hypertension likely secondary to pain vasomotor nephropathy ETOH use prior History of Present Illness History of Present Illness Abdominal pain persists Some relief with morphine , fentanyl Pancreatitis on CAT scan emesis X1, pain after eating broth and clears hypoglycemia days ago, insulin has been stopped Continue IV fluids 1 25 mL an hour-creatinine is improved to 1.3 from 1.6 Nothing by mouth post for now but okay with sips with meds Restart fentanyl alternating with morphine Vitals Vitals Vital Signs Date Time Temp Pulse Resp B/P (MAP) Pulse Ox O2 Delivery O2 Flow Rate FiO2 04/02/18 12:47 Room Air 04/02/18 12:27 63 139/81 04/02/18 10:50 97.6 17 99 97.6 Physical Exam General: Alert, Oriented X3, Cooperative, No acute distress Heart: Regular rate (SR), Normal S1, Normal S2 Lungs: Clear, Other Abdomen: Soft, Other (mild tenderness with palpation) Extremities: No cyanosis, No edema Skin: No breakdown, No significant lesion Labs LABS Laboratory Tests Test 04/01/18 13:54 04/01/18 16:52 04/01/18 21:27 04/02/18 04:15 Glucose (Fingerstick) 184 mg/dL (70-99) 250 mg/dL (70-99) 193 mg/dL (70-99) Sodium Level 135 mmol/L (136-145) Potassium Level 3.5 mmol/L (3.5-5.1) Chloride Level 100 mmol/L (98-107) Carbon Dioxide Level 28 mmol/L (21-32) Anion Gap 7 (6-14) Blood Urea Nitrogen 8 mg/dL (8-26) Creatinine 0.9 mg/dL (0.7-1.3) Estimated GFR (Cockcroft-Gault) 86.7 Glucose Level 253 mg/dL (70-99) Calcium Level 8.5 mg/dL (8.5-10.1) Magnesium Level 1.5 mg/dL (1.8-2.4) Thyroid Stimulating Hormone (TSH) 0.791 uIU/mL (0.358-3.74) Test 04/02/18 07:06 04/02/18 08:15 04/02/18 10:51 Glucose (Fingerstick) 267 mg/dL (70-99) 196 mg/dL (70-99) Urine Opiates Screen Pos (NEG) Urine Methadone Screen Neg (NEG) Urine Barbiturates Neg (NEG) Urine Phencyclidine Screen Neg (NEG) Urine Amphetamine/Methamphetamine Neg (NEG) Urine Benzodiazepines Screen Neg (NEG) Urine Cocaine Screen Neg (NEG) Urine Cannabinoids Screen Neg (NEG) Urine Ethyl Alcohol Neg (NEG) Assessment and Plan Assessmemt and Plan Problems Medical Problems: (1) Acute renal insufficiency Status: Acute (2) Hyperglycemia Status: Acute (3) Intractable abdominal pain Status: Acute Comment Review of Relevant I have reviewed the following items javad (where applicable) has been applied. Labs Laboratory Tests Test 03/31/18 17:05 03/31/18 20:33 04/01/18 06:50 04/01/18 07:20 Glucose (Fingerstick) 195 mg/dL (70-99) 79 mg/dL (70-99) 248 mg/dL (70-99) 234 mg/dL (70-99) Test 04/01/18 10:38 04/01/18 10:54 04/01/18 11:25 04/01/18 12:02 Glucose (Fingerstick) 35 mg/dL (70-99) 128 mg/dL (70-99) 64 mg/dL (70-99) Sodium Level 143 mmol/L (136-145) Potassium Level 3.1 mmol/L (3.5-5.1) Chloride Level 106 mmol/L (98-107) Carbon Dioxide Level 26 mmol/L (21-32) Anion Gap 11 (6-14) Blood Urea Nitrogen 17 mg/dL (8-26) Creatinine 1.1 mg/dL (0.7-1.3) Estimated GFR (Cockcroft-Gault) 68.8 Glucose Level 57 mg/dL (70-99) Calcium Level 7.9 mg/dL (8.5-10.1) Lipase 1169 U/L (73-393) Test 04/01/18 12:27 04/01/18 12:51 04/01/18 13:54 04/01/18 16:52 Glucose (Fingerstick) 74 mg/dL (70-99) 53 mg/dL (70-99) 184 mg/dL (70-99) 250 mg/dL (70-99) Test 04/01/18 21:27 04/02/18 04:15 04/02/18 07:06 04/02/18 08:15 Glucose (Fingerstick) 193 mg/dL (70-99) 267 mg/dL (70-99) Sodium Level 135 mmol/L (136-145) Potassium Level 3.5 mmol/L (3.5-5.1) Chloride Level 100 mmol/L (98-107) Carbon Dioxide Level 28 mmol/L (21-32) Anion Gap 7 (6-14) Blood Urea Nitrogen 8 mg/dL (8-26) Creatinine 0.9 mg/dL (0.7-1.3) Estimated GFR (Cockcroft-Gault) 86.7 Glucose Level 253 mg/dL (70-99) Calcium Level 8.5 mg/dL (8.5-10.1) Magnesium Level 1.5 mg/dL (1.8-2.4) Thyroid Stimulating Hormone (TSH) 0.791 uIU/mL (0.358-3.74) Urine Opiates Screen Pos (NEG) Urine Methadone Screen Neg (NEG) Urine Barbiturates Neg (NEG) Urine Phencyclidine Screen Neg (NEG) Urine Amphetamine/Methamphetamine Neg (NEG) Urine Benzodiazepines Screen Neg (NEG) Urine Cocaine Screen Neg (NEG) Urine Cannabinoids Screen Neg (NEG) Urine Ethyl Alcohol Neg (NEG) Test 04/02/18 10:51 Glucose (Fingerstick) 196 mg/dL (70-99) Laboratory Tests Test 04/01/18 13:54 04/01/18 16:52 04/01/18 21:27 04/02/18 04:15 Glucose (Fingerstick) 184 mg/dL (70-99) 250 mg/dL (70-99) 193 mg/dL (70-99) Sodium Level 135 mmol/L (136-145) Potassium Level 3.5 mmol/L (3.5-5.1) Chloride Level 100 mmol/L (98-107) Carbon Dioxide Level 28 mmol/L (21-32) Anion Gap 7 (6-14) Blood Urea Nitrogen 8 mg/dL (8-26) Creatinine 0.9 mg/dL (0.7-1.3) Estimated GFR (Cockcroft-Gault) 86.7 Glucose Level 253 mg/dL (70-99) Calcium Level 8.5 mg/dL (8.5-10.1) Magnesium Level 1.5 mg/dL (1.8-2.4) Thyroid Stimulating Hormone (TSH) 0.791 uIU/mL (0.358-3.74) Test 04/02/18 07:06 04/02/18 08:15 04/02/18 10:51 Glucose (Fingerstick) 267 mg/dL (70-99) 196 mg/dL (70-99) Urine Opiates Screen Pos (NEG) Urine Methadone Screen Neg (NEG) Urine Barbiturates Neg (NEG) Urine Phencyclidine Screen Neg (NEG) Urine Amphetamine/Methamphetamine Neg (NEG) Urine Benzodiazepines Screen Neg (NEG) Urine Cocaine Screen Neg (NEG) Urine Cannabinoids Screen Neg (NEG) Urine Ethyl Alcohol Neg (NEG) Medications Current Medications Fentanyl Citrate (Fentanyl 2ml Vial) 50 mcg 1X ONCE IV Last administered on at 21:15; Start 03/30/18 at 20:30; Stop 03/30/18 at 20:31; Status DC Famotidine (Pepcid Vial) 20 mg 1X ONCE IVP Last administered on 03/30/18at 21: 15; Start 03/30/18 at 20:30; Stop 03/30/18 at 20:31; Status DC Ondansetron HCl (Zofran) 4 mg 1X ONCE IV Last administered on 03/30/18at 21:15 ; Start 03/30/18 at 20:30; Stop 03/30/18 at 20:31; Status DC Sodium Chloride 1,000 ml @ 1,000 mls/hr 1X ONCE IV Last administered on at 21:15; Start 03/30/18 at 20:30; Stop 03/30/18 at 21:29; Status DC Hyoscyamine (Anaspaz) 0.25 mg 1X ONCE PO Last administered on 03/30/18at 22:00 ; Start 03/30/18 at 22:00; Stop 03/30/18 at 22:01; Status DC Lorazepam (Ativan) 1 mg 1X ONCE IV Last administered on 03/30/18at 22:00; Start 03/30/18 at 22:00; Stop 03/30/18 at 22:01; Status DC Insulin Human Regular (HumuLIN R VIAL) 10 unit 1X ONCE SQ Last administered on 03/30/18at 22:00; Start 03/30/18 at 22:00; Stop 03/30/18 at 22:01; Status DC Fentanyl Citrate (Fentanyl 2ml Vial) 75 mcg PRN Q2HRS PRN IV SEVERE PAIN Last administered on 03/30/18at 23:40; Start 03/30/18 at 23:15; Stop 03/31/18 at 16:23 ; Status DC Morphine Sulfate (Morphine Sulfate) 2 mg PRN Q2HR PRN IV MILD PAIN Last administered on 03/31/18at 09:02; Start 03/31/18 at 00:45 Zolpidem Tartrate (Ambien) 5 mg PRN QHS PRN PO INSOMNIA Last administered on at 23:42; Start 03/31/18 at 01:15 Morphine Sulfate (Morphine Sulfate) 4 mg PRN Q2HR PRN IV MODERATE PAIN Last administered on 04/02/18at 12:28; Start 03/31/18 at 01:15 Ondansetron HCl (Zofran) 4 mg PRN Q6HRS PRN IV NAUSEA/VOMITING 1ST CHOICE Last administered on 04/02/18at 09:00; Start 03/31/18 at 03:00 Oxycodone/ Acetaminophen (Percocet 10/325) 1 tab PRN Q4HRS PRN PO PAIN Last administered on 04/02/18at 00:58; Start 03/31/18 at 08:30 Sodium Chloride 1,000 ml @ 125 mls/hr Q8H IV Last administered on 04/01/18at 10 :00; Start 03/31/18 at 10:00; Stop 04/01/18 at 13:16; Status DC Sodium Chloride 1,000 ml @ 1,000 mls/hr 1X ONCE IV Last administered on at 11:24; Start 03/31/18 at 09:00; Stop 03/31/18 at 09:59; Status DC Labetalol HCl (Normodyne Iv Push) 20 mg PRN Q2HR PRN IVP HYPERTENSION, SEE COMMENTS; Start 03/31/18 at 08:30 Insulin Human Lispro (HumaLOG) 0-9 UNITS TIDWMEALS SQ Last administered on 04/02 09:06; Start 03/31/18 at 12:00 Dextrose (Dextrose 50%-Water Syringe) 12.5 gm PRN Q15MIN PRN IV SEE COMMENTS Last administered on 04/01/18at 13:06; Start 03/31/18 at 08:30 Aspirin (Yolanda Aspirin) 325 mg DAILY PO Last administered on 04/02/18 08:59; Start 03/31/18 at 09:00 Atorvastatin Calcium (Lipitor) 40 mg DAILY PO Last administered on 04/02/18at 09 :00; Start 03/31/18 at 09:00 Carvedilol (Coreg) 3.125 mg BIDWMEALS PO Last administered on 04/01/18at 17:33; Start 03/31/18 at 09:00; Stop 04/02/18 at 09:11; Status DC Fluoxetine HCl (PROzac) 20 mg DAILY PO Last administered on 04/02/18at 08:59; Start 03/31/18 at 09:00 Insulin Glargine (Lantus) 25 units DAILY07 SQ Last administered on 04/01/18at 06 :54; Start 03/31/18 at 09:00; Stop 04/01/18 at 12:13; Status DC Insulin Glargine (Lantus) 35 units HS SQ ; Start 03/31/18 at 21:00; Stop at 12:13; Status DC Insulin Human Lispro (HumaLOG) 20 units TIDAC SQ Last administered on at 08:52; Start 03/31/18 at 11:30; Stop 04/01/18 at 12:13; Status DC Isosorbide Mononitrate (Imdur) 60 mg DAILY PO Last administered on 04/02/18at 09 :00; Start 03/31/18 at 09:00 Lactobacillus Rhamnosus (Culturelle) 1 cap BID PO Last administered on at 09:00; Start 03/31/18 at 09:00 Pantoprazole Sodium (Protonix) 40 mg DAILYAC PO Last administered on 04/02/18at 09:00; Start 03/31/18 at 09:00 Amlodipine Besylate (Norvasc) 5 mg DAILY PO Last administered on 04/01/18at 08: 44; Start 03/31/18 at 09:00; Stop 04/02/18 at 09:11; Status DC Hydralazine HCl (Apresoline) 10 mg TID PO Last administered on 04/02/18at 12:27 ; Start 03/31/18 at 09:00 Pantoprazole Sodium (Protonix) 40 mg DAILYAC PO ; Start 04/01/18 at 07:30; Status UNV Pantoprazole Sodium (Protonix) 40 mg 1X ONCE PO ; Start 03/31/18 at 10:45; Stop 03/31/18 at 10:46; Status UNV Lorazepam (Ativan) 2 mg 1X ONCE IV Last administered on 03/31/18at 14:49; Start 03/31/18 at 15:00; Stop 03/31/18 at 15:01; Status DC Fentanyl Citrate (Fentanyl 2ml Vial) 75 mcg PRN Q2HR PRN IV SEVERE PAIN Last administered on 04/02/18at 10:49; Start 04/01/18 at 12:00 Famotidine (Pepcid Vial) 20 mg BID IVP Last administered on 04/01/18at 13:11; Start 04/01/18 at 13:00; Stop 04/01/18 at 13:40; Status DC Fentanyl Citrate (Fentanyl 2ml Vial) 75 mcg PRN Q2HR PRN IV SEVERE PAIN; Start 04/01/18 at 12:15; Stop 04/01/18 at 16:20; Status DC Dextrose/Sodium Chloride 1,000 ml @ 125 mls/hr Q8H IV Last administered on at 13:15; Start 04/01/18 at 13:15; Stop 04/02/18 at 08:49; Status DC Potassium Chloride/Dextrose/ Sod Cl 1,000 ml @ 75 mls/hr [id number] IV Last administered on 04/02/18at 08:58; Start 04/01/18 at 20:00 Magnesium Sulfate/ Dextrose 100 ml @ 25 mls/hr 1X ONCE IV Last administered on 04/02/18at 09:48; Start 04/02/18 at 09:15; Stop 04/02/18 at 13:14 Metoprolol Tartrate (Lopressor) 25 mg BID PO ; Start 04/02/18 at 21:00 Clopidogrel Bisulfate (Plavix) 75 mg DAILYWBKFT PO ; Start 04/03/18 at 08:00 Clopidogrel Bisulfate (Plavix) 75 mg 1X ONCE PO Last administered on at 10:47; Start 04/02/18 at 10:00; Stop 04/02/18 at 10:01; Status DC Active Scripts Active Potassium Chloride 20 Meq Tablet.er 20 Meq PO DAILY 30 Days Furosemide 40 Mg Tablet 1 Tab PO DAILY Reported Novolog Flexpen (Insulin Aspart) 100 Unit/1 Ml Insuln.pen 20 Unit SQ TIDAC Lantus Solostar (Insulin Glargine,Hum.rec.anlog) 100 Unit/1 Ml Insuln.pen 35 Unit SQ HS Lantus Solostar (Insulin Glargine,Hum.rec.anlog) 100 Unit/1 Ml Insuln.pen 25 Unit SQ DAILY07 Culturelle (Lactobacillus Rhamnosus Gg) 1 Each Capsule 1 Each PO BID Prozac (Fluoxetine Hcl) 20 Mg Capsule 20 Mg PO DAILY Atorvastatin Calcium 40 Mg Tablet 1 Tab PO DAILY Isosorbide Mononitrate 20 Mg Tablet 60 Mg PO DAILY Clopidogrel (Clopidogrel Bisulfate) 75 Mg Tablet 75 Mg PO DAILY Coreg (Carvedilol) 3.125 Mg Tablet 3.125 Mg PO BIDWMEALS Aspirin 325 Mg Tablet 325 Mg PO DAILY Protonix (Pantoprazole Sodium) 20 Mg Tablet.dr 1 Tab PO DAILY Chlorthalidone 25 Mg Tablet 1 Tab PO DAILY Lisinopril 40 Mg Tablet 1 Tab PO DAILY Spironolactone 25 Mg Tablet 1 Tab PO DAILY Vitals/I & O Vital Sign - Last 24 Hours 04/01/18 04/01/18 04/01/18 04/01/18 14:08 14:49 15:15 15:16 Temp 98.0 98.0 Pulse 60 60 Resp 18 20 16 B/P (MAP) 143/75 (97) 143/75 Pulse Ox 98 O2 Delivery Room Air Room Air Room Air 04/01/18 04/01/18 04/01/18 04/01/18 16:14 16:50 17:32 17:33 Pulse 60 Resp 16 16 16 B/P (MAP) 143/75 O2 Delivery Room Air Room Air 04/01/18 04/01/18 04/01/18 04/01/18 18:00 18:33 19:12 19:44 Temp 97.9 97.9 Pulse 61 Resp 16 18 18 B/P (MAP) 176/90 (118) Pulse Ox 99 O2 Delivery Room Air Room Air Room Air 04/01/18 04/01/18 04/01/18 04/01/18 20:24 20:25 21:42 23:00 Pulse 61 B/P (MAP) 176/90 O2 Delivery Room Air Room Air Room Air 04/01/18 04/02/18 04/02/18 04/02/18 23:20 00:58 02:01 02:51 Temp 98.2 98.2 Pulse 63 Resp 18 B/P (MAP) 166/89 (114) Pulse Ox 98 O2 Delivery Room Air Room Air Room Air Room Air 04/02/18 04/02/18 04/02/18 04/02/18 03:00 04:23 05:53 06:55 Temp 98.1 98.6 98.1 98.6 Pulse 60 60 Resp 18 18 B/P (MAP) 165/78 (107) 171/98 (122) Pulse Ox 97 96 O2 Delivery Room Air Room Air Room Air Room Air 04/02/18 04/02/18 04/02/18 04/02/18 07:14 07:33 09:00 09:00 Pulse 60 60 B/P (MAP) 171/98 171/98 O2 Delivery Room Air Room Air 04/02/18 04/02/18 04/02/18 04/02/18 09:01 10:49 10:50 11:15 Temp 97.6 97.6 Pulse 63 Resp 17 B/P (MAP) 139/81 (100) Pulse Ox 99 O2 Delivery Room Air Room Air Room Air Room Air 04/02/18 04/02/18 04/02/18 12:27 12:28 12:47 Pulse 63 B/P (MAP) 139/81 O2 Delivery Room Air Room Air Intake and Output 04/01/18 04/01/18 04/02/18 15:00 23:00 07:00 Intake Total 1150 ml 500 ml Balance 1150 ml 500 ml SURY ANDERSEN MD Apr 02, 2018 13:13
[2018-04-02] MEDS ORDERED: DEXTROSE 50% 25 GM / 50ML DISP.SYRIN. IV PRN (13:15)
[2018-04-02 14:40] VITALS: BP 129/77
--- NOTE | 2018-04-02 16:16 | CARD ---
MR#: [id number] Date of Study: 04/02/2018 Ordering Physician: LYNETTE BHANDARI, Referring Physician: JOANIE BAL Tech: Maranda Andre [facility] APPROVED REPORT EXAM: LIMITED Two-dimensional echocardiogram. Other Information Quality : Good INDICATION Arrhythmia 2D DIMENSIONS RVDd2.5 (2.9-3.5cm)Left Atrium(2D)4.4 (1.6-4.0cm) IVSd1.5 (0.7-1.1cm)Aortic Root(2D)3.2 (2.0-3.7cm) LVDd6.0 (3.9-5.9cm)LVOT Diameter2.2 (1.8-2.4cm) PWd1.5 (0.7-1.1cm)LVDs4.3 (2.5-4.0cm) FS (%) 25.0 %SV100.1 ml LVEF(%)50.0 (>50%) LEFT VENTRICLE The left ventricle is normal size. There is normal left ventricular wall thickness. Left ventricle sy stolic function is mildly impaired. The Ejection Fraction is 45-50%. There is moderate hypokinesis in the basal inferior wall. RIGHT VENTRICLE The right ventricle is normal size. The right ventricular systolic function is normal. ATRIA The left atrium is mildly dilated. The right atrium size is normal. The interatrial septum is intact with no evidence for an atrial septal defect or patent foramen ovale as noted on 2-D or Doppler imagi ng. GREAT VESSELS The aortic root is normal in size. The ascending aorta is mildly dilated at 3.5 cm. PERICARDIAL EFFUSION There is no evidence of significant pericardial effusion. Critical Notification Critical Value: No <Conclusion> Limited echo to evaluate LV function. Left ventricle systolic function is mildly impaired. The Ejection Fraction is 45-50%. There is no evidence of significant pericardial effusion. Signed by : Bong Alas, Electronically Approved : 04/02/2018 16:16:14
[2018-04-02 19:12] VITALS: BP 142/87
[2018-04-02] MEDS: METOPROLOL TART IMMED RELEASE 25 MG TABLET. PO SCH (20:37)
[2018-04-02] MEDS ORDERED: POLYETHYLENE GLYCOL 3350 17 GM PACKET. PO PRN (21:15)
[2018-04-02] MEDS ORDERED: INSULIN LISPRO 300 UNITS/3 ML INSULN.PEN. SQ ONE (21:15)
[2018-04-02] MEDS: DOCUSATE SODIUM 100 MG CAPSULE. PO PRN (21:59)
[2018-04-02 23:24] VITALS: BP 145/80
[2018-04-02] MEDS: ZOLPIDEM 5 MG TABLET. PO PRN (23:28)
[2018-04-03] MEDS: MORPHINE SULFATE 4 MG/ML VIAL. IV PRN ×5 (00:28→23:38)
[2018-04-03] MEDS: fentaNYL PF VIAL 100 MCG/2 ML VIAL IV PRN ×4 (01:29→12:42)
[2018-04-03] MEDS: ONDANSETRON PF 4 MG/2 ML VIAL. IV PRN ×3 (01:29→21:35)
[2018-04-03 02:36] VITALS: BP 115/79
[2018-04-03 06:24] LABS: BASO % 1 % (0-3); EOS # 0.2 x10^3/uL (0.0-0.7); EOS % 3 % (0-3); HEMATOCRIT 32.8 % (39.0-53.0); HEMOGLOBIN 11.6 g/dL (13.0-17.5); LYMPH # 1.2 x10^3/uL (1.0-4.8); LYMPH % 23 % (24-48); MEAN CORPUSCULAR HEMOGLOBIN 33 pg (25-35); MEAN CORPUSCULAR HGB CONC 35 g/dL (31-37); MEAN CORPUSCULAR VOLUME 93 fL (79-100); MONO # 0.3 x10^3/uL (0.0-1.1); MONO % 7 % (0-9); NEUT # 3.5 x10^3uL (1.8-7.7); NEUT % 67 % (31-73); PLATELET COUNT 179 x10^3/uL (140-400); RED BLOOD COUNT 3.54 x10^6/uL (4.30-5.70); RED CELL DISTRIBUTION WIDTH 14.4 % (11.5-14.5); WHITE BLOOD COUNT 5.3 x10^3/uL (4.0-11.0)
[2018-04-03 06:29] LABS: ALBUMIN 2.9 g/dL (3.4-5.0); CALCIUM 8.6 mg/dL (8.5-10.1); GFR 76.7; POTASSIUM 3.8 mmol/L (3.5-5.1); TOTAL BILIRUBIN 0.6 mg/dL (0.2-1.0); TOTAL PROTEIN 5.8 g/dL (6.4-8.2)
[2018-04-03 06:45] VITALS: BP 156/87
[2018-04-03] MEDS: FLUoxetine HCL 20 MG CAPSULE PO SCH (09:10)
[2018-04-03] MEDS: CLOPIDOGREL BISULFATE 75 MG TABLET PO SCH (09:10)
[2018-04-03] MEDS: ASPIRIN 325 MG TABLET PO SCH (09:10)
[2018-04-03] MEDS: LACTOBACILLUS RHAMNOSUS GG 1 CAPSULE. PO SCH ×2 (09:10→19:56)
[2018-04-03] MEDS: PANTOPRAZOLE 40 MG TABLET.DR. PO SCH (09:10)
[2018-04-03] MEDS: ISOSORBIDE MONONITRATE ER 30 MG TAB.ER.24H PO SCH (09:10)
[2018-04-03] MEDS: ATORVASTATIN CALCIUM 40 MG TABLET. PO SCH (09:10)
[2018-04-03] MEDS: hydrALAZINE 10 MG TABLET PO SCH ×3 (09:11→19:57)
[2018-04-03] MEDS: METOPROLOL TART IMMED RELEASE 25 MG TABLET. PO SCH ×2 (09:11→19:57)
[2018-04-03] MEDS: MORPHINE SULFATE 2 MG/ML VIAL. IV PRN (09:12)
[2018-04-03] MEDS: INSULIN LISPRO 300 UNITS/3 ML INSULN.PEN. SQ SCH ×4 (09:20→18:15)
[2018-04-03 10:50] VITALS: BP 131/77
--- NOTE | 2018-04-03 11:00 | PDOC ---
LYNETTE BHANDARI TILER 04/03/18 1100: CARDIO Progress Notes Date and Time Date of Service 04/03/2018 Time of Evaluation 1000 Subjective Subjective: No Chest Pain, No shortness of breath, No Palpitations, Other ( still has abd pain) Vitals Vitals Vital Signs Date Time Temp Pulse Resp B/P (MAP) Pulse Ox O2 Delivery O2 Flow Rate FiO2 04/03/18 10:50 98.4 55 18 131/77 (95) 99 Room Air 98.4 Weight Weight [ ] Input and Output Intake and Output Intake and Output 04/03/18 07:00 Intake Total 1740 ml Balance 1740 ml Intake Oral 1740 ml # Voids 12 Laboratory Labs Laboratory Tests Test 04/02/18 16:06 04/02/18 20:52 04/03/18 05:50 04/03/18 06:58 Glucose (Fingerstick) 288 mg/dL (70-99) 343 mg/dL (70-99) 395 mg/dL (70-99) White Blood Count 5.3 x10^3/uL (4.0-11.0) Red Blood Count 3.54 x10^6/uL (4.30-5.70) Hemoglobin 11.6 g/dL (13.0-17.5) Hematocrit 32.8 % (39.0-53.0) Mean Corpuscular Volume 93 fL (79-100) Mean Corpuscular Hemoglobin 33 pg (25-35) Mean Corpuscular Hemoglobin Concent 35 g/dL (31-37) Red Cell Distribution Width 14.4 % (11.5-14.5) Platelet Count 179 x10^3/uL (140-400) Neutrophils (%) (Auto) 67 % (31-73) Lymphocytes (%) (Auto) 23 % (24-48) Monocytes (%) (Auto) 7 % (0-9) Eosinophils (%) (Auto) 3 % (0-3) Basophils (%) (Auto) 1 % (0-3) Neutrophils # (Auto) 3.5 x10^3uL (1.8-7.7) Lymphocytes # (Auto) 1.2 x10^3/uL (1.0-4.8) Monocytes # (Auto) 0.3 x10^3/uL (0.0-1.1) Eosinophils # (Auto) 0.2 x10^3/uL (0.0-0.7) Basophils # (Auto) 0.0 x10^3/uL (0.0-0.2) Sodium Level 134 mmol/L (136-145) Potassium Level 3.8 mmol/L (3.5-5.1) Chloride Level 99 mmol/L (98-107) Carbon Dioxide Level 29 mmol/L (21-32) Anion Gap 6 (6-14) Blood Urea Nitrogen 5 mg/dL (8-26) Creatinine 1.0 mg/dL (0.7-1.3) Estimated GFR (Cockcroft-Gault) 76.7 BUN/Creatinine Ratio 5 (6-20) Glucose Level 361 mg/dL (70-99) Calcium Level 8.6 mg/dL (8.5-10.1) Total Bilirubin 0.6 mg/dL (0.2-1.0) Aspartate Amino Transf (AST/SGOT) 19 U/L (15-37) Alanine Aminotransferase (ALT/SGPT) 19 U/L (16-63) Alkaline Phosphatase 72 U/L (46-116) Total Protein 5.8 g/dL (6.4-8.2) Albumin 2.9 g/dL (3.4-5.0) Albumin/Globulin Ratio 1.0 (1.0-1.7) Review of Systems Constitutional: yes: no symptom reported Ears/Nose/Throat: Yes: no symptom reported Eyes: Yes: no symptom reported Pulmonary: Yes no symptom reported Cardiovascular: Yes no symptom reported Gastrointestional: Yes: nausea Genitourinary: Yes: no symptom reported Musculoskeletal: Yes: no symptom reported Skin: Yes no symptom reported Psychiatric/Neurological: Yes: no symptom reported Endocrine: Yes: no symptom reported Hematologic/Lymphatic: Yes: no symptom reported Physical Exam HEENT: Neck Supple W Full Motion Chest: Symmetric LUNGS: Clear to Auscultation Heart: S1S2, RRR (SR) Abdomen: Other (abdominal tenderness) Extremities: No Calf Tenderness Neurology: alert, oriented, follow commands Assessment Assessment 1. Recurrent pancreatitis/Abd pain: still has abd pain. GI following 2. Asymptomatic NSVT: Known hx of NSVT. none further since K/Mg correction and metoprolol conversion. 3. CAD: recent [place]. s/p PCI/RIMA to PLB 12/2017, clinically stable 4. ICM: EF at 45-50% unchanged. 5. HTN: controlled 6. DM2/HLP 7. SALVATORE: resolved Recommendations 1. [facility]. Off amiodarone due to potential EP studies in 1-2 months. Continue with metoprolol 2. Continue with ASA and plavix with secondary prevention measures. 3 Supportive care. VANDA ROSEN MD 04/03/18 1717: CARDIO Progress Notes Assessment Assessment Patient seen and examined. Agree with CHECKOUT SUPERVISOR's assessment and plan. Potassium and magnesium levels replaced No further NSVT noted on telemetry CAD status clinically stable Okay for discharge from cardiac standpoint LYNETTE BHANDARI APRN Apr 03, 2018 11:00 VANDA ROSEN MD Apr 03, 2018 17:17
[2018-04-03] MEDS: MORPHINE IR 15 MG TABLET PO PRN ×3 (11:30→19:57)
--- NOTE | 2018-04-03 12:49 | PDOC ---
Subjective: Subjective: "Bawled like a baby" earlier with abd pain, better now. Clears make upper abd pain worse, doing to try again for lunch. No stools in a few days, tried Colace, does NOT want Miralax because the last time he took that he was on the toilet for three hours and he can't handle that right now. Objective: Objective: D/w RN - wants pain meds round the clock, tolerating PO, walks the halls a lot, now just PO pain meds. Vital Signs: Vital Signs Date Time Temp Pulse Resp B/P (MAP) Pulse Ox O2 Delivery O2 Flow Rate FiO2 04/03/18 11:30 18 Room Air 04/03/18 10:50 98.4 55 131/77 (95) 99 98.4 Labs: Laboratory Tests Test 04/02/18 16:06 04/02/18 20:52 04/03/18 05:50 04/03/18 06:58 Glucose (Fingerstick) 288 mg/dL 343 mg/dL 395 mg/dL White Blood Count 5.3 x10^3/uL Red Blood Count 3.54 x10^6/uL Hemoglobin 11.6 g/dL Hematocrit 32.8 % Mean Corpuscular Volume 93 fL Mean Corpuscular Hemoglobin 33 pg Mean Corpuscular Hemoglobin Concent 35 g/dL Red Cell Distribution Width 14.4 % Platelet Count 179 x10^3/uL Neutrophils (%) (Auto) 67 % Lymphocytes (%) (Auto) 23 % Monocytes (%) (Auto) 7 % Eosinophils (%) (Auto) 3 % Basophils (%) (Auto) 1 % Neutrophils # (Auto) 3.5 x10^3uL Lymphocytes # (Auto) 1.2 x10^3/uL Monocytes # (Auto) 0.3 x10^3/uL Eosinophils # (Auto) 0.2 x10^3/uL Basophils # (Auto) 0.0 x10^3/uL Sodium Level 134 mmol/L Potassium Level 3.8 mmol/L Chloride Level 99 mmol/L Carbon Dioxide Level 29 mmol/L Anion Gap 6 Blood Urea Nitrogen 5 mg/dL Creatinine 1.0 mg/dL Estimated GFR (Cockcroft-Gault) 76.7 BUN/Creatinine Ratio 5 Glucose Level 361 mg/dL Calcium Level 8.6 mg/dL Total Bilirubin 0.6 mg/dL Aspartate Amino Transf (AST/SGOT) 19 U/L Alanine Aminotransferase (ALT/SGPT) 19 U/L Alkaline Phosphatase 72 U/L Total Protein 5.8 g/dL Albumin 2.9 g/dL Albumin/Globulin Ratio 1.0 Test 04/03/18 11:52 Glucose (Fingerstick) 213 mg/dL PE: GEN: NAD, walking from restroom to bed LUNGS: room air ABD: epigastric discomfort NEURO/PSYCH: A & O 3 A/P: Recurrent pancreatitis, abd pain -- Ongoing pain, much the same as past admissions. Continue MEAGAN almanza. OMAIRA GEORGE Apr 03, 2018 12:49
--- NOTE | 2018-04-03 13:32 | PDOC ---
PROGRESS NOTES Chief Complaint Chief Complaint pancreatitis, acute abd pain Acute onset epigastric pain, Obesity/overweight BMI 30 History V. tach -s table Hypertension controlled DM2 on insulin with hypoglycemic episodes Accelerated hypertension likely secondary to pain vasomotor nephropathy ETOH use prior History of Present Illness History of Present Illness Abdominal pain persists, change to PO pain meds Some relief with IV morphine , fentanyl - discussed trying to limit somepain with PO clear liquids, maintain for now, if able to take full liquid will DC Pancreatitis on CAT scan hypoglycemia days ago, insulin has been stopped Continue IV fluids 1 25 mL an hour-creatinine is improved to 1.3 from 1.6 Nothing by mouth post for now but okay with sips with meds Restart fentanyl alternating with morphine Vitals Vitals Vital Signs Date Time Temp Pulse Resp B/P (MAP) Pulse Ox O2 Delivery O2 Flow Rate FiO2 04/03/18 12:42 18 Room Air 04/03/18 10:50 98.4 55 131/77 (95) 99 98.4 Physical Exam General: Alert, Oriented X3, Cooperative, No acute distress Heart: Regular rate (SR), Normal S1, Normal S2 Lungs: Clear, Other Abdomen: Soft, Other (mild tenderness with palpation) Extremities: No cyanosis, No edema Skin: No breakdown, No significant lesion Labs LABS Laboratory Tests Test 04/02/18 16:06 04/02/18 20:52 04/03/18 05:50 04/03/18 06:58 Glucose (Fingerstick) 288 mg/dL (70-99) 343 mg/dL (70-99) 395 mg/dL (70-99) White Blood Count 5.3 x10^3/uL (4.0-11.0) Red Blood Count 3.54 x10^6/uL (4.30-5.70) Hemoglobin 11.6 g/dL (13.0-17.5) Hematocrit 32.8 % (39.0-53.0) Mean Corpuscular Volume 93 fL (79-100) Mean Corpuscular Hemoglobin 33 pg (25-35) Mean Corpuscular Hemoglobin Concent 35 g/dL (31-37) Red Cell Distribution Width 14.4 % (11.5-14.5) Platelet Count 179 x10^3/uL (140-400) Neutrophils (%) (Auto) 67 % (31-73) Lymphocytes (%) (Auto) 23 % (24-48) Monocytes (%) (Auto) 7 % (0-9) Eosinophils (%) (Auto) 3 % (0-3) Basophils (%) (Auto) 1 % (0-3) Neutrophils # (Auto) 3.5 x10^3uL (1.8-7.7) Lymphocytes # (Auto) 1.2 x10^3/uL (1.0-4.8) Monocytes # (Auto) 0.3 x10^3/uL (0.0-1.1) Eosinophils # (Auto) 0.2 x10^3/uL (0.0-0.7) Basophils # (Auto) 0.0 x10^3/uL (0.0-0.2) Sodium Level 134 mmol/L (136-145) Potassium Level 3.8 mmol/L (3.5-5.1) Chloride Level 99 mmol/L (98-107) Carbon Dioxide Level 29 mmol/L (21-32) Anion Gap 6 (6-14) Blood Urea Nitrogen 5 mg/dL (8-26) Creatinine 1.0 mg/dL (0.7-1.3) Estimated GFR (Cockcroft-Gault) 76.7 BUN/Creatinine Ratio 5 (6-20) Glucose Level 361 mg/dL (70-99) Calcium Level 8.6 mg/dL (8.5-10.1) Total Bilirubin 0.6 mg/dL (0.2-1.0) Aspartate Amino Transf (AST/SGOT) 19 U/L (15-37) Alanine Aminotransferase (ALT/SGPT) 19 U/L (16-63) Alkaline Phosphatase 72 U/L (46-116) Total Protein 5.8 g/dL (6.4-8.2) Albumin 2.9 g/dL (3.4-5.0) Albumin/Globulin Ratio 1.0 (1.0-1.7) Test 04/03/18 11:52 Glucose (Fingerstick) 213 mg/dL (70-99) Assessment and Plan Assessmemt and Plan Problems Medical Problems: (1) Acute renal insufficiency Status: Acute (2) Hyperglycemia Status: Acute (3) Intractable abdominal pain Status: Acute Comment Review of Relevant I have reviewed the following items javad (where applicable) has been applied. Labs Laboratory Tests Test 04/01/18 13:54 04/01/18 16:52 04/01/18 21:27 04/02/18 04:15 Glucose (Fingerstick) 184 mg/dL (70-99) 250 mg/dL (70-99) 193 mg/dL (70-99) Sodium Level 135 mmol/L (136-145) Potassium Level 3.5 mmol/L (3.5-5.1) Chloride Level 100 mmol/L (98-107) Carbon Dioxide Level 28 mmol/L (21-32) Anion Gap 7 (6-14) Blood Urea Nitrogen 8 mg/dL (8-26) Creatinine 0.9 mg/dL (0.7-1.3) Estimated GFR (Cockcroft-Gault) 86.7 Glucose Level 253 mg/dL (70-99) Calcium Level 8.5 mg/dL (8.5-10.1) Magnesium Level 1.5 mg/dL (1.8-2.4) Thyroid Stimulating Hormone (TSH) 0.791 uIU/mL (0.358-3.74) Test 04/02/18 07:06 04/02/18 08:15 04/02/18 10:51 04/02/18 16:06 Glucose (Fingerstick) 267 mg/dL (70-99) 196 mg/dL (70-99) 288 mg/dL (70-99) Urine Opiates Screen Pos (NEG) Urine Methadone Screen Neg (NEG) Urine Barbiturates Neg (NEG) Urine Phencyclidine Screen Neg (NEG) Urine Amphetamine/Methamphetamine Neg (NEG) Urine Benzodiazepines Screen Neg (NEG) Urine Cocaine Screen Neg (NEG) Urine Cannabinoids Screen Neg (NEG) Urine Ethyl Alcohol Neg (NEG) Test 04/02/18 20:52 04/03/18 05:50 04/03/18 06:58 04/03/18 11:52 Glucose (Fingerstick) 343 mg/dL (70-99) 395 mg/dL (70-99) 213 mg/dL (70-99) White Blood Count 5.3 x10^3/uL (4.0-11.0) Red Blood Count 3.54 x10^6/uL (4.30-5.70) Hemoglobin 11.6 g/dL (13.0-17.5) Hematocrit 32.8 % (39.0-53.0) Mean Corpuscular Volume 93 fL (79-100) Mean Corpuscular Hemoglobin 33 pg (25-35) Mean Corpuscular Hemoglobin Concent 35 g/dL (31-37) Red Cell Distribution Width 14.4 % (11.5-14.5) Platelet Count 179 x10^3/uL (140-400) Neutrophils (%) (Auto) 67 % (31-73) Lymphocytes (%) (Auto) 23 % (24-48) Monocytes (%) (Auto) 7 % (0-9) Eosinophils (%) (Auto) 3 % (0-3) Basophils (%) (Auto) 1 % (0-3) Neutrophils # (Auto) 3.5 x10^3uL (1.8-7.7) Lymphocytes # (Auto) 1.2 x10^3/uL (1.0-4.8) Monocytes # (Auto) 0.3 x10^3/uL (0.0-1.1) Eosinophils # (Auto) 0.2 x10^3/uL (0.0-0.7) Basophils # (Auto) 0.0 x10^3/uL (0.0-0.2) Sodium Level 134 mmol/L (136-145) Potassium Level 3.8 mmol/L (3.5-5.1) Chloride Level 99 mmol/L (98-107) Carbon Dioxide Level 29 mmol/L (21-32) Anion Gap 6 (6-14) Blood Urea Nitrogen 5 mg/dL (8-26) Creatinine 1.0 mg/dL (0.7-1.3) Estimated GFR (Cockcroft-Gault) 76.7 BUN/Creatinine Ratio 5 (6-20) Glucose Level 361 mg/dL (70-99) Calcium Level 8.6 mg/dL (8.5-10.1) Total Bilirubin 0.6 mg/dL (0.2-1.0) Aspartate Amino Transf (AST/SGOT) 19 U/L (15-37) Alanine Aminotransferase (ALT/SGPT) 19 U/L (16-63) Alkaline Phosphatase 72 U/L (46-116) Total Protein 5.8 g/dL (6.4-8.2) Albumin 2.9 g/dL (3.4-5.0) Albumin/Globulin Ratio 1.0 (1.0-1.7) Laboratory Tests Test 04/02/18 16:06 04/02/18 20:52 04/03/18 05:50 04/03/18 06:58 Glucose (Fingerstick) 288 mg/dL (70-99) 343 mg/dL (70-99) 395 mg/dL (70-99) White Blood Count 5.3 x10^3/uL (4.0-11.0) Red Blood Count 3.54 x10^6/uL (4.30-5.70) Hemoglobin 11.6 g/dL (13.0-17.5) Hematocrit 32.8 % (39.0-53.0) Mean Corpuscular Volume 93 fL (79-100) Mean Corpuscular Hemoglobin 33 pg (25-35) Mean Corpuscular Hemoglobin Concent 35 g/dL (31-37) Red Cell Distribution Width 14.4 % (11.5-14.5) Platelet Count 179 x10^3/uL (140-400) Neutrophils (%) (Auto) 67 % (31-73) Lymphocytes (%) (Auto) 23 % (24-48) Monocytes (%) (Auto) 7 % (0-9) Eosinophils (%) (Auto) 3 % (0-3) Basophils (%) (Auto) 1 % (0-3) Neutrophils # (Auto) 3.5 x10^3uL (1.8-7.7) Lymphocytes # (Auto) 1.2 x10^3/uL (1.0-4.8) Monocytes # (Auto) 0.3 x10^3/uL (0.0-1.1) Eosinophils # (Auto) 0.2 x10^3/uL (0.0-0.7) Basophils # (Auto) 0.0 x10^3/uL (0.0-0.2) Sodium Level 134 mmol/L (136-145) Potassium Level 3.8 mmol/L (3.5-5.1) Chloride Level 99 mmol/L (98-107) Carbon Dioxide Level 29 mmol/L (21-32) Anion Gap 6 (6-14) Blood Urea Nitrogen 5 mg/dL (8-26) Creatinine 1.0 mg/dL (0.7-1.3) Estimated GFR (Cockcroft-Gault) 76.7 BUN/Creatinine Ratio 5 (6-20) Glucose Level 361 mg/dL (70-99) Calcium Level 8.6 mg/dL (8.5-10.1) Total Bilirubin 0.6 mg/dL (0.2-1.0) Aspartate Amino Transf (AST/SGOT) 19 U/L (15-37) Alanine Aminotransferase (ALT/SGPT) 19 U/L (16-63) Alkaline Phosphatase 72 U/L (46-116) Total Protein 5.8 g/dL (6.4-8.2) Albumin 2.9 g/dL (3.4-5.0) Albumin/Globulin Ratio 1.0 (1.0-1.7) Test 04/03/18 11:52 Glucose (Fingerstick) 213 mg/dL (70-99) Medications Current Medications Fentanyl Citrate (Fentanyl 2ml Vial) 50 mcg 1X ONCE IV Last administered on at 21:15; Start 03/30/18 at 20:30; Stop 03/30/18 at 20:31; Status DC Famotidine (Pepcid Vial) 20 mg 1X ONCE IVP Last administered on 03/30/18at 21: 15; Start 03/30/18 at 20:30; Stop 03/30/18 at 20:31; Status DC Ondansetron HCl (Zofran) 4 mg 1X ONCE IV Last administered on 03/30/18at 21:15 ; Start 03/30/18 at 20:30; Stop 03/30/18 at 20:31; Status DC Sodium Chloride 1,000 ml @ 1,000 mls/hr 1X ONCE IV Last administered on at 21:15; Start 03/30/18 at 20:30; Stop 03/30/18 at 21:29; Status DC Hyoscyamine (Anaspaz) 0.25 mg 1X ONCE PO Last administered on 03/30/18at 22:00 ; Start 03/30/18 at 22:00; Stop 03/30/18 at 22:01; Status DC Lorazepam (Ativan) 1 mg 1X ONCE IV Last administered on 03/30/18at 22:00; Start 03/30/18 at 22:00; Stop 03/30/18 at 22:01; Status DC Insulin Human Regular (HumuLIN R VIAL) 10 unit 1X ONCE SQ Last administered on 03/30/18at 22:00; Start 03/30/18 at 22:00; Stop 03/30/18 at 22:01; Status DC Fentanyl Citrate (Fentanyl 2ml Vial) 75 mcg PRN Q2HRS PRN IV SEVERE PAIN Last administered on 03/30/18at 23:40; Start 03/30/18 at 23:15; Stop 03/31/18 at 16:23 ; Status DC Morphine Sulfate (Morphine Sulfate) 2 mg PRN Q2HR PRN IV MILD PAIN Last administered on 04/03/18at 09:12; Start 03/31/18 at 00:45; Stop 04/03/18 at 09:42 ; Status DC Zolpidem Tartrate (Ambien) 5 mg PRN QHS PRN PO INSOMNIA Last administered on at 23:28; Start 03/31/18 at 01:15 Morphine Sulfate (Morphine Sulfate) 4 mg PRN Q2HR PRN IV MODERATE PAIN Last administered on 04/03/18at 05:57; Start 03/31/18 at 01:15 Ondansetron HCl (Zofran) 4 mg PRN Q6HRS PRN IV NAUSEA/VOMITING 1ST CHOICE Last administered on 04/03/18at 11:27; Start 03/31/18 at 03:00 Oxycodone/ Acetaminophen (Percocet 10/325) 1 tab PRN Q4HRS PRN PO PAIN Last administered on 04/02/18at 00:58; Start 03/31/18 at 08:30 Sodium Chloride 1,000 ml @ 125 mls/hr Q8H IV Last administered on 04/01/18at 10 :00; Start 03/31/18 at 10:00; Stop 04/01/18 at 13:16; Status DC Sodium Chloride 1,000 ml @ 1,000 mls/hr 1X ONCE IV Last administered on at 11:24; Start 03/31/18 at 09:00; Stop 03/31/18 at 09:59; Status DC Labetalol HCl (Normodyne Iv Push) 20 mg PRN Q2HR PRN IVP HYPERTENSION, SEE COMMENTS; Start 03/31/18 at 08:30 Insulin Human Lispro (HumaLOG) 0-9 UNITS TIDWMEALS SQ Last administered on 04/02 09:06; Start 03/31/18 at 12:00; Stop 04/02/18 at 16:10; Status DC Dextrose (Dextrose 50%-Water Syringe) 12.5 gm PRN Q15MIN PRN IV SEE COMMENTS Last administered on 04/01/18 13:06; Start 03/31/18 at 08:30 Aspirin (Yolanda Aspirin) 325 mg DAILY PO Last administered on 04/03/18 09:10; Start 03/31/18 at 09:00 Atorvastatin Calcium (Lipitor) 40 mg DAILY PO Last administered on 04/03/18 09 :10; Start 03/31/18 at 09:00 Carvedilol (Coreg) 3.125 mg BIDWMEALS PO Last administered on 04/01/18 17:33; Start 03/31/18 at 09:00; Stop 04/02/18 at 09:11; Status DC Fluoxetine HCl (PROzac) 20 mg DAILY PO Last administered on 04/03/18 09:10; Start 03/31/18 at 09:00 Insulin Glargine (Lantus) 25 units DAILY07 SQ Last administered on 04/01/18at 06 :54; Start 03/31/18 at 09:00; Stop 04/01/18 at 12:13; Status DC Insulin Glargine (Lantus) 35 units HS SQ ; Start 03/31/18 at 21:00; Stop at 12:13; Status DC Insulin Human Lispro (HumaLOG) 20 units TIDAC SQ Last administered on at 08:52; Start 03/31/18 at 11:30; Stop 04/01/18 at 12:13; Status DC Isosorbide Mononitrate (Imdur) 60 mg DAILY PO Last administered on 04/03/18 09 :10; Start 03/31/18 at 09:00 Lactobacillus Rhamnosus (Culturelle) 1 cap BID PO Last administered on at 09:10; Start 03/31/18 at 09:00 Pantoprazole Sodium (Protonix) 40 mg DAILYAC PO Last administered on 04/03/18 09:10; Start 03/31/18 at 09:00 Amlodipine Besylate (Norvasc) 5 mg DAILY PO Last administered on 04/01/18at 08: 44; Start 03/31/18 at 09:00; Stop 04/02/18 at 09:11; Status DC Hydralazine HCl (Apresoline) 10 mg TID PO Last administered on 04/03/18at 09:11 ; Start 03/31/18 at 09:00 Pantoprazole Sodium (Protonix) 40 mg DAILYAC PO ; Start 04/01/18 at 07:30; Status UNV Pantoprazole Sodium (Protonix) 40 mg 1X ONCE PO ; Start 03/31/18 at 10:45; Stop 03/31/18 at 10:46; Status UNV Lorazepam (Ativan) 2 mg 1X ONCE IV Last administered on 03/31/18at 14:49; Start 03/31/18 at 15:00; Stop 03/31/18 at 15:01; Status DC Fentanyl Citrate (Fentanyl 2ml Vial) 75 mcg PRN Q2HR PRN IV SEVERE PAIN Last administered on 04/03/18at 12:42; Start 04/01/18 at 12:00 Famotidine (Pepcid Vial) 20 mg BID IVP Last administered on 04/01/18at 13:11; Start 04/01/18 at 13:00; Stop 04/01/18 at 13:40; Status DC Fentanyl Citrate (Fentanyl 2ml Vial) 75 mcg PRN Q2HR PRN IV SEVERE PAIN; Start 04/01/18 at 12:15; Stop 04/01/18 at 16:20; Status DC Dextrose/Sodium Chloride 1,000 ml @ 125 mls/hr Q8H IV Last administered on at 13:15; Start 04/01/18 at 13:15; Stop 04/02/18 at 08:49; Status DC Potassium Chloride/Dextrose/ Sod Cl 1,000 ml @ 75 mls/hr [id number] IV Last administered on 04/02/18at 23:29; Start 04/01/18 at 20:00; Stop 04/03/18 at 12:22 ; Status DC Magnesium Sulfate/ Dextrose 100 ml @ 25 mls/hr 1X ONCE IV Last administered on 04/02/18at 09:48; Start 04/02/18 at 09:15; Stop 04/02/18 at 13:14; Status DC Metoprolol Tartrate (Lopressor) 25 mg BID PO Last administered on 04/03/18at 09: 11; Start 04/02/18 at 21:00 Clopidogrel Bisulfate (Plavix) 75 mg DAILYWBKFT PO Last administered on at 09:10; Start 04/03/18 at 08:00 Clopidogrel Bisulfate (Plavix) 75 mg 1X ONCE PO Last administered on at 10:47; Start 04/02/18 at 10:00; Stop 04/02/18 at 10:01; Status DC Insulin Human Lispro (HumaLOG) 0-7 UNITS TIDWMEALS SQ Last administered on 04/03at 12:46; Start 04/02/18 at 17:00 Dextrose (Dextrose 50%-Water Syringe) 12.5 gm PRN Q15MIN PRN IV SEE COMMENTS; Start 04/02/18 at 13:15 Insulin Human Lispro (HumaLOG) 4 units 1X ONCE SQ Last administered on at 22:04; Start 04/02/18 at 21:15; Stop 04/02/18 at 21:19; Status DC Polyethylene Glycol (miraLAX PACKET) 17 gm PRN DAILY PRN PO CONSTIPATION; Start 04/02/18 at 21:15 Docusate Sodium (Colace) 100 mg PRN DAILY PRN PO CONSTIPATION Last administered on 04/02/18at 21:59; Start 04/02/18 at 21:15 Morphine Sulfate (Morphine Ir) 15 mg PRN Q4HRS PRN PO MODERATE PAIN Last administered on 04/03/18at 11:30; Start 04/03/18 at 09:45 Active Scripts Active Potassium Chloride 20 Meq Tablet.er 20 Meq PO DAILY 30 Days Furosemide 40 Mg Tablet 1 Tab PO DAILY Reported Novolog Flexpen (Insulin Aspart) 100 Unit/1 Ml Insuln.pen 20 Unit SQ TIDAC Lantus Solostar (Insulin Glargine,Hum.rec.anlog) 100 Unit/1 Ml Insuln.pen 35 Unit SQ HS Lantus Solostar (Insulin Glargine,Hum.rec.anlog) 100 Unit/1 Ml Insuln.pen 25 Unit SQ DAILY07 Culturelle (Lactobacillus Rhamnosus Gg) 1 Each Capsule 1 Each PO BID Prozac (Fluoxetine Hcl) 20 Mg Capsule 20 Mg PO DAILY Atorvastatin Calcium 40 Mg Tablet 1 Tab PO DAILY Isosorbide Mononitrate 20 Mg Tablet 60 Mg PO DAILY Clopidogrel (Clopidogrel Bisulfate) 75 Mg Tablet 75 Mg PO DAILY Coreg (Carvedilol) 3.125 Mg Tablet 3.125 Mg PO BIDWMEALS Aspirin 325 Mg Tablet 325 Mg PO DAILY Protonix (Pantoprazole Sodium) 20 Mg Tablet.dr 1 Tab PO DAILY Chlorthalidone 25 Mg Tablet 1 Tab PO DAILY Lisinopril 40 Mg Tablet 1 Tab PO DAILY Spironolactone 25 Mg Tablet 1 Tab PO DAILY Vitals/I & O Vital Sign - Last 24 Hours 04/02/18 04/02/18 04/02/18 04/02/18 14:21 14:40 15:16 16:20 Temp 97.7 97.7 Pulse 68 Resp 18 B/P (MAP) 129/77 (94) Pulse Ox 97 O2 Delivery Room Air Room Air Room Air Room Air 04/02/18 04/02/18 04/02/18 04/02/18 17:28 17:31 19:12 20:10 Temp 98.8 98.8 Pulse 60 Resp 18 B/P (MAP) 142/87 (105) Pulse Ox 99 O2 Delivery Room Air Room Air Room Air Room Air 04/02/18 04/02/18 04/02/18 04/03/18 20:37 20:37 23:24 02:36 Temp 98.2 97.9 98.2 97.9 Pulse 60 60 54 57 Resp 18 18 B/P (MAP) 142/87 142/87 145/80 (101) 115/79 (91) Pulse Ox 99 98 O2 Delivery Room Air Room Air 04/03/18 04/03/18 04/03/18 04/03/18 06:45 07:21 07:51 09:10 Temp 97.9 97.9 Pulse 64 64 Resp 18 18 B/P (MAP) 156/87 (110) 156/87 Pulse Ox 92 O2 Delivery Room Air Room Air Room Air 04/03/18 04/03/18 04/03/18 04/03/18 09:11 09:11 09:12 10:50 Temp 98.4 98.4 Pulse 64 64 55 Resp 18 18 B/P (MAP) 156/87 156/87 131/77 (95) Pulse Ox 99 O2 Delivery Room Air Room Air 04/03/18 04/03/18 04/03/18 11:30 12:30 12:42 Resp 18 17 18 O2 Delivery Room Air Room Air Room Air Intake and Output 04/02/18 04/02/18 04/03/18 15:00 23:00 07:00 Intake Total 0 ml 600 ml 1140 ml Balance 0 ml 600 ml 1140 ml SURY ANDERSEN MD Apr 03, 2018 13:32
[2018-04-03 15:01] VITALS: BP 125/71
[2018-04-03 19:50] VITALS: BP 149/75
[2018-04-03] MEDS ORDERED: INSULIN GLARGINE 300 UNITS/3 ML INSULN.PEN. SQ SCH (21:00)
[2018-04-03 23:23] VITALS: BP 146/77
[2018-04-03] MEDS: ZOLPIDEM 5 MG TABLET. PO PRN (23:38)
[2018-04-04 02:16] LABS: HEMOGLOBIN A1C 7.8 % (4.8-5.6)
[2018-04-04] MEDS: MORPHINE IR 15 MG TABLET PO PRN ×3 (02:37→10:42)
[2018-04-04 03:01] VITALS: BP 160/83
[2018-04-04] MEDS: MORPHINE SULFATE 4 MG/ML VIAL. IV PRN ×2 (04:40→09:03)
[2018-04-04 07:00] VITALS: BP 165/79
[2018-04-04] MEDS: hydrALAZINE 10 MG TABLET PO SCH (09:01)
[2018-04-04] MEDS: LACTOBACILLUS RHAMNOSUS GG 1 CAPSULE. PO SCH (09:01)
[2018-04-04] MEDS: ISOSORBIDE MONONITRATE ER 30 MG TAB.ER.24H PO SCH (09:01)
[2018-04-04] MEDS: PANTOPRAZOLE 40 MG TABLET.DR. PO SCH (09:01)
[2018-04-04] MEDS: ATORVASTATIN CALCIUM 40 MG TABLET. PO SCH (09:01)
[2018-04-04] MEDS: METOPROLOL TART IMMED RELEASE 25 MG TABLET. PO SCH (09:02)
[2018-04-04] MEDS: FLUoxetine HCL 20 MG CAPSULE PO SCH (09:02)
[2018-04-04] MEDS: CLOPIDOGREL BISULFATE 75 MG TABLET PO SCH (09:02)
[2018-04-04] MEDS: ONDANSETRON PF 4 MG/2 ML VIAL. IV PRN (09:03)
[2018-04-04] MEDS: ASPIRIN 325 MG TABLET PO SCH (09:06)
[2018-04-04] MEDS: INSULIN LISPRO 300 UNITS/3 ML INSULN.PEN. SQ SCH ×3 (09:14→12:00)
[2018-04-04] MEDS ORDERED: IV NORMAL SALINE 1000ML BAG 1,000 ML IV ONE (10:30)
[2018-04-04] MEDS: DOCUSATE SODIUM 100 MG CAPSULE. PO PRN (10:42)
[2018-04-04 11:00] VITALS: BP 145/80
--- NOTE | 2018-04-04 11:41 | PDOC3 ---
Discharge Summary Visit Information Date of Admission: Mar 30, 2018 Date of Discharge: Apr 04, 2018 Admitting Diagnosis: acute abd pain Final Diagnosis pancreatitis, acute abd pain Acute onset epigastric pain, Obesity/overweight BMI 30 History V. tach -s table Hypertension controlled DM2 on insulin hypoglycemic here when not eating Accelerated hypertension likely secondary to pain vasomotor nephropathy ETOH use prior Problems Medical Problems: (1) Acute renal insufficiency Status: Acute (2) Hyperglycemia Status: Acute (3) Intractable abdominal pain Status: Acute Brief Hospital Course Allergies Allergies Coded Allergies Type Severity Reaction Last Updated Verified glyburide Allergy Intermediate 12/24/17 Yes ketorolac Adverse Reaction Intermediate vomiting 09/03/17 Yes tramadol Adverse Reaction Intermediate vomiting 09/03/17 Yes Vital Signs Vital Signs Date Time Temp Pulse Resp B/P (MAP) Pulse Ox O2 Delivery O2 Flow Rate FiO2 04/04/18 09:33 Room Air 04/04/18 09:02 60 160/83 04/04/18 07:00 99.5 18 100 99.5 Lab Results Laboratory Tests Test 04/02/18 16:06 04/02/18 20:52 04/03/18 05:50 04/03/18 06:58 Glucose (Fingerstick) 288 mg/dL (70-99) 343 mg/dL (70-99) 395 mg/dL (70-99) White Blood Count 5.3 x10^3/uL (4.0-11.0) Red Blood Count 3.54 x10^6/uL (4.30-5.70) Hemoglobin 11.6 g/dL (13.0-17.5) Hematocrit 32.8 % (39.0-53.0) Mean Corpuscular Volume 93 fL (79-100) Mean Corpuscular Hemoglobin 33 pg (25-35) Mean Corpuscular Hemoglobin Concent 35 g/dL (31-37) Red Cell Distribution Width 14.4 % (11.5-14.5) Platelet Count 179 x10^3/uL (140-400) Neutrophils (%) (Auto) 67 % (31-73) Lymphocytes (%) (Auto) 23 % (24-48) Monocytes (%) (Auto) 7 % (0-9) Eosinophils (%) (Auto) 3 % (0-3) Basophils (%) (Auto) 1 % (0-3) Neutrophils # (Auto) 3.5 x10^3uL (1.8-7.7) Lymphocytes # (Auto) 1.2 x10^3/uL (1.0-4.8) Monocytes # (Auto) 0.3 x10^3/uL (0.0-1.1) Eosinophils # (Auto) 0.2 x10^3/uL (0.0-0.7) Basophils # (Auto) 0.0 x10^3/uL (0.0-0.2) Sodium Level 134 mmol/L (136-145) Potassium Level 3.8 mmol/L (3.5-5.1) Chloride Level 99 mmol/L (98-107) Carbon Dioxide Level 29 mmol/L (21-32) Anion Gap 6 (6-14) Blood Urea Nitrogen 5 mg/dL (8-26) Creatinine 1.0 mg/dL (0.7-1.3) Estimated GFR (Cockcroft-Gault) 76.7 BUN/Creatinine Ratio 5 (6-20) Glucose Level 361 mg/dL (70-99) Hemoglobin A1c 7.8 % (4.8-5.6) Calcium Level 8.6 mg/dL (8.5-10.1) Total Bilirubin 0.6 mg/dL (0.2-1.0) Aspartate Amino Transf (AST/SGOT) 19 U/L (15-37) Alanine Aminotransferase (ALT/SGPT) 19 U/L (16-63) Alkaline Phosphatase 72 U/L (46-116) Total Protein 5.8 g/dL (6.4-8.2) Albumin 2.9 g/dL (3.4-5.0) Albumin/Globulin Ratio 1.0 (1.0-1.7) Test 04/03/18 11:52 04/03/18 17:05 04/03/18 21:06 04/04/18 08:29 Glucose (Fingerstick) 213 mg/dL (70-99) 356 mg/dL (70-99) 166 mg/dL (70-99) 383 mg/dL (70-99) Laboratory Tests Test 04/03/18 11:52 04/03/18 17:05 04/03/18 21:06 04/04/18 08:29 Glucose (Fingerstick) 213 mg/dL (70-99) 356 mg/dL (70-99) 166 mg/dL (70-99) 383 mg/dL (70-99) Brief Hospital Course Mr. Castellanos is a 57 old male, [facility], mult comorbidities amdit for abd pain, pancreatitis on imaging, lipase mostly normal NPO, then slowly advance diet, pain better, IV Fluid improved his renal fxn Discharge Information Condition at Discharge: Improved Follow Up: Weeks Disposition/Orders: D/C to Home Scheduled Aspirin (Aspirin) 325 Mg Tablet, 325 MG PO DAILY, (Reported) Entered as Reported by: WOO HASKINS on 12/28/171221 Last Action: Continued on 03/31/18819 by JOANIE BAL Atorvastatin Calcium (Atorvastatin Calcium) 40 Mg Tablet, 1 TAB PO DAILY, #30 Ref 5 (Reported) Entered as Reported by: Seferino Feliciano on 02/21/18229 Last Action: Continued on 03/31/18819 by JOANIE BAL Carvedilol (Coreg) 3.125 Mg Tablet, 3.125 MG PO BIDWMEALS, (Reported) Entered as Reported by: WOO HASKINS on 12/28/171221 Last Action: Continued on 03/31/18819 by JOANIE BAL Chlorthalidone (Chlorthalidone) 25 Mg Tablet, 1 TAB PO DAILY, #30 Ref 5 ( Reported) Entered as Reported by: Vivien Morgan on 12/24/17 125 Last Action: HELD on 03/31/18819 by JOANIE BAL Clopidogrel Bisulfate (Clopidogrel) 75 Mg Tablet, 75 MG PO DAILY for TO PREVENT BLOOD CLOTS, #30 Ref 0 (Reported) Entered as Reported by: WOO HASKINS on 12/28/171221 Fluoxetine Hcl (Prozac) 20 Mg Capsule, 20 MG PO DAILY, (Reported) Entered as Reported by: Seferino Feliciano on 02/21/18229 Last Action: Continued on 03/31/18819 by JOANIE BAL Furosemide (Furosemide) 40 Mg Tablet, 1 TAB PO DAILY, #30 Ref 0 Prescribed by: TYSHAWN SHARMA MD on 02/27/18416 Last Action: HELD on 03/31/18820 by JOANIE BAL Insulin Aspart (Novolog Flexpen) 100 Unit/1 Ml Insuln.pen, 20 UNIT SQ TIDAC, ( Reported) Entered as Reported by: Seferino Feliciano on 02/21/18229 Last Action: Converted on 03/31/18820 by JOANIE ALCOCERO Insulin Glargine,Hum.rec.anlog (Lantus Solostar) 100 Unit/1 Ml Insuln.pen, 25 UNIT SQ DAILY07, (Reported) Entered as Reported by: Seferino Feliciano on 02/21/18229 Last Action: Continued on 03/31/18820 by JOANIE HEIDYULO Insulin Glargine,Hum.rec.anlog (Lantus Solostar) 100 Unit/1 Ml Insuln.pen, 35 UNIT SQ HS, (Reported) Entered as Reported by: Seferino Feliciano on 02/21/18229 Last Action: Continued on 03/31/18820 by JOANIECarter ALCOCERO Isosorbide Mononitrate (Isosorbide Mononitrate) 20 Mg Tablet, 60 MG PO DAILY, ( Reported) Entered as Reported by: WOO HASKINS on 12/28/17 1223 Last Action: Converted on 03/31/18819 by JOANIECarter ALCOCERO Lactobacillus Rhamnosus Gg (Culturelle) 1 Each Capsule, 1 EACH PO BID, (Reported ) Entered as Reported by: Seferino Feliciano on 02/21/18229 Last Action: Converted on 03/31/18820 by JOANIE LEODANO Lisinopril (Lisinopril) 40 Mg Tablet, 1 TAB PO DAILY, #30 Ref 5 (Reported) Entered as Reported by: Jax Singh on 09/13/17 1044 Last Action: HELD on 03/31/18819 by JOANIE HEIDYULO Pantoprazole Sodium (Protonix) 20 Mg Tablet.dr, 1 TAB PO DAILY, #30 (Reported) Entered as Reported by: Vivien Morgan on 12/24/17 1250 Last Action: Converted on 03/31/18819 by JOANIE HEIDYULO Potassium Chloride (Potassium Chloride) 20 Meq Tablet.er, 20 MEQ PO DAILY for 30 Days, #30 Prescribed by: TYSHAWN SHARMA MD on 02/27/18 0417 Last Action: HELD on 03/31/18820 by JOANIE BAL Spironolactone (Spironolactone) 25 Mg Tablet, 1 TAB PO DAILY, #90 Ref 1 ( Reported) Entered as Reported by: HANSEL HENDRICKS on 09/03/171115 Last Action: HELD on 03/31/18819 by JOANIE BAL Discontinued Medications Amiodarone Hcl (Amiodarone Hcl) 100 Mg Tablet, 200 MG PO DAILY, (Reported) Entered as Reported by: HANSEL HENDRICKS on 09/03/171115 Last Action: Discontinued on 03/31/189 by ALLA NAGEL Patient Instructions Patient Instructions > 30 min SURY ANDERSEN MD Apr 04, 2018 11:41
[2018-04-04] MEDS ORDERED: MORP15TA PO (11:48)
[2018-04-04] MEDS ORDERED: PROC10TA57 PO (11:48)
[2018-04-04] MEDS ORDERED: INSULIN LISPRO 300 UNITS/3 ML INSULN.PEN. SQ SCH (12:00)
--- NOTE | 2018-04-04 13:01 | PDOC ---
Subjective: Subjective: Seen prior to DC when he was walking the halls. Eating better - has pain but is controlled w/ PO meds. Feels ready to go home. Objective: Vital Signs: Vital Signs Date Time Temp Pulse Resp B/P (MAP) Pulse Ox O2 Delivery O2 Flow Rate FiO2 04/04/18 11:00 97.5 56 18 145/80 (101) 98 Room Air 97.5 Labs: Laboratory Tests Test 04/03/18 17:05 04/03/18 21:06 04/04/18 08:29 04/04/18 11:30 Glucose (Fingerstick) 356 mg/dL (70-99) 166 mg/dL (70-99) 383 mg/dL (70-99) 93 mg/dL (70-99) PE: GEN: NAD, walking around NEURO/PSYCH: A & O 3 A/P: Recurrent pancreatitis, abd pain -- Improved, tolerating PO. DC per primary. OMAIRA GEORGE Apr 04, 2018 13:01
[2018-04-04] MEDS ORDERED: INSULIN GLARGINE 300 UNITS/3 ML INSULN.PEN. SQ SCH (21:00)
== END 2018-04-04 13:00 | disposition home or self-care (01) | DRG 438 ==
LOC: ER 17:56 → 6 SOUTH 21:50
PROVIDERS: ADMIT Internal Medicine; ATTEND Internal Medicine
DX: K85.90 Acute pancreatitis without necrosis or infection, unspecified (principal); N17.0 Acute kidney failure with tubular necrosis; I47.2 Ventricular tachycardia; K86.1 Other chronic pancreatitis; I11.0 Hypertensive heart disease with heart failure; E86.0 Dehydration; I25.10 Atherosclerotic heart disease of native coronary artery without angina pectoris; E11.65 Type 2 diabetes mellitus with hyperglycemia; I50.9 Heart failure, unspecified; E78.5 Hyperlipidemia, unspecified; K21.9 Gastro-esophageal reflux disease without esophagitis; F41.9 Anxiety disorder, unspecified; M19.90 Unspecified osteoarthritis, unspecified site; E66.9 Obesity, unspecified; F17.210 Nicotine dependence, cigarettes, uncomplicated; K76.0 Fatty (change of) liver, not elsewhere classified; Z96.652 Presence of left artificial knee joint; I25.5 Ischemic cardiomyopathy; E11.649 Type 2 diabetes mellitus with hypoglycemia without coma; Z95.5 Presence of coronary angioplasty implant and graft; Z90.49 Acquired absence of other specified parts of digestive tract; I25.2 Old myocardial infarction; Z88.6 Allergy status to analgesic agent; Z88.8 Allergy status to other drugs, medicaments and biological substances; Z87.442 Personal history of urinary calculi; Z83.3 Family history of diabetes mellitus; Z82.3 Family history of stroke; Z82.49 Family history of ischemic heart disease and other diseases of the circulatory system; Z68.30 Body mass index [BMI] 30.0-30.9, adult; Z80.9 Family history of malignant neoplasm, unspecified; Z79.4 Long term (current) use of insulin
CPT/HCPCS: 36415; 71046; 74176; 80048; 80053; 80307; 82550; 82962; 83036; 83690; 83735; 84443; 84484; 85025; 85610; 85730; 93005; 93308; 96374; G0480; J1815; J2060; J2270; J2405; J3010; J3475; J7030; J7042; S0028; 99285-25; G0479